=== PATIENT | male | born 1960 | race Caucasian/White ===

== ENCOUNTER 2019-08-13 11:43 | Outpatient (CLI) | payer OTHER, SELFPAY ==
[2019-08-13 13:05] LABS: Hematocrit 46.9 % (42.0-52.0); Hemoglobin 15.2 g/dL (14.0-18.0); Mean Corpuscular HGB Conc 32.4 g/dl (32-36); Mean Corpuscular Hemoglobin 28.8 pg (26-34); Mean Corpuscular Volume 88.8 fl (80-100); Mean Platelet Volume 10.4 fl (7.4-10.4); Platelet Count Result 445 k/mm3 (150-375); Red Blood Count 5.28 M/mm3 (4.6-6.20); Red Cell Distribution Width 14.5 % (11.5-14.5); White Blood Count 5.8 K/mm3 (4.5-10.0)
[2019-08-13 13:21] LABS: Alanine Aminotransferase 17 U/L (4-50); Albumin Level 4.4 g/dL (3.5-5.1); Alkaline Phosphatase 129 U/L (38-126); Aspartate Amino Transferase 25 U/L (17-59); Bilirubin,Total 0.3 mg/dL (0.2-1.3); Blood Urea Nitrogen 6 mg/dL (9-20); Calcium 9.2 mg/dL (8.4-10.2); Carbon Dioxide 27 mmol/L (22-30); Chloride 96 mmol/L (98-107); Estimated Glomerular Filt Rate > 60; Glucose 93 mg/dL (75-110); Potassium 4.7 mmol/L (3.4-5.0); Sodium 137 mmol/L (137-145)
[2019-08-13 13:51] LABS: Prostate Specific Antigen 0.6 ng/mL (< OR = 4.0)
== END 2019-08-13 11:44 | disposition home or self-care (01) ==
PROVIDERS: PCP Internal Medicine; Visit Provider Nurse Practitioner
DX: Z12.5 Encounter for screening for malignant neoplasm of prostate (principal); Z79.899 Other long term (current) drug therapy; I10 Essential (primary) hypertension
CPT/HCPCS: 36415; 80053; 84153; 84443; 85027; G0103

== ENCOUNTER 2019-11-03 10:43 | Outpatient (CLI) | payer OTHER, SELFPAY ==
--- NOTE | 2019-11-03 12:00 | NEURO_ITS ---
Patient Number: [id number] Impression: # Complains of numbness of hands. History of neck surgery X 3. # No Carpal Tunnel Syndrome. 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 # Normal needle/EMG exam. # Likely symptomatology due to higher problem. Nerve Conduction Studies Anti Sensory Summary Table Stim Site NR Peak (ms) P-T Amp (?V) Site1 Site2 Delta-P (ms) Dist (cm) Navdeep (m/s) Left Median Anti Sensory (2-3nd Digit) Wrist 2.8 29.3 Wrist 2-3nd Digit 2.8 14.0 50 Wrist 3.0 30.7 Wrist 2-3nd Digit 2.8 14.0 50 Right Median Anti Sensory (2-3nd Digit) Wrist 2.7 60.8 Wrist 2-3nd Digit 2.7 14.0 52 Wrist 2.8 51.2 Wrist 2-3nd Digit 2.7 14.0 52 Left Radial Anti Sensory (Base 1st Digit) Wrist 2.2 18.6 Wrist Base 1st Digit 2.2 0.0 Right Radial Anti Sensory (Base 1st Digit) Wrist 2.3 10.8 Wrist Base 1st Digit 2.3 0.0 Left Ulnar Anti Sensory (5th Digit) Wrist 3.0 40.5 Wrist 5th Digit 3.0 14.0 47 Right Ulnar Anti Sensory (5th Digit) Wrist 2.5 47.1 Wrist 5th Digit 2.5 14.0 56 Motor Summary Table Stim Site NR Onset (ms) O-P Amp (mV) Site1 Site2 Delta-0 (ms) Dist (cm) Navdeep (m/s) Left Median Motor (Abd Poll Brev) Wrist 3.4 4.4 Elbow Wrist 5.2 30.0 58 Elbow 8.6 3.6 Right Median Motor (Abd Poll Brev) Wrist 3.6 2.6 Elbow Wrist 5.2 29.0 56 Elbow 8.8 3.3 Left Ulnar Motor (Abd Dig Minimi) Wrist 2.6 8.3 A Elbow Wrist 5.6 30.0 54 A Elbow 8.2 4.4 Right Ulnar Motor (Abd Dig Minimi) Wrist 2.7 7.0 A Elbow Wrist 5.7 29.0 51 A Elbow 8.4 5.1 B Elbow Wrist 4.4 21.0 48 B Elbow 7.1 4.2 F Wave Studies NR F-Lat (ms) L-R F-Lat (ms) Left Median (Mrkrs) (Abd Poll Brev) 27.66 1.04 Right Median (Mrkrs) (Abd Poll Brev) 28.69 1.04 Left Ulnar (Mrkrs) (Abd Dig Min) 28.11 1.25 Right Ulnar (Mrkrs) (Abd Dig Min) 26.87 1.25 EMG Side Muscle Nerve Root Ins Act Fibs Amp Dur Recrt Comment Right 1stDorInt Ulnar C8-T1 Nml Nml Nml Nml Nml Right Ext Indicis Radial (Post Int) C7-8 Nml Nml Nml Nml Nml Right Ext Digitorum Radial (Post Int) C7-8 Nml Nml Nml Nml Nml Right BrachioRad Radial C5-6 Nml Nml Nml Nml Nml Right PronatorTeres Median C6-7 Nml Nml Nml Nml Nml Right Abd Poll Brev Median C8-T1 Nml Nml Nml Nml Nml Left 1stDorInt Ulnar C8-T1 Nml Nml Nml Nml Nml Left Ext Indicis Radial (Post Int) C7-8 Nml Nml Nml Nml Nml Left Ext Digitorum Radial (Post Int) C7-8 Nml Nml Nml Nml Nml Left BrachioRad Radial C5-6 Nml Nml Nml Nml Nml Left PronatorTeres Median C6-7 Nml Nml Nml Nml Nml Left Abd Poll Brev Median C8-T1 Nml Nml Nml Nml Nml Right Biceps Musculocut C5-6 Nml Nml Nml Nml Nml Right Triceps Radial C6-7-8 Nml Nml Nml Nml Nml Right Deltoid Axillary C5-6 Nml Nml Nml Nml Nml Left Biceps Musculocut C5-6 Nml Nml Nml Nml Nml Left Triceps Radial C6-7-8 Nml Nml Nml Nml Nml Left Deltoid Axillary C5-6 Nml Nml Nml Nml Nml MTDD
== END 2019-11-03 10:44 | disposition home or self-care (01) ==
PROVIDERS: PCP Internal Medicine; Visit Provider Internal Medicine
DX: R20.2 Paresthesia of skin (principal); G56.21 Lesion of ulnar nerve, right upper limb
CPT/HCPCS: 95886; 95911

== ENCOUNTER 2020-02-17 09:34 | Outpatient (CLI) | payer OTHER, SELFPAY ==
[2020-02-17 10:20] LABS: Basophils Absolute Auto 0.1 K/mm3 (0.0-0.1); Basophils Percent Auto 0.8 % (0.2-1.2); Eosinophils Absolute Auto 0.2 K/mm3 (0-0.3); Eosinophils Percent Auto 2.5 % (0-4.4); Hematocrit 44.3 % (42.0-52.0); Immature Granulocyte Absolute 0.02 K/mm3 (0.00-0.031); Immature Granulocyte Percent A 0.3 % (0-0.5); Lymphocytes Absolute Auto 1.83 K/mm3 (0.9-3.2); Lymphocytes Percent Auto 24.9 % (18.3-44.2); Mean Corpuscular HGB Conc 33.9 g/dl (32-36); Mean Corpuscular Hemoglobin 32.5 pg (26-34); Mean Corpuscular Volume 96.1 fl (80-100); Mean Platelet Volume 9.7 fl (7.4-10.4); Monocytes Absolute Auto 0.6 K/mm3 (0.1-0.6); Monocytes Percent Auto 7.6 % (2.6-8.5); Neutrophils Absolute Auto 4.7 K/mm3 (1.3-6.7); Neutrophils Percent Auto 63.9 % (45.5-73.1); Platelet Count Result 320 k/mm3 (150-375); Red Blood Count 4.61 M/mm3 (4.6-6.20); Red Cell Distribution Width 15.2 % (11.5-14.5); White Blood Count 7.3 K/mm3 (4.5-10.0)
== END 2020-02-17 09:35 | disposition home or self-care (01) ==
LOC: ANHLAB 09:36
PROVIDERS: PCP Internal Medicine; Visit Provider Internal Medicine
DX: D47.3 Essential (hemorrhagic) thrombocythemia (principal)
CPT/HCPCS: 36415; 85025

== ENCOUNTER 2020-03-05 10:21 | Outpatient (CLI) | payer OTHER, SELFPAY ==
--- NOTE | ~2020-03-05 | MR_ITS ---
EXAMINATION: MR cervical spine wo con DATE: 03/05/2020 11:40 INDICATION: Paresthesias of skin. TECHNIQUE: Magnetic resonance imaging (MRI) of the cervical spine was performed without intravenous c ontrast. Sequences included sagittal T2-weighted FSE, sagittal STIR FSE, sagittal T1-weighted FSE, ax ial MERGE, and axial T2-weighted FSE. COMPARISON: Cervical spine MRI 01/27/2018 FINDINGS: There is 2 mm retrolisthesis of C4 on C5. There are changes of anterior fusion procedure fr om C5 to C7 with healed interbody bone graft and anterior plate and screws. Vertebral body heights ar e normal. There is severely decreased disc height at C4-C5 and C7-T1. The spinal cord signal intensit y is normal. The following disc levels are specifically discussed: C2-C3: The disc does not extend beyond the endplate margin. There is mild bilateral uncovertebral trevor nt osteoarthritis. There is moderate bilateral facet joint osteoarthritis. There is no neural foramin al stenosis. There is no central canal stenosis. C3-C4: The disc is bulging. There is mild bilateral uncovertebral joint osteoarthritis. There is mode rate right and severe left facet joint osteoarthritis. There is mild right and moderate left neural f oraminal stenosis. There is no central canal stenosis. C4-C5: The disc is bulging. There is severe bilateral uncovertebral joint osteoarthritis. There is mi ld right and moderate left facet joint osteoarthritis. There is mild right and severe left neural for aminal stenosis. There is mild central canal stenosis. C5-C6: There is mild right and moderate left uncovertebral joint hypertrophy. There is no facet joint osteoarthritis. There is moderate left neural foraminal stenosis. There is mild central canal stenos is. C6-C7: There is mild right uncovertebral joint hypertrophy. There is ankylosis of right facet joint w ithout hypertrophy. There is mild right neural foraminal stenosis. There is no central canal stenosis . C7-T1: The disc is bulging. There is severe bilateral uncovertebral joint osteoarthritis. There is mo derate bilateral facet joint osteoarthritis. There is moderate bilateral neural foraminal stenosis. T here is mild central canal stenosis. IMPRESSION: 1. Severe cervical spondylosis, stable from 01/27/2018. 2. Anterior fusion procedure from C5 to C7. Reviewed, dictated and finalized at location A.
== END 2020-03-05 10:22 | disposition home or self-care (01) ==
LOC: ANHIMG 10:25
PROVIDERS: PCP Internal Medicine; Visit Provider Internal Medicine
DX: R20.2 Paresthesia of skin (principal); M47.812 Spondylosis without myelopathy or radiculopathy, cervical region; Z98.1 Arthrodesis status
CPT/HCPCS: 72141

== ENCOUNTER 2020-03-26 01:49 | Outpatient (CLI) | payer OTHER, SELFPAY ==
[2020-03-26 17:58] LABS: SARS-CoV-2 RNA PCR Negative
== END 2020-03-26 01:50 | disposition home or self-care (01) ==
LOC: ANHCOVIDDT 01:49
PROVIDERS: PCP Internal Medicine; Visit Provider Internal Medicine Gastroenterology
DX: Z01.812 Encounter for preprocedural laboratory examination (principal); Z20.828 Contact with and (suspected) exposure to other viral communicable diseases
CPT/HCPCS: 87635; C9803; U0003

== ENCOUNTER 2020-03-29 01:01 | Day surgery (SDC) | payer OTHER, SELFPAY ==
[2020-03-22 15:00] VITALS: BMI 23.4
[2020-03-29 09:21] VITALS: BP 119/87; PULSE 91; RESP 18; TEMP 36.8; O2SAT 98
[2020-03-29] MEDS: LACTATED RINGERS 1,000 ML 150 ML IV CONT (09:32)
--- NOTE | 2020-03-29 10:03 | WPDANESEPPF ---
Anes - Initial Pre Proc Eval Procedure: Operation Date: 03/29/20 10:30 Proposed Procedures p Screening Colonoscopy - Brayan Sanchez MD Date/Time: 03/29/20 10:03 Surgeon: Brayan Sanchez MD Pre Op Diagnosis: Neoplasm Screening Patient Data Age: 59 Gender: M Height: 5 ft 5 in Weight: 63.5 kg Last Vital Signs Temp 98.3 F 03/29/20 09:21 Pulse 91 03/29/20 09:21 Resp 18 03/29/20 09:21 BP 119/87 03/29/20 09:21 Pulse Ox 98 03/29/20 09:21 Allergies Allergy/AdvReac Type Severity Reaction Status Date / Time No Known Allergies Allergy Verified 03/29/20 09:20 Home Medications Medication Instructions Recorded Confirmed Type aspirin 325 mg tablet,delayed 325 mg PO DAILY 08/19/19 03/22/20 History release amlodipine 5 mg tablet 5 mg PO DAILY #90 tablet 08/20/19 03/29/20 Rx gabapentin 600 mg tablet 600 mg PO TID #270 tablet 11/17/19 03/22/20 Rx lisinopril 40 mg tablet 40 mg PO DAILY #90 tablet 11/17/19 03/22/20 Rx tramadol 50 mg tablet 50 mg PO Q8H PRN #60 tablet 02/08/20 03/22/20 Rx Patient hx anesthesia problems: none Family hx anesthesia problems: none PMFSH Past Medical History Medical History (Updated 03/29/20 @ 10:03 by Tam Vazquez MD) Essential hypertension Hyperlipidemia LDL goal <100 Family History Family History (Updated 02/06/19 @ 15:22 by DOCTOR UNKNOWN) Sibling Family history of multiple sclerosis Family history of diabetes mellitus in first degree relative Mother Carcinoma of colon Family history of coronary artery disease Father Carcinoma of colon Family history of heart disease in male family member before age 55 Patient's father is Family history of cardiovascular disease Other Family history of malignant neoplasm Social History Social History Smoking packs per day: 1 Smoking cigarettes per day: 20.0 Years smoked: 43 Smoking pack-years: 43.00 Smoking status: Current every day smoker Tobacco type: cigarettes Second hand tobacco smoke exposure: No Alcohol intake: current Drinks per week: 12 Alcohol use details: beer Living arrangements: with family Spiritual care concerns: No Anes - Eval Final PreProcedure Day of Procedure 03/29/20 10:03 Patient weight: normal Heart: regular rate and rhythm Lungs: clear to auscultation Airway: Mallampati scale class II Neurological: alert and oriented Last oral intake: >/= 8 hours ASA classification: II Emergent: no Anesthetic plan: proceed Anesthesia type and monitoring: general GIVS and standard monitoring Informed Consent: The patient's anesthetic plan and its attendant risks and benefits were discussed with the patient/family/POA. Questions were solicited and answers provided to the satisfaction of the patient/family/POA.
--- NOTE | 2020-03-29 10:23 | SUR.PREOP ---
offered to call nephew and report delay in start time. Pt said it wasn't necessary.
--- NOTE | 2020-03-29 11:20 | PM.HPGS ---
History of Present Illness History of Present Illness Consent: Risks, benefits, and alternatives have been discussed and questions answered. Patient agrees to proceed with procedure. Chief complaint: Neoplasm Screening Narrative: Calin Andino is a 59 year old male with history of both parents with colon cancer, his last colonoscopy over 20 years ago. Review of Systems Constitutional: Constitutional: Denies headache(s) and Denies weakness Eyes: Eyes: Denies blurry vision ENT: Reports Normal hearing present, Denies headache(s) and Denies neck pain Cardiovascular: Cardiovascular: Denies chest pain and Denies dyspnea Respiratory: Respiratory: Denies dyspnea Gastrointestinal: Gastrointestinal: Reports no additional gastrointestinal complaints Genitourinary: Genitourinary: Denies dysuria Musculoskeletal: Musculoskeletal: Denies neck pain Integumentary/Breasts: Skin/Breast: Denies dry skin Neurologic: Reports Normal hearing present, Denies headache(s) and Denies weakness Psychiatric: Psychiatric: Denies anxiety Endocrine: Endocrine: Denies change in body appearance Hematologic/Lymphatic: Hematologic/Lymphatic: Denies easy bleeding Allergic/Immunologic: Allergic/Immunologic: Denies urticaria PMFSH Past Medical History Medical History (Updated 03/29/20 @ 11:21 by Brayan Sanchez MD) Essential hypertension Family history of colon cancer Hyperlipidemia LDL goal <100 Family History Family History (Updated 02/06/19 @ 15:22 by DOCTOR UNKNOWN) Sibling Family history of multiple sclerosis Family history of diabetes mellitus in first degree relative Mother Carcinoma of colon Family history of coronary artery disease Father Carcinoma of colon Family history of heart disease in male family member before age 55 Patient's father is Family history of cardiovascular disease Other Family history of malignant neoplasm Social History Social History Smoking packs per day: 1 Smoking cigarettes per day: 20.0 Years smoked: 43 Smoking pack-years: 43.00 Smoking status: Current every day smoker Tobacco type: cigarettes Second hand tobacco smoke exposure: No Alcohol intake: current Drinks per week: 12 Alcohol use details: beer Living arrangements: with family Spiritual care concerns: No Meds Home Medications and Allergies Home Medications Medication Instructions Recorded Confirmed Type aspirin 325 mg tablet,delayed 325 mg PO DAILY 08/19/19 03/22/20 History release amlodipine 5 mg tablet 5 mg PO DAILY #90 tablet 08/20/19 03/29/20 Rx gabapentin 600 mg tablet 600 mg PO TID #270 tablet 11/17/19 03/22/20 Rx lisinopril 40 mg tablet 40 mg PO DAILY #90 tablet 11/17/19 03/22/20 Rx tramadol 50 mg tablet 50 mg PO Q8H PRN #60 tablet 02/08/20 03/22/20 Rx Allergies Allergy/AdvReac Type Severity Reaction Status Date / Time No Known Allergies Allergy Verified 03/29/20 09:20 Vital Signs Vital Signs - 24 hr 03/29/20 09:21 Temperature 98.3 F Pulse Rate 91 Respiratory Rate 18 Blood Pressure 119/87 Pulse Oximetry 98 Exam Const: General: comfortable and no acute distress HENMT: General nose exam: Normal nares present Eyes: General: appearance normal, both eyes and all related structures Neck: Neck: no JVD Resp: Auscultation: clear to auscultation bilaterally Cardio: Rate: regular rate Rhythm: regular rhythm GI: Inspection: non-distended GI Palp: Yes Soft to palpation Skin: General skin exam: normal color Neuro: General: gait normal Speech: normal speech Extrem: General: normal to inspection Psych: Mental Status: mental status grossly normal Assessment and Plan Assessment and plan (1) Family history of colon cancer: Code(s): Z80.0 - Family history of malignant neoplasm of digestive organs Status: Acute Assessment and Plan: will proceed with colonoscopy (2) Chronic obstructive pulmonary disease, u
[2020-03-29 13:10] VITALS: BP 142/96; PULSE 71; RESP 22; O2SAT 100
[2020-03-29 13:20] VITALS: BP 150/94; PULSE 68; RESP 26; O2SAT 100
[2020-03-29 13:30] VITALS: BP 144/88; PULSE 67; RESP 23; O2SAT 100
== END 2020-03-29 13:45 | disposition home or self-care (01) ==
PROVIDERS: PCP Internal Medicine; Visit Provider Internal Medicine Gastroenterology
PROC: 0DJD8ZZ Inspection of Lower Intestinal Tract, Via Natural or Artificial Opening Endoscopic (ICD-10-PCS; CPT 45378; principal; 2020-03-29 10:30)
DX: Z12.11 Encounter for screening for malignant neoplasm of colon (principal); D12.2 Benign neoplasm of ascending colon; D12.4 Benign neoplasm of descending colon; I10 Essential (primary) hypertension; E78.5 Hyperlipidemia, unspecified; Z79.82 Long term (current) use of aspirin; F17.210 Nicotine dependence, cigarettes, uncomplicated
CPT/HCPCS: 45390; 45385; 88305; J2704; J7120

== ENCOUNTER → 2020-09-24 01:27 | Outpatient (CLI) | payer OTHER, SELFPAY ==
[2020-09-26 19:29] LABS: SARS-CoV-2 RNA PCR Negative
== END ==
PROVIDERS: PCP Internal Medicine; Visit Provider Internal Medicine Gastroenterology
DX: Z01.812 Encounter for preprocedural laboratory examination (principal); Z20.822 Contact with and (suspected) exposure to COVID-19
CPT/HCPCS: C9803; U0003; U0005

== ENCOUNTER 2020-09-28 00:51 | Day surgery (SDC) | payer OTHER, SELFPAY ==
[2020-09-14 13:44] VITALS: BMI 25.0
[2020-09-28 06:25] VITALS: BP 149/91; PULSE 98; RESP 20; TEMP 36.4; O2SAT 100
[2020-09-28] MEDS: LACTATED RINGERS 1,000 ML 150 ML IV CONT (06:53)
--- NOTE | 2020-09-28 07:00 | WPDANESEPP ---
Anes - Eval Pre Procedure Procedure: Operation Date: 09/28/20 07:30 Proposed Procedures p Screening Colonoscopy - Brayan Sanchez MD Date/Time: 09/28/20 07:00 Pre Op Diagnosis: hx of polyps Patient Data Age: 59 Gender: M Height: 1.63 m Weight: 66 kg Last Vital Signs Temp 36.4 C 09/28/20 06:25 Pulse 98 09/28/20 06:25 Resp 20 09/28/20 06:25 BP 149/91 H 09/28/20 06:25 Pulse Ox 100 09/28/20 06:25 Allergies Allergy/AdvReac Type Severity Reaction Status Date / Time No Known Allergies Allergy Verified 09/28/20 06:24 Home Medications Medication Instructions Recorded Confirmed Type aspirin 325 mg tablet,delayed 325 mg PO DAILY 08/19/19 09/28/20 History release gabapentin 600 mg tablet 600 mg PO TID #270 tablet 05/13/20 09/28/20 Rx lisinopril 40 mg tablet 40 mg PO DAILY #90 tablet 05/13/20 09/28/20 Rx tramadol 50 mg tablet 50 mg PO Q8H PRN #60 tablet 09/09/20 09/28/20 Rx amlodipine 5 mg PO DAILY 09/14/20 09/28/20 History Patient hx anesthesia problems: none Family hx anesthesia problems: none PMFSH Past Medical History Medical History Essential hypertension Family history of colon cancer Hyperlipidemia LDL goal <100 Screening for cardiovascular condition Screening for lipid disorders Family History Family History Sibling Family history of multiple sclerosis Family history of diabetes mellitus in first degree relative Mother Carcinoma of colon Family history of coronary artery disease Father Carcinoma of colon Family history of heart disease in male family member before age 55 Patient's father is Family history of cardiovascular disease Other Family history of malignant neoplasm Social History Social History Smoking packs per day: 1 Smoking cigarettes per day: 20.0 Years smoked: 40 Smoking pack-years: 40.00 Smoking status: Current every day smoker Tobacco type: cigarettes Second hand tobacco smoke exposure: No Alcohol intake: current Drinks per week: 15 Alcohol use details: beer Substance use: never Living arrangements: with family Gender identity (if verbalized by the patient): Male Spiritual care concerns: No Exam Day of Procedure 09/28/20 07:00
[2020-09-28 07:06] VITALS: BMI 23.7
--- NOTE | 2020-09-28 07:08 | WPDANESEPPF ---
Anes - Initial Pre Proc Eval Procedure: Operation Date: 09/28/20 07:30 Proposed Procedures p Screening Colonoscopy - Brayan Sanchez MD Date/Time: 09/28/20 07:08 Surgeon: Brayan Sanchez MD Pre Op Diagnosis: hx of polyps Patient Data Age: 59 Gender: M Height: 5 ft 4 in Weight: 62.7 kg Last Vital Signs Temp 97.6 F 09/28/20 06:25 Pulse 98 09/28/20 06:25 Resp 20 09/28/20 06:25 BP 149/91 H 09/28/20 06:25 Pulse Ox 100 09/28/20 06:25 Allergies Allergy/AdvReac Type Severity Reaction Status Date / Time No Known Allergies Allergy Verified 09/28/20 06:24 Home Medications Medication Instructions Recorded Confirmed Type aspirin 325 mg tablet,delayed 325 mg PO DAILY 08/19/19 09/28/20 History release gabapentin 600 mg tablet 600 mg PO TID #270 tablet 05/13/20 09/28/20 Rx lisinopril 40 mg tablet 40 mg PO DAILY #90 tablet 05/13/20 09/28/20 Rx tramadol 50 mg tablet 50 mg PO Q8H PRN #60 tablet 09/09/20 09/28/20 Rx amlodipine 5 mg PO DAILY 09/14/20 09/28/20 History Patient hx anesthesia problems: none Family hx anesthesia problems: none PMFSH Past Medical History Medical History Essential hypertension Family history of colon cancer Hyperlipidemia LDL goal <100 Screening for cardiovascular condition Screening for lipid disorders Family History Family History Sibling Family history of multiple sclerosis Family history of diabetes mellitus in first degree relative Mother Carcinoma of colon Family history of coronary artery disease Father Carcinoma of colon Family history of heart disease in male family member before age 55 Patient's father is Family history of cardiovascular disease Other Family history of malignant neoplasm Social History Social History Smoking packs per day: 1 Smoking cigarettes per day: 20.0 Years smoked: 40 Smoking pack-years: 40.00 Smoking status: Current every day smoker Tobacco type: cigarettes Second hand tobacco smoke exposure: No Alcohol intake: current Drinks per week: 15 Alcohol use details: beer Substance use: never Living arrangements: with family Gender identity (if verbalized by the patient): Male Spiritual care concerns: No Anes - Eval Final PreProcedure Day of Procedure 09/28/20 07:08 Patient weight: normal Heart: regular rate and rhythm Lungs: clear to auscultation Airway: Mallampati scale class II Neurological: alert and oriented Last oral intake: >/= 8 hours ASA classification: II Emergent: no Anesthetic plan: proceed Anesthesia type and monitoring: general GIVS and standard monitoring Informed Consent: The patient's anesthetic plan and its attendant risks and benefits were discussed with the patient/family/POA. Questions were solicited and answers provided to the satisfaction of the patient/family/POA.
--- NOTE | 2020-09-28 07:28 | PM.HPGS ---
History of Present Illness History of Present Illness Consent: Risks, benefits, and alternatives have been discussed and questions answered. Patient agrees to proceed with procedure. Chief complaint: hx of polyps Narrative: Calin Andino is a 59 year old male with large polyp removed 03/2020 and both parents with colon cancer Review of Systems Constitutional: Constitutional: Denies headache(s) and Denies weakness Eyes: Eyes: Denies blurry vision ENT: Reports Normal hearing present, Denies headache(s) and Denies neck pain Cardiovascular: Cardiovascular: Denies chest pain and Denies dyspnea Respiratory: Respiratory: Denies dyspnea Gastrointestinal: Gastrointestinal: Reports no additional gastrointestinal complaints Genitourinary: Genitourinary: Denies dysuria Musculoskeletal: Musculoskeletal: Denies neck pain Integumentary/Breasts: Skin/Breast: Denies dry skin Neurologic: Reports Normal hearing present, Denies headache(s) and Denies weakness Psychiatric: Psychiatric: Denies anxiety Endocrine: Endocrine: Denies change in body appearance Hematologic/Lymphatic: Hematologic/Lymphatic: Denies easy bleeding Allergic/Immunologic: Allergic/Immunologic: Denies urticaria PMFSH Past Medical History Medical History Essential hypertension Family history of colon cancer Hyperlipidemia LDL goal <100 Screening for cardiovascular condition Screening for lipid disorders Family History Family History Sibling Family history of multiple sclerosis Family history of diabetes mellitus in first degree relative Mother Carcinoma of colon Family history of coronary artery disease Father Carcinoma of colon Family history of heart disease in male family member before age 55 Patient's father is Family history of cardiovascular disease Other Family history of malignant neoplasm Social History Social History Smoking packs per day: 1 Smoking cigarettes per day: 20.0 Years smoked: 40 Smoking pack-years: 40.00 Smoking status: Current every day smoker Tobacco type: cigarettes Second hand tobacco smoke exposure: No Alcohol intake: current Drinks per week: 15 Alcohol use details: beer Substance use: never Living arrangements: with family Gender identity (if verbalized by the patient): Male Spiritual care concerns: No Meds Home Medications and Allergies Home Medications Medication Instructions Recorded Confirmed Type aspirin 325 mg tablet,delayed 325 mg PO DAILY 08/19/19 09/28/20 History release gabapentin 600 mg tablet 600 mg PO TID #270 tablet 05/13/20 09/28/20 Rx lisinopril 40 mg tablet 40 mg PO DAILY #90 tablet 05/13/20 09/28/20 Rx tramadol 50 mg tablet 50 mg PO Q8H PRN #60 tablet 09/09/20 09/28/20 Rx amlodipine 5 mg PO DAILY 09/14/20 09/28/20 History Allergies Allergy/AdvReac Type Severity Reaction Status Date / Time No Known Allergies Allergy Verified 09/28/20 06:24 Vital Signs Vital Signs - 24 hr 09/28/20 06:25 Temperature 97.6 F Pulse Rate 98 Respiratory Rate 20 Blood Pressure 149/91 H Pulse Oximetry 100 Exam Const: General: comfortable and no acute distress HENMT: General nose exam: Normal nares present Eyes: General: appearance normal, both eyes and all related structures Neck: Neck: no JVD Resp: Auscultation: clear to auscultation bilaterally Cardio: Rate: regular rate Rhythm: regular rhythm GI: Inspection: non-distended GI Palp: Yes Soft to palpation Skin: General skin exam: normal color Neuro: General: gait normal Speech: normal speech Extrem: General: normal to inspection Psych: Mental Status: mental status grossly normal Assessment and Plan Assessment and plan (1) Family history of colon cancer: Code(s): Z80.0 - Family history of malig
[2020-09-28 08:21] VITALS: BP 140/74; PULSE 71; RESP 20; O2SAT 99
[2020-09-28 08:31] VITALS: BP 161/95; PULSE 74; RESP 17; O2SAT 100
[2020-09-28 08:41] VITALS: BP 139/78; PULSE 73; RESP 15; O2SAT 100
== END 2020-09-28 08:58 | disposition home or self-care (01) ==
PROVIDERS: PCP Internal Medicine; Visit Provider Internal Medicine Gastroenterology
PROC: 0DJD8ZZ Inspection of Lower Intestinal Tract, Via Natural or Artificial Opening Endoscopic (ICD-10-PCS; CPT 45378; principal; 2020-09-28 07:30)
DX: Z09 Encounter for follow-up examination after completed treatment for conditions other than malignant neoplasm (principal); D12.2 Benign neoplasm of ascending colon; D12.4 Benign neoplasm of descending colon; K64.8 Other hemorrhoids; Z80.0 Family history of malignant neoplasm of digestive organs; I10 Essential (primary) hypertension; E78.5 Hyperlipidemia, unspecified; Z79.82 Long term (current) use of aspirin; F17.210 Nicotine dependence, cigarettes, uncomplicated
CPT/HCPCS: 45385; 88305; C9803; J2704; J7120; U0003; U0005

== ENCOUNTER 2021-03-09 11:13 | Outpatient (CLI) | payer OTHER, SELFPAY ==
[2021-03-09 12:16] LABS: Anion Gap 11 mmol/L (8-16); Blood Urea Nitrogen 5 mg/dL (9-20); Carbon Dioxide 23 mmol/L (22-30); Chloride 98 mmol/L (98-107); Cholesterol 179 mg/dL (0-200); Estimated Glomerular Filt Rate > 60; Glucose 91 mg/dL (65-110); HDL Direct 96 mg/dL; Potassium 4.8 mmol/L (3.4-5.0); Sodium 132 mmol/L (137-145); Triglycerides 44 mg/dL (<150)
[2021-03-09 12:28] LABS: LDL Cholesterol Direct 70 mg/dL
[2021-03-09 12:48] LABS: Prostate Specific Antigen 0.8 ng/mL (< OR = 4.0)
== END 2021-03-09 11:14 | disposition home or self-care (01) ==
LOC: ANHLAB 11:14
PROVIDERS: PCP Internal Medicine; Visit Provider Nurse Practitioner
DX: I10 Essential (primary) hypertension (principal); E78.5 Hyperlipidemia, unspecified; Z12.5 Encounter for screening for malignant neoplasm of prostate
CPT/HCPCS: 36415; 80048; 80061; 84153; G0103

== ENCOUNTER 2021-06-05 01:22 | Day surgery (SDC) | payer OTHER, SELFPAY ==
[2021-06-02 11:07] VITALS: BMI 23.4
[2021-06-05 11:12] VITALS: BP 150/84; PULSE 99; RESP 20; TEMP 36.4; O2SAT 100
[2021-06-05] MEDS: LACTATED RINGERS 1,000 ML 150 ML IV CONT (11:21)
--- NOTE | 2021-06-05 11:24 | WPDANESEPPF ---
Anes - Initial Pre Proc Eval Procedure: Operation Date: 06/05/21 12:30 Proposed Procedures p Esophagogastroduodenoscopy - Brayan Sanchez MD Date/Time: 06/05/21 11:24 Surgeon: Brayan Sanchez MD Pre Op Diagnosis: early satiety, bloating, abdominal pain Patient Data Age: 60 Gender: M Height: 1.63 m Weight: 59.5 kg Last Vital Signs Temp 36.4 C 06/05/21 11:12 Pulse 99 06/05/21 11:12 Resp 20 06/05/21 11:12 BP 150/84 H 06/05/21 11:12 Pulse Ox 100 06/05/21 11:12 Allergies Allergy/AdvReac Type Severity Reaction Status Date / Time No Known Allergies Allergy Verified 06/05/21 11:11 Home Medications Medication Instructions Recorded Confirmed Type aspirin 325 mg tablet,delayed 325 mg PO DAILY 08/19/19 06/02/21 History release amlodipine 5 mg tablet 5 mg PO DAILY #90 tablet 05/29/21 06/02/21 Rx lisinopril 40 mg tablet 40 mg PO DAILY #90 tablet 05/29/21 06/02/21 Rx tramadol 50 mg PO Q8H PRN 06/02/21 06/02/21 History Patient hx anesthesia problems: none Family hx anesthesia problems: none Results Review: All pre-operative results and documents have been reviewed as part of the pre-operative evaluation. REPLACED BY [facility] Past Medical History Medical History Adenomatous colon polyp Essential hypertension Family history of colon cancer Hyperlipidemia LDL goal <100 Screening for cardiovascular condition Screening for lipid disorders Family History Family History Sibling Family history of multiple sclerosis Family history of diabetes mellitus in first degree relative Mother Carcinoma of colon Family history of coronary artery disease Father Carcinoma of colon Family history of heart disease in male family member before age 55 Patient's father is Family history of cardiovascular disease Other Family history of malignant neoplasm Social History Social History Smoking packs per day: 1 Smoking cigarettes per day: 20.0 Years smoked: 40 Smoking pack-years: 40.00 Smoking status: Current every day smoker Tobacco type: cigarettes Second hand tobacco smoke exposure: No Alcohol intake: current Drinks per week: 12 Alcohol use details: Beer Substance use: never Living arrangements: with family Gender identity (if verbalized by the patient): Male Spiritual care concerns: No Anes - Eval Final PreProcedure Day of Procedure 06/05/21 11:24 Patient weight: normal Heart: regular rate and rhythm Lungs: clear to auscultation Airway: Mallampati scale class II Neurological: alert and oriented Last oral intake: >/= 8 hours ASA classification: III Emergent: no Anesthetic plan: proceed Anesthesia type and monitoring: general GIVS and standard monitoring Results Review: All pre-operative results and documents have been reviewed as part of the pre-operative evaluation. Informed Consent: The patient's anesthetic plan and its attendant risks and benefits were discussed with the patient/family/POA. Questions were solicited and answers provided to the satisfaction of the patient/family/POA.
--- NOTE | 2021-06-05 12:21 | WPDHPUPDATE1 ---
History and Physical Update Update Date/Time: 06/05/21 12:21 History and Physical has been reviewed, including an updated exam of the patient. There are NO changes in the patient's condition. Risks, benefits, and alternatives have been discussed and questions answered. Patient agrees to proceed with procedure.
[2021-06-05 12:38] VITALS: BP 103/72; PULSE 82; RESP 18; O2SAT 99
[2021-06-05 12:47] VITALS: BP 108/79; PULSE 76; RESP 17; O2SAT 97
[2021-06-05 12:58] VITALS: BP 164/99; PULSE 79; RESP 17; O2SAT 100
== END 2021-06-05 13:09 | disposition home or self-care (01) ==
PROVIDERS: PCP Internal Medicine; Visit Provider Internal Medicine Gastroenterology
PROC: 0DJ08ZZ Inspection of Upper Intestinal Tract, Via Natural or Artificial Opening Endoscopic (ICD-10-PCS; CPT 43235; principal; 2021-06-05 12:30)
DX: R10.13 Epigastric pain (principal); R14.0 Abdominal distension (gaseous); K29.50 Unspecified chronic gastritis without bleeding; K44.9 Diaphragmatic hernia without obstruction or gangrene; I10 Essential (primary) hypertension; E78.5 Hyperlipidemia, unspecified; F17.210 Nicotine dependence, cigarettes, uncomplicated
CPT/HCPCS: 43239; 88305; J2704; J7120

== ENCOUNTER 2021-06-15 08:44 | Outpatient (CLI) | payer OTHER, SELFPAY ==
--- NOTE | ~2021-06-15 | CT_ITS ---
EXAMINATION: CT abdomen pelvis w con DATE: 06/15/2021 09:00 INDICATION: Abnormal weight loss. TECHNIQUE: Computed tomography (CT) of the abdomen and pelvis was performed with 100 cc Omnipaque 350 intravenous contrast. The dose-length product was 225.54 mGy-cm. Automated exposure control and iter ative reconstruction technique were employed. COMPARISON: None. FINDINGS: Lung bases are unremarkable. Heart size normal. There is a 1.7 x 1.0 cm left adrenal mass, likely benign adenoma. There is a cyst of the right hepatic lobe. There is focal fatty infiltration o f the liver near the falciform ligament. The spleen, pancreas, and kidneys are unremarkable. Gallblad aden is present. Normal air-filled appendix. Nonobstructive bowel pattern. No free air or free fluid. No significant vascular abnormality. No lymphadenopathy. There is mild bladder wall thickening. Enlar ged prostate gland. Mild degenerative changes of the hips. Moderate lumbar spondylosis. IMPRESSION: 1. Mild bladder wall thickening which may be due to outlet obstruction from enlarged prostate gland o r cystitis. 2: Left adrenal mass measuring up to 1.7 cm, likely benign adenoma. Reviewed, dictated and finalized at location A. [employer] IMPRESSION: 1. Mild bladder wall thickening which may be due to outlet obstruction from enl arged prostate gland or cystitis. 2: Left adrenal mass measuring up to 1.7 cm, likely benign adenoma.
[2021-06-15 08:50] LABS: Estimated Glomerular Filt Rate > 60
[2021-06-15 09:35] LABS: Hematocrit 44.1 % (42.0-52.0); Mean Platelet Volume 9.9 fl (7.4-10.4); Platelet Count Result 309 k/mm3 (150-375); Red Blood Count 4.41 M/mm3 (4.6-6.20); Red Cell Distribution Width 13.2 % (11.5-14.5); White Blood Count 3.8 K/mm3 (4.5-10.0)
[2021-06-15 10:01] LABS: Alanine Aminotransferase 23 U/L (4-50); Alkaline Phosphatase 131 U/L (38-126); Anion Gap 8 mmol/L (8-16); Aspartate Amino Transferase 43 U/L (17-59); Bilirubin,Total 0.7 mg/dL (0.2-1.3); Blood Urea Nitrogen 3 mg/dL (9-20); Calcium 8.9 mg/dL (8.4-10.2); Carbon Dioxide 24 mmol/L (22-30); Chloride 102 mmol/L (98-107); Estimated Glomerular Filt Rate > 60; Glucose 82 mg/dL (65-110); Potassium 4.8 mmol/L (3.4-5.0); Sodium 134 mmol/L (137-145)
== END 2021-06-15 08:45 | disposition home or self-care (01) ==
LOC: ANHIMG 08:44
PROVIDERS: PCP Internal Medicine; Visit Provider Internal Medicine Gastroenterology
DX: R10.9 Unspecified abdominal pain (principal); R63.4 Abnormal weight loss; R68.81 Early satiety; D35.02 Benign neoplasm of left adrenal gland
CPT/HCPCS: 74177; 80053; 85027; Q9967

== ENCOUNTER 2021-09-19 00:31 | Day surgery (SDC) | payer OTHER, SELFPAY ==
[2021-09-06 14:44] VITALS: BMI 22.4
[2021-09-19 06:40] VITALS: BP 153/79; PULSE 85; RESP 18; TEMP 36.6; O2SAT 99; BMI 21.9
[2021-09-19] MEDS: LACTATED RINGERS 1,000 ML 150 ML IV CONT (06:59)
--- NOTE | 2021-09-19 07:34 | WPDANESEPPF ---
Anes - Initial Pre Proc Eval Procedure: Operation Date: 09/19/21 08:00 Proposed Procedures p Screening Colonoscopy - Brayan Sanchez MD Date/Time: 09/19/21 07:34 Surgeon: Brayan Sanchez MD Pre Op Diagnosis: hx of colon polyps Patient Data Age: 60 Gender: M Height: 1.65 m Weight: 59.9 kg Last Vital Signs Temp 97.8 F 09/19/21 06:40 Pulse 85 09/19/21 06:40 Resp 18 09/19/21 06:40 BP 153/79 H 09/19/21 06:40 Pulse Ox 99 09/19/21 06:40 Allergies Allergy/AdvReac Type Severity Reaction Status Date / Time No Known Allergies Allergy Verified 09/19/21 06:48 Home Medications Medication Instructions Recorded Confirmed Type aspirin 325 mg tablet,delayed 325 mg PO DAILY 08/19/19 09/19/21 History release amlodipine 5 mg tablet 5 mg PO DAILY #90 tablet 05/29/21 09/19/21 Rx lisinopril 40 mg tablet 40 mg PO DAILY #90 tablet 05/29/21 09/19/21 Rx tramadol 50 mg PO Q8H PRN 06/02/21 09/19/21 History omeprazole 40 mg PO DAILY 09/06/21 09/19/21 History Patient hx anesthesia problems: none Family hx anesthesia problems: none Results Review: All pre-operative results and documents have been reviewed as part of the pre-operative evaluation. [facility] Past Medical History Medical History (Updated 08/03/21 @ 12:02 by Brayan Sanchez MD) Adenomatous colon polyp Adrenal adenoma Early satiety Essential hypertension Family history of colon cancer Hyperlipidemia LDL goal <100 Screening for cardiovascular condition Screening for lipid disorders Weight loss Family History Family History Sibling Family history of multiple sclerosis Family history of diabetes mellitus in first degree relative Mother Carcinoma of colon Family history of coronary artery disease Father Carcinoma of colon Family history of heart disease in male family member before age 55 Patient's father is Family history of cardiovascular disease Other Cancer Family history of malignant neoplasm Heart disease Social History Social History Smoking packs per day: 1 Smoking cigarettes per day: 20.0 Years smoked: 40 Smoking pack-years: 40.00 Smoking status: Current every day smoker Tobacco type: cigarettes Second hand tobacco smoke exposure: No Alcohol intake: current Drinks per week: 12 Alcohol use details: 12 pack of beer per week Substance use: never Substance use type: does not use Living arrangements: with family Gender identity (if verbalized by the patient): Male Spiritual care concerns: No Anes - Eval Final PreProcedure Day of Procedure 09/19/21 07:34 Patient weight: normal Heart: regular rate and rhythm Lungs: clear to auscultation Airway: Mallampati scale class II Neurological: alert and oriented Last oral intake: >/= 8 hours ASA classification: III Emergent: no Anesthetic plan: proceed Anesthesia type and monitoring: general GIVS and standard monitoring Results Review: All pre-operative results and documents have been reviewed as part of the pre-operative evaluation. Informed Consent: The patient's anesthetic plan and its attendant risks and benefits were discussed with the patient/family/POA. Questions were solicited and answers provided to the satisfaction of the patient/family/POA.
--- NOTE | 2021-09-19 07:45 | PM.HPGS ---
History of Present Illness History of Present Illness Consent: Risks, benefits, and alternatives have been discussed and questions answered. Patient agrees to proceed with procedure. Chief complaint: hx of colon polyps Narrative: Calin Andino is a 60 year old male with large colon polyps removed last year, also both parents had colon cancer. Review of Systems Constitutional: Constitutional: Denies headache(s) and Denies weakness Eyes: Eyes: Denies blurry vision ENT: Reports Normal hearing present, Denies headache(s) and Denies neck pain Cardiovascular: Cardiovascular: Denies chest pain and Denies dyspnea Respiratory: Respiratory: Denies dyspnea Gastrointestinal: Gastrointestinal: Reports no additional gastrointestinal complaints Genitourinary: Genitourinary: Denies dysuria Musculoskeletal: Musculoskeletal: Denies neck pain Integumentary/Breasts: Skin/Breast: Denies dry skin Neurologic: Reports Normal hearing present, Denies headache(s) and Denies weakness Psychiatric: Psychiatric: Denies anxiety Endocrine: Endocrine: Denies change in body appearance Hematologic/Lymphatic: Hematologic/Lymphatic: Denies easy bleeding Allergic/Immunologic: Allergic/Immunologic: Denies urticaria PMFSH Past Medical History Medical History (Updated 08/03/21 @ 12:02 by Brayan Sanchez MD) Adenomatous colon polyp Adrenal adenoma Early satiety Essential hypertension Family history of colon cancer Hyperlipidemia LDL goal <100 Screening for cardiovascular condition Screening for lipid disorders Weight loss Family History Family History Sibling Family history of multiple sclerosis Family history of diabetes mellitus in first degree relative Mother Carcinoma of colon Family history of coronary artery disease Father Carcinoma of colon Family history of heart disease in male family member before age 55 Patient's father is Family history of cardiovascular disease Other Cancer Family history of malignant neoplasm Heart disease Social History Social History Smoking packs per day: 1 Smoking cigarettes per day: 20.0 Years smoked: 40 Smoking pack-years: 40.00 Smoking status: Current every day smoker Tobacco type: cigarettes Second hand tobacco smoke exposure: No Alcohol intake: current Drinks per week: 12 Alcohol use details: 12 pack of beer per week Substance use: never Substance use type: does not use Living arrangements: with family Gender identity (if verbalized by the patient): Male Spiritual care concerns: No Meds Home Medications and Allergies Home Medications Medication Instructions Recorded Confirmed Type aspirin 325 mg tablet,delayed 325 mg PO DAILY 08/19/19 09/19/21 History release amlodipine 5 mg tablet 5 mg PO DAILY #90 tablet 05/29/21 09/19/21 Rx lisinopril 40 mg tablet 40 mg PO DAILY #90 tablet 05/29/21 09/19/21 Rx tramadol 50 mg PO Q8H PRN 06/02/21 09/19/21 History omeprazole 40 mg PO DAILY 09/06/21 09/19/21 History Allergies Allergy/AdvReac Type Severity Reaction Status Date / Time No Known Allergies Allergy Verified 09/19/21 06:48 Vital Signs Vital Signs - 24 hr 09/19/21 06:40 Temperature 97.8 F Pulse Rate 85 Respiratory Rate 18 Blood Pressure 153/79 H Pulse Oximetry 99 Exam Const: General: comfortable and no acute distress HENMT: General nose exam: Normal nares present Eyes: General: appearance normal, both eyes and all related structures Neck: Neck: no JVD Resp: Auscultation: clear to auscultation bilaterally Cardio: Rate: regular rate Rhythm: regular rhythm GI: Inspection: non-distended GI Palp: Yes Soft to palpation Skin: General skin exam: normal color Neuro: General: gait normal Speech: normal speech Extrem: General: normal to inspection Psych: Mental Statu
[2021-09-19 08:11] VITALS: BP 106/72; PULSE 73; RESP 21; O2SAT 98
[2021-09-19 08:21] VITALS: BP 114/76; PULSE 72; RESP 21; O2SAT 99
[2021-09-19 08:31] VITALS: BP 139/92; PULSE 74; RESP 21; O2SAT 98
== END 2021-09-19 08:52 | disposition home or self-care (01) ==
PROVIDERS: PCP Internal Medicine; Visit Provider Internal Medicine Gastroenterology
PROC: 0DJD8ZZ Inspection of Lower Intestinal Tract, Via Natural or Artificial Opening Endoscopic (ICD-10-PCS; CPT 45378; principal; 2021-09-19 08:00)
DX: Z12.11 Encounter for screening for malignant neoplasm of colon (principal); D12.0 Benign neoplasm of cecum; D12.2 Benign neoplasm of ascending colon; D12.3 Benign neoplasm of transverse colon; D12.5 Benign neoplasm of sigmoid colon; Z80.0 Family history of malignant neoplasm of digestive organs; I10 Essential (primary) hypertension; E78.5 Hyperlipidemia, unspecified; Z79.82 Long term (current) use of aspirin; F17.210 Nicotine dependence, cigarettes, uncomplicated
CPT/HCPCS: 45385; 45380; 88305; J2704; J7120

== ENCOUNTER 2021-10-18 10:38 | Outpatient (CLI) | payer OTHER, SELFPAY ==
[2021-10-18 11:53] LABS: Anion Gap 8 mmol/L (8-16); Blood Urea Nitrogen 6 mg/dL (9-20); Calcium 8.9 mg/dL (8.4-10.2); Carbon Dioxide 24 mmol/L (22-30); Chloride 103 mmol/L (98-107); Estimated Glomerular Filt Rate > 60; Glucose 101 mg/dL (65-110); Potassium 4.8 mmol/L (3.4-5.0); Sodium 135 mmol/L (137-145)
[2021-10-18 12:24] LABS: Cortisol Baseline 9.31 ug/dL
[2021-10-20 12:32] LABS: DHEA-Sulfate 63 mcg/dL (24-244)
[2021-10-22 11:35] LABS: Metanephrine, Free 54 pg/mL (<=57); Normetanephrine, Free 234 pg/mL (<=148); Total, Free (MN + NMN) 288 pg/mL (<=205)
[2021-10-25 14:27] LABS: Renin 31.78 ng/mL/h (0.25-5.82)
== END 2021-10-18 10:39 | disposition home or self-care (01) ==
LOC: ANHLAB 10:40
PROVIDERS: PCP Internal Medicine; Visit Provider Internal Medicine Endocrinology, Diabetes & Metabolism
DX: E27.8 Other specified disorders of adrenal gland (principal)
CPT/HCPCS: 36415; 80048; 82088; 82533; 82627; 83835; 84244

== ENCOUNTER 2021-11-21 10:01 | Outpatient (CLI) | payer OTHER, SELFPAY ==
--- NOTE | ~2021-11-21 | NM_ITS ---
EXAM: NM gastric emptying study DATE: 11/21/2021 15:00 CDT INDICATION: Early satiety TECHNIQUE: A gastric emptying study was performed using the methodology of Akin BELL, et al. J Nucl Med 2007; 48:568-572. The patient was given a meal consisting of 2 scrambled eggs labeled with 26 mC i Tc-99m sulfur colloid, 2 slices of toast, two packages of jam, and approximately 120 mL of water. S imultaneous anterior and posterior 1-min images of the abdomen were obtained with the patient supine at multiple time points over a total period of 4 hours. The geometric mean of anterior and posterior views was determined, and the percentage retention was calculated for each time point. COMPARISON: CT dated 06/15/2021. FINDINGS: Gastric retention of the radiotracer-labeled meal was 60%, 38%, and 11% at the 1-hour, 2-h our, and 4-hour time points, respectively. With this technique, apparent rapid gastric emptying is mitchell ggested by <30% gastric retention at 1 hour. Delayed gastric emptying is defined by gastric retention of >90% at 1 hour, >60% retention at 2 hours, or >10% retention at 4 hours. IMPRESSION: 1. Mildly delayed gastric emptying. Reviewed, dictated and finalized at location A.
== END 2021-11-21 10:02 | disposition home or self-care (01) ==
LOC: ANHIMG 10:04
PROVIDERS: PCP Internal Medicine; Visit Provider Nurse Practitioner Family
DX: R68.81 Early satiety (principal); K59.00 Constipation, unspecified; K30 Functional dyspepsia
CPT/HCPCS: 78264; A9541

== ENCOUNTER 2022-01-17 09:36 | Outpatient (CLI) | payer OTHER, SELFPAY ==
[2022-01-17 13:15] LABS: Creatinine Urine 21.1 mg/dL
[2022-01-17 13:33] LABS: Creatinine 24 Hour Urine 0.5 gm/24 (1.0-2.0); Total Volume 24 Hour Urine 2400 ml
[2022-01-25 14:21] LABS: Metanephrine, Total Urine 219; Metanephrine, Urine 71; Normetanephrine, Urine 148
== END 2022-01-17 09:37 | disposition home or self-care (01) ==
LOC: ANHLAB 09:37
PROVIDERS: PCP Internal Medicine; Visit Provider Internal Medicine Endocrinology, Diabetes & Metabolism
DX: E27.8 Other specified disorders of adrenal gland (principal); R79.89 Other specified abnormal findings of blood chemistry
CPT/HCPCS: 81050; 82384; 82530; 82570; 83835

== ENCOUNTER 2022-02-20 13:06 | Outpatient (CLI) | payer OTHER, SELFPAY ==
--- NOTE | ~2022-02-20 | CT_ITS ---
EXAMINATION: CT abdomen pelvis wo/w con DATE: 02/20/2022 13:54 yoana INDICATION: Adrenal incidentaloma TECHNIQUE: Computed tomography (CT) of the abdomen and pelvis was performed without and subsequently with 100 CC Omnipaque 350 intravenous contrast. Automated exposure control and iterative reconstructi on technique were employed. Exam dose: 543.38 mGy-cm total exam DLP. COMPARISON: 06/15/2021 CT abdomen pelvis FINDINGS: The lung bases are clear of infiltrate or consolidation. Normal heart size. No pericardial or pleural effusion. Approximately 1 cm and 3 mm right hepatic cysts. The liver, gallbladder, bile ducts, pancreas, pancre atic duct and spleen are otherwise unremarkable. Medial limb of left adrenal gland is prominent, likely due to hypertrophy or small adenoma absolute w ashout of the adrenal gland at this site measures 87% (greater than 60% washout is highly suggestive of an adrenal adenoma.) No renal mass lesion or urinary tract calculus or hydroureteronephrosis. The urinary bladder is unrem arkable. There is atherosclerotic calcification but normal caliber of the abdominal aorta. No intraperitoneal or retroperitoneal or pelvic mass lesion or adenopathy or ascites. Normal appendix. No bowel obstruction, bowel wall thickening, pneumatosis or intraperitoneal free air . No suspicious osteolytic or osteoblastic lesions. Degenerative changes of the thoracic and lumbar spi ne and hips. IMPRESSION: Left adrenal hypertrophy versus small adenoma Reviewed, dictated and finalized at Location [facility]. Reviewed, dictated and finalized at location B.
[2022-02-20 13:33] LABS: Estimated Glomerular Filt Rate > 60
== END 2022-02-20 13:07 | disposition home or self-care (01) ==
PROVIDERS: PCP Internal Medicine; Visit Provider Internal Medicine Endocrinology, Diabetes & Metabolism
DX: E27.8 Other specified disorders of adrenal gland (principal)
CPT/HCPCS: 74178; Q9967

== ENCOUNTER 2022-12-07 03:22 | Day surgery (SDC) | payer OTHER, SELFPAY ==
[2022-11-28 13:01] VITALS: BMI 22.5
--- NOTE | 2022-12-07 07:35 | WPDANESEPPF ---
Anes - Initial Pre Proc Eval Procedure: Operation Date: 12/07/22 08:30 Proposed Procedures p Colonoscopy - Brayan Sanchez MD Date/Time: 12/07/22 07:35 Surgeon: Brayan Sanchez MD Pre Op Diagnosis: hx colon polyps, family hx colon ca Patient Data Age: 62 Gender: M Height: 1.65 m Weight: 61.4 kg Allergies Allergy/AdvReac Type Severity Reaction Status Date / Time No Known Allergies Allergy Verified 12/07/22 07:38 Home Medications Medication Instructions Recorded Confirmed Type aspirin 325 mg tablet,delayed 325 mg PO DAILY 08/19/19 12/07/22 History release (Aspir-Shaista) amlodipine 5 mg tablet 5 mg PO DAILY #90 tabs 06/08/22 12/07/22 Rx omeprazole 40 mg capsule,delayed 40 mg PO DAILY #30 caps 09/03/22 12/07/22 Rx release tramadol 50 mg tablet 50 mg PO Q8H PRN Pain #60 tabs 10/12/22 12/07/22 Rx lisinopril 40 mg tablet 40 mg PO DAILY #90 tabs 11/21/22 12/07/22 Rx metoclopramide HCl 5 mg tablet See Rx Instructions .Route 12/03/22 Rx .COMPLEX #90 tabs metoclopramide HCl 10 mg tablet 10 mg PO Q8H PRN gastroparesis 12/04/22 12/07/22 Rx (Reglan) #90 tabs tamsulosin 0.4 mg capsule 0.4 mg PO DAILY #90 caps 12/04/22 12/07/22 Rx Patient hx anesthesia problems: none Family hx anesthesia problems: none Results Review: All pre-operative results and documents have been reviewed as part of the pre-operative evaluation. [facility] Past Medical History Medical History (Updated 12/07/22 @ 07:40 by Aneudy Vega MD) Adenomatous colon polyp Adrenal incidentaloma Chronic midline low back pain without sciatica Chronic obstructive pulmonary disease, unspecified Early satiety Elevated plasma metanephrines Essential hypertension Family history of colon cancer Hyperlipidemia LDL goal <100 Rheumatoid arthritis Screening for cardiovascular condition Screening for lipid disorders Tobacco dependence Weight loss Surgical History Surgical History (Updated 12/07/22 @ 07:37 by Aneudy Vega MD) History of spinal surgery Family History Family History Sibling Family history of multiple sclerosis Family history of diabetes mellitus in first degree relative Mother Carcinoma of colon Family history of coronary artery disease Father Carcinoma of colon Family history of heart disease in male family member before age 55 Patient's father is Family history of cardiovascular disease Other Cancer Family history of malignant neoplasm Heart disease Social History Social History (Updated 12/04/22 @ 12:56 by Lisandra Will CMA) Smoking packs per day: 1 Smoking cigarettes per day: 20.0 Years smoked: 35 Smoking pack-years: 35.00 Smoking status: Current every day smoker Tobacco type: cigarettes Second hand tobacco smoke exposure: No Alcohol intake: current Drinks per week: 12 Alcohol use details: 12 pack beer/week Substance use: never Substance use type: does not use Lack of Transportation: No Lack of Food: Never True Current Housing: I Have Housing Concerned About Future Housing: No Difficulty Paying Gas/Electric Bills: No Difficulty Paying for Meds: No Currently Unemployed: No Education: High School Diploma/GED Difficulty w/ Childcare or Family Care: No Living arrangements: with family Gender identity (if verbalized by the patient): Male Spiritual care concerns: No Anes - Eval Final PreProcedure Day of Procedure 12/07/22 07:35 Patient weight: normal Heart: regular rate and rhythm Lungs: clear to auscultation Airway: Mallampati scale class II Neurological: alert and oriented Last oral intake: >/= 8 hours ASA classification: III Emergent: no Anesthetic plan: proceed Anesthesia type and monitoring: general GIVS and standard monitoring Results Review: All pre-operative results and documents have been reviewed as part of the pre-operative
[2022-12-07 07:41] VITALS: BP 134/80; PULSE 91; RESP 17; TEMP 36.6; O2SAT 98; BMI 22.1
[2022-12-07] MEDS: LACTATED RINGERS 1,000 ML 150 ML IV CONT (07:51)
--- NOTE | 2022-12-07 08:13 | PM.HPGS ---
History of Present Illness History of Present Illness Consent: Risks, benefits, and alternatives have been discussed and questions answered. Patient agrees to proceed with procedure. Chief complaint: hx colon polyps, family hx colon ca Narrative: Calin Andino is a 62 year old male with large polyps removed 1 year ago, both parents had colon cancer Review of Systems Constitutional: Constitutional: Denies headache(s) and Denies weakness Eyes: Eyes: Denies blurry vision ENT: Reports Normal hearing present, Denies headache(s) and Denies neck pain Cardiovascular: Cardiovascular: Denies chest pain and Denies dyspnea Respiratory: Respiratory: Denies dyspnea Gastrointestinal: Gastrointestinal: Reports no additional gastrointestinal complaints Genitourinary: Genitourinary: Denies dysuria Musculoskeletal: Musculoskeletal: Denies neck pain Integumentary/Breasts: Skin/Breast: Denies dry skin Neurologic: Reports Normal hearing present, Denies headache(s) and Denies weakness Psychiatric: Psychiatric: Denies anxiety Endocrine: Endocrine: Denies change in body appearance Hematologic/Lymphatic: Hematologic/Lymphatic: Denies easy bleeding Allergic/Immunologic: Allergic/Immunologic: Denies urticaria PMFSH Past Medical History Medical History (Updated 12/07/22 @ 07:40 by Aneudy Vega MD) Adenomatous colon polyp Adrenal incidentaloma Chronic midline low back pain without sciatica Chronic obstructive pulmonary disease, unspecified Early satiety Elevated plasma metanephrines Essential hypertension Family history of colon cancer Hyperlipidemia LDL goal <100 Rheumatoid arthritis Screening for cardiovascular condition Screening for lipid disorders Tobacco dependence Weight loss Surgical History Surgical History (Updated 12/07/22 @ 07:37 by Aneudy Vega MD) History of spinal surgery Family History Family History Sibling Family history of multiple sclerosis Family history of diabetes mellitus in first degree relative Mother Carcinoma of colon Family history of coronary artery disease Father Carcinoma of colon Family history of heart disease in male family member before age 55 Patient's father is Family history of cardiovascular disease Other Cancer Family history of malignant neoplasm Heart disease Social History Social History (Updated 12/04/22 @ 12:56 by Lisandra Will CMA) Smoking packs per day: 1 Smoking cigarettes per day: 20.0 Years smoked: 35 Smoking pack-years: 35.00 Smoking status: Current every day smoker Tobacco type: cigarettes Second hand tobacco smoke exposure: No Alcohol intake: current Drinks per week: 12 Alcohol use details: 12 pack beer/week Substance use: never Substance use type: does not use Lack of Transportation: No Lack of Food: Never True Current Housing: I Have Housing Concerned About Future Housing: No Difficulty Paying Gas/Electric Bills: No Difficulty Paying for Meds: No Currently Unemployed: No Education: High School Diploma/GED Difficulty w/ Childcare or Family Care: No Living arrangements: with family Gender identity (if verbalized by the patient): Male Spiritual care concerns: No Meds Home Medications and Allergies Home Medications Medication Instructions Recorded Confirmed Type aspirin 325 mg tablet,delayed 325 mg PO DAILY 08/19/19 12/07/22 History release (Aspir-Shaista) amlodipine 5 mg tablet 5 mg PO DAILY #90 tabs 06/08/22 12/07/22 Rx omeprazole 40 mg capsule,delayed 40 mg PO DAILY #30 caps 09/03/22 12/07/22 Rx release tramadol 50 mg tablet 50 mg PO Q8H PRN Pain #60 tabs 10/12/22 12/07/22 Rx lisinopril 40 mg tablet 40 mg PO DAILY #90 tabs 11/21/22 12/07/22 Rx metoclopramide HCl 5 mg tablet See Rx Instructions .Route 12/03/22 Rx .COMPLEX #90 tabs metoclopramide HCl 10 mg tablet 10 mg PO Q8H PRN gastroparesis
[2022-12-07 08:34] VITALS: BP 101/71; PULSE 73; RESP 19; O2SAT 96
[2022-12-07 08:44] VITALS: BP 104/69; PULSE 68; RESP 16; O2SAT 99
[2022-12-07 08:54] VITALS: BP 112/75; PULSE 76; RESP 25; O2SAT 100
== END 2022-12-07 09:03 | disposition home or self-care (01) ==
PROVIDERS: PCP Family Medicine; Visit Provider Internal Medicine Gastroenterology
PROC: 0DJD8ZZ Inspection of Lower Intestinal Tract, Via Natural or Artificial Opening Endoscopic (ICD-10-PCS; CPT 45378; principal; 2022-12-07 08:30)
DX: Z12.11 Encounter for screening for malignant neoplasm of colon (principal); K64.8 Other hemorrhoids; Z86.010 Personal history of colon polyps; Z80.0 Family history of malignant neoplasm of digestive organs; I10 Essential (primary) hypertension; E78.5 Hyperlipidemia, unspecified; M06.9 Rheumatoid arthritis, unspecified; J44.9 Chronic obstructive pulmonary disease, unspecified; Z79.82 Long term (current) use of aspirin; F17.210 Nicotine dependence, cigarettes, uncomplicated
CPT/HCPCS: G0105; J2704; J7120

== ENCOUNTER 2022-12-17 13:37 | Outpatient (CLI) | payer OTHER, SELFPAY ==
--- NOTE | ~2022-12-17 | CT_ITS ---
CT Scan of the Chest without Contrast: Clinical Indication: Personal history of nicotine dependence, lung cancer screening Technique: Contiguous sections were acquired throughout the chest without intravenous contrast. Dose reduction technique was used on this scan by utilizing automated exposure control and iterative recon struction technique. The dose-length product (DLP) was 68.29 mGy-cm. Findings: There is no evidence of any significant mediastinal, hilar or axillary lymphadenopathy. Calcified med iastinal lymph nodes are noted. Coronary artery calcifications are present. There is no evidence of pleural or pericardial effusion. Moderate emphysema is present. There is a 1 cm irregular pulmonary nodular opacity in the left lower lobe (axial images 63-65). There are multiple additional tiny 2-3 mm peripheral pulmonary nodules. Images through the upper abdomen reveal no abnormalities. Impression: Lung RADS 4A: Suspicious. 3 month follow-up CT recommended. Moderate emphysema. Reviewed, dictated and finalized at [facility]. Impression: Lung RADS 4A: Suspicious. 3 month follow-up CT recommended. Moderate emphysema.
== END 2022-12-17 13:38 | disposition home or self-care (01) ==
LOC: ANHIMG 13:43
PROVIDERS: PCP Family Medicine; Visit Provider Family Medicine
DX: Z12.2 Encounter for screening for malignant neoplasm of respiratory organs (principal); Z87.891 Personal history of nicotine dependence; J43.9 Emphysema, unspecified
CPT/HCPCS: 71271

== ENCOUNTER 2023-03-08 08:14 | Outpatient (CLI) | payer OTHER, SELFPAY ==
--- NOTE | ~2023-03-08 | CT_ITS ---
Clinical Indication: Pulmonary nodule CT Scan of the Chest with Contrast: Technique: Contiguous sections were acquired throughout the chest after intravenous administration of 75 cc of Omnipaque 350. Dose reduction technique was used on this scan by utilizing automated exposu re control and iterative reconstruction technique. The dose-length product (DLP) was 132.16 mGy-cm. COMPARISON: 12/17/2022 Findings: There is no evidence of any significant mediastinal, hilar or axillary lymphadenopathy. No large cent ral pulmonary embolus evident. There is no evidence of aortic dissection or aneurysm. There is no evidence of pleural or pericardial effusion. There is moderate emphysema and/or scattered cystic bronchiectatic change. There are multiple periphe ral tiny pulmonary nodules measuring 2-3 mm in size. The larger nodule seen on prior exam the left lo wer lobe is largely resolved. Images through the upper abdomen reveal no abnormalities. Impression: Multiple subcentimeter peripheral pulmonary nodules suggest small airways infectious process and/or c hronic postinflammatory change. Larger nodule seen on prior exam in the left lower lobe is largely resolved. Moderate emphysema and/or cystic bronchiectatic change. Reviewed, dictated and finalized at location . Impression: Multiple subcentimeter peripheral pulmonary nodules suggest small airways infec tious process and/or chronic postinflammatory change. Larger nodule seen on prior exam in the left lower lobe is largely resolved. Moderate emphysema and/or cystic bronchiectatic change.
[2023-03-08 09:06] LABS: Estimated Glomerular Filt Rate > 60
[2023-03-08 09:53] LABS: Hematocrit 43.4 % (42.0-52.0); Hemoglobin 14.1 g/dL (14.0-18.0); Mean Corpuscular HGB Conc 32.5 g/dl (32-36); Mean Corpuscular Hemoglobin 28.3 pg (26-34); Mean Corpuscular Volume 87.1 fl (80-100); Mean Platelet Volume 9.6 fl (7.4-10.4); Platelet Count Result 363 k/mm3 (150-375); Red Blood Count 4.98 M/mm3 (4.6-6.20); White Blood Count 6.1 K/mm3 (4.5-10.0)
[2023-03-08 10:05] LABS: Alanine Aminotransferase 23 U/L (6-50); Albumin Level 4.3 g/dL (3.5-5.1); Alkaline Phosphatase 116 U/L (38-126); Anion Gap 6 mmol/L (8-16); Aspartate Amino Transferase 34 U/L (17-59); Bilirubin,Total 0.6 mg/dL (0.2-1.3); Blood Urea Nitrogen 5 mg/dL (9-20); Calcium 8.8 mg/dL (8.4-10.2); Carbon Dioxide 25 mmol/L (22-30); Chloride 102 mmol/L (98-107); Cholesterol 202 mg/dL (0-200); Estimated Glomerular Filt Rate > 60; Glucose 96 mg/dL (65-110); HDL Direct 57 mg/dL; Potassium 4.2 mmol/L (3.4-5.0); Sodium 133 mmol/L (137-145); Triglycerides 85 mg/dL (<150)
[2023-03-08 10:17] LABS: LDL Cholesterol Direct 117 mg/dL
[2023-03-08 12:52] LABS: Prostate Specific Antigen 0.9 ng/mL (< OR = 4.0)
== END 2023-03-08 08:15 | disposition home or self-care (01) ==
PROVIDERS: PCP Family Medicine; Visit Provider Family Medicine
DX: R79.89 Other specified abnormal findings of blood chemistry (principal); J44.9 Chronic obstructive pulmonary disease, unspecified; G89.29 Other chronic pain; M54.50 Low back pain, unspecified; K59.00 Constipation, unspecified; E78.5 Hyperlipidemia, unspecified; I10 Essential (primary) hypertension; F17.200 Nicotine dependence, unspecified, uncomplicated; N40.0 Benign prostatic hyperplasia without lower urinary tract symptoms; R91.1 Solitary pulmonary nodule; Z12.5 Encounter for screening for malignant neoplasm of prostate; R91.8 Other nonspecific abnormal finding of lung field
CPT/HCPCS: 71260; 80053; 80061; 84153; 85027; G0103; Q9967

== ENCOUNTER 2023-12-09 11:13 | Observation (INO) | payer OTHER, SELFPAY ==
[2023-12-09] VITALS (9 sets, daily range): BP systolic 142–196; BP diastolic 75–103; PULSE 78–100; RESP 15–24; TEMP 36.6–36.7; O2SAT 95–100; BMI 24.5
--- NOTE | ~2023-12-09 | CT_ITS ---
EXAMINATION: CTA chest PE protocol DATE: 12/09/2023 13:36 INDICATION: Shortness of breath. TECHNIQUE: Computed tomography angiography (CTA) of the chest was performed with 100 mL Omnipaque-350 intravenous contrast timed to evaluate the pulmonary arteries. Coronal maximum intensity projection 3D-reconstructions were created by the technologist. Automated exposure control and iterative reconst ruction technique were employed. The dose-length product was 269.67 mGy-cm. COMPARISON: Chest CT 03/08/2023 FINDINGS: There is moderate emphysema. There is smooth septal thickening in the lungs, consistent mil d pulmonary edema. A calcified left lung nodule and calcified left hilar and mediastinal lymph nodes are consistent with old granulomatous disease. There are small pleural effusions. There is mild depen dent atelectasis bilaterally. The heart size is normal. No pericardial effusion. There are changes of coronary artery bypass grafting. There is no pulmonary embolus. There is an 8 mm cyst in the liver. There are changes of anterior fusion procedure in cervical spine. There is mild chronic anterior wedg ing of multiple vertebral bodies. There is mild thoracic spondylosis. IMPRESSION: 1. No pulmonary embolus. 2. Mild pulmonary edema. 3. Small pleural effusions. 4. Moderate emphysema. Reviewed, dictated and finalized at location E.
--- NOTE | 2023-12-09 11:18 | ECG_ITS ---
Test Date: 2023-12-09 11:31:28 Measurements Intervals [place] Rate: 82 P: 16 AR: 154 QRS: -14 QRSD: 123 T: 77 QT: 418 QTc: 488 Interpretive Statements SINUS RHYTHM WITH OCCASIONAL SUPRAVENTRICULAR PREMATURE COMPLEXES LEFT BUNDLE BRANCH BLOCK [120+ ms QRS DURATION, 80+ ms Q/S IN V1/V2, 85+ ms R IN I/aVL/V5/V6] ABNORMAL ECG Electronically Signed On 12-09-2023 15:27:05 CDT by Jan Lopez M.D.
--- NOTE | 2023-12-09 11:18 | ED.SOB ---
HPI - SOB/Dyspnea General Chief Complaint: Shortness of Breath/Dyspnea <HAMZAH Henriquez Last Filed: 12/09/23 16:31> Stated Complaint: SOB <HAMZAH Henriquez Last Filed: 12/09/23 16:31> Time Seen by Provider: 12/09/23 11:17 <HAMZAH Henriquez Last Filed: 12/09/23 16:31> Source: patient <HAMZAH Henriquez Last Filed: 12/09/23 16:31> Mode of arrival: ambulatory <HAMZAH Henriquez Last Filed: 12/09/23 16:31> Limitations: no limitations <HAMZAH Henriquez Last Filed: 12/09/23 16:31> History of Present Illness HPI Narrative: Patient is a 63 y/o male who presents to the ED with c/o SOB. Patient reports having increased shortness breath over the last 3 days. Reports shortness breath is worse with exertion and speaking in long sentences. He denies previous history of COPD or asthma, though I do see COPD in his medical records. Patient states he has an inhaler at home, but it has never helped so he does not use it. He quit smoking 2-3 months ago. Patient denies any recent cough or cold symptoms, denies chest pain, fevers, sick contacts. He does admit to increased swelling of his lower extremities over last few days. Denies previous hx of CHF. Patient has history of CAD status post triple bypass CABG in September of this year. Cardiologists is Dr. Shaw. Patient reports he was taken off his high blood pressure medication after his CABG. <HAMZAH Henriquez Last Filed: 12/09/23 16:31> Related Data Home Medications: Home Medications Medication Instructions Recorded Confirmed aspirin 81 mg tablet,delayed 81 mg PO DAILY 10/28/23 12/09/23 release atorvastatin 80 mg tablet 80 mg PO QHS 10/28/23 12/09/23 clopidogrel 75 mg tablet 75 mg PO DAILY 10/28/23 12/09/23 <HAMZAH Henriquez Last Filed: 12/09/23 16:31> Allergies/Adverse Reactions: Allergies Allergy/AdvReac Type Severity Reaction Status Date / Time No Known Allergies Allergy Verified 12/09/23 16:55 <Yary Dale PA-C - Last Filed: 12/09/23 16:31> Review of Systems Review of Systems: CONSTITUTIONAL: Denies fever, chills, or sweats. ENT: Denies rhinorrhea, congestion, sore throat. CARDIOVASCULAR: See HPI. RESPIRATORY: See HPI. GASTROINTESTINAL: Denies abdominal pain, nausea, vomiting <Yary Dale PA-C - Last Filed: 12/09/23 16:31> All systems reviewed & are unremarkable except as noted in HPI and below <Yary Dale PA-C - Last Filed: 12/09/23 16:31> [facility] Past Medical History Medical History: Medical History Adenomatous colon polyp Adrenal incidentaloma Benign prostatic hyperplasia Chronic midline low back pain without sciatica Chronic obstructive pulmonary disease, unspecified COPD with emphysema Coronary artery disease Post 3 vessel bypass in September 2023. Elevated plasma metanephrines Essential hypertension Former smoker Gastroparesis Hyperlipidemia LDL goal <100 Rheumatoid arthritis <Yary Dale PA-C - Last Filed: 12/09/23 16:31> Surgical History Surgical History: Surgical History History of cervical spinal surgery History of colonoscopy with polypectomy History of coronary artery bypass graft x 3 (09/2023) PENA to LAD and saphenous vein graft to posterior descending artery and obtuse marginal branch at [facility]. History of open reduction and internal fixation (ORIF) procedure Left ankle. History of repair of left rotator cuff <Yary Dale PA-C - Last Filed: 12/09/23 16:31> Family History Family History: Family History Sibling Family history of multiple sclerosis Family history of diabetes mellitus in first degree relative Mother Carcinoma of co
[2023-12-09] MEDS: IPRATROPIUM BR 0.02% INH SOLN 0.5 MG/2.5 ML VIAL 1.5 MG INHALATION (11:30)
[2023-12-09] MEDS: LEVALBUTEROL NEB 1.25 MG/3 ML 2.5 MG INHALATION (11:30)
[2023-12-09 11:42] LABS: Basophils Percent Auto 0.2 % (0.2-1.2); Eosinophils Absolute Auto 0.2 K/mm3 (0-0.3); Eosinophils Percent Auto 1.8 % (0-4.4); Hematocrit 28.2 % (42.0-52.0); Hemoglobin 8.4 g/dL (14.0-18.0); Immature Granulocyte Absolute 0.06 K/mm3 (0.00-0.031); Immature Granulocyte Percent A 0.6 % (0-0.5); Lymphocytes Absolute Auto 1.52 K/mm3 (0.9-3.2); Lymphocytes Percent Auto 14.2 % (18.3-44.2); Mean Corpuscular HGB Conc 29.8 g/dl (32-36); Mean Corpuscular Hemoglobin 24.9 pg (26-34); Mean Corpuscular Volume 83.7 fl (80-100); Mean Platelet Volume 10.3 fl (7.4-10.4); Monocytes Absolute Auto 0.8 K/mm3 (0.1-0.6); Monocytes Percent Auto 7.3 % (2.6-8.5); Neutrophils Absolute Auto 8.1 K/mm3 (1.3-6.7); Neutrophils Percent Auto 75.9 % (45.5-73.1); Platelet Count Result 362 k/mm3 (150-375); Red Blood Count 3.37 M/mm3 (4.6-6.20); Red Cell Distribution Width 16.6 % (11.5-14.5); White Blood Count 10.7 K/mm3 (4.5-10.0)
[2023-12-09 11:55] LABS: INR 1.1; Partial Thromboplastin Time 35.7 Seconds (22.3-36.8); Prothrombin Time 14.6 Seconds (11.1-14.7)
[2023-12-09 12:00] LABS: Alanine Aminotransferase 16 U/L (6-50); Albumin Level 4.2 g/dL (3.5-5.1); Alkaline Phosphatase 166 U/L (38-126); Anion Gap 10 mmol/L (4-12); Aspartate Amino Transferase 21 U/L (17-59); Blood Urea Nitrogen 7 mg/dL (9-20); Calcium 8.7 mg/dL (8.4-10.2); Carbon Dioxide 24 mmol/L (22-30); Chloride 108 mmol/L (98-107); Estimated CRCL calculation 91 ml/min; Estimated Glomerular Filt Rate > 60; Glucose 103 mg/dL (65-110); Potassium 3.1 mmol/L (3.4-5.0); Sodium 142 mmol/L (137-145)
[2023-12-09 12:09] LABS: NT Pro B Type Natriuretic Pept 8080 pg/mL (19.9-100); Troponin I < 0.012 ng/mL (0.000-0.034)
[2023-12-09 12:10] LABS: D Dimer 1.68 ug/mL (<0.48)
[2023-12-09] MEDS: POTASSIUM CHLORIDE 20 MEQ ER TABLET 40 MEQ PO (12:17)
[2023-12-09 12:19] LABS: Influenza A QL RT-PCR Negative (Negative); Influenza B QL RT-PCR Negative (Negative); RSV RNA, RT-PCR Negative (Negative); SARS-CoV-2 RNA PCR Negative (Negative)
[2023-12-09 12:27] LABS: Anisocytosis 1+; Crenated RBC 1+; Hypochromasia 1+; Platelet Estimate Adequate (Adequate); Poikilocytosis 1+; Schistocytes Rare
--- NOTE | 2023-12-09 12:34 | PC.NURSE ---
pt to ct scan via stretcher at this time. pt on the monitor
[2023-12-09] MEDS: FUROSEMIDE INJ 40 MG/4 ML VIAL IV PUSH ×2 (13:23→20:31)
--- NOTE | 2023-12-09 16:10 | PM.IMHP ---
H&P: HPI History of Present Illness Date/Time: 12/09/23 16:10 Chief Complaint: Shortness of breath. Narrative: This is a very pleasant 63-year-old male, former smoker, with coronary artery disease status post 3 vessel CABG in September 2023, hypertension, hyperlipidemia, and COPD with emphysema who presented to the emergency department via private vehicle for evaluation of shortness of breath. He gives a 3 day history of progressive dyspnea on lesser and lesser exertion. It is now to the point where he is having conversational dyspnea. He has inhaler at home however did not think to try it as it has never helped before. He has also noticed some swelling in his lower extremities. He denies fever, chills, sweats, cold and flu symptoms, chest and pleuritic pain, palpitations, racing heart, orthopnea, paroxysmal nocturnal dyspnea, nausea, vomiting, and sweats. He has not noticed any dark stools or bright red blood in his stools. He also denies epigastric and abdominal pain, bloating, belching, weight loss. In the ED: He had audible wheezing and was sitting in a tripod position in triage. Blood pressures have been running in the 160s systolic. He is currently in a sinus rhythm. Labs are significant for WBC count of 10.7, hemoglobin 8.4, hematocrit 28.2%, MCV 83.7, D-dimer 1.68, potassium 3.1, magnesium 2.0, BUN 7, creatinine 0.60, proBNP 8080, troponin less than 0.012. He tested negative for influenza, RSV, and COVID. EKG showed sinus rhythm, occasional supraventricular premature complexes, and a left bundle branch block. Chest CTA showed no pulmonary embolism, mild pulmonary edema, small pleural effusions, moderate emphysema. Nebulizer treatment was administered on arrival with some improvement. He also received furosemide 40 mg IV and he is being admitted in this setting for further treatment and evaluation. Review of Systems Review of Systems: 12 systems were reviewed and are negative except for as per HPI. [facility] Past Medical History Medical History Adenomatous colon polyp Adrenal incidentaloma Benign prostatic hyperplasia Chronic midline low back pain without sciatica Chronic obstructive pulmonary disease, unspecified COPD with emphysema Coronary artery disease Post 3 vessel bypass in September 2023. Elevated plasma metanephrines Essential hypertension Former smoker Gastroparesis Hyperlipidemia LDL goal <100 Rheumatoid arthritis Surgical History Surgical History History of cervical spinal surgery History of colonoscopy with polypectomy History of coronary artery bypass graft x 3 (09/2023) PENA to LAD and saphenous vein graft to posterior descending artery and obtuse marginal branch at [facility]. History of open reduction and internal fixation (ORIF) procedure Left ankle. History of repair of left rotator cuff Family History Family History Sibling Family history of multiple sclerosis Family history of diabetes mellitus in first degree relative Mother Carcinoma of colon Family history of coronary artery disease Father Carcinoma of colon Family history of heart disease in male family member before age 55 Patient's father is Family history of cardiovascular disease Other Cancer Family history of malignant neoplasm Heart disease Social History Social History (Updated 12/09/23 @ 21:44 by Evangelina Winston PA-C) Social History: Surrogate medical decision maker: Cara Miranda, sibling. Code status: Full code. Smoking packs per day: 1 Smoking cigarettes per day: 20.0 Years smoked: 40 Smoking pack-years: 40.00 Smoking status: Former smoker Tobacco type: cigarettes Second hand tobacco smoke exposure: No Smoking end date: 10/14/23 Alcohol intake: former Drinks per week: 15 Alcohol use details: 12 pack beer/week
--- NOTE | 2023-12-09 16:39 | ADMGEN ---
This patient, Calin Andino, was admitted to 3 [facility] Surg Room 317-01. Patient/family oriented to hospital policies and general routines including ID bracelet, bed and alarms, visiting hours, pain management, procedures, bathroom and other care routines, personal items, smoking policy, room service/diet, and visiting hours. Information on how to activate the Rapid Response Team has been discussed. Patient/Family are encouraged to report perceived risks to care and to ask questions if they do not understand what they are told or what they should do.
[2023-12-09 16:41] LABS: Reticulocyte Hemoglobin Conten 23.7 pg (28.2-36.6); Reticulocyte Percent 1.94 % (0.7-4.3); Reticulocytes Absolute 0.06 10^6/uL (0.02-0.10)
[2023-12-09] MEDS: ACETAMINOPHEN 325 MG TABLET 650 MG PO ×2 (17:05→23:14)
[2023-12-09 18:47] LABS: Iron 30 ug/dL (49-181)
[2023-12-09 18:57] LABS: Percent Iron Saturation 6 % (20-50)
[2023-12-09 19:55] LABS: Folic Acid 9.5 ng/mL (2.76->20)
--- NOTE | 2023-12-09 20:39 | ECG_ITS ---
Test Date: 2023-12-09 20:50:43 Measurements Intervals [place] Rate: 86 P: 24 NC: 141 QRS: -9 QRSD: 132 T: 59 QT: 430 QTc: 517 Interpretive Statements SINUS RHYTHM POSSIBLE LEFT ATRIAL ENLARGEMENT [-0.1mV P WAVE IN V1/V2] LEFT BUNDLE BRANCH BLOCK [120+ ms QRS DURATION, 80+ ms Q/S IN V1/V2, 85+ ms R IN I/aVL/V5/V6] Compared to ECG 12/09/2023 11:31:28 No significant changes Electronically Signed On 12-10-2023 12:04:59 CDT by Troy Machado M.D.
[2023-12-09] MEDS: ATORVASTATIN 40 MG TABLET 80 MG PO (23:14)
[2023-12-09] MEDS: GABAPENTIN 300 MG CAPSULE PO (23:14)
[2023-12-10] VITALS (10 sets, daily range): BP systolic 122–133; BP diastolic 66–81; PULSE 75–98; RESP 16–17; TEMP 35.9–36.6; O2SAT 94–95
--- NOTE | 2023-12-10 06:00 | ECHO_ITS ---
Patient Info Name: Calin Andino Age: 63 years : 1960 Gender: Male Ht: 65 in Wt: 147 lbs BSA: 1.76 m2 HR: 75 bpm BP: 142 / 75 mmHg Heart Rhythm: Sinus Rhythm Technical Quality: Fair Exam Date: 12/10/2023 9:15 AM Exam Location: Echo Lab Patient Status: Outpatient Admit Date: 12/09/2023 Staff Ordering Physician: Yary Dale PA-C Strategic Procurement Manager: Melania Erazo RDCS Attending Provider: Efrain Cerrato MD Referring Physician: Chito ATKINS; Exam Type: CA echo doppler color flow Study Info Indications - CHF, CABG, SOB, [place] Complete two-dimensional, color flow and Doppler transthoracic echocardiogram is performed. Summary 1. Complete two-dimensional, color flow and Doppler transthoracic echocardiogram is performed. 2. Left ventricular chamber dimension is normal. 3. Left ventricular systolic function is normal, estimated at 60-65%. 4. The left ventricular diastolic function is grade I diastolic dysfunction. 5. E/e' 10 is mildly elevated. 6. Left atrial chamber dimension is mildly enlarged. 7. Right atrial chamber dimension is mildly enlarged. 8. There is trace mitral valve regurgitation. 9. There is trace tricuspid valve regurgitation. 10. No pulmonary hypertension, estimated pulmonary arterial systolic pressure is 28 mmHg. Left Ventricle E/e' 10 is mildly elevated. Left ventricular chamber dimension is normal. Left ventricular systolic function is normal, estimated at 60-65%. The left ventricular diastolic function is grade I diastolic dysfunction. Right Ventricle Right ventricular systolic function is normal and with normal TAPSE 1.8 cm. Right ventricular chamber dimension is normal. Left Atria Left atrial chamber dimension is mildly enlarged. Right Atria Right atrial chamber dimension is mildly enlarged. Aortic Valve The aortic valve is trileaflet. There is no aortic valve stenosis. There is no aortic valve regurgitation. Pulmonic Valve There is no pulmonic regurgitation. Mitral Valve There is no mitral valve stenosis. There is trace mitral valve regurgitation. Tricuspid Valve There is trace tricuspid valve regurgitation. No pulmonary hypertension, estimated pulmonary arterial systolic pressure is 28 mmHg. Pericardium/Pleural There is no pericardial effusion. Inferior Vena Cava Normal inferior vena cava with >50% collapse upon inspiration consistent with normal right atrial pressure, 5 mmHg. Aorta The aortic root size at the sinus of Valsalva is normal. Left Ventricular Outflow Tract Name Value Normal LVOT 2D LVOT Diameter 2.0 cm LVOT Doppler LVOT Peak Gradient 6 mmHg LVOT Mean Gradient 3 mmHg LVOT VTI 19 cm LVOT VTI/AV VTI Ratio 0.9 LVOT Stroke Volume 63 ml LVOT CO 5.0 l/min LVOT CI 2.8 l/min/m2 Pulmonic Valve Name Value Normal RVOT Doppler -------
[2023-12-10 06:35] LABS: Hematocrit 27.1 % (42.0-52.0); Hemoglobin 8.4 g/dL (14.0-18.0); Mean Corpuscular Hemoglobin 25.3 pg (26-34); Mean Corpuscular Volume 81.6 fl (80-100); Mean Platelet Volume 10.8 fl (7.4-10.4); Platelet Count Result 340 k/mm3 (150-375); Red Blood Count 3.32 M/mm3 (4.6-6.20); Red Cell Distribution Width 16.5 % (11.5-14.5); White Blood Count 8.7 K/mm3 (4.5-10.0)
[2023-12-10 06:51] LABS: Anion Gap 7 mmol/L (4-12); Blood Urea Nitrogen 8 mg/dL (9-20); Calcium 8.8 mg/dL (8.4-10.2); Carbon Dioxide 29 mmol/L (22-30); Chloride 107 mmol/L (98-107); Estimated CRCL calculation 79 ml/min; Estimated Glomerular Filt Rate > 60; Glucose 86 mg/dL (65-110); Potassium 2.8 mmol/L (3.4-5.0); Sodium 143 mmol/L (137-145)
[2023-12-10] MEDS: traMADol HCL (*CRX) 50 MG TABLET PO ×2 (07:52→18:59)
[2023-12-10] MEDS: KCL 40 MEQ/0.9% SOD CHL 1,000 ML 100 ML IV CONT (07:53)
[2023-12-10] MEDS: CLOPIDOGREL BISULFATE 75 MG TABLET PO (07:59)
[2023-12-10] MEDS: PANTOPRAZOLE 40 MG TABLET PO (08:00)
[2023-12-10] MEDS: FUROSEMIDE INJ 40 MG/4 ML VIAL 20 MG IV PUSH ×2 (08:00→20:26)
[2023-12-10] MEDS: GABAPENTIN 300 MG CAPSULE PO ×3 (08:00→17:22)
[2023-12-10] MEDS: POTASSIUM CHLORIDE 20 MEQ ER TABLET 40 MEQ PO ×3 (08:00→17:22)
[2023-12-10] MEDS: ASPIRIN 81 MG ENTERIC TABLET PO (08:02)
--- NOTE | 2023-12-10 08:14 | PM.IMPN ---
Progress Note: A&P Assessment and Plan (1) Congestive heart failure: Qualifiers: Heart failure chronicity: unspecified Heart failure type: unspecified Qualified Code(s): I50.9 - Heart failure, unspecified Code(s): I50.9 - Heart failure, unspecified Status: Acute Assessment and Plan: complaints of shortness of breath, tripod positioning pBNP 8080 Lasix 20 mg IVP BID ECHO ordered EKG shows NSR rate of 82 Strict I&O Daily weight Tele ordered (2) COPD with emphysema: Code(s): J43.9 - Emphysema, unspecified Status: Acute Assessment and Plan: Room air. Does not have oxygen. Does not have CPAP -apnea link (3) Hypokalemia: Code(s): E87.6 - Hypokalemia Status: Acute Assessment and Plan: Potassium 2.4+, Mg 2.0 Replace with Potassium 40 mEq IVP and K+ 40 meq PO x 1 Repeat K+ this afternoon (4) Anemia: Qualifiers: Anemia type: unspecified type Qualified Code(s): D64.9 - Anemia, unspecified Code(s): D64.9 - Anemia, unspecified Status: Acute Assessment and Plan: Hemoglobin 8.4, was 14.1 back in 02/2023 B12 and folate normal Iron low, saturation low, ferritin low, immature Retic elevated IV Venofer 300 mg x 1, ferrous sulfate 325 mg daily occult blood pending collection (5) Coronary artery disease: Code(s): I25.10 - Atherosclerotic heart disease of [place] coronary artery without angina pectoris Status: Acute Assessment and Plan: status post 3 vessel CABG in September 2023 at [facility] continue Plavix, aspirin, and atorvastatin Denies chest pain (6) Essential hypertension: Code(s): I10 - Essential (primary) hypertension Status: Acute Assessment and Plan: Blood pressures initially elevated 160-190 mm hg Blood pressures reviewed and have been getting better (7) Hyperlipidemia LDL goal <100: Code(s): E78.5 - Hyperlipidemia, unspecified Status: Acute Assessment and Plan: On atorvastatin 80 mg (8) Benign prostatic hyperplasia: Code(s): N40.0 - Benign prostatic hyperplasia without lower urinary tract symptoms Status: Acute Assessment and Plan: Stable Plan Feeding:heart healthy diet Analgesia:Tylenol Thromboembolic prophylaxis: SCD Ulcer prophylaxis: PPI Lines: PIV Antibiotics: na Disposition: home when medically ready Subjective Date/time seen: 12/10/23 08:14 Interval history: This is a very pleasant 63-year-old male, former smoker, with coronary artery disease status post 3 vessel CABG in September 2023, hypertension, hyperlipidemia, and COPD with emphysema who presented to the emergency department via private vehicle for evaluation of shortness of breath. 12/09: Doing well today. He is feeling much better today since admission. His breathing is not yet back to baseline. Crackles are appreciated to bilateral lower lobes. Review of Systems Review of Systems: 12 systems were reviewed and are negative except for as per HPI. Exam Narrative: General: well appearing, appears stated age. HEENT: normocephalic, atraumatic. Mucous membranes moist. EOMI, PERRLA, bilateral sclera anicteric, no conjunctival injection. Neck supple without JVD, lymphadenopathy, or bruit. Respiratory: crackles to auscultation bilaterally. No rales/rhonic/wheezes. Cardiovascular: Regular rate and rhythm, normal S1-S2 upon auscultation. No murmurs, rubs, or clicks. PMI is nondisplaced, capillary refill less than 3 second. Abdomen: Soft, round, no pulsatile masses, nondistended and nontender. No rebound, no guarding. No CVA tenderness, no hepatosplenomegaly. Bowel sounds present to all four quadrants. No high pitch or tinkling sounds, resonant to percussion. Extremities: No cyanosis, clubbing, or edema present. Pulses are palpable 2/2. Active ROM to all four extremities. Neuro: Alert and orientated x 4. PERRLA. Cranial n
[2023-12-10] MEDS: IRON SUCROSE COMPLEX 300 MG in SODIUM CHLORIDE 0.9% IV 250 ML 177 MG IVPB (09:45)
[2023-12-10] MEDS: FERROUS SULFATE 325 MG TABLET DR PO (09:46)
[2023-12-10 14:01] LABS: Potassium 3.3 mmol/L (3.4-5.0)
[2023-12-10] MEDS: ATORVASTATIN 40 MG TABLET 80 MG PO (20:26)
[2023-12-11] VITALS (9 sets, daily range): BP systolic 124–137; BP diastolic 64–76; PULSE 84–102; RESP 16–20; TEMP 36.4–36.9; O2SAT 94–99
--- NOTE | 2023-12-11 00:26 | PCRCNOTE ---
Patient refused apnea link tonight.
[2023-12-11 06:23] LABS: Hematocrit 26.8 % (42.0-52.0); Mean Corpuscular HGB Conc 29.9 g/dl (32-36); Mean Corpuscular Hemoglobin 24.8 pg (26-34); Mean Corpuscular Volume 83.2 fl (80-100); Mean Platelet Volume 10.2 fl (7.4-10.4); Platelet Count Result 334 k/mm3 (150-375); Red Blood Count 3.22 M/mm3 (4.6-6.20); Red Cell Distribution Width 16.6 % (11.5-14.5); White Blood Count 8.2 K/mm3 (4.5-10.0)
[2023-12-11 06:39] LABS: Alanine Aminotransferase 13 U/L (6-50); Albumin Level 3.8 g/dL (3.5-5.1); Alkaline Phosphatase 137 U/L (38-126); Anion Gap 6 mmol/L (4-12); Aspartate Amino Transferase 21 U/L (17-59); Bilirubin,Total 0.7 mg/dL (0.2-1.3); Blood Urea Nitrogen 7 mg/dL (9-20); Carbon Dioxide 26 mmol/L (22-30); Chloride 111 mmol/L (98-107); Estimated CRCL calculation 79 ml/min; Estimated Glomerular Filt Rate > 60; Glucose 89 mg/dL (65-110); Potassium 4.2 mmol/L (3.4-5.0); Sodium 143 mmol/L (137-145)
--- NOTE | 2023-12-11 07:58 | PM.IMPN ---
Progress Note: A&P Assessment and Plan (1) Congestive heart failure: Qualifiers: Heart failure chronicity: unspecified Heart failure type: unspecified Qualified Code(s): I50.9 - Heart failure, unspecified Code(s): I50.9 - Heart failure, unspecified Status: Acute Assessment and Plan: initial complaints of shortness of breath, tripod positioning upon admission pBNP 8080 Lasix 20 mg IVP BID ECHO ordered EKG shows NSR rate of 82 Strict I&O Daily weight Tele ordered 12/10 i/o- in 1220/out 3275 echo- EF 60-65%, There is trace mitral valve regurgitation. There is trace tricuspid valve regurgitation. Will need card f/u outpt - will stop IV lasix tonight and start PO lasix tomorrow (2) COPD with emphysema: Code(s): J43.9 - Emphysema, unspecified Status: Acute Assessment and Plan: Room air. Does not have oxygen. Does not have CPAP -monitor (3) Hypokalemia: Code(s): E87.6 - Hypokalemia Status: Acute Assessment and Plan: Potassium 2.4+, Mg 2.0 Replace with Potassium 40 mEq IVP and K+ 40 meq PO x 1 12/10- K 4.2- monitor (4) Anemia: Qualifiers: Anemia type: unspecified type Qualified Code(s): D64.9 - Anemia, unspecified Code(s): D64.9 - Anemia, unspecified Status: Acute Assessment and Plan: Hemoglobin 8.4, was 14.1 back in 02/2023 B12 and folate normal Iron low, saturation low, ferritin low, immature Retic elevated IV Venofer 300 mg x 1, ferrous sulfate 325 mg daily occult blood pending collection (5) Coronary artery disease: Code(s): I25.10 - Atherosclerotic heart disease of [place] coronary artery without angina pectoris Status: Acute Assessment and Plan: s/p 3 vessel CABG in September [address] [facility] on Plavix, aspirin, and atorvastatin -continue Denies chest pain (6) Essential hypertension: Code(s): I10 - Essential (primary) hypertension Status: Acute Assessment and Plan: Blood pressures initially elevated 160-190 mm hg Blood pressures reviewed and stable- monitor (7) Hyperlipidemia LDL goal <100: Code(s): E78.5 - Hyperlipidemia, unspecified Status: Acute Assessment and Plan: On atorvastatin 80 mg -continue (8) Benign prostatic hyperplasia: Code(s): N40.0 - Benign prostatic hyperplasia without lower urinary tract symptoms Status: Acute Assessment and Plan: Stable Plan Feeding:heart healthy diet Analgesia:Tylenol Thromboembolic prophylaxis: SCD Ulcer prophylaxis: PPI Lines: PIV Antibiotics: na Disposition: home when medically ready Time Spent With Patient Time with patient: 25 - 35 minutes Subjective Date/time seen: 12/11/23 07:58 Interval history: This is a very pleasant 63-year-old male, former smoker, with coronary artery disease status post 3 vessel CABG in September 2023, hypertension, hyperlipidemia, and COPD with emphysema who presented to the emergency department via private vehicle for evaluation of shortness of breath. 12/09: Doing well today. He is feeling much better today since admission. His breathing is not yet back to baseline. Crackles are appreciated to bilateral lower lobes. 12/10- pt is seen and examined today- good output in the last 24 hours- on IV Lasix. Will switch to Oral diuretics and anticipate discharge home tomorrow. Review of Systems Review of Systems: 12 systems were reviewed and are negative except for as per HPI. Exam Narrative: General: well appearing, appears stated age. HEENT: normocephalic, atraumatic. Mucous membranes moist. EOMI, PERRLA, bilateral sclera anicteric, no conjunctival injection. Neck supple without JVD, lymphadenopathy, or bruit. Respiratory: crackles to auscultation bilaterally. No rales/rhonic/wheezes. Cardiovascular: Regular rate and rhythm, normal S1-S2 upon auscultation. No murmurs, rubs, or clicks. PMI is nondisplaced,
[2023-12-11] MEDS: ASPIRIN 81 MG ENTERIC TABLET PO (08:43)
[2023-12-11] MEDS: CLOPIDOGREL BISULFATE 75 MG TABLET PO (08:43)
[2023-12-11] MEDS: FERROUS SULFATE 325 MG TABLET DR PO (08:43)
[2023-12-11] MEDS: traMADol HCL (*CRX) 50 MG TABLET PO ×2 (08:43→22:55)
[2023-12-11] MEDS: FUROSEMIDE INJ 40 MG/4 ML VIAL 20 MG IV PUSH ×2 (08:44→20:28)
[2023-12-11] MEDS: GABAPENTIN 300 MG CAPSULE PO ×3 (08:44→16:28)
[2023-12-11] MEDS: PANTOPRAZOLE 40 MG TABLET PO (08:44)
[2023-12-11] MEDS: ATORVASTATIN 40 MG TABLET 80 MG PO (20:28)
[2023-12-11] MEDS: SACUBITRIL/VALSARTAN 12-13 MG TABLET 1 TAB PO (20:30)
--- NOTE | 2023-12-11 23:27 | PCRCNOTE ---
Patient refused his apnea link this evening. Pt does not want to have this study completed while admitted.
[2023-12-12] VITALS: PULSE 89
[2023-12-12 04:00] VITALS: PULSE 90
[2023-12-12 05:33] VITALS: BP 118/66; PULSE 88; RESP 16; TEMP 37; O2SAT 95
[2023-12-12 07:07] LABS: Hematocrit 27.8 % (42.0-52.0); Hemoglobin 8.6 g/dL (14.0-18.0); Mean Corpuscular HGB Conc 30.9 g/dl (32-36); Mean Corpuscular Hemoglobin 25.4 pg (26-34); Mean Platelet Volume 10.5 fl (7.4-10.4); Platelet Count Result 357 k/mm3 (150-375); Red Blood Count 3.39 M/mm3 (4.6-6.20); Red Cell Distribution Width 16.7 % (11.5-14.5); White Blood Count 8.6 K/mm3 (4.5-10.0)
[2023-12-12 07:22] LABS: Alanine Aminotransferase 13 U/L (6-50); Albumin Level 4.1 g/dL (3.5-5.1); Alkaline Phosphatase 144 U/L (38-126); Anion Gap 8 mmol/L (4-12); Aspartate Amino Transferase 20 U/L (17-59); Bilirubin,Total 0.6 mg/dL (0.2-1.3); Blood Urea Nitrogen 10 mg/dL (9-20); Carbon Dioxide 26 mmol/L (22-30); Chloride 106 mmol/L (98-107); Estimated CRCL calculation 70 ml/min; Estimated Glomerular Filt Rate > 60; Glucose 89 mg/dL (65-110); Potassium 3.8 mmol/L (3.4-5.0); Sodium 140 mmol/L (137-145)
--- NOTE | 2023-12-12 07:36 | PM.IMPN ---
Progress Note: A&P Assessment and Plan (1) Congestive heart failure: Qualifiers: Heart failure chronicity: unspecified Heart failure type: unspecified Qualified Code(s): I50.9 - Heart failure, unspecified Code(s): I50.9 - Heart failure, unspecified Status: Acute Assessment and Plan: initial complaints of shortness of breath, tripod positioning upon admission pBNP 8080 Lasix 20 mg IVP BID ECHO ordered EKG shows NSR rate of 82 Strict I&O Daily weight Tele ordered 12/10 i/o- in 1220/out 3275 echo- EF 60-65%, There is trace mitral valve regurgitation. There is trace tricuspid valve regurgitation. Will need card f/u outpt - will stop IV lasix tonight and start PO lasix tomorrow - add entresto for chf-monitor overnight- will need uptitration of meds when discharged - will add [id number] mg- uptitrated in 2 weeks or so once sees cardiology (2) COPD with emphysema: Code(s): J43.9 - Emphysema, unspecified Status: Acute Assessment and Plan: Room air. Does not have oxygen. Does not have CPAP -monitor (3) Hypokalemia: Code(s): E87.6 - Hypokalemia Status: Acute Assessment and Plan: Potassium 2.4+, Mg 2.0 Replace with Potassium 40 mEq IVP and K+ 40 meq PO x 1 12/10- K 4.2- monitor (4) Anemia: Qualifiers: Anemia type: unspecified type Qualified Code(s): D64.9 - Anemia, unspecified Code(s): D64.9 - Anemia, unspecified Status: Acute Assessment and Plan: Hemoglobin 8.4, was 14.1 back in 02/2023 B12 and folate normal Iron low, saturation low, ferritin low, immature Retic elevated IV Venofer 300 mg x 1, ferrous sulfate 325 mg daily occult blood pending collection (5) Coronary artery disease: Code(s): I25.10 - Atherosclerotic heart disease of [place] coronary artery without angina pectoris Status: Acute Assessment and Plan: s/p 3 vessel CABG in September 2023 at [facility] on Plavix, aspirin, and atorvastatin -continue Denies chest pain (6) Essential hypertension: Code(s): I10 - Essential (primary) hypertension Status: Acute Assessment and Plan: Blood pressures initially elevated 160-190 mm hg Blood pressures reviewed and stable- monitor (7) Hyperlipidemia LDL goal <100: Code(s): E78.5 - Hyperlipidemia, unspecified Status: Acute Assessment and Plan: On atorvastatin 80 mg -continue (8) Benign prostatic hyperplasia: Code(s): N40.0 - Benign prostatic hyperplasia without lower urinary tract symptoms Status: Acute Assessment and Plan: Stable Plan Feeding:heart healthy diet Analgesia:Tylenol Thromboembolic prophylaxis: SCD Ulcer prophylaxis: PPI Lines: PIV Antibiotics: na Disposition: home when medically ready Time Spent With Patient Time with patient: 25 - 35 minutes Subjective Date/time seen: 12/12/23 07:36 Interval history: This is a very pleasant 63-year-old male, former smoker, with coronary artery disease status post 3 vessel CABG in September 2023, hypertension, hyperlipidemia, and COPD with emphysema who presented to the emergency department via private vehicle for evaluation of shortness of breath. 12/09: Doing well today. He is feeling much better today since admission. His breathing is not yet back to baseline. Crackles are appreciated to bilateral lower lobes. 12/10- pt is seen and examined today- good output in the last 24 hours- on IV Lasix. Will switch to Oral diuretics and anticipate discharge home tomorrow. Added Entresto for CHF. Review of Systems Review of Systems: 12 systems were reviewed and are negative except for as per HPI. Exam Narrative: General: well appearing, appears stated age. HEENT: normocephalic, atraumatic. Mucous membranes moist. EOMI, PERRLA, bilateral sclera anicteric, no conjunctival injection. Neck supple without JVD, lymphadenopathy, or bruit. Resp
[2023-12-12 08:00] VITALS: PULSE 93
[2023-12-12] MEDS: FERROUS SULFATE 325 MG TABLET DR PO (08:47)
[2023-12-12] MEDS: CLOPIDOGREL BISULFATE 75 MG TABLET PO (08:47)
[2023-12-12] MEDS: ASPIRIN 81 MG ENTERIC TABLET PO (08:47)
[2023-12-12] MEDS: FUROSEMIDE 40 MG TABLET PO (08:47)
[2023-12-12] MEDS: PANTOPRAZOLE 40 MG TABLET PO (08:47)
[2023-12-12] MEDS: GABAPENTIN 300 MG CAPSULE PO ×2 (08:47→12:41)
[2023-12-12] MEDS: SPIRONOLACTONE 12.5 MG TABLET PO (08:48)
[2023-12-12] MEDS: SACUBITRIL/VALSARTAN 12-13 MG TABLET 1 TAB PO (09:43)
[2023-12-12 12:00] VITALS: PULSE 97
--- NOTE | 2023-12-12 13:49 | PM.DS ---
DS: Admitting Diagnosis Discharge Date 12/11 Admitting Diagnosis sob DS: Discharge Diagnosis Discharge Diagnosis (1) Congestive heart failure: Qualifiers: Heart failure chronicity: unspecified Heart failure type: unspecified Qualified Code(s): I50.9 - Heart failure, unspecified Code(s): I50.9 - Heart failure, unspecified Status: Acute Assessment and Plan: initial complaints of shortness of breath, tripod positioning upon admission pBNP 8080 Lasix 20 mg IVP BID ECHO ordered EKG shows NSR rate of 82 Strict I&O Daily weight Tele ordered 12/10 i/o- in 1220/out 3275 echo- EF 60-65%, There is trace mitral valve regurgitation. There is trace tricuspid valve regurgitation. Will need card f/u outpt - will stop IV lasix tonight and start PO lasix tomorrow - add entresto for chf-monitor overnight- will need uptitration of meds when discharged - will add [id number] mg- uptitrated in 2 weeks or so once sees cardiology (2) COPD with emphysema: Code(s): J43.9 - Emphysema, unspecified Status: Acute Assessment and Plan: Room air. Does not have oxygen. Does not have CPAP -monitor (3) Hypokalemia: Code(s): E87.6 - Hypokalemia Status: Acute Assessment and Plan: Potassium 2.4+, Mg 2.0 Replace with Potassium 40 mEq IVP and K+ 40 meq PO x 1 12/10- K 4.2- monitor (4) Anemia: Qualifiers: Anemia type: unspecified type Qualified Code(s): D64.9 - Anemia, unspecified Code(s): D64.9 - Anemia, unspecified Status: Acute Assessment and Plan: Hemoglobin 8.4, was 14.1 back in 02/2023 B12 and folate normal Iron low, saturation low, ferritin low, immature Retic elevated IV Venofer 300 mg x 1, ferrous sulfate 325 mg daily occult blood pending collection (5) Coronary artery disease: Code(s): I25.10 - Atherosclerotic heart disease of [place] coronary artery without angina pectoris Status: Acute Assessment and Plan: s/p 3 vessel CABG in September 2023 at [facility] on Plavix, aspirin, and atorvastatin -continue Denies chest pain (6) Essential hypertension: Code(s): I10 - Essential (primary) hypertension Status: Acute Assessment and Plan: Blood pressures initially elevated 160-190 mm hg Blood pressures reviewed and stable- monitor (7) Hyperlipidemia LDL goal <100: Code(s): E78.5 - Hyperlipidemia, unspecified Status: Acute Assessment and Plan: On atorvastatin 80 mg -continue (8) Benign prostatic hyperplasia: Code(s): N40.0 - Benign prostatic hyperplasia without lower urinary tract symptoms Status: Acute Assessment and Plan: Stable Plan Final dx: CHF, unspecified Feeding:heart healthy diet Analgesia:Tylenol Thromboembolic prophylaxis: SCD Ulcer prophylaxis: PPI Lines: PIV Antibiotics: na Disposition: home when medically ready DS: Summary Hospital Course Hospital Course: his is a very pleasant 63-year-old male, former smoker, with coronary artery disease status post 3 vessel CABG in September 2023, hypertension, hyperlipidemia, and COPD with emphysema who presented to the emergency department via private vehicle for evaluation of shortness of breath. 12/09: Doing well today. He is feeling much better today since admission. His breathing is not yet back to baseline. Crackles are appreciated to bilateral lower lobes. 12/10- pt is seen and examined today- good output in the last 24 hours- on IV Lasix. Will switch to Oral diuretics and anticipate discharge home tomorrow. will start enstreso and spironolactone and discharge with f/u with card. Status at Discharge Functional status at discharge: independent ambulation Overall status at discharge: patient is back to baseline Time Spent with Patient Time attestation: Total time spent providing and/or coordinating discharge services: Time spent: Less than 30 minutes Exam
[2023-12-12 15:17] LABS: IFOB Positive Control Positive; Immunochemical Fecal Occult Bl Positive (N)
== END 2023-12-12 14:35 | disposition home or self-care (01) ==
LOC: ANHED 11:36 → ANH3MEDSUR 15:51
PROVIDERS: Emergency Medicine; Nurse Practitioner Acute Care; Physician Assistant; Admitting Provider Internal Medicine; Emergency Provider Physician Assistant; PCP Family Medicine; Visit Provider Internal Medicine
DX: I11.0 Hypertensive heart disease with heart failure (principal); I50.9 Heart failure, unspecified; R06.02 Shortness of breath; E87.6 Hypokalemia; J43.9 Emphysema, unspecified; D64.9 Anemia, unspecified; I25.10 Atherosclerotic heart disease of native coronary artery without angina pectoris; E78.5 Hyperlipidemia, unspecified; N40.0 Benign prostatic hyperplasia without lower urinary tract symptoms; M06.9 Rheumatoid arthritis, unspecified; Z95.1 Presence of aortocoronary bypass graft; Z87.891 Personal history of nicotine dependence; Z79.82 Long term (current) use of aspirin; Z79.02 Long term (current) use of antithrombotics/antiplatelets; Z20.822 Contact with and (suspected) exposure to COVID-19
CPT/HCPCS: 36415; 71275; 80048; 80053; 82274; 82607; 82728; 82746; 83540; 83550; 83735; 83880; 84132; 84443; 84484; 85025; 85027; 85046; 85380; 85610; 85730; 87637; 93005; 93306; 96374; 96375; 96376; 99285; A9270; G0378; J1756; J1940; J7050; Q9967

== ENCOUNTER 2024-01-22 11:49 | Outpatient (CLI) | payer OTHER, SELFPAY ==
[2024-01-22 12:10] LABS: Basophils Absolute Auto 0.1 K/mm3 (0.0-0.1); Basophils Percent Auto 0.9 % (0.2-1.2); Eosinophils Absolute Auto 0.4 K/mm3 (0-0.3); Eosinophils Percent Auto 5.4 % (0-4.4); Hemoglobin 10.3 g/dL (14.0-18.0); Immature Granulocyte Absolute 0.03 K/mm3 (0.00-0.031); Immature Granulocyte Percent A 0.4 % (0-0.5); Lymphocytes Absolute Auto 2.33 K/mm3 (0.9-3.2); Lymphocytes Percent Auto 29.1 % (18.3-44.2); Mean Corpuscular HGB Conc 30.3 g/dl (32-36); Mean Corpuscular Hemoglobin 25.8 pg (26-34); Mean Platelet Volume 10.8 fl (7.4-10.4); Monocytes Absolute Auto 0.4 K/mm3 (0.1-0.6); Monocytes Percent Auto 5.3 % (2.6-8.5); Neutrophils Absolute Auto 4.7 K/mm3 (1.3-6.7); Neutrophils Percent Auto 58.9 % (45.5-73.1); Platelet Count Result 500 k/mm3 (150-375); Red Cell Distribution Width 18.5 % (11.5-14.5)
[2024-01-22 12:35] LABS: Alanine Aminotransferase 11 U/L (6-50); Alkaline Phosphatase 122 U/L (38-126); Anion Gap 8 mmol/L (4-12); Aspartate Amino Transferase 25 U/L (17-59); Bilirubin,Total 0.4 mg/dL (0.2-1.3); Blood Urea Nitrogen 9 mg/dL (9-20); Calcium 8.7 mg/dL (8.4-10.2); Carbon Dioxide 28 mmol/L (22-30); Chloride 105 mmol/L (98-107); Cholesterol 129 mg/dL (0-200); Estimated Glomerular Filt Rate > 60; Glucose 86 mg/dL (65-110); HDL Direct 30 mg/dL; Potassium 3.8 mmol/L (3.4-5.0); Sodium 141 mmol/L (137-145); Triglycerides 130 mg/dL (<150)
[2024-01-22 12:46] LABS: LDL Cholesterol Direct 76 mg/dL
[2024-01-22 13:02] LABS: Prostate Specific Antigen 0.6 ng/mL (< OR = 4.0)
== END 2024-01-22 11:50 | disposition home or self-care (01) ==
LOC: ANHLAB 11:52
PROVIDERS: PCP Family Medicine; Visit Provider Nurse Practitioner Family
DX: Z13.220 Encounter for screening for lipoid disorders (principal); Z13.6 Encounter for screening for cardiovascular disorders; Z13.0 Encounter for screening for diseases of the blood and blood-forming organs and certain disorders involving the immune mechanism; Z87.891 Personal history of nicotine dependence; I10 Essential (primary) hypertension; Z12.5 Encounter for screening for malignant neoplasm of prostate
CPT/HCPCS: 36415; 80053; 80061; 84153; 85025; G0103

== ENCOUNTER 2024-01-24 12:50 | Outpatient (CLI) | payer OTHER, SELFPAY | END 2024-01-24 12:51 | disposition home or self-care (01) | LOC: ANHLAB 12:51 | PROVIDERS: PCP Family Medicine; Visit Provider Nurse Practitioner Family | DX: R19.7 Diarrhea, unspecified (principal) | CPT/HCPCS: 87045; 87177; 87209; 87427; 87449; 87493 ==

== ENCOUNTER 2024-03-11 02:20 | Day surgery (SDC) | payer OTHER, SELFPAY ==
[2024-03-02 14:53] VITALS: BMI 23.3
--- NOTE | 2024-03-02 15:52 | PC.NURSE ---
Spoke with PATIENT regarding medication PLAVIX. Pt. verbalizes understanding that the last dose of PLAVIX is to be taken on 03/06/2024 and the Endoscopist will instruct them when to restart after the procedure. He knows he is to remain on his Aspirin without interruption. When reviewing pts. medication list he is not on all the meds. as dictated on notes from office when he saw Sara Cuellar PATIENT CARE COORDINATOR, mainly his Entresto and Spironolactone, he states the pharmacy said the provider refused to refill. I called Dr. Shaw office and spoke with Felipa WALKER regarding this and the provider ordering the meds the last time was the hospitalist and probably why she refused to refilll, she will review chart with provider and decide what meds he needs refilled and call pt to review with him.
--- NOTE | 2024-03-10 15:00 | WPDANESEPPF ---
Anes - Initial Pre Proc Eval Procedure: Operation Date: 03/11/24 11:30 Proposed Procedures p Esophagogastroduodenoscopy & Colonoscopy - Brayan Sanchez MD Date/Time: 03/10/24 15:00 Surgeon: Brayan Sanchez MD Pre Op Diagnosis: Anemia, Diarrhea, other fecal abnormalities Patient Data Age: 63 Gender: M Height: 1.65 m Weight: 63.6 kg Allergies Allergy/AdvReac Type Severity Reaction Status Date / Time No Known Allergies Allergy Verified 03/02/24 14:56 Home Medications Medication Instructions Recorded Confirmed Type aspirin 81 mg tablet,delayed 81 mg PO DAILY 10/28/23 03/02/24 History release atorvastatin 80 mg tablet 80 mg PO QHS 10/28/23 03/02/24 History clopidogrel 75 mg tablet 75 mg PO DAILY 10/28/23 03/02/24 History pantoprazole 40 mg tablet,delayed 40 mg PO QAM #90 tabs 11/01/23 03/02/24 Rx release gabapentin 300 mg capsule 300 mg PO TID #180 caps 11/22/23 03/02/24 Rx sacubitril 24 mg-valsartan 26 mg 1 tablet PO Q12HR #60 tabs 12/12/23 02/04/24 Rx tablet (Entresto) spironolactone 25 mg tablet 25 mg PO DAILY #60 tabs 12/12/23 02/04/24 Rx cetirizine 10 mg tablet (All Day 10 mg PO DAILY #90 tabs 01/01/24 03/02/24 Rx Allergy (cetirizine)) ferrous sulfate 325 mg (65 mg 325 mg PO DAILY #90 tabs 01/01/24 03/02/24 Rx iron) tablet tamsulosin 0.4 mg capsule 0.4 mg PO QHS 01/01/24 03/02/24 History fluticasone propionate 50 2 spray intranasal DAILY #16 grams 02/03/24 03/02/24 Rx mcg/actuation nasal spray,suspension amlodipine 5 mg tablet 5 mg PO DAILY 03/02/24 03/02/24 History lisinopril 40 mg tablet 40 mg PO DAILY 03/02/24 03/02/24 History metoclopramide HCl 5 mg tablet 5 mg PO TIDWMEAL 03/02/24 03/02/24 History metoprolol tartrate 25 mg tablet 12.5 mg PO BID 03/02/24 03/02/24 History tramadol 50 mg tablet 50 mg PO Q8H PRN pain #60 tabs 03/03/24 Rx Patient hx anesthesia problems: none Family hx anesthesia problems: none Results Review: All pre-operative results and documents have been reviewed as part of the pre-operative evaluation. [facility]LY [facility] Past Medical History Medical History Adenomatous colon polyp Adrenal incidentaloma Benign prostatic hyperplasia Benign prostatic hyperplasia without lower urinary tract symptoms Chronic midline low back pain without sciatica COPD with emphysema Coronary artery disease Coronary artery disease Post 3 vessel bypass in September 2023. Essential hypertension Former smoker Gastroparesis Hyperlipidemia LDL goal <100 Rheumatoid arthritis Surgical History Surgical History History of cervical spinal surgery History of colonoscopy with polypectomy History of coronary artery bypass graft x 3 (09/2023) PENA to LAD and saphenous vein graft to posterior descending artery and obtuse marginal branch at [facility]. History of open reduction and internal fixation (ORIF) procedure Left ankle. History of repair of left rotator cuff Hx of CABG Family History Family History Sibling Family history of multiple sclerosis Family history of diabetes mellitus in first degree relative Mother Carcinoma of colon Family history of coronary artery disease Father Carcinoma of colon Family history of heart disease in male family member before age 55 Patient's father is Family history of cardiovascular disease Other Cancer Family history of malignant neoplasm Heart disease Social History Social History Social History: Surrogate medical decision maker: Cara Miranda, sibling. Code status: Full code. Smoking packs per day: 0.5 Smoking cigarettes per day: 10.0 Years smoked: 40 Smoking pack-years: 20.00 Smoking status: Former smoker Tobacco type: cigarettes Second hand
[2024-03-11 10:18] VITALS: BP 160/87; PULSE 84; RESP 18; TEMP 36.4; O2SAT 98
[2024-03-11] MEDS: LACTATED RINGERS 1,000 ML 150 ML IV CONT (10:31)
--- NOTE | 2024-03-11 11:36 | PM.HPGS ---
History of Present Illness History of Present Illness Consent: Risks, benefits, and alternatives have been discussed and questions answered. Patient agrees to proceed with procedure. Chief complaint: Anemia, Diarrhea, other fecal abnormalities Narrative: Calin Andino is a 63 year old male with anemia and fobt +, he has been getting colonoscopies every 2 years because personal history of polyps and also both parents had colon cancer, last colonoscopy 11/2022, previous biopsy negative for celiac. Review of Systems Review of Systems: All systems reviewed & are unremarkable except as noted in HPI and below PMFSH Past Medical History Medical History Adenomatous colon polyp Adrenal incidentaloma Benign prostatic hyperplasia Benign prostatic hyperplasia without lower urinary tract symptoms Chronic midline low back pain without sciatica COPD with emphysema Coronary artery disease Coronary artery disease Post 3 vessel bypass in September 2023. Essential hypertension Former smoker Gastroparesis Hyperlipidemia LDL goal <100 Rheumatoid arthritis Surgical History Surgical History History of cervical spinal surgery History of colonoscopy with polypectomy History of coronary artery bypass graft x 3 (09/2023) PENA to LAD and saphenous vein graft to posterior descending artery and obtuse marginal branch at [facility]. History of open reduction and internal fixation (ORIF) procedure Left ankle. History of repair of left rotator cuff Hx of CABG Family History Family History Sibling Family history of multiple sclerosis Family history of diabetes mellitus in first degree relative Mother Carcinoma of colon Family history of coronary artery disease Father Carcinoma of colon Family history of heart disease in male family member before age 55 Patient's father is Family history of cardiovascular disease Other Cancer Family history of malignant neoplasm Heart disease Social History Social History Social History: Surrogate medical decision maker: Cara Miranda, sibling. Code status: Full code. Smoking packs per day: 0.5 Smoking cigarettes per day: 10.0 Years smoked: 40 Smoking pack-years: 20.00 Smoking status: Former smoker Tobacco type: cigarettes Second hand tobacco smoke exposure: No Smoking end date: 10/14/23 Alcohol intake: former Drinks per week: 15 Alcohol use details: 12 pack beer/week Substance use: never Substance use type: does not use Do You Feel Safe in your Home?: Yes Lack of Transportation: No Lack of Food: Never True Current Housing: I Have Housing Concerned About Future Housing: No Difficulty Paying Gas/Electric Bills: No Difficulty Paying for Meds: No Currently Unemployed: No Education: Trade/Vocational Certificate Difficulty w/ Childcare or Family Care: No Living arrangements: with family Additional living arrangements comments: Lives in an apartment in the basement of his sister's home. Occupation/Education: retired Additional occupation/education comments: [employer]. Spiritual care concerns: No Meds Home Medications and Allergies Home Medications Medication Instructions Recorded Confirmed Type aspirin 81 mg tablet,delayed 81 mg PO DAILY 10/28/23 03/11/24 History release atorvastatin 80 mg tablet 80 mg PO QHS 10/28/23 03/11/24 History clopidogrel 75 mg tablet 75 mg PO DAILY 10/28/23 03/11/24 History pantoprazole 40 mg tablet,delayed 40 mg PO QAM #90 tabs 11/01/23 03/11/24 Rx release gabapentin 300 mg capsule 300 mg PO TID #180 caps 11/22/23 03/11/24 Rx sacubitril 24 mg-valsartan 26 mg 1 tablet PO Q12HR #60 tabs 12/12/23 03/11/24 Rx tablet (Entresto) spironolactone 25 mg tablet 2
[2024-03-11] MEDS: BENZOCAINE (*SP) 60 ML SPRAY CAN (HURRICAINE) 1 SPRAY MUCOUS MEM (11:40)
--- NOTE | 2024-03-11 11:45 | SUR.OPER ---
EGD start 1141 end 1143, Colonoscopy start 1148
[2024-03-11 12:01] VITALS: BP 142/73; PULSE 81; RESP 20; O2SAT 98
[2024-03-11 12:11] VITALS: BP 147/86; PULSE 74; RESP 20; O2SAT 98
[2024-03-11 12:21] VITALS: BP 159/85; PULSE 69; RESP 17; O2SAT 100
== END 2024-03-11 12:33 | disposition home or self-care (01) ==
PROVIDERS: PCP Family Medicine; Referring Provider Nurse Practitioner Family; Visit Provider Internal Medicine Gastroenterology
PROC: 0DJ08ZZ Inspection of Upper Intestinal Tract, Via Natural or Artificial Opening Endoscopic (ICD-10-PCS; CPT 43235; principal; 2024-03-11 11:30)
DX: D12.3 Benign neoplasm of transverse colon (principal); D12.4 Benign neoplasm of descending colon; K64.8 Other hemorrhoids; I10 Essential (primary) hypertension; D64.9 Anemia, unspecified; E78.5 Hyperlipidemia, unspecified; J43.9 Emphysema, unspecified; I25.10 Atherosclerotic heart disease of native coronary artery without angina pectoris; N40.0 Benign prostatic hyperplasia without lower urinary tract symptoms; M54.50 Low back pain, unspecified; G89.29 Other chronic pain; Z79.82 Long term (current) use of aspirin; Z79.02 Long term (current) use of antithrombotics/antiplatelets; Z79.891 Long term (current) use of opiate analgesic; Z98.890 Other specified postprocedural states; Z98.1 Arthrodesis status; Z95.1 Presence of aortocoronary bypass graft; Z87.891 Personal history of nicotine dependence; Z80.0 Family history of malignant neoplasm of digestive organs; Z82.49 Family history of ischemic heart disease and other diseases of the circulatory system
CPT/HCPCS: 43235; 45380; 45385; 88305; J2001; J2704; J7120

== ENCOUNTER 2024-11-17 10:31 | Outpatient (CLI) | payer OTHER, SELFPAY ==
--- NOTE | ~2024-11-17 | XR_ITS ---
Left Knee Technique: AP and lateral views were obtained. Clinical History: Pain Findings: No fracture or dislocation is seen. Osseous alignment is anatomic. Joint spaces are preserv ed without degenerative or erosive change. Soft tissues are unremarkable. No joint effusion is seen. Impression: Unremarkable left knee radiographs. Reviewed, dictated and finalized at location . Impression: Unremarkable left knee radiographs.
--- NOTE | ~2024-11-17 | XR_ITS ---
Lumbosacral Spine: AP and lateral views Clinical History: Pain Findings: The normal lordotic curve is maintained. The vertebral bodies and posterior elements are i ntact. There is multilevel mild degenerative disc change in the lumbar spine. There is moderate facet arthropathy, worst from L4 through S1. The sacroiliac joints are normally outlined. Impression: Moderate degenerative spondylosis overall, as detailed above. Reviewed, dictated and finalized at location M. Impression: Moderate degenerative spondylosis overall, as detailed above.
--- NOTE | ~2024-11-17 | XR_ITS ---
Right Knee Technique: AP and lateral views were obtained. Clinical History: Pain Findings: No fracture or dislocation is seen. Osseous alignment is anatomic. Joint spaces are preserv ed without degenerative or erosive change. Soft tissues are unremarkable. No joint effusion is seen. Impression: Unremarkable right knee radiographs. Reviewed, dictated and finalized at location . Impression: Unremarkable right knee radiographs.
--- NOTE | ~2024-11-17 | XR_ITS ---
EXAMINATION: XR chest 2V 11/17/2024 11:16 INDICATION: Shortness of breath with exertion PROCEDURE: 2 view chest COMPARISON: 08/18/2018 FINDINGS: The lungs are clear. The cardiomediastinal silhouette is within normal limits. There are no pleural effusions. There is no pneumothorax suspected. Status post median sternotomy for CABG. IMPRESSION: 1: NO ACUTE CARDIOPULMONARY DISEASE. Reviewed, dictated and finalized at location A.
--- OUTSIDE RECORDS SUMMARY | 2024-11-17 10:34 | XMS_ITS | Encounter Summary ---
Author Organization [facility] Healthcare Address [address] [place] [address] Care Team Providers Care Deburrer Strip Name Role Phone Moses Reyes MD Primary Care Provider [phone] Vahid Jay MD Unavailable [phone] Estevan Shaw MD Unavailable [phone] Encounter Details Date Type Department Care Team (Late st Contact Info) Description 12/10/2023 Orders Only [facility] Information Management [address] [place] [id number] Scanning, Provider Social History Tobacco Use Types Packs/Day Years Used Date Smoking Tobacco: Former Cigarettes Smokeless Tobacco: Never Comments:Quit 09/23/2023 Alcohol Use Standard Drinks/Week Comments Yes 0 (1 standard drink = 0.6 oz pur e alcohol) OASIS D0700: Social Isolation Answer Da te Recorded Frequency of experiencing loneliness or isolatio n Never 11/05/2023 OASIS A1250: Transportation Answer Date Recorded Lack of Transportation (Medical) No 11/05/2023 Lack of Transportation (Non-Medical) No 11/05/2023 Patient Unable or Declines to Respond No 11/05/2023 OASIS B1300: Health Literacy Answer Ornn e Recorded Frequency of needing help to read materials from doctor or pharmacy Never 11/05/2023 [facility] Utilities Answer Date Recorded In the past 12 months has th e electric, gas, oil, or water company threatened to shut off services in your home? No 10/07/2023 Social Connection and Isolation Panel [NHANES] A nswer Date Recorded In a typical week, how many times do you talk on the phone with family, friends, or neighbors? Once a week 10/07/2023 How often do you get together with friends or re latives? Once a week 10/07/2023 How often do you attend amish or synagogue serv ices? Never 10/07/2023 Do you belong to any clubs o r organizations such as amish groups, unions, fraternal or athletic groups, or school groups? No 10/07/2023 How often do you attend meet ings of the clubs or organizations you belong to? Never 10/07/2023 Are you , , di vorced, , never , or living with a partner? 10/07/2023 AUDIT-C Answer Date Recorded Q1: How often do you have a drink containing alcohol? Never 10/07/2023 Q2: How many drinks containi ng alcohol do you have on a typical day when you are drinking? Patient does not drink Q3: How often do you have si x or more drinks on one occasion? Never 10/07/2023 Overall Financial Resource Strain (CARDIA) Answe r Date Recorded How hard is it for you to pa y for the very basics like food, housing, medical care, and heating? Not hard at all 10/07/2023 Hunger Vital Sign Answer Date Recorded Within the past 12 months, y ou worried that your food would run out before you got the money to buy more. Never true 10/07/19 24 Within the past 12 months, t he food you bought just didn't last and you didn't have money to get more. Never true 10/07/2023 PRAPARE - Transportation Answer Date Re corded In the past 12 months, has l ack of transportation kept you from medical appointments or from getting medications? No 09/22 In the past 12 months, has l ack of transportation kept you from meetings, work, or from getting things needed for daily living? No 10/07/2023 Housing Stability Vital Sign Answer Ronn e Recorded In the last 12 months, was t here a time when you were not able to pay the mortgage or rent on time? No 10/07/2023 In the last 12 months, how many places have you lived? 1 10/07/2023 In the last 12 months, was t here a time when you did not have a steady place to sleep or slept in a long-term (including now)? No 10/07/2023 Personal Safety Answer Date Recorded Have you ever been in or are you currently in a harmful physical or emotional relationship or is someone making you feel afraid or unsafe? 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 CUSTOMER ACCOUNT REPRESENTATIVE Gender Identity Male 06/26/2018 1:21 PM CUSTOMER ACCOUNT REPRESENTATIVE Sexual Orientation Not on file documented as of this encounter Plan of Treatment Not on file documented as of this encounter Procedures Procedure Name Priority Date/Time Associated Diagnosis Comments CARDIOLOGY DOCUMENT SCAN 12/10/2023 SCAN - RADIOLOGY/IMAGING 12/09/2023 documented in this encounter Results * Cardiology Document Scan (12/10/2023) Anatomical Region Laterality Modality Other us Provider Scanning CV CARDIAC SERVICES PROCEDURES Final Result * SCAN - RADIOLOGY/IMAGING (12/09/2023) Anatomical Region Laterality Modality Other us Provider Scanning Final Result documented in this encounter Visit Diagnoses Not on filedocumented in this encounter Care Teams Deburrer Strip Relationship Specialty Start Date End Date Moses Reyes MD PCP - General Family Practice 09/10/23 Vahid Jay MD [address] [id number] [place] [address] Surgeon Cardiothoracic Surgery 10/07/23 Estevan Shaw MD [address] [address] Consulting Physician Cardiovascular Disease 10/07/23 documented as of this encounter
--- OUTSIDE RECORDS SUMMARY | 2024-11-17 10:34 | XMS_ITS | Clinical Summary ---
Author Organization [facility] Address [address] [place] [address] Care Team Providers Care Box Builder Name Role Phone Moses Reyes MD Primary Care Provider [phone] Vahid Jay MD Unavailable [phone] Estevan Shaw MD Unavailable [phone] Allergies No known active allergies Medications tamsulosin (FLOMAX) 0.4 mg extended release capsule Take 1 capsule (0.4 mg total) by mouth nightly 4 Active metoclopramide (REGLAN) 10 mg tabletIndication s:gastroesophage al reflux disease Take 1 tablet (10 mg total) by mouth every 8 (eight) hours as needed 4 Active acetaminophen 500 mg capsuleIndicatio ns:Fever,Pain Take 2 capsules (1,000 mg total) by mouth every 6 (six) hours as needed for pain 4 Active aspirin 81 mg enteric coated tablet Take 1 tablet (81 mg total) by mouth daily 90 tablet 3 4 Active clopidogreL (PLAVIX) 75 mg tabletIndication s:Acute Coronary Syndrome,Thrombo sis Prevention after PCI Take 1 tablet (75 mg total) by mouth daily 90 tablet 3 4 11/27/19 25 Active atorvastatin (LIPITOR) 80 mg tabletIndication s:hyperlipidemia Take 1 tablet (80 mg total) by mouth nightly 90 tablet 3 4 Active gabapentin (NEURONTIN) 300 mg capsule Take 1 capsule (300 mg total) by mouth 3 (three) times a day [address] (PROTONIX) 40 mg EC tablet Take 1 tablet (40 mg total) by mouth every morning 4 Active traMADoL (ULTRAM) 50 mg tablet Take 1 tablet (50 mg total) by mouth every 8 (eight) hours as needed 4 Active spironolactone (ALDACTONE) 25 mg tabletIndication s:Diastolic heart failure, unspecified HF chronicity (HCC) Take 1 tablet (25 mg total) by mouth daily 30 tablet 4 03/02/20 25 Active Entresto 24-26 mg tabletIndication s:chronic heart failure Take 1 tablet by mouth every 12 (twelve) hours 60 tablet 4 03/02/20 25 Active Active Problems Problem Noted Date Diagnosed Date Tobacco abuse, in remission 08/10/2024 Chronic diastolic heart failure 08/10/2024 Severe protein-calorie malnutrition 10/02/2023 Coronary artery disease of n ative heart with stable angina pectoris 09/20/2023 Essential hypertension 06/03/2023 LBBB (left bundle branch block) 06/03/2023 Carpal tunnel syndrome, bilateral 04/19/2020 Resolved Problems Problem Noted Date Diagnosed Date Resolved Date Coronary artery disease due to calcified coronary lesion 10/01/2023 08/10/2024 Cigarette smoker 04/19/2020 08/10/2024 Surgical History Surgery Date Site/Laterality Comments ROTATOR CUFF REPAIR CERVICAL SPINE SURGERY ANKLE FRACTURE SURGERY Left SCREWS IN L ANKLE OTHER SURGICAL HISTORY Fx collar bone punctured lung requiring draining CARDIAC CATHETERIZATION Medical History Medical History Date Comments Hypertension Pneumonia Chronic pain disorder LOWER BACK Shortness of breath CAD (coronary artery disease) Family History Medical History Relation Name Comments Cancer Father Heart disease Father Hypertension Father Cancer Mother Heart disease Mother Relation Name Status Comments Father Mother Social History Tobacco Use Types Packs/Day Years Used Date Smoking Tobacco: Former Cigarettes Smokeless Tobacco: Never Tobacco Cessation:Counseling Given: Not Answered Comments:Quit 09/23/2023 Alcohol Use Standard Drinks/Week Comments [...] No 11/05/2023 OASIS B1300: Health Literacy Answer Ronn e Recorded Frequency of needing help to read materials from doctor or pharmacy Never 11/05/2023 [facility] Utilities Answer Date Recorded In the [...] week 10/07/2023 How often do you attend restorationist or quaker serv ices? Never 10/07/2023 Do you belong to any clubs o r organizations such as restorationist groups, unions, fraternal or athletic groups, or [...] place to sleep or slept in a group home (including now)? No 10/07/2023 Personal Safety Answer Date Recorded Have you ever been in or are you currently in a harmful physical or emotional relationship or is someone making you feel afraid or unsafe? 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 CUSTOMER SUPPORT ASSISTANT Gender Identity Male 06/26/2018 1:21 PM CUSTOMER SUPPORT ASSISTANT Sexual Orientation Not on file Obstetrics History Last Filed Vital Signs Vital Sign Reading Time Taken Comments Blood Pressure 108/64 08/10/2024 11:16 AM CUSTOMER SUPPORT ASSISTANT Pulse 80 08/10/2024 11:16 AM CUSTOMER SUPPORT ASSISTANT Temperature 36.5 C (97.7 F) 11/05/2023 2:25 PM CDT Respiratory Rate 16 11/06/2023 8:53 AM CDT Oxygen Saturation 99% 08/10/2024 11:16 AM CUSTOMER SUPPORT ASSISTANT Inhaled Oxygen Concentration - - Weight 70.3 kg (155 lb) 08/10/2024 11:16 AM CUSTOMER SUPPORT ASSISTANT Height 165.1 cm (5' 5 ) 08/10/2024 11:16 AM CUSTOMER SUPPORT ASSISTANT Body Mass Index 25.79 08/10/2024 11:16 AM CUSTOMER SUPPORT ASSISTANT Plan of Treatment Health Maintenance Due Date Last Done Comments Colon Cancer Screening-Colonoscopy 1958 Depression Screening 1958 Hepatitis C Screening 1958 Prostate Cancer Screening-PSA 1958 DTaP/Tdap/Td Vaccine (1 - Tdap) 1969 Hepatitis B Screening 1976 Pneumococcal vaccine 65+ (1 of 2 - PCV) 1977 Zoster Vaccine (1 of 2) 2008 Abdominal Aortic Aneurysm (AAA) Screen 11/28/2023 Well Visit 65+ 11/28/2023 Fall Risk Assessment 10/06/2024 10/07/2023 Influenza Vaccine (Season Ended) 2025 Medical Devices Implanted Type Area Flooring Machine Feeder Device Identifier Shelf Expiration Date Model / Serial / Lot Screw Screw N/A: Neck Screw Screw Left: Ankle [employer] Device Vascular Closure Femoral Artery Bioabsorbable Dual Method Vascade 6-7fr Collagen [id number] - [id number] Implanted:Qty: 1 on 09/10/2023 by Estevan Shaw MD at [facility] [employer] 04/17/2025 [id number] / / [id number] Insurance [employer] Member Subscriber Plan / Payer (Ef fective 2020-Present) Name:Calin Andino Relation to Subscriber:Self Name:Calin Andino Payer ID:[id number] (NAIC) Type:MEDICARE RISK OTHER Address: [place] [id number] [facility] Advance Directives For more information, please contact: [phone] * Full Code (Latest Code Status on File) Date Activated Date Inactivated Comments 10/01/2023 4:00 PM 10/07/2023 8:06 PM * Full Code Date Activated Date Inactivated Comments 09/10/2023 10:46 AM 09/10/2023 5:09 PM Care Teams Box Builder Relationship Specialty Start Date End Date Moses Reyes MD PCP - General Family Practice 09/10/23 Vahid Jay MD [id number] [place] [address] Surgeon Cardiothoracic Surgery 10/07/23 Estevan Shaw MD [address] [address] Consulting Physician Cardiovascular Disease 10/07/23
--- OUTSIDE RECORDS SUMMARY | 2024-11-17 10:34 | XMS_ITS | Encounter Summary ---
Author Organization [facility] Address [address] [place] [address] Care Team Providers Care Ordnance Mechanic Name Role Phone Gerald Groves DO Primary Care Provider [phone] Encounter Details Date Type Department Care Team (Late st Contact Info) Description 08/07/2005 Outpatient Historical [facility] Support [facility]. (Adt Cardiology-[facility]) [address] [place] [address] Isac Morton MD NO ADDRESS ON FILE Social History Tobacco Use Types Packs/Day Years Used Date Smoking Tobacco: Never Assessed Sex and Gender Information Value Date Recorded Sex Assigned at Not on file Legal Sex Male 5:15 AM RESIDENTIAL MONITOR Gender Identity Not on file Sexual Orientation Not on file documented as of this encounter Plan of Treatment Not on file documented as of this encounter Visit Diagnoses Not on filedocumented in this encounter Care Teams Ordnance Mechanic Relationship Specialty Start Date End Date Gerald Groves DO [address] [facility] [address] [place] [address] PCP - General Internal Medicine 03/15/20 documented as of this encounter
--- OUTSIDE RECORDS SUMMARY | 2024-11-17 10:34 | XMS_ITS | Encounter Summary ---
Author Organization [facility] Address [address] [place] [address] Care Team Providers Care [employer] Principal Name Role Phone Gerald Groves DO Primary Care Provider [phone] Encounter Details Date Type Department Care Team (Latest Contact Info) Description 08/10/2005 Inpatient Historical [facility] Sami Cheema MD [address] [facility] [address] [place] [id number] CERVICAL DISC DISPLACMNT (Primary Dx) Social History Tobacco Use Types Packs/Day Years Used Date Smoking Tobacco: Never Assessed Sex and Gender Information Value Date Recorded Sex Assigned at Not on file Legal Sex Male 5:15 AM BILINGUAL OFFICE ASSISTANT Gender Identity Not on file Sexual Orientation Not on file documented as of this encounter Plan of Treatment Not on file documented as of this encounter Procedures Procedure Name Priority Date/Time Associated Diagnosis Comments COMPREHENSIVE METABOLIC PANEL Routine 08/10/2005 12:00 PM BILINGUAL OFFICE ASSISTANT HEMOGLOBIN AND HEMATOCRIT Routine 08/07/2005 12:50 PM BILINGUAL OFFICE ASSISTANT documented in this encounter Results * COMPREHENSIVE METABOLIC PANEL (08/10/2005 12:00 PM BILINGUAL OFFICE ASSISTANT) GLUCOSE 87 65 - 109 mg/dL INTERFACE SYSTEM CREATININE 0.7 0.5 - 1.3 mg/dL INTERFACE SYSTEM CALCIUM 9.3 8.6 - 10.2 mg/dL INTERFACE SYSTEM AST 28 12 - 38 U/L INTERFACE SYSTEM ALKALINE PHOSPHATASE 105 40 - 129 U/L INTERFACE SYSTEM BILIRUBIN TOTAL 0.4 0.2 - 1.0 mg/dL INTERFACE SYSTEM ALBUMIN 4.5 3.4 - 4.8 g/dL INTERFACE SYSTEM TOTAL PROTEIN 7.8 6.3 - 8.6 g/dL INTERFACE SYSTEM ALT 27 0 - 41 U/L INTERFACE SYSTEM BUN 7 6 - 20 mg/dL INTERFACE SYSTEM SODIUM 140 135 - 145 mmol/L INTERFACE SYSTEM POTASSIUM 4.5 3.5 - 4.9 mmol/L INTERFACE SYSTEM CHLORIDE 103 96 - 108 mmol/L INTERFACE SYSTEM CO2 27 22 - 30 mmol/L INTERFACE SYSTEM 08/10/2005 12:0 0 PM BILINGUAL OFFICE ASSISTANT Sami Cheema MD CHEMISTRY ORDERABLES Final Resu lt Performing Organization Address City/[facility]/ZIP Co de Phone Number INTERFACE SYSTEM Refer to clinic/hospital department * HEMOGLOBIN AND HEMATOCRIT (08/07/2005 12:50 PM BILINGUAL OFFICE ASSISTANT) HEMOGLOBIN 15.6 13.6 - 16.5 g/dL INTERFACE SYSTEM HEMATOCRIT 43.8 40.0 - 48.0 % INTERFACE SYSTEM 08/07/2005 12:5 0 PM BILINGUAL OFFICE ASSISTANT us Sami Cheema MD HEMATOLOGY ORDERABLES Final Res ult Performing Organization Address City/[facility] Co de Phone Number INTERFACE SYSTEM Refer to clinic/hospital department documented in this encounter Visit Diagnoses Diagnosis Displacement of cervical intervertebral disc without myelopathy- Primary documented in this encounter Care Teams [employer] Principal Relationship Specialty Start Date End Date Gerald Groves DO [address] [facility] [address] [place] [address] PCP - General Internal Medicine 03/15/20 documented as of this encounter
--- OUTSIDE RECORDS SUMMARY | 2024-11-17 10:34 | XMS_ITS | Clinical Summary ---
Author Organization [facility] Address [facility] [address] [place] [address] Care Team Providers Care Assembler Utility Buildings Name Role Phone Gerald Groves DO Primary Care Provider [phone] Allergies No known active allergies Medications lisinopriL (PRINIVIL) 40 mg tablet Take 40 mg by mouth daily. Active aspirin (ASHLYN) 325 mg tablet Take 325 mg by mouth daily. Active amLODIPine (NORVASC) 5 mg tablet Take 5 mg by mouth daily. Active gabapentin (NEURONTIN) 600 mg tablet Take 600 mg by mouth 3 times daily. Active Active Problems Problem Noted Date Diagnosed Date Carpal tunnel syndrome, bilateral 04/19/2020 Cigarette smoker 04/19/2020 Family History Relation Name Status Comments Father Mother Alive Social History Tobacco Use Types Packs/Day Years Used Date Smoking Tobacco: Every Day Cigarettes Alcohol Use Standard Drinks/Week Comments Yes 0 (1 standard drink = 0.6 oz pur e alcohol) Sex and Gender Information Value Date Recorded Sex Assigned at Not on file Legal Sex Male 5:15 AM LEVEL VIAL INSIDE GRINDER Gender Identity Not on file Sexual Orientation Not on file Last Filed Vital Signs Vital Sign Reading Time Taken Comments Blood Pressure - - Pulse - - Temperature 36.6 C (97.8 F) 04/19/2020 8:58 AM CDT Respiratory Rate - - Oxygen Saturation - - Inhaled Oxygen Concentration - - Weight 63.5 kg (140 lb) 04/19/2020 8:58 AM CDT Height 165.1 cm (5' 5 ) 04/19/2020 8:58 AM CDT Body Mass Index 23.3 04/19/2020 8:58 AM CDT Plan of Treatment Health Maintenance Due Date Last Done Comments DTAP/TDAP/TD VACCINES (1 - Tdap) 1977 COLORECTAL SCREENING 11/28/2003 Colorectal Cancer Screening 11/28/2003 FIT-DNA Q 3 years 11/28/2003 FIT/FOBT Q 1 year 11/28/2003 Flex Sig/CT Colonography Q 5 years 11/28/2003 PNEUMOCOCCAL VACCINE 50+ YEARS (1 of 1 - PCV) 11/28/19 09 ZOSTER VACCINE (1 of 2) 2008 INFLUENZA VACCINE (#1) 2024 RSV VACCINE (60+ or ) (1 - 1-dose 75+ series) 2033 Care Teams Assembler Utility Buildings Relationship Specialty Start Date End Date Gerald Groves DO [address] [facility] [address] [place] [address] PCP - General Internal Medicine 03/15/20
--- OUTSIDE RECORDS SUMMARY | 2024-11-17 10:34 | XMS_ITS | Encounter Summary ---
Author Organization [facility] Address [address] [place] [address] Care Team Providers Care Concrete Finisher Apprentice Name Role Phone Gerald Groves DO Primary Care Provider [phone] Encounter Details Date Type Department Care Team (Late st Contact Info) Description 11/26/2005 Outpatient Historical [facility] Sami Cheema MD [address] [facility] [address] [place] [id number] Follow-Up Examination, Following Other Surgery (Primary Dx) Social History Tobacco Use Types Packs/Day Years Used Date Smoking Tobacco: Never Assessed Sex and Gender Information Value Date Recorded Sex Assigned at Not on file Legal Sex Male 5:15 AM CERTIFIED FAMILY MEDIATOR Gender Identity Not on file Sexual Orientation Not on file documented as of this encounter Plan of Treatment Not on file documented as of this encounter Visit Diagnoses Diagnosis Follow-up examination, following other surgery- Primary documented in this encounter Care Teams Concrete Finisher Apprentice Relationship Specialty Start Date End Date Gerald Groves DO [address] [facility] [address] [place] [id number] PCP - General Internal Medicine 03/15/20 documented as of this encounter
--- OUTSIDE RECORDS SUMMARY | 2024-11-17 10:34 | XMS_ITS | Referral Summary ---
Author Organization [facility] Address [address] [place] [address] Care Team Providers Care Machining Supervisor Name Role Phone Moses Reyes MD Primary Care Provider [phone] Vahid Jay MD Unavailable [phone] Estevan Shaw MD Unavailable [phone] Allergies No known active allergies Medications tamsulosin [...] lesion 10/01/2023 08/10/2024 Cigarette smoker 04/19/2020 08/10/2024 Social History Tobacco Use Types Packs/Day Years [...] materials from doctor or pharmacy Never 11/05/2023 [facility] Utilities Answer Date Recorded In the [...] week 10/07/2023 How often do you attend orthodox or faith serv ices? Never 10/07/2023 Do you belong to any clubs o r organizations such as orthodox groups, unions, fraternal or athletic groups, or [...] place to sleep or slept in a nursing home (including now)? No 10/07/2023 Personal Safety Answer Date Recorded Have you ever been in or are you currently in a harmful physical or emotional relationship or is someone making you feel afraid or unsafe? 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 GEM TECHNICIAN Gender Identity Male 06/26/2018 1:21 PM GEM TECHNICIAN Sexual Orientation Not on file Last Filed Vital Signs Vital Sign Reading Time Taken Comments Blood Pressure 108/64 08/10/2024 11:16 AM GEM TECHNICIAN Pulse 80 08/10/2024 11:16 AM GEM TECHNICIAN Temperature 36.5 C (97.7 F) 11/05/2023 2:25 PM CDT Respiratory Rate 16 11/06/2023 8:53 AM CDT Oxygen Saturation 99% 08/10/2024 11:16 AM GEM TECHNICIAN Inhaled Oxygen Concentration - - Weight 70.3 kg (155 lb) 08/10/2024 11:16 AM GEM TECHNICIAN Height 165.1 cm (5' 5 ) 08/10/2024 11:16 AM GEM TECHNICIAN Body Mass Index 25.79 08/10/2024 11:16 AM GEM TECHNICIAN Plan of Treatment Not on file Medical Devices Implanted Type Area Flight Follower Device Identifier Shelf Expiration Date Model / Serial / Lot Screw Screw N/A: Neck Screw Screw Left: Ankle [employer] Device Vascular Closure Femoral Artery Bioabsorbable Dual Method Vascade 6-7fr Collagen [id number] - [id number] Implanted:Qty: 1 on 09/10/2023 by Estevan Shaw MD at [facility] [employer] 04/17/2025 [id number] / / [id number] 30A Insurance [facility] Advance Directives For more information, please contact: [phone] * Full Code (Latest Code Status on File) Date Activated Date Inactivated Comments 10/01/2023 4:00 PM 10/07/2023 8:06 PM * Full Code Date Activated Date Inactivated Comments 09/10/2023 10:46 AM 09/10/2023 5:09 PM Care Teams Machining Supervisor Relationship Specialty Start Date End Date Moses Reyes MD PCP - General Family Practice 3/19/24 Vahid Jay MD [id number] [place] [address] Surgeon Cardiothoracic Surgery 10/07/23 Estevan Shaw MD [address] [address] Consulting Physician Cardiovascular Disease 10/07/23
[2024-11-17 11:12] LABS: Hematocrit 41.4 % (42.0-52.0); Hemoglobin 13.3 g/dL (14.0-18.0); Mean Corpuscular HGB Conc 32.1 g/dl (32-36); Mean Corpuscular Hemoglobin 30.9 pg (26-34); Mean Corpuscular Volume 96.3 fl (80-100); Mean Platelet Volume 10.2 fl (7.4-10.4); Platelet Count Result 294 k/mm3 (150-375); Red Cell Distribution Width 13.6 % (11.5-14.5); White Blood Count 6.7 K/mm3 (4.5-10.0)
[2024-11-17 11:50] LABS: Amphetamine Screen Urine Negative (Negative); Barbiturate Screen Urine Negative (Negative); Benzodiazepines Screen Urine Negative (Negative); Cannabinoid Screen Urine Negative (Negative); Cocaine Screen Urine Negative (Negative); Methadone Screen Urine Negative (Negative); Opiate Screen Urine Negative (Negative); Phencyclidine Screen Urine Negative (Negative)
[2024-11-17 11:54] LABS: Iron 90 ug/dL (49-181)
[2024-11-17 11:56] LABS: Magnesium 2.1 mg/dL (1.6-2.3)
[2024-11-17 12:07] LABS: NT Pro B Type Natriuretic Pept 543 pg/mL (19.9-100)
[2024-11-17 12:12] LABS: Percent Iron Saturation 26 % (20-50)
[2024-11-17 12:28] LABS: Prostate Specific Antigen 0.9 ng/mL (< OR = 4.0)
[2024-11-17 13:05] LABS: Folic Acid 6.8 ng/mL (2.76->20)
== END 2024-11-17 10:32 | disposition home or self-care (01) ==
PROVIDERS: PCP Family Medicine; Visit Provider Nurse Practitioner Family
DX: R06.02 Shortness of breath (principal); Z79.891 Long term (current) use of opiate analgesic; G56.00 Carpal tunnel syndrome, unspecified upper limb; Z00.00 Encounter for general adult medical examination without abnormal findings; I50.9 Heart failure, unspecified; D64.9 Anemia, unspecified; R09.82 Postnasal drip; E78.5 Hyperlipidemia, unspecified; F17.200 Nicotine dependence, unspecified, uncomplicated; I10 Essential (primary) hypertension; J43.9 Emphysema, unspecified; N40.0 Benign prostatic hyperplasia without lower urinary tract symptoms; I25.10 Atherosclerotic heart disease of native coronary artery without angina pectoris; E27.8 Other specified disorders of adrenal gland; D12.6 Benign neoplasm of colon, unspecified; K31.84 Gastroparesis; H61.22 Impacted cerumen, left ear; G89.29 Other chronic pain; Z79.899 Other long term (current) drug therapy; R79.0 Abnormal level of blood mineral; Z12.5 Encounter for screening for malignant neoplasm of prostate; M25.569 Pain in unspecified knee; M47.896 Other spondylosis, lumbar region
CPT/HCPCS: 36415; 71046; 72100; 73560; 80307; 82607; 82728; 82746; 83540; 83550; 83735; 83880; 84153; 85027; G0103

== ENCOUNTER 2024-12-08 12:47 | Outpatient (CLI) | payer OTHER, SELFPAY ==
--- NOTE | ~2024-12-08 | CT_ITS ---
CT Scan of the Chest without Contrast: Clinical Indication: Lung cancer screening, nicotine dependence Technique: Contiguous sections were acquired throughout the chest without intravenous contrast. Dose reduction technique was used on this scan by utilizing automated exposure control and iterative recon struction technique. The dose-length product (DLP) was 72.65 mGy-cm. COMPARISON: 12/09/2023 Findings: There is no evidence of any significant mediastinal, hilar or axillary lymphadenopathy. There are cor onary artery calcifications and evidence of prior CABG.. There is no evidence of pleural or pericardial effusion. There is moderate to severe. Several scattered tiny 1-2 mm peripheral pulmonary nodules are present. No overtly suspicious pulmonary nodule seen. Images through the upper abdomen reveal no abnormalities. Impression: Lung RADS 2: Benign appearance. 12 month follow-up screening CT advised. Reviewed, dictated and finalized at [facility]. Impression: Lung RADS 2: Benign appearance. 12 month follow-up screening CT advised.
--- NOTE | ~2024-12-08 | US_ITS ---
EXAMINATION: US aorta [facility] DATE: 12/08/2024 23:21 CDT INDICATION: Nicotine dependence TECHNIQUE: Grayscale, color Doppler, and pulsed Doppler images of the aorta and common iliac arteries were obtained. COMPARISON: None. FINDINGS: The proximal aorta measures 2.8 x 3.0 cm The mid aorta measures 1.7 x 1.9 cm The distal aorta measures 1.5 x1.4 cm The right common internal iliac artery measures 1.2 cm. The left common iliac artery measures 1.1 cm. IMPRESSION: Aneurysmal dilatation of the proximal abdominal aorta to 3 cm in maximal caliber. Repeat surveillance imaging at 3 year interval is recommended. Reviewed, dictated and finalized at location A. IMPRESSION: Aneurysmal dilatation of the proximal abdominal aorta to 3 cm in maximal calibe r. Repeat surveillance imaging at 3 year interval is recommended.
== END 2024-12-08 12:48 | disposition home or self-care (01) ==
LOC: MICIMG 12:48
PROVIDERS: PCP Family Medicine; Visit Provider Nurse Practitioner Family
DX: Z12.2 Encounter for screening for malignant neoplasm of respiratory organs (principal); Z87.891 Personal history of nicotine dependence
CPT/HCPCS: 71271; 76706

== ENCOUNTER 2025-01-22 07:53 | Outpatient (CLI) | payer OTHER, SELFPAY ==
--- NOTE | ~2025-01-22 | CT_ITS ---
EXAMINATION: CTA abdomen pelvis DATE: 01/22/2025 09:19 INDICATION: Abdominal aortic aneurysm without rupture TECHNIQUE: Computed tomographic angiography (CTA) of the abdomen and pelvis was performed with 100 mL Omnipaque-350 intravenous contrast. Additional 3D reconstructions utilizing rotating maximum intensi ty projection (MIP) were performed. Automated exposure control and iterative reconstruction technique were employed. The dose-length product was 522.35 mGy-cm. COMPARISON: CT dated 02/20/2022 and MRI dated 01/22/2025 FINDINGS: Small calcified nodule at the left lower lobe consistent with old granulomatous disease.. Heart size is normal. Atherosclerotic coronary artery calcifications and change of prior median sternotomy and c oronary artery bypass grafting. No pericardial or pleural effusion. Again seen are a couple small low -attenuation hepatic cysts as well as a couple small hyperenhancing hemangiomas which demonstrated ch aracteristic persistent delayed enhancement on the MR imaging. Gallbladder, spleen, pancreas, bilater al adrenal glands and kidneys are normal. There is scattered nonhemodynamically significant calcified atherosclerosis of the normal caliber aorta and many of the other arteries. The aorta measures 2.4 c m in maximal diameter at the thoracic hiatus gradually tapering to 1.6 cm at the bifurcation. Bowels including the appendix are normal. Bladder is normal. Prostatomegaly measuring 4.6 x 3.3 cm. No free intraperitoneal gas or fluid. No pathologically enlarged abdominal or pelvic lymphadenopathy. Very sm all fat-containing right inguinal hernia. Chronic mild likely physiologic anterior wedging at T10-L1 with mild lumbar and mild to moderate lower thoracic spondylosis. IMPRESSION: 1. Normal caliber abdominal aorta tapering from 2.4 cm proximally to 1.6 cm distally. Reviewed, dictated and finalized at location A. IMPRESSION: 1. Normal caliber abdominal aorta tapering from 2.4 cm proximally to 1.6 cm dis tally.
--- NOTE | ~2025-01-22 | MR_ITS ---
EXAMINATION: MR abdomen wo/w con DATE: 01/22/2025 09:06 INDICATION: Abdominal aortic aneurysm without rupture TECHNIQUE: Magnetic resonance imaging (MRI) of the abdomen was performed without and with 15 mL Multi sammi intravenous contrast. Sequences included coronal T2-weighted SS-FSE, coronal and axial FS 2D-F IESTA, axial STIR FSE, axial T2-weighted SS-FSE, axial T2-weighted FS SS-FSE, axial diffusion-weighte d SE, axial dual-echo T1-weighted FSPGR, and axial and coronal T1-weighted LAVA. Postcontrast axial T 1-weighted LAVA images were obtained in a time course. Postcontrast coronal T1-weighted LAVA images w ere obtained. COMPARISON: None. FINDINGS: Heart size is normal. No pericardial or pleural effusion. 11 mm T2 hyperintense nonenhancing cyst at the caudal right hepatic lobe. There are 3 additional subcentimeter hepatic lesions which are slightl y less T2 hyperintense and which demonstrate enhancement isointense to the aorta which persists throu gh the 10 minute imaging consistent with hemangiomas. Finally there is a 6 mm T2 hyperintense lesion also in the right hepatic lobe which appears to remain nonenhancing through the delayed images which could represent either an additional hepatic cyst or slowly filling hemangioma. Spleen, pancreas, comfort ateral adrenal glands and kidneys are normal. The abdominal aorta is normal in caliber throughout josé manuel suring 2.4 cm at the thoracic hiatus tapering to 1.6 cm at the bifurcation. Review of prior ultrasoun d suggests the 3 cm measurement is artifactually exaggerated by obliquity of the vessel on the transv erse imaging. Visualized portions of bowels are unremarkable. No pathologically enlarged abdominal ly mphadenopathy. Mild to moderate lumbar and thoracic spondylosis with normal bone marrow signal throug hout. IMPRESSION: 1. Normal caliber abdominal aorta tapering from 2.4 similar approximate 1.6 cm distally. Prior measur ement on ultrasound likely exaggerated by some obliquity of the vessel on the transverse imaging. Reviewed, dictated and finalized at location A. IMPRESSION: 1. Normal caliber abdominal aorta tapering from 2.4 similar approximate 1.6 cm distally. Prior measurement on ultrasound likely exaggerated by some obliquity of the vessel on the transverse imaging.
--- OUTSIDE RECORDS SUMMARY | 2025-01-22 07:58 | XMS_ITS | Referral Summary ---
Author Organization [facility] Address [address] [place] [address] Care Team Providers Care Glass Ribbon Machine Operator Name Role Phone Moses Reyes MD Primary Care Provider [phone] Vahid Jay MD Unavailable [phone] Estevan Shaw MD Unavailable [phone] Allergies No known active allergies Medications tamsulosin (FLOMAX) 0.4 mg extended release capsule Take 1 capsule (0.4 mg total) by mouth nightly 07/17/19 24 Active metoclopramide (REGLAN) 10 mg tabletIndicatio ns:gastroesopha geal reflux disease Take 1 tablet (10 mg total) by mouth every 8 (eight) hours as needed 09/11/19 24 Active acetaminophen 500 mg capsuleIndicati ons:Fever,Pain Take 2 capsules (1,000 mg total) by mouth every 6 (six) hours as needed for pain 10/07/19 24 Active aspirin 81 mg enteric coated tablet Take 1 tablet (81 mg total) by mouth daily 90 tablet 3 12/02/19 24 Active atorvastatin (LIPITOR) 80 mg tabletIndicatio ns:hyperlipidem ia Take 1 tablet (80 mg total) by mouth nightly 90 tablet 3 12/13/19 24 Active gabapentin (NEURONTIN) 300 mg capsule Take 1 capsule (300 mg total) by mouth 3 (three) times a day 11/22/[address] (PROTONIX) 40 mg EC tablet Take 1 tablet (40 mg total) by mouth every morning 11/01/19 24 Active traMADoL (ULTRAM) 50 mg tablet Take 1 tablet (50 mg total) by mouth every 8 (eight) hours as needed 12/13/19 24 Active spironolactone (ALDACTONE) 25 mg tabletIndicatio ns:Diastolic heart failure, unspecified HF chronicity (HCC) Take 1 tablet (25 mg total) by mouth daily 30 tablet 03/02/20 24 025 Active Entresto 24-26 mg tabletIndicatio ns:chronic heart failure Take 1 tablet by mouth every 12 (twelve) hours 60 tablet 03/02/20 24 025 Active clopidogreL (PLAVIX) 75 mg tablet TAKE 1 TABLET(75 MG) BY MOUTH DAILY 90 tablet 3 01/15/20 25 Active clopidogreL (PLAVIX) 75 mg tabletIndicatio ns:Acute Coronary Syndrome,Thromb osis Prevention after PCI Take 1 tablet (75 mg total) by mouth daily 90 tablet 3 12/02/19 24 025 Discontinued Active Problems Problem Noted Date Diagnosed Date Tobacco abuse, in remission 08/10/2024 Chronic diastolic heart failure 08/10/2024 Severe protein-calorie malnutrition 10/02/2023 [facility] with stable angina pectoris 09/20/2023 Essential [...] materials from doctor or pharmacy Never 11/05/2023 [facility] Utilities Answer Date Recorded In [...] week 10/07/2023 How often do you attend spiritism or restorationism serv ices? Never 10/07/2023 Do you belong to any clubs o r organizations such as spiritism groups, unions, fraternal or athletic groups, or [...] place to sleep or slept in a senior living (including now)? No 10/07/2023 Personal Safety Answer Date Recorded Have you ever been in or are you currently in a harmful physical or emotional relationship or is someone making you feel afraid or unsafe? 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 DIESEL ENGINE OPERATOR Gender Identity Male 06/26/2018 1:21 PM DIESEL ENGINE OPERATOR Sexual Orientation Not on file Last Filed Vital Signs Vital Sign Reading Time Taken Comments Blood Pressure 108/64 08/10/2024 11:16 AM DIESEL ENGINE OPERATOR Pulse 80 08/10/2024 11:16 AM DIESEL ENGINE OPERATOR Temperature 36.5 C (97.7 F) 11/05/2023 2:25 PM CDT Respiratory Rate 16 11/06/2023 8:53 AM CDT Oxygen Saturation 99% 08/10/2024 11:16 AM DIESEL ENGINE OPERATOR Inhaled Oxygen Concentration - - Weight 70.3 kg (155 lb) 08/10/2024 11:16 AM DIESEL ENGINE OPERATOR Height 165.1 cm (5' 5) 08/10/2024 11:16 AM DIESEL ENGINE OPERATOR Body Mass Index 25.79 08/10/2024 11:16 AM DIESEL ENGINE OPERATOR Plan of Treatment Not on file Medical Devices Implanted Type Area Check Out Clerk Device Identifier Shelf Expiration Date Model / Serial / Lot Screw Screw N/A: Neck Screw Screw Left: Ankle [employer] Device Vascular Closure Femoral Artery Bioabsorbable Dual Method Vascade 6-7fr Collagen [id number] - [id number] Implanted:Qty: 1 on 09/10/2023 by Estevan Shaw MD at [facility] [employer] 04/17/2025 [id number] / / [id number] Insurance Advance Directives For more information, please contact: [phone] * Full Code (Latest Code Status on File) Date Activated Date Inactivated Comments 10/01/2023 4:00 PM 10/07/2023 8:06 PM * Full Code Date Activated Date Inactivated Comments 09/10/2023 10:46 AM 09/10/2023 5:09 PM Care Teams Glass Ribbon Machine Operator Relationship Specialty Start Date End Date Moses Reyes MD PCP - General Family Practice 09/10/23 Vahid Jay MD Surgeon Cardiothoracic Surgery 10/07/23 Estevan Shaw MD [address] [address] Consulting Physician Cardiovascular Disease 10/07/23
--- OUTSIDE RECORDS SUMMARY | 2025-01-22 07:58 | XMS_ITS | Encounter Summary ---
Author Organization [employer] [place] Address [address] [place] [address] Care Team Providers Care Radiator Repairer Name Role Phone Gerald Groves DO Primary Care Provider [phone] Encounter Details Date Type Department Care Team (Latest Contact Info) Description 08/10/2005 Inpatient Historical [facility] Sami Cheema MD [address] [facility] [address] [place] [id number] CERVICAL DISC DISPLACMNT (Primary Dx) Social History Tobacco Use Types Packs/Day Years Used Date Smoking Tobacco: Never Assessed Sex and Gender Information Value Date Recorded Sex Assigned at Not on file Legal Sex Male 5:15 AM PATROL MAN Gender Identity Not on file Sexual Orientation Not on file documented as of this encounter Plan of Treatment Not on file documented as of this encounter Procedures Procedure Name Priority Date/Time Associated Diagnosis Comments COMPREHENSIVE METABOLIC PANEL Routine 08/10/2005 12:00 PM PATROL MAN HEMOGLOBIN AND HEMATOCRIT Routine 08/07/2005 12:50 PM PATROL MAN documented in this encounter Results * COMPREHENSIVE METABOLIC PANEL (08/10/2005 12:00 PM PATROL MAN) GLUCOSE 87 65 - 109 mg/dL INTERFACE [...] mmol/L INTERFACE SYSTEM 08/10/2005 12:0 0 PM PATROL MAN Sami Cheema MD CHEMISTRY ORDERABLES Final Resu lt Performing Organization Address City/[facility]/ZIP Co de Phone Number INTERFACE SYSTEM Refer to clinic/hospital department * HEMOGLOBIN AND HEMATOCRIT (08/07/2005 12:50 PM PATROL MAN) HEMOGLOBIN 15.6 13.6 - 16.5 g/dL INTERFACE SYSTEM HEMATOCRIT 43.8 40.0 - 48.0 % INTERFACE SYSTEM 08/07/2005 12:5 0 PM PATROL MAN us Sami Cheema MD HEMATOLOGY ORDERABLES Final Res ult Performing Organization Address City/[facility] Co de Phone Number INTERFACE SYSTEM Refer to clinic/hospital department documented in this encounter Visit Diagnoses Diagnosis Displacement of cervical intervertebral disc without myelopathy- Primary documented in this encounter Care Teams Radiator Repairer Relationship Specialty Start Date End Date Gerald Groves DO [address] [facility] [address] [place] [address] PCP - General Internal Medicine 03/15/20 documented as of this encounter
--- OUTSIDE RECORDS SUMMARY | 2025-01-22 07:58 | XMS_ITS | Encounter Summary ---
Author Organization [facility] Address [address] [place] [address] Care Team Providers Care Pipe Fitter Street Service Name Role Phone Gerald Groves DO Primary Care Provider [phone] Encounter Details Date Type Department Care Team (Late st Contact Info) Description 08/07/2005 Outpatient Historical [facility] Support Serv. ([facility]) [address] [place] [address] Isac Morton MD NO ADDRESS ON FILE Social History Tobacco Use Types Packs/Day Years Used Date Smoking Tobacco: Never Assessed Sex and Gender Information Value Date Recorded Sex Assigned at Not on file Legal Sex Male 5:15 AM FEATHER TRIMMER Gender Identity Not on file Sexual Orientation Not on file documented as of this encounter Plan of Treatment Not on file documented as of this encounter Visit Diagnoses Not on filedocumented in this encounter Care Teams Pipe F[address] Service Relationship Specialty Start Date End Date Gerald Groves DO [address] [facility] [address] [place] [address] PCP - General Internal Medicine 03/15/20 documented as of this encounter
--- OUTSIDE RECORDS SUMMARY | 2025-01-22 07:58 | XMS_ITS | Clinical Summary ---
Author Organization [facility] Address [address] [place] [address] Care Team Providers Care Licensed Occupational Therapy Assistant Name Role Phone Moses Reyes MD Primary Care Provider [phone] Vahid Jay MD Unavailable [phone] Estevan Shaw MD Unavailable [phone] Allergies No known active allergies Medications tamsulosin [...] materials from doctor or pharmacy Never 11/05/2023 [facility] Utilities Answer Date Recorded In the past 12 months has e mParticle, gas, oil, or water Tribe[employer] threatened to shut off services in your home? No 10/07/2023 Social Connection and Isolation Panel [NHANES] A nswer Date Recorded In a typical week, how many times do you talk on the phone with family, friends, or neighbors? Once a week 10/07/2023 How often do you get together with friends or re latives? Once a week 10/07/2023 How often do you attend nondenominational or christian serv ices? Never 10/07/2023 Do you belong to any clubs o r organizations such as nondenominational groups, unions, fraternal or athletic groups, or [...] place to sleep or slept in a longterm (including now)? No 10/07/2023 Personal Safety Answer Date Recorded Have you ever been in or are you currently in a harmful physical or emotional relationship or is someone making you feel afraid or unsafe? 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 Gender Identity Male 06/26/2018 1:21 PM NAIL MAKER Sexual Orientation Not on file Obstetrics History Last Filed Vital Signs Vital Sign Reading Time Taken Comments Blood Pressure 108/64 08/10/2024 11:16 AM NAIL MAKER Pulse 80 08/10/2024 11:16 AM NAIL MAKER Temperature 36.5 C (97.7 F) 11/05/2023 2:25 PM CDT Respiratory Rate 16 11/06/2023 8:53 AM CDT Oxygen Saturation 99% 08/10/2024 11:16 AM NAIL MAKER Inhaled Oxygen Concentration - - Weight 70.3 kg (155 lb) 08/10/2024 11:16 AM NAIL MAKER Height 165.1 cm (5' 5) 08/10/2024 11:16 AM NAIL MAKER Body Mass Index 25.79 08/10/2024 11:16 AM NAIL MAKER Plan of Treatment Health Maintenance Due Date [...] Fall Risk Assessment 10/06/2024 10/07/2023 Influenza Vaccine (#1) 2025 Medical Devices Implanted Type Area Bead Flipper Device Identifier Shelf Expiration Date Model / Serial / Lot Screw Screw N/A: Neck Screw Screw Left: Ankle [employer] Device Vascular Closure Femoral Artery Bioabsorbable Dual Method Vascade 6-7fr Collagen [id number] - [id number] Implanted:Qty: 1 on 09/10/2023 by Estevan Shaw MD at [facility] [employer] 04/17/2025 [id number]- [id number] / / [id number] 30A Insurance [employer] HE[employer]CARE [employer] HEALTHCARE [facility] Advance Directives For more information, please contact: [phone] * Full Code (Latest Code Status on File) Date Activated Date Inactivated Comments 10/01/2023 4:00 PM 10/07/2023 8:06 PM * Full Code Date Activated Date Inactivated Comments 09/10/2023 10:46 AM 09/10/2023 5:09 PM Care Teams Licensed Occupational Therapy Assistant Relationship Specialty Start Date End Date Moses Reyes MD PCP - General Family Practice 09/10/23 Vahid Jay MD Surgeon Cardiothoracic Surgery 10/07/23 Estevan Shaw MD [facility] [address] [place] [address] Consulting Physician Cardiovascular Disease 10/07/23
--- OUTSIDE RECORDS SUMMARY | 2025-01-22 07:58 | XMS_ITS | Clinical Summary ---
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 Gender Identity Not on file Sexual Orientation Not on file Last Filed Vital Signs Vital Sign Reading Time Taken Comments Blood Pressure - - Pulse - - Temperature 36.6 C (97.8 F) 04/19/2020 8:58 AM CDT Respiratory Rate - - Oxygen Saturation - - Inhaled Oxygen Concentration - - Weight 63.5 kg (140 lb) 04/19/2020 8:58 AM CDT Height 165.1 cm (5' 5) 04/19/2020 8:58 AM CDT Body Mass Index [...] (1 of 2) 2008 INFLUENZA VACCINE (#1) 2025 RSV VACCINE (60+ or ) (1 - 1-dose 75+ series) 2033 Care Teams Application Security Engineer Relationship Specialty Start Date End Date Gerald Groves DO [address] [facility] [address] [place] [address] PCP - General Internal Medicine 03/15/20
--- OUTSIDE RECORDS SUMMARY | 2025-01-22 07:58 | XMS_ITS | Clinical Summary ---
Author Organization [facility] Address [address] [place] [address] Care Team Providers Care Therapeutic Dietitian Name Role Phone Unavailable Primary Care Provider Unavailabl e Social History Tobacco Use Types Packs/Day Years Used Date Smoking Tobacco: Never Assessed Sex and Gender Information Value Date Recorded Sex Assigned at Not on file Legal Sex Male 8:33 PM CDT Gender Identity Not on file Sexual Orientation Not on file Plan of Treatment Health Maintenance Due Date Last Done Comments Colorectal Cancer Screening Colonoscopy (10 Years) 1958 Hepatitis C 1976 DTaP, Tdap and Td Vaccines ( 1 - Tdap) 1977 Pneumococcal Vaccine: 50+ Ye ars (1 of 1 - PCV) 2008 Zoster Vaccines (1 of 2) 2008 COVID-19 Vaccine ( - 2023-2 5 season) 2024 RSV Immunization or 60+ Years (1 - 1-dose 75+ series) 2033 Meningococcal B Vaccine Aged Out No l onger eligible based on patient's age to complete this topic Meningococcal Vaccine Aged Out No pb erica eligible based on patient's age to complete this topic RSV Immunizations Under 20 Months Aged Out No longer eligible based on patient's age to complete this topic
--- OUTSIDE RECORDS SUMMARY | 2025-01-22 07:58 | XMS_ITS | Encounter Summary ---
Author Organization [facility] Address 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
[2025-01-22 08:23] LABS: Estimated Glomerular Filt Rate > 60
== END 2025-01-22 07:54 | disposition home or self-care (01) ==
PROVIDERS: PCP Nurse Practitioner Family; Visit Provider Nurse Practitioner Family
DX: I71.40 Abdominal aortic aneurysm, without rupture, unspecified (principal)
CPT/HCPCS: 74174; 74183; A9577; Q9967

== ENCOUNTER 2025-02-03 12:35 | Emergency (ER) | payer OTHER, SELFPAY ==
--- NOTE | ~2025-02-03 | US_ITS ---
US scrotum doppler INDICATION: Left scrotal mass TECHNIQUE: Testicular sonogram utilizing grayscale and color Doppler FINDINGS: The testes are normal in size and appearance. No focal lesions are seen. The right testes measures 3.7 x 1.5 x 2.1 cm centimeters, and the left testis measures 4 x 1.5 x 1.9 cm cm. There is n ormal vascular flow to both testes. The right and left epididymides appear normal. There is no varicocele or hydrocele. IMPRESSION: 1. NORMAL TESTICULAR ULTRASOUND. Reviewed, dictated and finalized at location A.
--- OUTSIDE RECORDS SUMMARY | 2025-02-03 12:37 | XMS_ITS | Encounter Summary ---
Author Organization [facility] Address 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
--- OUTSIDE RECORDS SUMMARY | 2025-02-03 12:37 | XMS_ITS | Clinical Summary ---
Author Organization [facility] Address [address] [place] [address] Care Team Providers Care Computer Systems Analyst Name Role Phone Unavailable Primary Care Provider [...]
--- OUTSIDE RECORDS SUMMARY | 2025-02-03 12:37 | XMS_ITS | Clinical Summary ---
Author Organization [facility] Address [address] [place] [address] Care Team Providers Care Fire Protection Engineering Technician Name Role Phone Moses Reyes MD Primary Care Provider [phone] Vahid Jay MD Unavailable Estevan Shaw MD Unavailable [phone] Allergies No known active allergies Medications tamsulosin [...] daily 90 tablet 3 12/02/19 24 Active gabapentin (NEURONTIN) 300 mg capsule [...] TABLET(75 MG) BY MOUTH DAILY 90 tablet 01/15/20 25 Active atorvastatin (LIPITOR) 80 mg tablet TAKE 1 TABLET(80 MG) BY MOUTH EVERY NIGHT 90 tablet 3 02/03/20 25 Active clopidogreL (PLAVIX) 75 mg tabletIndicatio ns:Acute Coronary Syndrome,Thromb osis Prevention after PCI Take 1 tablet (75 mg total) by mouth daily 90 tablet 3 12/02/19 24 025 Discontinued atorvastatin (LIPITOR) 80 mg tabletIndicatio ns:hyperlipidem ia Take 1 tablet (80 mg total) by mouth nightly 90 tablet 12/13/19 025 Discontinued(Re order) Active Problems Problem Noted Date Diagnosed Date [...] doctor or pharmacy Never 11/05/2023 [facility] Utilities Answer Date Recorded In the past 12 months has e electric, gas, oil, or water company threatened to shut off services in your home? No 10/07/2023 Social Connection and Isolation Panel Answer Date Recorded In a typical week, how many times do you talk on the phone with family, friends, or neighbors? Once a week 10/07/2023 How often do you get together with friends or re latives? Once a week 10/07/2023 How often do you attend hindu or samaritan serv ices? 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 Gender Identity Male 06/26/2018 1:21 PM INTERPERSONAL COMMUNICATIONS PROFESSOR Sexual Orientation Not on file Obstetrics History Last Filed Vital Signs Vital Sign Reading Time Taken Comments Blood Pressure 108/64 08/10/2024 11:16 AM INTERPERSONAL COMMUNICATIONS PROFESSOR Pulse 80 08/10/2024 11:16 AM INTERPERSONAL COMMUNICATIONS PROFESSOR Temperature 36.5 C (97.7 F) 11/05/2023 2:25 PM CDT Respiratory Rate 16 11/06/2023 8:53 AM CDT Oxygen Saturation 99% 08/10/2024 11:16 AM INTERPERSONAL COMMUNICATIONS PROFESSOR Inhaled Oxygen Concentration - - Weight 70.3 kg (155 lb) 08/10/2024 11:16 AM INTERPERSONAL COMMUNICATIONS PROFESSOR Height 165.1 cm (5' 5) 08/10/2024 11:16 AM INTERPERSONAL COMMUNICATIONS PROFESSOR Body Mass Index 25.79 08/10/2024 11:16 AM INTERPERSONAL COMMUNICATIONS PROFESSOR Plan of Treatment Health Maintenance Due Date [...] (#1) 2025 Medical Devices Implanted Type Area Credentialer Device Identifier Shelf Expiration Date Model / Serial / Lot Screw Screw N/A: Neck Screw Screw Left: Ankle [employer]andy Device Vascular Closure Femoral Artery Bioabsorbable Dual Method Vascade 6-7fr Collagen [id number] - [id number] Implanted:Qty: 1 on 09/10/2023 by Estevan Shaw MD at [facility] [employer] 04/17/2025 [id number] / / [id number] 30A Insurance [facility] Advance Directives For more information, please contact: [phone] * Full Code (Latest Code Status on File) Date Activated Date Inactivated Comments 10/01/2023 4:00 PM 10/07/2023 8:06 PM * Full Code Date Activated Date Inactivated Comments 09/10/2023 10:46 AM 09/10/2023 5:09 PM Care Teams Fire Protection Engineering Technician Relationship Specialty Start Date End Date Moses Reyes MD PCP - General Family Practice 09/10/23 Vahid Jay MD Surgeon Cardiothoracic Surgery 10/07/23 Estevan Shaw MD [address] [address] Consulting Physician Cardiovascular Disease 10/07/23
--- OUTSIDE RECORDS SUMMARY | 2025-02-03 12:37 | XMS_ITS | Encounter Summary ---
Author Organization [employer] [facility] Address [address] [place] [address] Care Team Providers Care Senior It Security Analyst Name Role Phone Gerald Groves DO Primary Care Provider [phone] Encounter Details Date Type Department Care Team (Latest Contact Info) Description 08/10/2005 Inpatient Historical [facility] Sami Cheema MD [address] [facility] [address] [place] [id number] CERVICAL DISC DISPLACMNT (Primary Dx) Social History Tobacco Use Types Packs/Day Years Used Date Smoking Tobacco: Never Assessed Sex and Gender Information Value Date Recorded Sex Assigned at Not on file Legal Sex Male 5:15 AM DIRECTOR 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 Gender Identity Not on file Sexual Orientation Not on file documented as of this encounter Plan of Treatment Not on file documented as of this encounter Procedures Procedure Name Priority Date/Time Associated Diagnosis Comments COMPREHENSIVE METABOLIC PANEL Routine 08/10/2005 12:00 PM DIRECTOR EMERGENCY HEMOGLOBIN AND HEMATOCRIT Routine 08/07/2005 12:50 PM DIRECTOR EMERGENCY documented in this encounter Results * COMPREHENSIVE METABOLIC PANEL (08/10/2005 12:00 PM DIRECTOR EMERGENCY) GLUCOSE 87 65 - 109 mg/dL INTERFACE [...] mmol/L INTERFACE SYSTEM 08/10/2005 12:0 0 PM DIRECTOR EMERGENCY Sami Cheema MD CHEMISTRY ORDERABLES Final Resu lt Performing Organization Address City/[facility]/ZIP Co de Phone Number INTERFACE SYSTEM Refer to clinic/hospital department * HEMOGLOBIN AND HEMATOCRIT (08/07/2005 12:50 PM DIRECTOR EMERGENCY) HEMOGLOBIN 15.6 13.6 - 16.5 g/dL INTERFACE SYSTEM HEMATOCRIT 43.8 40.0 - 48.0 % INTERFACE SYSTEM 08/07/2005 12:5 0 PM DIRECTOR EMERGENCY us Sami Cheema MD HEMATOLOGY ORDERABLES Final Res ult Performing Organization Address City/[facility] Co de Phone Number INTERFACE SYSTEM Refer to clinic/hospital department documented in this encounter Visit Diagnoses Diagnosis Displacement of cervical intervertebral disc without myelopathy- Primary documented in this encounter Care Teams Senior It Security Analyst Relationship Specialty Start Date End Date Gerald Groves DO [address] [facility] [address] [place] [address] PCP - General Internal Medicine 03/15/20 documented as of this encounter
--- OUTSIDE RECORDS SUMMARY | 2025-02-03 12:37 | XMS_ITS | Clinical Summary ---
Author Organization [facility] Address 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
--- OUTSIDE RECORDS SUMMARY | 2025-02-03 12:37 | XMS_ITS | Encounter Summary ---
Author Organization [facility] Address [address] [place] [address] Care Team Providers Care Store Protection Specialist Name Role Phone Gerald Groves DO Primary Care Provider [phone] Encounter Details Date Type Department Care Team (Late st Contact Info) Description 08/07/2005 Outpatient Historical [facility] Support [facility]. ([facility]) [address] 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
[2025-02-03 12:44] VITALS: BP 135/80; PULSE 96; RESP 16; TEMP 36.4; O2SAT 97
--- NOTE | 2025-02-03 12:51 | ED_ITS ---
HPI - Male Genitourinary General Chief complaint: Urogenital-Male <Krystin Johnson APRN - Last Filed: 02/03/25 12:54> Stated complaint: swollen scrotum? <Krystin Johnson APRN - Last Filed: 02/03/25 12:54> Time Seen by Provider: 02/03/25 12:45 <Krystin Johnson APRN - Last Filed: 02/03/25 12:54> Focused HPI: Patient is a 64-year-old male who presents to the ER with complaints of a swollen and painful scrotum for the past couple of days. He reports he noticed a bump on the left side of his scrotum. Last night he reports the site ?burst and this morning he has blood in his underwear. Patient also reports he feels as though he has been it is unable to empty his bladder. He denies any recent fevers, back pain, or abdominal pain. Patient endorses a history of high blood pressure. His medical records indicate he has a history COPD, hyperlipidemia and is on a blood thinner. At time of examination patient rates his pain at a 0/10. GENERAL: Well-appearing, well-nourished, and in no acute distress. HEAD: Normocephalic, atraumatic. CHEST: Clear to auscultation. ?No respiratory distress. HEART: Regular rate and rhythm.? NEURO: ?Alert and oriented x3. Patient screened in triage and initial orders placed.? ?Additional care and disposition to be based upon?diagnostic testing and treatment. <Krystin Johnson APRN - Last Filed: 02/03/25 12:54> Related Data Home medications: Home Medications ?Medication ?Instructions ?Recorded ?Confirmed ?Last Taken ?Type aspirin 81 mg tablet,delayed 81 mg PO DAILY 10/28/23 11/10/24 12/08/23 09:00 History release atorvastatin 80 mg tablet 80 mg PO QHS 10/28/23 11/10/24 12/08/23 21:00 History clopidogrel 75 mg tablet 75 mg PO DAILY 10/28/23 11/10/24 03/06/24 History tamsulosin 0.4 mg capsule 0.4 mg PO QHS 01/01/24 11/10/24 Unknown History <Krystin Johnson APRN - Last Filed: 02/03/25 12:54> Allergies/Adverse reactions: Allergies Allergy/AdvReac Type Severity Reaction Status Date / Time No Known Allergies Allergy Verified 02/03/25 12:46 <Krystin Johnson, DIRECTOR OF TRAUMA - Last Filed: 02/03/25 12:54> [facility] Past Medical History Medical History: Medical History COPD with emphysema Benign prostatic hyperplasia Coronary artery disease Post 3 vessel bypass in September 2023. Former smoker Shortness of breath Coronary artery disease Gastroparesis Rheumatoid arthritis Adrenal incidentaloma Adenomatous colon polyp Benign prostatic hyperplasia without lower urinary tract symptoms Essential hypertension Hyperlipidemia LDL goal <100 <Krystin Johnson DIRECTOR OF TRAUMA - Last Filed: 02/03/25 12:54> Surgical History Surgical History: Surgical History History of cervical spinal surgery History of open reduction and internal fixation (ORIF) procedure Left ankle. History of repair of left rotator cuff History of coronary artery bypass graft x 3 (09/2023) PENA to LAD and saphenous vein graft to posterior descending artery and obtuse marginal branch at [facility]. History of colonoscopy with polypectomy Hx of CABG <Krystin Johnson, DIRECTOR OF TRAUMA - Last Filed: 02/03/25 12:54> Family History Family History: Family History Sibling Family history of multiple sclerosis Family history of diabetes mellitus in first degree relative Mother Carcinoma of colon Family history of coronary artery disease Father Carcinoma of colon Family history of heart disease in male family member before age 55 Patient's father is Family history of cardiovascular disease Other Cancer Family history of malignant neoplasm Heart disease <Krystin Johnson, DIRECTOR OF TRAUMA - Last Filed: 02/03/25 12:54> Social History Social History: Social History Social History: Surrogate medical decision maker: Cara Miranda, sibling. Code status: Full code. Smoking packs per day: 0.5 Smoking cigarettes per day: 10.0 Years smoked: 40 Smoking pack-years: 20.00 Smoking status: Former smoker Tobacco type: cigarettes Second hand tobacco smoke exposure: No Smoking end date: 10/14/23 Alcohol intake: former Drinks per week: 15 Alcohol use details: 12 pack beer/week Substance use: never Substance use type: does not use Do You Feel Safe in your Home?: Yes Lack of Transportation: No Lack of Food: Never True Current Housing: I Have Housing Concerned About Future Housing: No Difficulty Paying Gas/Electric Bills: No Difficulty Paying for Meds: No Currently Unemployed: No Education: Trade/Vocational Certificate Difficulty w/ Childcare or Family Care: No Living arrangements: with family Additional living arrangements comments: Lives in an apartment in the basement of his sister's home. Occupation/Education: retired Additional occupation/education comments: [employer]. Spiritual care concerns: No <Krystin Johnson APRN - Last Filed: 02/03/25 12:54> Exam 2 Narrative: APPEARANCE: No apparent distress. Head: atraumatic. EYES: EOMI, NOSE: Atraumatic NECK: Trachea midline RESPIRATORY: No increased rate of breathing CARDIOVASCULAR: RRR, ABDOMINAL: Non-distended : Exam of the testicles revealed no significant swelling of the testicles. He does have a draining abscess on the left testicle/inguinal area. Minimal surrounding induration without erythema. MUSCULOSKELETAl: No obvious deformities NEURO: Alert. Moving 4/4 extremities SKIN:: Warm, dry. Normal color PSYCHIATRIC: Normal affect <Trevor Benitez MD - Last Filed: 02/03/25 16:27> Course Vital Signs Vital signs: Vital Signs Temperature 97.6 F 02/03/25 12:44 Pulse Rate 96 02/03/25 12:44 Respiratory Rate 16 02/03/25 12:44 Blood Pressure 135/80 02/03/25 12:44 Pulse Oximetry 97 02/03/25 12:44 Oxygen Delivery Room Air 02/03/25 12:44 Temperature 97.6 F 02/03/25 12:44 Pulse Rate 96 02/03/25 12:44 Respiratory Rate 16 02/03/25 12:44 Blood Pressure 135/80 02/03/25 12:44 Pulse Oximetry 97 02/03/25 12:44 Oxygen Delivery Room Air 02/03/25 12:44 <Krystin Johnson APRN - Last Filed: 02/03/25 12:54> Vital Signs Temperature 97.6 F 02/03/25 12:44 Pulse Rate 96 02/03/25 12:44 Respiratory Rate 16 02/03/25 12:44 Blood Pressure 135/80 02/03/25 12:44 Pulse Oximetry 97 02/03/25 12:44 Oxygen Delivery Room Air 02/03/25 12:44 Temperature 97.6 F 02/03/25 12:44 Pulse Rate 96 02/03/25 12:44 Respiratory Rate 16 02/03/25 12:44 Blood Pressure 135/80 02/03/25 12:44 Pulse Oximetry 97 02/03/25 12:44 Oxygen Delivery Room Air 02/03/25 12:44 <Trevor Benitez MD - Last Filed: 02/03/25 16:27> MDM - Male Genitourinary MDM Narrative Medical decision making narrative: -Course: 64-year-old male presenting with a ruptured scrotal abscess. Laboratory studies within normal limits. Testicular ultrasound unremarkable. On exam patient has what appears to be a ruptured scrotal abscess. No area of fluctuance for which I can drain. Will be placed on Bactrim and given Urology follow-up. Patient given return precautions. -DDX includes but is not limited to: Scrotal abscess, testicular torsion, testicular abscess, epididymitis <Trveor Benitez MD - Last Filed: 02/03/25 16:27> Lab Data Result diagrams: 02/03/25 13:13 02/03/25 13:13 <Krystin Johnson APRN - Last Filed: 02/03/25 12:54> Labs: Lab Results 02/03/25 Range/Units 13:13 WBC 8.5 (4.5-10.0) K/mm3 RBC 4.12 L (4.6-6.20) M/mm3 Hgb 12.7 L (14.0-18.0) g/dL Hct 38.9 L (42.0-52.0) % MCV 94.4 (80-100) fl MCH 30.8 (26-34) pg MCHC 32.6 (32-36) g/dl RDW 13.3 (11.5-14.5) % Plt Count 334 (150-375) k/mm3 MPV 10.4 (7.4-10.4) fl Immature Gran % (Auto) 0.5 (0-0.5) % Neut % (Auto) 73.3 H (45.5-73.1) % Lymph % (Auto) 16.8 L (18.3-44.2) % [place] % (Auto) 6.6 (2.6-8.5) % Eos % (Auto) 2.2 (0-4.4) % Baso % (Auto) 0.6 (0.2-1.2) % Lymph # (Auto) 1.43 (0.9-3.2) K/mm3 [place] # (Auto) 0.6 (0.1-0.6) K/mm3 Eos # (Auto) 0.2 (0-0.3) K/mm3 Baso # (Auto) 0.1 (0.0-0.1) K/mm3 Abs Immat Gran (auto) 0.04 H (0.00-0.031) K/mm3 Absolute Neuts (auto) 6.2 (1.3-6.7) K/mm3 Absolute Nucleated RBC 0.000 (0.0-0.012) K/mm3 Nucleated RBC % 0.0 (0.0-0.2) % Sodium 138 (137-145) mmol/L Potassium 3.8 (3.4-5.0) mmol/L Chloride 103 (98-107) mmol/L Carbon Dioxide 23 (22-30) mmol/L Anion Gap 12 (4-12) mmol/L BUN 9 (9-20) mg/dL Creatinine 0.87 (0.7-1.3) mg/dL Estim Creat Clear Calc 64 ml/min Estimated GFR > 60 (59 - ) Glucose 100 (65-110) mg/dL Lactic Acid 1.1 (0.7-2.0) mmol/L Calcium 9.0 (8.4-10.2) mg/dL Total Bilirubin 1.3 (0.2-1.3) mg/dL AST 27 (17-59) U/L ALT 15 (6-50) U/L Alkaline Phosphatase 175 H (38-126) U/L Total Protein 7.8 (6.3-8.2) g/dL Albumin 4.3 (3.5-5.1) g/dL Urine Color Yellow (Yellow) Urine Appearance Clear (Clear) Urine pH 6.5 (5.0-9.0) Ur Specific [place] 1.008 (1.001-1.035) Urine Protein Negative (Negative) mg/dL Urine Glucose (UA) Negative (Negative) mg/dL Urine Ketones Negative (Negative) mg/dL Ur Blood (Man) Negative (Negative) Urine Nitrate Negative (Negative) Urine Bilirubin Negative (Negative) Urine Urobilinogen 1.0 (<2.0) mg/dL Leukocyte Esterase Rfl Negative (Negative) KEAGAN/UL <Krystin Johnson, DIRECTOR OF TRAUMA - Last Filed: 02/03/25 12:54> Lab Results 02/03/25 Range/Units 13:13 WBC 8.5 (4.5-10.0) K/mm3 RBC 4.12 L (4.6-6.20) M/mm3 Hgb 12.7 L (14.0-18.0) g/dL Hct 38.9 L (42.0-52.0) % MCV 94.4 (80-100) fl MCH 30.8 (26-34) pg MCHC 32.6 (32-36) g/dl RDW 13.3 (11.5-14.5) % Plt Count 334 (150-375) k/mm3 MPV 10.4 (7.4-10.4) fl Immature Gran % (Auto) 0.5 (0-0.5) % Neut % (Auto) 73.3 H (45.5-73.1) % Lymph % (Auto) 16.8 L (18.3-44.2) % [place] % (Auto) 6.6 (2.6-8.5) % Eos % (Auto) 2.2 (0-4.4) % Baso % (Auto) 0.6 (0.2-1.2) % Lymph # (Auto) 1.43 (0.9-3.2) K/mm3 [place] # (Auto) 0.6 (0.1-0.6) K/mm3 Eos # (Auto) 0.2 (0-0.3) K/mm3 Baso # (Auto) 0.1 (0.0-0.1) K/mm3 Abs Immat Gran (auto) 0.04 H (0.00-0.031) K/mm3 Absolute Neuts (auto) 6.2 (1.3-6.7) K/mm3 Absolute Nucleated RBC 0.000 (0.0-0.012) K/mm3 Nucleated RBC % 0.0 (0.0-0.2) % Sodium 138 (137-145) mmol/L Potassium 3.8 (3.4-5.0) mmol/L Chloride 103 (98-107) mmol/L Carbon Dioxide 23 (22-30) mmol/L Anion Gap 12 (4-12) mmol/L BUN 9 (9-20) mg/dL Creatinine 0.87 (0.7-1.3) mg/dL Estim Creat Clear Calc 64 ml/min Estimated GFR > 60 (59 - ) Glucose 100 (65-110) mg/dL Lactic Acid 1.1 (0.7-2.0) mmol/L Calcium 9.0 (8.4-10.2) mg/dL Total Bilirubin 1.3 (0.2-1.3) mg/dL AST 27 (17-59) U/L ALT 15 (6-50) U/L Alkaline Phosphatase 175 H (38-126) U/L Total Protein 7.8 (6.3-8.2) g/dL Albumin 4.3 (3.5-5.1) g/dL Urine Color Yellow (Yellow) Urine Appearance Clear (Clear) Urine pH 6.5 (5.0-9.0) Ur Specific [place] 1.008 (1.001-1.035) Urine Protein Negative (Negative) mg/dL Urine Glucose (UA) Negative (Negative) mg/dL Urine Ketones Negative (Negative) mg/dL Ur Blood (Man) Negative (Negative) Urine Nitrate Negative (Negative) Urine Bilirubin Negative (Negative) Urine Urobilinogen 1.0 (<2.0) mg/dL Leukocyte Esterase Rfl Negative (Negative) KEAGAN/UL <Trevor Benitez MD - Last Filed: 02/03/25 16:27> Discharge Plan Discharge Clinical Impression: Abscess of scrotal wall <Krystin Johnson APRN - Last Filed: 02/03/25 12:54> Patient Disposition: Home <Krystin Johnson APRN - Last Filed: 02/03/25 12:54> Condition: Stable <Krystin Johnson APRN - Last Filed: 02/03/25 12:54> Instructions: Antibiotic Form, Abscess (ED) <Krystin Johnson APRN - Last Filed: 02/03/25 12:54> Additional Instructions: You were seen emergency department for an abscess. It appears to have ruptured on its own. Please call the urologist listed below for follow-up in 3- 5 days. If you feel the abscess is returning, it is becoming more painful or swollen please return to the ED for re-evaluation. Please complete the antibiotics as instructed. <Krystin Johnson APRN - Last Filed: 02/03/25 12:54> Patient Language: Serbian <Krystin Johnson APRN - Last Filed: 02/03/25 12:54> Prescriptions: New clindamycin HCl [Cleocin HCl] 300 mg capsule 300 mg PO Q6H 7 Days Qty: 28 0RF No Action tamsulosin 0.4 mg capsule 0.4 mg PO QHS aspirin 81 mg tablet,delayed release (DR/EC) 81 mg PO DAILY clopidogrel 75 mg tablet 75 mg PO DAILY atorvastatin 80 mg tablet 80 mg PO QHS fluticasone fur. 100 mcg-umeclid 62.5 mcg-vilant 25 mcg inhalat.powder 100-62.5-25 mcg blister with device 0RF albuterol sulfate 90 mcg/actuation HFA aerosol inhaler See Rx Instructions .ROUTE .COMPLEX Qty: 8.5 2RF Dose Instruction: INHALE 1 PUFF BY MOUTH EVERY 4 HOURS NEEDED FOR SHORTNESS OF BREATH OR WHEEZING Rx Instructions: INHALE 1 PUFF BY MOUTH EVERY 4 HOURS NEEDED FOR SHORTNESS OF BREATH OR WHEEZING Entresto 24-26 mg Tablet 1 tablet PO Q12HR Qty: 60 0RF spironolactone 25 mg tablet 25 mg PO DAILY Qty: 60 0RF ferrous sulfate [FeroSul] 325 mg (65 mg iron) tablet See Rx Instructions .ROUTE .COMPLEX Qty: 90 1RF Dose Instruction: TAKE 1 TABLET BY MOUTH EVERY DAY Rx Instructions: TAKE 1 TABLET BY MOUTH EVERY DAY olopatadine 0.2 % drops 1 drp EACH EYE DAILY Qty: 2.5 0RF pantoprazole 40 mg tablet,delayed release (DR/EC) See Rx Instructions .ROUTE .COMPLEX Qty: 90 0RF Dose Instruction: TAKE 1 TABLET BY MOUTH EVERY MORNING Rx Instructions: TAKE 1 TABLET BY MOUTH EVERY MORNING Trelegy Ellipta 100-62.5-25 mcg blister with device 1 inh inhalation DAILY Qty: 60 0RF cetirizine 10 mg tablet See Rx Instructions .ROUTE .COMPLEX Qty: 90 1RF Dose Instruction: TAKE 1 TABLET BY MOUTH DAILY Rx Instructions: TAKE 1 TABLET BY MOUTH DAILY tramadol 50 mg tablet 100 mg PO DAILY PRN (Reason: pain) Qty: 60 0RF <Krystin Johnson APRN - Last Filed: 02/03/25 12:54> Follow-up/Referrals: Marian Tejada APRN [Primary Care Provider] - Saran Davila MD [Physician] - 3 Days (Scrotal abscess ) <Krystin Johnson APRN - Last Filed: 02/03/25 12:54>
--- OUTSIDE RECORDS SUMMARY | 2025-02-03 13:03 | XMS_ITS | Encounter Summary ---
Author Organization [facility] Address [address] [place] [address] Care Team Providers Care Lawn Service Supervisor Name Role Phone Gerald Groves DO Primary Care Provider [phone] Encounter Details Date Type Department Care Team (Late st Contact Info) Description 08/07/2005 Outpatient Historical [facility] ([facility]) [address] 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
--- OUTSIDE RECORDS SUMMARY | 2025-02-03 13:03 | XMS_ITS | Encounter Summary ---
Author Organization [facility] Address [address] [place] [address] Care Team Providers Care Compressed Gases Tester Name Role Phone Gerald Groves DO Primary Care Provider [phone] Encounter Details Date Type Department Care Team (Late st Contact Info) Description 11/26/2005 Outpatient Historical [facility] MRI DEPT Sami Cheema MD [address] [facility] [address] [place] [phone] Follow-Up Examination, Following Other Surgery (Primary Dx) Social History Tobacco Use Types Packs/Day Years Used Date Smoking Tobacco: Never Assessed Sex and Gender Information Value Date Recorded Sex Assigned at Not on file 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
--- OUTSIDE RECORDS SUMMARY | 2025-02-03 13:03 | XMS_ITS | Encounter Summary ---
Author Organization [facility] Address [address] [place] [address] Care Team Providers Care Lead Ruby On Rails Developer Name Role Phone Gerald Groves DO Primary Care Provider [phone] Encounter Details Date Type Department Care Team (Latest Contact Info) Description 08/10/2005 Inpatient Historical [facility] Sami Cheema MD [address] [facility] [address] [place] [id number] CERVICAL DISC DISPLACMNT (Primary Dx) Social History Tobacco Use Types Packs/Day Years Used Date Smoking Tobacco: Never Assessed Sex and Gender Information Value Date Recorded Sex Assigned at Not on file Legal Sex Male 5:15 AM SWEAT BAND SEWER Gender Identity Not on file Sexual Orientation Not on file documented as of this encounter Plan of Treatment Not on file documented as of this encounter Procedures Procedure Name Priority Date/Time Associated Diagnosis Comments COMPREHENSIVE METABOLIC PANEL Routine 08/10/2005 12:00 PM SWEAT BAND SEWER HEMOGLOBIN AND HEMATOCRIT Routine 08/07/2005 12:50 PM SWEAT BAND SEWER documented in this encounter Results * COMPREHENSIVE METABOLIC PANEL (08/10/2005 12:00 PM SWEAT BAND SEWER) GLUCOSE 87 65 - 109 mg/dL INTERFACE [...] mmol/L INTERFACE SYSTEM 08/10/2005 12:0 0 PM SWEAT BAND SEWER Sami Cheema MD CHEMISTRY ORDERABLES Final Resu lt Performing Organization Address City/[facility]/ZIP Co de Phone Number INTERFACE SYSTEM Refer to clinic/hospital department * HEMOGLOBIN AND HEMATOCRIT (08/07/2005 12:50 PM SWEAT BAND SEWER) HEMOGLOBIN 15.6 13.6 - 16.5 g/dL INTERFACE SYSTEM HEMATOCRIT 43.8 40.0 - 48.0 % INTERFACE SYSTEM 08/07/2005 12:5 0 PM SWEAT BAND SEWER us Sami Cheema MD HEMATOLOGY ORDERABLES Final Res ult Performing Organization Address City/[facility] Co de Phone Number INTERFACE SYSTEM Refer to clinic/hospital department documented in this encounter Visit Diagnoses Diagnosis Displacement of cervical intervertebral disc without myelopathy- Primary documented in this encounter Care Teams Lead Ruby On Rails Developer Relationship Specialty Start Date End Date Gerald Groves DO [address] [facility] [address] [place] [address] PCP - General Internal Medicine 03/15/20 documented as of this encounter
--- OUTSIDE RECORDS SUMMARY | 2025-02-03 13:03 | XMS_ITS | Clinical Summary ---
Author Organization [facility] Address [address] [place] [address] Care Team Providers Care Territory Supervisor Name Role Phone Unavailable Primary Care Provider [...]
--- OUTSIDE RECORDS SUMMARY | 2025-02-03 13:03 | XMS_ITS | Clinical Summary ---
Author Organization [facility] Address [address] [place] [address] Care Team Providers Care International Tax Manager Name Role Phone Moses Reyes MD Primary Care Provider [phone] Vahid Jay MD Unavailable [phone] Estevan Shaw MD Unavailable [phone] Allergies No known active allergies Medications tamsulosin [...] materials from doctor or pharmacy Never 11/05/2023 [facility] Utilities Answer Date Recorded In the [...] How often do you attend nondenominational or cheondoism serv ices? Never 10/07/2023 Do you belong [...] place to sleep or slept in a assisted (including now)? No 10/07/2023 Personal Safety Answer Date Recorded Have you ever been in or are you currently in a harmful physical or emotional relationship or is someone making you feel afraid or unsafe? 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 Gender Identity Male 06/26/2018 1:21 PM POWER SWITCHBOARD OPERATOR Sexual Orientation Not on file Obstetrics History Last Filed Vital Signs Vital Sign Reading Time Taken Comments Blood Pressure 108/64 08/10/2024 11:16 AM POWER SWITCHBOARD OPERATOR Pulse 80 08/10/2024 11:16 AM POWER SWITCHBOARD OPERATOR Temperature 36.5 C (97.7 F) 11/05/2023 2:25 PM CDT Respiratory Rate 16 11/06/2023 8:53 AM CDT Oxygen Saturation 99% 08/10/2024 11:16 AM POWER SWITCHBOARD OPERATOR Inhaled Oxygen Concentration - - Weight 70.3 kg (155 lb) 08/10/2024 11:16 AM POWER SWITCHBOARD OPERATOR Height 165.1 cm (5' 5) 08/10/2024 11:16 AM POWER SWITCHBOARD OPERATOR Body Mass Index 25.79 08/10/2024 11:16 AM POWER SWITCHBOARD OPERATOR Plan of Treatment Health Maintenance Due Date [...] (#1) 2025 Medical Devices Implanted Type Area Business Services Clerk Device Identifier Shelf Expiration Date Model / Serial / Lot Screw Screw N/A: Neck Screw Screw Left: Ankle Digital Folio Device Vascular Closure Femoral Artery Bioabsorbable Dual Method Vascade 6-7fr Collagen [id number] - [id number] Implanted:Qty: 1 on 09/10/2023 by Estevan Shaw MD at [facility] [employer] 04/17/2025 [id number] / / [id number] Insurance [facility] Advance Directives For more information, please contact: [phone] * Full Code (Latest Code Status on File) Date Activated Date Inactivated Comments 10/01/2023 4:00 PM 10/07/2023 8:06 PM * Full Code Date Activated Date Inactivated Comments 09/10/2023 10:46 AM 09/10/2023 5:09 PM Care Teams International Tax Manager Relationship Specialty Start Date End Date Moses Reyes MD PCP - General Family Practice 09/10/23 Vahid Jay MD Surgeon Cardiothoracic Surgery 10/07/23 Estevan Shaw MD [address] [address] Consulting Physician Cardiovascular Disease 10/07/23
--- OUTSIDE RECORDS SUMMARY | 2025-02-03 13:03 | XMS_ITS | Clinical Summary ---
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
[2025-02-03 13:34] LABS: Add Urine Microscopic? NO; Appearance Urine Clear (Clear); Glucose Urine UA Negative (Negative); Leukocyte Esterase Ur Negative LEU/UL (Negative); Nitrate Urine Negative (Negative); Specific Grav Ur 1.008 (1.001-1.035)
[2025-02-03 13:37] LABS: Hematocrit 38.9 % (42.0-52.0); Hemoglobin 12.7 g/dL (14.0-18.0); Immature Granulocyte Percent A 0.5 % (0-0.5); Lymphocytes Absolute Auto 1.43 K/mm3 (0.9-3.2); Mean Corpuscular HGB Conc 32.6 g/dl (32-36); Mean Corpuscular Hemoglobin 30.8 pg (26-34); Mean Corpuscular Volume 94.4 fl (80-100); Nucleated Red Blood Cells Absolute Auto 0.000 K/mm3 (0.0-0.012); Nucleated Red Blood Cells Perc 0.0 % (0.0-0.2); Platelet Count Result 334 k/mm3 (150-375); Red Blood Count 4.12 M/mm3 (4.6-6.20); White Blood Count 8.5 K/mm3 (4.5-10.0)
[2025-02-03 14:01] LABS: Alanine Aminotransferase 15 U/L (6-50); Albumin Level 4.3 g/dL (3.5-5.1); Alkaline Phosphatase 175 U/L (38-126); Anion Gap 12 mmol/L (4-12); Aspartate Amino Transferase 27 U/L (17-59); Bilirubin,Total 1.3 mg/dL (0.2-1.3); Blood Urea Nitrogen 9 mg/dL (9-20); Calcium 9.0 mg/dL (8.4-10.2); Carbon Dioxide 23 mmol/L (22-30); Chloride 103 mmol/L (98-107); Estimated CRCL calculation 64 ml/min; Estimated Glomerular Filt Rate > 60; Glucose 100 mg/dL (65-110); Potassium 3.8 mmol/L (3.4-5.0); Sodium 138 mmol/L (137-145); Total Protein 7.8 g/dL (6.3-8.2)
== END 2025-02-03 16:59 | disposition home or self-care (01) ==
PROVIDERS: Registered Nurse; Emergency Provider Emergency Medicine; PCP Nurse Practitioner Family
DX: N49.2 Inflammatory disorders of scrotum (principal); J44.9 Chronic obstructive pulmonary disease, unspecified; E78.5 Hyperlipidemia, unspecified; J43.9 Emphysema, unspecified; I25.10 Atherosclerotic heart disease of native coronary artery without angina pectoris; I10 Essential (primary) hypertension; F17.210 Nicotine dependence, cigarettes, uncomplicated; Z79.01 Long term (current) use of anticoagulants
CPT/HCPCS: 36415; 76870; 80053; 81003; 83605; 85025; 93976; 99284

== ENCOUNTER 2025-03-02 00:47 | Day surgery (SDC) | payer OTHER, SELFPAY ==
[2025-02-24 14:11] VITALS: BMI 27.8
--- NOTE | 2025-02-26 16:08 | PC.NURSE ---
Spoke with patient regarding medication Plavix. Patient verbalizes understanding that the last dose is to be taken on 02/25/2025 and the Endoscopist will instruct them when to restart after the procedure.
--- OUTSIDE RECORDS SUMMARY | 2025-03-02 00:48 | XMS_ITS | Encounter Summary ---
Author Organization [facility] Address [address] [place] [address] Care Team Providers Care Repair Manager Name Role Phone Moses Reyes MD Primary Care Provider [phone] Vahid Jay MD Unavailable [phone] Estevan Shaw MD Unavailable [phone] Encounter Details Date Type Department Care Team (Latest Contact Info) Description 02/15/2025 Results Follow-Up [facility] Cardiology [address] [place] [address] Estevan Shaw MD [address] [address] Transthoracic Echo (TTE) Complete W Doppler/CF Social History Tobacco Use Types Packs/Day Years [...] materials from doctor or pharmacy Never 11/05/2023 [facility] Utilities Answer Date Recorded In the past 12 months has th e electric, gas, oil, or water Onzo threatened to shut off services in your home? No 10/07/2023 Social Connection and Isolation Panel Answer Date Recorded In a typical week, how many times do you talk on the phone with family, friends, or neighbors? Once a week 10/07/2023 How often do you get together with friends or re latives? Once a week 10/07/2023 How often do you attend islam or latter day serv ices? Never 10/07/2023 Do you belong to any clubs o r organizations such as islam groups, unions, fraternal or athletic groups, or [...] place to sleep or slept in a chcf (including now)? No 10/07/2023 Personal Safety Answer Date Recorded Have you ever been in or are you currently in a harmful physical or emotional relationship or is someone making you feel afraid or unsafe? 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
--- OUTSIDE RECORDS SUMMARY | 2025-03-02 00:48 | XMS_ITS | Clinical Summary ---
Author Organization [facility] Address [address] [place] [address] Care Team Providers Care Testing Projects Administrator Name Role Phone Unavailable Primary Care Provider [...] COVID-19 Vaccine ( - 2023-2 5 season) 2025 RSV Immunization or 60+ Years (1 - [...]
--- OUTSIDE RECORDS SUMMARY | 2025-03-02 00:48 | XMS_ITS | Clinical Summary ---
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 [address] [place] [address] PCP - General Internal Medicine 03/15/20
--- OUTSIDE RECORDS SUMMARY | 2025-03-02 00:48 | XMS_ITS | Encounter Summary ---
Author Organization [facility] Address 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 Male 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 Gender Identity Not on file Sexual Orientation Not on file documented as of this encounter Plan of Treatment Not on file documented as of this encounter Procedures Procedure Name Priority Date/Time Associated Diagnosis Comments COMPREHENSIVE METABOLIC PANEL Routine 08/10/2005 12:00 PM DIRECTOR OF IT OPERATIONS HEMOGLOBIN AND HEMATOCRIT Routine 08/07/2005 12:50 PM DIRECTOR OF IT OPERATIONS documented in this encounter Results * COMPREHENSIVE METABOLIC PANEL (08/10/2005 12:00 PM DIRECTOR OF IT OPERATIONS) GLUCOSE 87 65 - 109 mg/dL INTERFACE [...] INTERFACE SYSTEM 08/10/2005 12:0 0 PM DIRECTOR OF IT OPERATIONS Sami Cheema MD CHEMISTRY ORDERABLES Final Resu lt Performing Organization Address City/[facility]/ZIP Co de Phone Number INTERFACE SYSTEM Refer to clinic/hospital department * HEMOGLOBIN AND HEMATOCRIT (08/07/2005 12:50 PM DIRECTOR OF IT OPERATIONS) HEMOGLOBIN 15.6 13.6 - 16.5 g/dL INTERFACE SYSTEM HEMATOCRIT 43.8 40.0 - 48.0 % INTERFACE SYSTEM 08/07/2005 12:5 0 PM DIRECTOR OF IT OPERATIONS us Sami Cheema MD HEMATOLOGY ORDERABLES Final Res ult Performing Organization Address City/[facility] Co de Phone Number INTERFACE SYSTEM Refer to clinic/hospital department documented in this encounter Visit Diagnoses Diagnosis Displacement of cervical intervertebral disc without myelopathy- Primary documented in this encounter Care Teams Physical Therapy Instructor Relationship Specialty Start Date End Date Gerald Groves DO [address] [facility] [address] [place] [address] PCP - General Internal Medicine 03/15/20 documented as of this encounter
--- OUTSIDE RECORDS SUMMARY | 2025-03-02 00:48 | XMS_ITS | Clinical Summary ---
Author Organization [facility] Address [address] [place] [address] Care Team Providers Care Casting House Worker Name Role Phone Moses Reyes MD Primary Care Provider [phone] Vahid Jay MD Unavailable [phone] Estevan Shaw MD Unavailable [phone] Allergies No known active allergies Medications tamsulosin [...] (eight) hours as needed 12/13/19 24 Active Entresto 24-26 mg tabletIndicatio ns:chronic heart failure Take 1 tablet by mouth every 12 (twelve) hours 60 tablet 11 03/02/20 24 Active clopidogreL (PLAVIX) 75 mg tablet TAKE 1 TABLET(75 MG) BY MOUTH DAILY 90 tablet 3 01/15/20 25 Active atorvastatin (LIPITOR) 80 mg tablet TAKE 1 TABLET(80 MG) BY MOUTH EVERY NIGHT 90 tablet 3 02/03/20 25 Active clindamycin (CLEOCIN) 300 mg capsule Take 1 capsule (300 mg total) by mouth 3 (three) times a day 02/04/20 25 Active cetirizine (ZyrTEC) 10 mg tablet Take 1 tablet (10 mg total) by mouth daily 02/02/20 25 Active Trelegy Ellipta 100-62.5-25 mcg inhaler Inhale 1 puff daily 01/28/20 25 Active FeroSuL 325 mg (65 mg iron) tablet Take 1 tablet (325 mg total) by mouth daily 11/18/19 25 Active albuterol HFA (PROVENTIL HFA,VENTOLIN HFA,PROAIR HFA) 90 mcg/actuation inhaler Inhale 1 puff every 6 (six) hours as needed 11/12/19 25 Active atorvastatin (LIPITOR) 80 mg tabletIndicatio ns:hyperlipidem ia Take 1 tablet (80 mg total) by mouth nightly 90 tablet 3 12/13/19 24 025 Discontinued(Re order) spironolactone (ALDACTONE) 25 mg tabletIndicatio ns:Diastolic heart failure, unspecified HF chronicity (HCC) Take 1 tablet (25 mg total) by mouth daily 30 tablet 11 03/02/20 24 025 Discontinued Active Problems Problem Noted [...] lesion 10/01/2023 08/10/2024 Cigarette smoker 04/19/2020 08/10/2024 Encounters Date Type Department Care Team Description 02/23/2025 Telephone [facility] Cardiology [address] [place] [address] [address] [place] [phone] Estevan Shaw MD cardiac clearance 02/15/2025 Results Follow-Up [facility] Card[facility] [address] [place] [address] [address] [place] [phone] Estevan Shaw MD Transthoracic Echo (TTE) Complete W Doppler/CF 02/12/2025 1:00 PM CDT Ancillary Procedure [facility] Cardiology [address] [place] [address] [address] [place] [phone] LBBB (left bundle branch block); Essential hypertension; Coronary artery disease of [place] artery of [place] heart with stable angina pectoris; Chronic diastolic heart failure (HCC) 02/08/2025 12:30 PM CDT Office Visit [facility] Cardiology [address] [place] [address] [place] [phone] Estevan Shaw MD LBBB (left bundle branch block) (Primary Dx); Essential hypertension; Coronary artery disease of [place] artery of [place] heart with stable angina pectoris; Chronic diastolic heart failure (HCC) from Last 3 Months Surgical History Surgery Date Site/Laterality Comments ROTATOR [...] week 10/07/2023 How often do you attend christian or confucianism serv ices? 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 Gender Identity Male 06/26/2018 1:21 PM SECURITY SYSTEMS ADMINISTRATOR Sexual Orientation Not on file Obstetrics History Last Filed Vital Signs Vital Sign Reading Time Taken Comments Blood Pressure 100/62 02/08/2025 12:14 PM CDT Pulse 101 02/08/2025 12:14 PM CDT Temperature 36.5 C (97.7 F) 11/05/2023 2:25 PM CDT Respiratory Rate 20 02/08/2025 12:14 PM CDT Oxygen Saturation 97% 02/08/2025 12:14 PM CDT Inhaled Oxygen Concentration - - Weight 74.4 kg (164 lb) 02/08/2025 12:14 PM CDT Height 165.1 cm (5' 5) 02/08/2025 12:14 PM CDT Body Mass Index 27.29 02/08/2025 12:14 PM CDT Plan of Treatment Health Maintenance Due Date Last Done Comments Colon Cancer Screening-Colonoscopy 1960 Depression Screening 1960 Hepatitis C Screening 1960 Prostate Cancer Screening-PSA 1960 Hepatitis B Screening 1976 Pneumococcal vaccine 65+ (1 of 2 - PCV) 1977 Zoster Vaccine (2 of 2) 05/30/2023 04/04/2023 Abdominal Aortic Aneurysm (AAA) Screen 11/28/2023 Well Visit 65+ 11/28/2023 Fall Risk Assessment 10/06/2024 10/07/2023 Influenza Vaccine (#1) 2025 06/30/2023 DTaP/Tdap/Td Vaccine (2 - Td or Tdap) 04/04/203305/2023, 04/04/2023 Medical Devices Implanted Type Area Nuts And Bolts Assembler Device Identifier Shelf Expiration Date Model / Serial / Lot Screw Screw N/A: Neck Screw Screw Left: Ankle angelcam Device Vascular Closure Femoral Artery Bioabsorbable Dual Method Vascade 6-7fr Collagen [id number] - [id number] Implanted:Qty: 1 on 09/10/2023 by Estevan Shaw MD at [facility] [employer] 04/17/2025 [id number] / / [id number] Procedures Procedure Name Priority Date/Time Associated Diagnosis Comments TRANSTHORACIC ECHO (TTE) COMPLETE W DOPPLER/CF WO CONTRAST Routine 02/12/2025 1:53 PM CDT LBBB (left bundle branch block) Essential hypertension Coronary artery disease of [place] artery of [place] heart with stable angina pectoris Chronic diastolic heart failure (HCC) from Last 3 Months Results * TRANSTHORACIC ECHO (TTE) COMPLETE W DOPPLER/CF WO CONTRAST (02/12/2025 1:53 PM CDT) EF Mod BP 61 % CONS SCIMAGE Anatomical Region Laterality Modality Ultrasound 02/12/2025 1:22 PM CDT Narrative 02/12/2025 6:16 PM CDT [facility] Cardiology [address] [facility] [address], [place] [address] [address] [facility] [address], [place] [address] P:[phone] P:[phone] Echocardiographic Report Patient Name: VIRI CARMONA C : 1960 Study Date: 02/12/2025 1:22:44 PM Gender: M Hotel Houseman: Carol Angel)(CT), [facility] Provider: ESTEVAN SHAW Height(Cm): 165 BSA: 1.85 Weight(Kg): 74.4 Heart Rate: 76 BP: 100 / 62 Quality: Good Order Provider: ESTEVAN SHAW PROCEDURES: Echocardiographic Report: Transthoracic echocardiogram with complete 2D, M-Mode, and color Doppler examination. With Strain Analysis. INDICATIONS: I44.7 Left bundle-branch block, unspecified, I10 Essential (primary) hypertension, I25.118 Atherosclerotic heart disease of [place] coronary artery with other forms of angina pectoris, and I50.32 Chronic diastolic (congestive) heart failure. MEASUREMENTS: 2D/MM Value Range Doppler Value Range EF Mod BP 61 % [ 52 - 72 ] YADIRA Vmax 2.59 cm2 [ 2.00 - 4.00 ] LV GLS -16.32 % AV Mean PG 5 mmHg LVIDd 2D 3.18 cm [ 4.20 - 5.80 ] AV Peak Navdeep 1.56 m/s [ 1.00 - 1.70 ] LVIDs 2D 2.13 cm [ 2.50 - 4.00 ] AV Peak PG 10 mmHg LVPWd 2D 1.17 cm [ 0.60 - 1.00 ] AV VTI 30.02 cm IVSd 2D 1.16 cm [ 0.60 - 1.00 ] LVOT Diam 1.99 cm [ 1.70 - 2.10 ] AoR Diam 2D 3.14 cm [ 3.10 - 3.70 ] LVOT Peak Navdeep 1.29 m/s [ 0.70 - 1.10 ] LVOT VTI 26.88 cm MV E Peak Navdeep 0.60 m/s [ 0.60 - 1.30 ] MV A Peak Navdeep 0.72 m/s [ 1.00 - 1.20 ] MV Decel Time 293 msec [ 104 - 258 ] PV Peak Navdeep 0.80 m/s [ 0.40 - 0.80 ] TR Peak Navdeep 2.31 m/s [ 1.00 - 2.80 ] TR Peak PG 21 mmHg RVSP 26.00 mmHg [ 10.00 - 36.00 ] RV S` 9.35 mmHg Lateral E` 0.07 m/s [ 0.10 - 0.15 ] Septal E` 0.07 m/s [ 0.08 - 0.15 ] E` 0.07 m/s E/E` 9 Tapse 1.97 cm [ 1.71 - 5.00 ] 2D/MM Value Range Doppler Value Range - FINDINGS: Interpretation Site: Exam was interpreted at [facility]. Left Ventricle: Normal left ventricular systolic function. No focal wall motion abnormalities. Normal left ventricular size. Mild concentric left ventricular hypertrophy. Normal left ventricular size. Paradoxical septal motion consistent with IVCD or bundle branch block. Impaired diastolic relaxation Grade I. Ejection fraction is measured at 61 %. Global Longitudinal Strain is -16 %. GLS is abnormal. Right Ventricle: Normal right ventricular size. Normal right ventricular systolic function. Left Atrium: The left atrium is normal in size. Right Atrium: The right atrium is normal in size. Atrial Septum: Normal atrial septum. Mitral Valve: Normal appearance of the mitral valve. Mild mitral valve regurgitation. There is no hemodynamically significant mitral stenosis by Doppler. Aortic Valve: No evidence of hemodynamically significant aortic stenosis by Doppler. Aortic cusps appear mildly sclerotic. Trileaflet aortic valve. Trace aortic valve regurgitation. Tricuspid Valve: Normal appearance of the tricuspid valve. Estimated peak RVSP is 26 mmHg. Mild tricuspid regurgitation. Pulmonic Valve: Normal appearance of the pulmonic valve. Mild pulmonic regurgitation. Pericardium: Normal pericardium with no significant pericardial effusion. Trivial pericardial effusion. Aorta: Sinus of Valsalva is normal. IVC: Normal size and normal respiratory collapse consistent with normal right atrial pressure (<5 mmHg). Pulmonary Artery: Normal pulmonary artery size. CONCLUSIONS: Normal left ventricular systolic function. No focal wall motion abnormalities. Normal left ventricular size. Mild concentric left ventricular hypertrophy. Normal left ventricular size. Paradoxical septal motion consistent with IVCD or bundle branch block. Impaired diastolic relaxation Grade I. Ejection fraction is measured at 61 %. Global Longitudinal Strain is -16 %. GLS is abnormal. Mild mitral valve regurgitation. No evidence of hemodynamically significant aortic stenosis by Doppler. Aortic cusps appear mildly sclerotic. Trileaflet aortic valve. Trace aortic valve regurgitation. Estimated peak RVSP is 26 mmHg. Mild tricuspid regurgitation. Mild pulmonic regurgitation. Trivial pericardial effusion. Electronically Signed By: Dr. Estevan Shaw [facility] 02/12/2025 6:15:48 PM CDT Procedure Note Estevan Shaw MD - 02/12/2025 [facility] Cardiology [address] [facility] [address] [address] [address] [facility] [address] [address] P:[phone] P:[phone] Echocardiographic Report Patient Name: IVRI CARMONA C : 1960 Study Date: 02/12/2025 1:22:44 PM Gender: M Hotel Houseman: Carol Khalil (Karen)(CT), [facility] Location: [facility] Provider: ESTEVAN SHAW Height(Cm): 165 BSA: 1.85 Weight(Kg): 74.4 Heart Rate: 76 BP: 100 / 62 Quality: Good Order Provider: ESTEVAN SHAW PROCEDURES: Echocardiographic Report: Transthoracic echocardiogram with complete 2D, M-Mode, and color Dopplerexamination. With Strain Analysis. INDICATIONS: I44.7 Left bundle-branch block, unspecified, I10 Essential (primary)hypertension, I25.118 Atherosclerotic heart disease of [place] coronary artery with otherforms of angina pectoris, and I50.32 Chronic diastolic (congestive) heartfailure. MEASUREMENTS: 2D/MM Value Range Doppler ValueRange EF Mod BP 61 % [ 52 - 72 ] YADIRA Vmax 2.59 cm2[ 2.00 - 4.00 ] LV GLS -16.32 % AV Mean PG 5 mmHg LVIDd 2D 3.18 cm [ 4.20 - 5.80 ] AV Peak Navdeep 1.56 m/s[ 1.00 - 1.70 ] LVIDs 2D 2.13 cm [ 2.50 - 4.00 ] AV Peak PG 10 mmHg LVPWd 2D 1.17 cm [ 0.60 - 1.00 ] AV VTI 30.02 cm IVSd 2D 1.16 cm [ 0.60 - 1.00 ] LVOT Diam 1.99 cm[ 1.70 - 2.10 ] AoR Diam 2D 3.14 cm [ 3.10 - 3.70 ] LVOT Peak Navdeep 1.29 m/s[ 0.70 - 1.10 ] LVOT VTI 26.88 cm MV E Peak Navdeep 0.60 m/s [ 0.60 - 1.30 ] MV A Peak Navdeep 0.72 m/s [ 1.00 - 1.20 ] MV Decel Time 293 msec [ 104 - 258 ] PV Peak Navdeep 0.80 m/s [ 0.40 - 0.80 ] TR Peak Navdeep 2.31 m/s [ 1.00 - 2.80 ] TR Peak PG 21 mmHg RVSP 26.00 mmHg [ 10.00 - 36.00 ] RV S` 9.35 mmHg Lateral E` 0.07 m/s [ 0.10 - 0.15 ] Septal E` 0.07 m/s [ 0.08 - 0.15 ] E` 0.07 m/s E/E` 9 Tapse 1.97 cm [ 1.71 - 5.00 ] 2D/MM Value Range Doppler ValueRange - FINDINGS: Interpretation Site: Exam was interpreted at [facility]. Left Ventricle: Normal left ventricular systolic function. No focal wall motionabnormalities. Normal left ventricular size. Mild concentric left ventricular hypertrophy.Normal left ventricular size. Paradoxical septal motion consistent with IVCD or bundlebranch block. Impaired diastolic relaxation Grade I. Ejection fraction is measured at 61%. Global Longitudinal Strain is -16 %. GLS is abnormal. Right Ventricle: Normal right ventricular size. Normal right ventricular systolicfunction. Left Atrium: The left atrium is normal in size. Right Atrium: The right atrium is normal in size. Atrial Septum: Normal atrial septum. Mitral Valve: Normal appearance of the mitral valve. Mild mitral valve regurgitation.There is no hemodynamically significant mitral stenosis by Doppler. Aortic Valve: No evidence of hemodynamically significant aortic stenosis by Doppler.Aortic cusps appear mildly sclerotic. Trileaflet aortic valve. Trace aortic valveregurgitation. Tricuspid Valve: Normal appearance of the tricuspid valve. Estimated peak RVSP is 26 mmHg.Mild tricuspid regurgitation. Pulmonic Valve: Normal appearance of the pulmonic valve. Mild pulmonic regurgitation. Pericardium: Normal pericardium with no significant pericardial effusion. Trivialpericardial effusion. Aorta: Sinus of Valsalva is normal. IVC: Normal size and normal respiratory collapse consistent with normal rightatrial pressure (<5 mmHg). Pulmonary Artery: Normal pulmonary artery size. CONCLUSIONS: Normal left ventricular systolic function. No focal wall motionabnormalities. Normal left ventricular size. Mild concentric left ventricular hypertrophy.Normal left ventricular size. Paradoxical septal motion consistent with IVCD or bundlebranch block. Impaired diastolic relaxation Grade I. Ejection fraction is measured at 61%. Global Longitudinal Strain is -16 %. GLS is abnormal. Mild mitral valve regurgitation. No evidence of hemodynamically significant aortic stenosis by Doppler.Aortic cusps appear mildly sclerotic. Trileaflet aortic valve. Trace aortic valveregurgitation. Estimated peak RVSP is 26 mmHg. Mild tricuspid regurgitation. Mild pulmonic regurgitation. Trivial pericardial effusion. Electronically Signed By: Dr. Estevan Shaw [facility] 02/12/2025 6:15:48 PM CDT Estevan Shaw MD CV ECHO PROCEDURES F inal Result from Last 3 Months Insurance [facility] Member Subscriber Plan / Payer (Ef fective 2020-Present) Name:Viri Carmona Relation to Subscriber:Self Name:Viri Carmona Payer ID:[id number] (NAIC) Type:MEDICARE RISK OTHER Address: [address] [facility] Member Subscriber Plan / Payer (Ef fective 2011-Present) Name:Viri Carmona Relation to Subscriber:Self Name:Viri Carmona Payer ID:[id number] (NAIC) Type:MEDICARE RISK OTHER Address: [address] [facility] Advance Directives For more information, please contact: [phone] * Full Code (Latest Code Status on File) Date Activated Date Inactivated Comments 10/01/2023 4:00 PM 10/07/2023 8:06 PM * Full Code Date Activated Date Inactivated Comments 09/10/2023 10:46 AM 09/10/2023 5:09 PM Care Teams Casting House Worker Relationship Specialty Start Date End Date Moses Reyes MD PCP - General Family Practice 09/10/23 Vahid Jay MD Surgeon Cardiothoracic Surgery 10/07/23 Estevan Shaw MD [address] [facility] [address], [place] [id number] Consulting Physician Cardiovascular Disease 10/07/23
--- OUTSIDE RECORDS SUMMARY | 2025-03-02 00:48 | XMS_ITS | Encounter Summary ---
Author Organization [facility] Address 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
--- OUTSIDE RECORDS SUMMARY | 2025-03-02 00:48 | XMS_ITS | Encounter Summary ---
Author Organization [facility] Address [address] [place] [address] Care Team Providers Care Biologics Specialist Name Role Phone Gerald Groves DO Primary Care Provider [phone] Encounter Details Date Type Department Care Team (Late st Contact Info) Description 08/07/2005 Outpatient Historical [facility] Support Serv. ([facility]) [address] 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
[2025-03-02 09:44] VITALS: BP 117/74; PULSE 85; RESP 18; TEMP 36.4; O2SAT 98; BMI 27.0
[2025-03-02] MEDS: LACTATED RINGERS 1,000 ML 150 ML IV CONT (10:00)
--- NOTE | 2025-03-02 10:08 | P.PNAN_ITS ---
Anes - Initial Pre Proc Eval Procedure: Operation Date: 03/02/25 11:00 Proposed Procedures p Screening Colonoscopy - Brayan Sanchez MD Date/Time: 03/02/25 10:08 Surgeon: Brayan Sanchez MD Pre Op Diagnosis: Personal history of colon polyps, unspecified Patient Data Age: 64 Gender: M Height: 1.65 m Weight: 73.6 kg Last Vital Signs Temp 36.4 C 03/02/25 09:44 Pulse 85 03/02/25 09:44 Resp 18 03/02/25 09:44 BP 117/74 03/02/25 09:44 Pulse Ox 98 03/02/25 09:44 O2 Del Method Room Air 03/02/25 09:44 Allergies Allergy/AdvReac Type Severity Reaction Status Date / Time No Known Allergies Allergy Verified 03/02/25 09:49 Home Medications ?Medication ?Instructions ?Recorded ?Confirmed ?Type aspirin 81 mg tablet,delayed 81 mg PO DAILY 10/28/23 0 03/02/25 History release atorvastatin 80 mg tablet 80 mg PO QHS 10/28/23 History clopidogrel 75 mg tablet 75 mg PO DAILY 10/28/2303/18 History sacubitril 24 mg-valsartan 26 mg 1 tablet PO Q12HR #60 tabs 12/12/23 03/02/25 Rx tablet (Entresto) tamsulosin 0.4 mg capsule 0.4 mg PO QHS 01/01/2403/02 History albuterol sulfate 90 mcg/actuation See Rx Instructions .Route 11/10/24 03/02/25 Rx aerosol inhaler .COMPLEX #8.5 grams fluticasone fur. 100 mcg-umeclid 100-62.5-25 mcg Blist er With 11/10/24 02/24/25 Sample 62.5 mcg-vilant 25 mcg Device#1 Samples inhalat.powder (Trelegy Ellipta) ferrous sulfate 325 mg (65 mg See Rx Instructions .Rou te 11/17/24 03/02/25 Rx iron) tablet (FeroSul) .COMPLEX #90 tabs pantoprazole 40 mg tablet,delayed See Rx Instructions .Route 11/30/24 03/02/25 Rx release .COMPLEX #90 tabs cetirizine 10 mg tablet See Rx Instructions .Route 0 02/01/25 03/02/25 Rx .COMPLEX #90 tabs tramadol 50 mg tablet 100 mg (2 x 50 mg) PO DAILY PRN 02/02/25 02/24/25 Rx pain #60 tabs isopropyl alcohol 95 % in glycerin 5 drp LEFT EAR CHRISTY Y #30 mL 02/24/25 03/02/25 Rx 5 % ear drops fluticasone fur. 100 mcg-umeclid 1 inh inhalation CHRISTY Y #60 ea 02/26/25 Rx 62.5 mcg-vilant 25 mcg inhalat.powder (Trelegy Ellipta) Patient hx anesthesia problems: none Family hx anesthesia problems: none Results Review: All pre-operative results and documents have been reviewed as part of the pre- operative evaluation. [facility] Past Medical History Medical History COPD with emphysema Benign prostatic hyperplasia Coronary artery disease Post 3 vessel bypass in September 2023. Former smoker Shortness of breath Coronary artery disease Gastroparesis Rheumatoid arthritis Adrenal incidentaloma Adenomatous colon polyp Benign prostatic hyperplasia without lower urinary tract symptoms Essential hypertension Hyperlipidemia LDL goal <100 Surgical History Surgical History History of cervical spinal surgery History of open reduction and internal fixation (ORIF) procedure Left ankle. History of repair of left rotator cuff History of coronary artery bypass graft x 3 (09/2023) PENA to LAD and saphenous vein graft to posterior descending artery and obtu se marginal branch at [facility]. History of colonoscopy with polypectomy Hx of CABG Family History Family History Sibling Family history of multiple sclerosis Family history of diabetes mellitus in first degree relative Mother Carcinoma of colon Family history of coronary artery disease Father Carcinoma of colon Family history of heart disease in male family member before age 55 Patient's father is Family history of cardiovascular disease Other Cancer Family history of malignant neoplasm Heart disease Social History Social History Social History: Surrogate medical decision maker: Cara Miranda, sibling. Code status: Full code. Smoking packs per day: 0.5 Smoking cigarettes per day: 10.0 Years smoked: 40 Smoking pack-years: 20.00 Smoking status: Former smoker Tobacco type: cigarettes Second hand tobacco smoke exposure: No Smoking end date: 10/14/23 Alcohol intake: former Drinks per week: 15 Alcohol use details: 12 pack beer/week Substance use: never Substance use type: does not use Do You Feel Safe in your Home?: Yes Lack of Transportation: No Lack of Food: Never True Current Housing: I Have Housing Concerned About Future Housing: No Difficulty Paying Gas/Electric Bills: No Difficulty Paying for Meds: No Currently Unemployed: No Education: Trade/Vocational Certificate Difficulty w/ Childcare or Family Care: No Living arrangements: with family Additional living arrangements comments: Lives in an apartment in the basement of his sister's home. Occupation/Education: retired Additional occupation/education comments: [employer]. Spiritual care concerns: No Anes - Eval Final PreProcedure Day of Procedure 03/02/25 10:08 Patient weight: overweight Heart: regular rate and rhythm Lungs: clear to auscultation Airway: Mallampati scale class II Neurological: alert and oriented Last oral intake: >/= 8 hours ASA classification: III Emergent: no Anesthetic plan: proceed Anesthesia type and monitoring: general GIVS and standard monitoring Results Review: All pre-operative results and documents have been reviewed as part of the pre-operative evaluation. Informed Consent: The patient's anesthetic plan and its attendant risks and benefits were discussed with the patient/family/POA. Questions were solicited and answers provided to the satisfaction of the patient/family/POA.
--- NOTE | 2025-03-02 10:09 | PM.HPGS ---
History of Present Illness History of Present Illness Consent: Risks, benefits, and alternatives have been discussed and questions answered. Patient agrees to proceed with procedure. Chief complaint: Personal history of colon polyps, unspecified Narrative: Calin Andino is a 64 year old male who has been getting colonoscopies every 2 years because personal history of polyps and also both parents had colon cancer, last colonoscopy 2023. Review of Systems Review of Systems: All systems reviewed & are unremarkable except as noted in HPI and below PMFSH Past Medical History Medical History COPD with emphysema Benign prostatic hyperplasia Coronary artery disease Post 3 vessel bypass in September 2023. Former smoker Shortness of breath Coronary artery disease Gastroparesis Rheumatoid arthritis Adrenal incidentaloma Adenomatous colon polyp Benign prostatic hyperplasia without lower urinary tract symptoms Essential hypertension Hyperlipidemia LDL goal <100 Surgical History Surgical History History of cervical spinal surgery History of open reduction and internal fixation (ORIF) procedure Left ankle. History of repair of left rotator cuff History of coronary artery bypass graft x 3 (09/2023) PENA to LAD and saphenous vein graft to posterior descending artery and obtuse marginal branch at [facility]. History of colonoscopy with polypectomy Hx of CABG Family History Family History Sibling Family history of multiple sclerosis Family history of diabetes mellitus in first degree relative Mother Carcinoma of colon Family history of coronary artery disease Father Carcinoma of colon Family history of heart disease in male family member before age 55 Patient's father is Family history of cardiovascular disease Other Cancer Family history of malignant neoplasm Heart disease Social History Social History Social History: Surrogate medical decision maker: Cara Miranda, sibling. Code status: Full code. Smoking packs per day: 0.5 Smoking cigarettes per day: 10.0 Years smoked: 40 Smoking pack-years: 20.00 Smoking status: Former smoker Tobacco type: cigarettes Second hand tobacco smoke exposure: No Smoking end date: 10/14/23 Alcohol intake: former Drinks per week: 15 Alcohol use details: 12 pack beer/week Substance use: never Substance use type: does not use Do You Feel Safe in your Home?: Yes Lack of Transportation: No Lack of Food: Never True Current Housing: I Have Housing Concerned About Future Housing: No Difficulty Paying Gas/Electric Bills: No Difficulty Paying for Meds: No Currently Unemployed: No Education: Trade/Vocational Certificate Difficulty w/ Childcare or Family Care: No Living arrangements: with family Additional living arrangements comments: Lives in an apartment in the basement of his sister's home. Occupation/Education: retired Additional occupation/education comments: [employer]. Spiritual care concerns: No Meds Home Medications and Allergies Home Medications ?Medication ?Instructions ?Recorded ?Confirmed ?Type aspirin 81 mg tablet,delayed 81 mg PO DAILY 10/28/23 03/02/25 History release atorvastatin 80 mg tablet 80 mg PO QHS 10/28/23 03/02/25 History clopidogrel 75 mg tablet 75 mg PO DAILY 10/28/23 03/02/25 History sacubitril 24 mg-valsartan 26 mg 1 tablet PO Q12HR #60 tabs 12/12/23 03/02/25 Rx tablet (Entresto) tamsulosin 0.4 mg capsule 0.4 mg PO QHS 01/01/24 03/02/25 History albuterol sulfate 90 mcg/actuation See Rx Instructions .Route 11/10/24 03/02/25 Rx aerosol inhaler .COMPLEX #8.5 grams fluticasone fur. 100 mcg-umeclid 100-62.5-25 mcg Blister With 11/10/24 02/24/25 Sample 62.5 mcg-vilant 25 mcg Device#1 Samples inhalat.powder (Trelegy Ellipta) ferrous sulfate 325 mg (65 mg See Rx Instructions .Route 11/17/24 03/02/25 Rx iron) tablet (FeroSul) .COMPLEX #90 tabs pantoprazole 40 mg tablet,delayed See Rx Instructions .Route 11/30/24 03/02/25 Rx release .COMPLEX #90 tabs cetirizine 10 mg tablet See Rx Instructions .Route 02/01/25 03/02/25 Rx .COMPLEX #90 tabs tramadol 50 mg tablet 100 mg (2 x 50 mg) PO DAILY PRN 02/02/25 02/24/25 Rx pain #60 tabs isopropyl alcohol 95 % in glycerin 5 drp LEFT EAR DAILY #30 mL 09/03/25 09/09/25 Rx 5 % ear drops fluticasone fur. 100 mcg-umeclid 1 inh inhalation DAILY #60 ea 02/26/25 Rx 62.5 mcg-vilant 25 mcg inhalat.powder (Trelegy Ellipta) Allergies Allergy/AdvReac Type Severity Reaction Status Date / Time No Known Allergies Allergy Verified 03/02/25 09:49 Vital Signs Vital Signs - 24 hr 03/02/25 09:44 Temperature 97.6 F Pulse Rate 85 Respiratory Rate 18 Blood Pressure 117/74 Pulse Oximetry 98 Oxygen Delivery Room Air Exam Const: General: comfortable and no acute distress HENMT: Face/Nose/Sinus: Normal nares present Eyes: General: appearance normal, both eyes and all related structures Neck: Neck: no JVD Resp: Auscultation: clear to auscultation bilaterally Cardio: Rate: regular rate Rhythm: regular rhythm GI: Inspection: non-distended GI Palp: Yes Soft to palpation Skin: General skin exam: normal color Neuro: Speech: normal speech Extrem: General: normal to inspection Psych: Mental Status: mental status grossly normal Assessment and Plan Assessment and plan (1) Adenomatous colon polyp: Qualifiers: Colon location: unspecified part of colon Qualified Code(s): D12.6 - Benign neoplasm of colon, unspecified Code(s): D12.6 - Benign neoplasm of colon, unspecified Status: Acute Assessment and Plan: colonoscopy (2) Family history of colon cancer: Code(s): Z80.0 - Family history of malignant neoplasm of digestive organs Status: Resolved
--- NOTE | 2025-03-02 10:29 | S_PTH ---
PATIENT: Calin Andino LOC: [facility]#:[id number] AGE/SX: 64/M ROOM: RE03/02/[address]: Brayan Sanchez MD : 1960 BED: DIS: 03/02/2025 SPEC #: [id number] RECD: 03/02/25 10:41 STATUS: SP REGypsy #: [id number] SIMBA: 03/02/25 10:[address]: Brayan Sanchez DEPT: [facility] Surgical RECD BY: Carrol Johnson ENTERED: 03/02/25 10:42 SP TYPE: Surgical OTHR DR: Marian Tejada APRN Tissues: A - Colon Polypectomy B - Colon Polypectomy Procedures: Hematoxylin and Eosin Stain Gross and Microscopic Level 4
[2025-03-02 10:30] VITALS: BP 107/69; PULSE 74; RESP 17; O2SAT 95
[2025-03-02 10:40] VITALS: BP 109/75; PULSE 73; RESP 18; O2SAT 95
[2025-03-02 10:50] VITALS: BP 109/73; PULSE 75; RESP 21; O2SAT 97
== END 2025-03-02 11:00 | disposition home or self-care (01) ==
PROVIDERS: PCP Nurse Practitioner Family; Referring Provider Internal Medicine Gastroenterology; Visit Provider Internal Medicine Gastroenterology
PROC: 0DJD8ZZ Inspection of Lower Intestinal Tract, Via Natural or Artificial Opening Endoscopic (ICD-10-PCS; CPT 45378; principal; 2025-03-02 11:00)
DX: Z12.11 Encounter for screening for malignant neoplasm of colon (principal); D12.2 Benign neoplasm of ascending colon; D12.3 Benign neoplasm of transverse colon; K64.8 Other hemorrhoids; I10 Essential (primary) hypertension; E78.5 Hyperlipidemia, unspecified; J43.9 Emphysema, unspecified; N40.0 Benign prostatic hyperplasia without lower urinary tract symptoms; I25.10 Atherosclerotic heart disease of native coronary artery without angina pectoris; M06.9 Rheumatoid arthritis, unspecified; Z79.82 Long term (current) use of aspirin; Z79.02 Long term (current) use of antithrombotics/antiplatelets; Z79.51 Long term (current) use of inhaled steroids; Z79.891 Long term (current) use of opiate analgesic; Z98.890 Other specified postprocedural states; Z98.1 Arthrodesis status; Z95.1 Presence of aortocoronary bypass graft; Z87.891 Personal history of nicotine dependence; Z80.0 Family history of malignant neoplasm of digestive organs; Z82.49 Family history of ischemic heart disease and other diseases of the circulatory system
CPT/HCPCS: 45385; 88305; J2003; J2704; J7120

== ENCOUNTER 2025-04-26 21:12 | Inpatient (IN) | payer OTHER, SELFPAY ==
--- NOTE | ~2025-04-26 | XR_ITS ---
EXAMINATION: XR chest 1V portable DATE: 04/30/2025 09:25 INDICATION: Pneumonia TECHNIQUE: A single frontal view of the chest was obtained. COMPARISON: April 29 chest x-ray FINDINGS: Aeration of the left lung appears mildly improved compared to yesterday, although there is persisting patchy alveolar opacification in the left parahilar region, and persisting nodular changes in the left upper lobe. Sternal retention wires and fusion hardware in the cervical spine stable. Heart size upper limits normal unchanged. IMPRESSION: 1. Mildly improved aeration of left lung with persisting infiltrates. Reviewed, dictated and finalized at location A. NT SERVICES ADMINISTRATOR
--- NOTE | ~2025-04-26 | XR_ITS ---
EXAMINATION: XR chest 2V DATE: 05/03/2025 08:01 INDICATION: Pneumonia TECHNIQUE: Frontal and lateral views of the chest were obtained. COMPARISON: April 30, 2025 FINDINGS: Mild patchy perihilar infiltrates left radiographic stable to slightly worse compared to the April 30 exam. Heart shadow normal. Sternal retention wires and cervical fusion hardware stable in configuration. IMPRESSION: 1. Stable to slightly worse perihilar infiltrates left worse than right compared to the April 30 exam. Reviewed, dictated and finalized at location A. ILE BROKER IMPRESSION: 1. Stable to slightly worse perihilar infiltrates left worse than right compare d to the April 30 exam.
--- NOTE | ~2025-04-26 | XR_ITS ---
XR chest 2V 04/26/2025 21:48 Indication: Shortness of breath Procedure: 2 view chest Comparison: 11/17/2024 Findings: There is bilateral mixed interstitial and airspace disease, left greater than right. There is a mass in the left upper thorax. Status post median sternotomy for CABG. No pleural effusion or pneumothorax. Impression: 1: New mass left upper thorax, concerning for bronchogenic carcinoma. Correlation with CT recommended. 2: Bilateral mixed interstitial and airspace disease, left greater than right. Differential diagnosis includes edema and pneumonia. Reviewed, dictated and finalized at location O. IATIVE CARE COORDINATOR Impression: 1: New mass left upper thorax, concerning for bronchogenic carcinoma. Correlati on with CT recommended. 2: Bilateral mixed interstitial and airspace disease, left greater than right. Differential diagnosis includes edema and pneumonia.
--- NOTE | ~2025-04-26 | US_ITS ---
Examination: Ultrasound of the retroperitoneum including kidneys and bladder. Clinical History: JACQUELIN . Comparison: CT chest abdomen pelvis 04/26/2025. Findings: Right kidney: 11 cm. Normal echogenicity. No collecting system dilatation. No shadowing calculi. Left kidney: 11 cm. Normal echogenicity. No collecting system dilatation. No shadowing calculi. Urinary bladder: No wall thickening or focal abnormality. IMPRESSION: 1. No acute abnormality. Reviewed, dictated and finalized at location R. COIL CLEANER IMPRESSION: 1. No acute abnormality.
--- NOTE | ~2025-04-26 | CT_ITS ---
EXAMINATION: CT chest abdomen pelvis wo con DATE: 04/26/2025 23:23 INDICATION: Shortness of breath. Nausea and vomiting. New mass. TECHNIQUE: Computed tomography (CT) of the chest, abdomen, and pelvis was performed without intravenous contrast. Automated exposure control and iterative reconstruction technique were employed. The dose-length product was 596.25 mGy-cm. COMPARISON: Chest CT 12/08/2024, CT abdomen and pelvis 01/22/2025 FINDINGS: CHEST CT: There is moderate emphysema. There are airspace and groundglass opacities in left lower lobe. There are airspace opacities in right middle lobe and the upper lobes. These findings are consistent with pneumonia. Calcified pulmonary nodules and calcified left hilar and mediastinal lymph nodes are consistent with old granulomatous disease. No pleural effusion. The heart size is normal. There are coronary artery calcifications. There are changes of coronary artery bypass grafting. No pericardial effusion. There is mild thoracic spondylosis. There are changes of anterior fusion procedure in cervical spine. ABDOMEN/PELVIS CT: There is a 7 mm cyst in the liver. The gallbladder is normal. Calcifications in the spleen are consistent with old granulomatous disease. The pancreas, adrenal glands, and kidneys are normal. The bladder is markedly distended. The prostate is mildly enlarged. The appendix is normal. There is wall thickening of the ascending and transverse colon. There are no pathologically enlarged lymph nodes. There is no free intraperitoneal fluid. There is mild lumbar spondylosis. IMPRESSION: 1. Multifocal pneumonia, worst in left lower lobe. 2. Wall thickening of ascending and transverse colon, which may be interstitial edema or colitis. Reviewed, dictated and finalized at location E. RINTENDENT PRESSURE
--- NOTE | ~2025-04-26 | XR_ITS ---
EXAM/PROCEDURE: XR chest 1V portable HISTORY: pneumonia COMPARISON: April 26 chest x-ray TECHNIQUE: Portable chest x-ray FINDINGS: Left upper lobe mass/finding described on the previous exam not as clearly seen on today's exam. Diffuse interstitial changes with possible developing infiltrates in the lungs left worse than right are stable to slightly worse. Heart size normal. Sternal retention wires and cervical fusion hardware noted. IMPRESSION: Worsening frontal changes. Left upper lobe mass is not excluded. Reviewed, dictated and finalized at location A. MENT ANALYST
--- NOTE | ~2025-04-26 | XR_ITS ---
EXAMINATION: XR chest 2V, 05/05/2025 8:42 [employer] HISTORY: pneumonia COMPARISON: No comparisons available. Technique: 2 views obtained. Findings: COPD changes. Small basilar infiltrates with trace effusions. Mild pulmonary venous congestion. No pneumothorax. Mild cardiomegaly. Mediastinal and hilar contours are within normal limits. Poststernotomy. Impression: Mild CHF Reviewed, dictated and finalized at location P. ROAD SUPER[employer]OR [employer] Impression: Mild CHF
[2025-04-26 21:14] VITALS: BP 95/71; PULSE 107; RESP 24; TEMP 36.9; O2SAT 100
--- NOTE | 2025-04-26 21:14 | ECG_ITS ---
Test Date: 2025-04-26 21:22:57 Measurements Intervals [place] Rate: 109 P: 21 KS: 156 QRS: -28 QRSD: 143 T: 122 QT: 390 QTc: 526 Interpretive Statements SINUS TACHYCARDIA POSSIBLE LEFT ATRIAL ENLARGEMENT [-0.1mV P-WAVE IN V1/V2] LEFT BUNDLE BRANCH BLOCK [120+ ms QRS DURATION, 80+ ms Q/S IN V1/V2, 85+ ms R IN I/aVL/V5/V6] Compared to ECG 12/09/2023 20:50:43 Sinus rhythm no longer present Electronically Signed On 04-27-2025 06:37:29 INTERFACE CONTROL OFFICER by Estevan Shaw M.D.
[2025-04-26 21:20] VITALS: O2SAT 98
[2025-04-26 21:22] VITALS: PULSE 109
[2025-04-26 21:40] VITALS: O2SAT 96
[2025-04-26 21:45] LABS: Hematocrit 42.8 % (42.0-52.0); Hemoglobin 14.6 g/dL (14.0-18.0); Mean Corpuscular HGB Conc 34.1 g/dl (32-36); Mean Corpuscular Hemoglobin 29.3 pg (26-34); Mean Corpuscular Volume 85.9 fl (80-100); Platelet Count Result 353 k/mm3 (150-375); Red Blood Count 4.98 M/mm3 (4.6-6.20); White Blood Count 29.5 K/mm3 (4.5-10.0)
[2025-04-26 22:06] LABS: Alanine Aminotransferase 45 U/L (6-50); Albumin Level 3.6 g/dL (3.5-5.1); Alkaline Phosphatase 193 U/L (38-126); Anion Gap 13 mmol/L (4-12); Aspartate Amino Transferase 138 U/L (17-59); Bilirubin,Total 2.4 mg/dL (0.2-1.3); Blood Urea Nitrogen 104 mg/dL (9-20); Calcium 7.7 mg/dL (8.4-10.2); Carbon Dioxide 25 mmol/L (22-30); Chloride 100 mmol/L (98-107); Estimated CRCL calculation 31 ml/min; Estimated Glomerular Filt Rate 37; Glucose 116 mg/dL (65-110); Potassium 2.8 mmol/L (3.4-5.0); Sodium 138 mmol/L (137-145); Total Protein 9.0 g/dL (6.3-8.2)
[2025-04-26 22:07] LABS: Band Neutrophils Percent 5 % (0-6); Eosinophils Absolute Manual 0.29 K/mm3 (0.02-0.50); Eosinophils Percent Manual 1 % (0-4); Lymphocytes Absolute Manual 0.88 K/mm3 (1.1-4.5); Lymphocytes Percent Manual 3.0 % (18-44); Monocytes Absolute Manual 0.88 K/mm3 (0.1-0.90); Monocytes Percent Manual 3 % (3-9); Neutrophils Absolute Manual 27.43 K/mm3 (1.3-6.7); Neutrophils Percent Manual 88 % (46-73); Schistocytes None Seen; Total Cells Counted 100
[2025-04-26 22:08] LABS: Anisocytosis 1+
[2025-04-26] MEDS: POTASSIUM CHLORIDE 20 MEQ ER TABLET 40 MEQ PO (23:54)
--- OUTSIDE RECORDS SUMMARY | 2025-04-26 23:56 | XMS_ITS | Clinical Summary ---
Author Organization [facility] Address [address] [place] [address] Care Team Providers Care Sales And Retail Management Recruiter Name Role Phone Unavailable Primary Care Provider [...] of 2) 2008 COVID-19 Vaccine ( - 2024-2 6 season) 2025 Influenza Adult (#1) 2025 RSV Immunization or 60+ Years (1 - 1-dose 75+ series) 2033 Hepatitis A Vaccines Aged Out No long er eligible based on patient's age to complete this topic Meningococcal B Vaccine Aged Out No l onger eligible based on patient's age to complete this topic Meningococcal Vaccine Aged Out No pb erica eligible based on patient's age to complete this topic RSV Immunizations Under 20 Months Aged Out No longer eligible based on patient's age to complete this topic
--- OUTSIDE RECORDS SUMMARY | 2025-04-26 23:56 | XMS_ITS | Clinical Summary ---
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
--- OUTSIDE RECORDS SUMMARY | 2025-04-26 23:56 | XMS_ITS | Encounter Summary ---
Author Organization [facility] Address 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
--- OUTSIDE RECORDS SUMMARY | 2025-04-26 23:56 | XMS_ITS | Clinical Summary ---
Author Organization [facility] Address [address] [place] [address] Care Team Providers Care Acute Dialysis Nurse Name Role Phone Moses Reyes MD Primary Care Provider [phone] Vahid Jay MD Unavailable [phone] Estevan Shaw MD Unavailable [phone] Allergies No known active allergies Medications tamsulosin (FLOMAX) 0.4 mg extended release capsule Take 1 capsule (0.4 mg total) by mouth nightly 4 Active metoclopramide (REGLAN) 10 mg tabletIndicati ons:gastroesop hageal reflux disease Take 1 tablet (10 mg total) by mouth every 8 (eight) hours as needed 4 Active acetaminophen 500 mg capsuleIndicat ions:Fever,Radha n Take 2 capsules (1,000 mg total) by mouth every 6 (six) hours as needed for pain 4 Active gabapentin (NEURONTIN) 300 mg capsule Take 1 capsule (300 mg total) by mouth 3 (three) times a day [address] (PROTONIX) 40 mg EC tablet Take 1 tablet (40 mg total) by mouth every morning 4 Active traMADoL (ULTRAM) 50 mg tablet Take 1 tablet (50 mg total) by mouth every 8 (eight) hours as needed 4 Active Entresto 24-26 mg tabletIndicati ons:chronic heart failure Take 1 tablet by mouth every 12 (twelve) hours 60 tablet 11 4 Active clopidogreL (PLAVIX) 75 mg tablet TAKE 1 TABLET(75 MG) BY MOUTH DAILY 90 tablet 3 5 Active atorvastatin (LIPITOR) 80 mg tablet TAKE 1 TABLET(80 MG) BY MOUTH EVERY NIGHT 90 tablet 3 5 Active clindamycin (CLEOCIN) 300 mg capsule Take 1 capsule (300 mg total) by mouth 3 (three) times a day 5 Active cetirizine (ZyrTEC) 10 mg tablet Take 1 tablet (10 mg total) by mouth daily 5 Active Trelegy Ellipta 100-62.5-25 mcg inhaler Inhale 1 puff daily 5 Active FeroSuL 325 mg (65 mg iron) tablet Take 1 tablet (325 mg total) by mouth daily 5 Active albuterol HFA (PROVENTIL HFA,VENTOLIN HFA,PROAIR HFA) 90 mcg/actuation inhaler Inhale 1 puff every 6 (six) hours as needed 5 Active aspirin 81 mg enteric coated tablet TAKE 1 TABLET BY MOUTH EVERY DAY 90 tablet 3 5 Active aspirin 81 mg enteric coated tablet Take 1 tablet (81 mg total) by mouth daily 90 tablet 3 4 025 Discontinued Active Problems Problem Noted Date [...] Type Department Care Team Description 02/23/2025 Telephone [facility] Cardiology [address] [facility] [address] [place] [address] Estevan Shaw MD cardiac clearance 02/15/2025 Results Follow-Up [facility] Cardiology [address] [place] [address] Estevan Shaw MD Transthoracic Echo (TTE) Complete W Doppler/CF 02/12/2025 1:00 PM CDT Ancillary Procedure [facility] Cardiology [address] [place] [address] LBBB (left bundle branch block); Essential hypertension; Coronary artery disease of [place] artery of [place] heart with stable angina pectoris; Chronic diastolic heart failure (HCC) 02/08/2025 12:30 PM CDT Office Visit [facility] Cardiology [address] [place] [address] Estevan Shaw MD LBBB (left bundle branch block) (Primary Dx); Essential hypertension; Coronary artery disease of [place] artery of [place] heart with stable angina pectoris; Chronic diastolic [...] materials from doctor or pharmacy Never 11/05/2023 [facility] Utilities Answer Date Recorded In the past 12 months has e [employer], gas, oil, or water [employer] threatened to shut off services in your home? No 10/07/2023 Social Connection and Isolation Panel Answer Date Recorded In a typical week, how many times do you talk on the phone with family, friends, or neighbors? Once a week 10/07/2023 How often do you get together with friends or re latives? Once a week 10/07/2023 How often do you attend congregational or sabianism serv ices? Never 10/07/2023 Do you belong to any clubs o r organizations such as congregational groups, unions, fraternal or athletic groups, or [...] place to sleep or slept in a snf (including now)? No 10/07/2023 Personal Safety Answer Date Recorded Have you ever been in or are you currently in a harmful physical or emotional relationship or is someone making you feel afraid or unsafe? 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 Gender Identity Male 06/26/2018 1:21 PM BREAKER BOSS Sexual Orientation Not on file Last Filed [...] 04/04/203305/2023, 04/04/2023 Medical Devices Implanted Type Area Canopy Inspector Device Identifier Shelf Expiration Date Model / Serial / Lot Screw Screw N/A: Neck Screw Screw Left: Ankle [employer] Device Vascular Closure Femoral Artery Bioabsorbable Dual Method Vascade 6-7fr Collagen [id number] - [id number] Implanted:Qty: 1 on 09/10/2023 by Estevan Shaw MD at [facility] [employer] 04/17/2025 [id number] / / [id number] Procedures Procedure Name Priority Date/Time Associated Diagnosis Comments TRANSTHORACIC ECHO (TTE) COMPLETE W DOPPLER/CF WO CONTRAST Routine 02/12/2025 1:53 PM CDT LBBB (left bundle branch block) Essential hypertension Coronary artery disease of [place] artery of [place] heart with stable angina pectoris Chronic diastolic heart failure (HCC) from Last 3 Months Results * TRANSTHORACIC ECHO (TTE) COMPLETE W DOPPLER/CF WO CONTRAST (02/12/2025 1:53 PM CDT) EF Mod BP 61 % CONS SCIMAGE Anatomical Region Laterality Modality Ultrasound 02/12/2025 1:22 PM CDT Narrative 02/12/2025 6:16 PM CDT [facility] Cardiology [address] [facility] [address], [place] [address] [address] [facility] [address], [place] [address] P:[phone] P:[phone] Echocardiographic Report Patient Name: VIRI CARMONA C : 1960 Study Date: 02/12/2025 1:22:44 PM Gender: M Scale Attendant: Carol Angel)(CT), [facility] Location: [place] Ref Provider: ESTEVAN SHAW Height(Cm): 165 BSA: 1.85 Weight(Kg): 74.4 Heart Rate: 76 BP: 100 / 62 Quality: Good Order Provider: ESTEVAN SHAW PROCEDURES: Echocardiographic Report: Transthoracic echocardiogram with complete 2D, M-Mode, and color Doppler examination. With Strain Analysis. INDICATIONS: I44.7 Left bundle-branch block, unspecified, I10 Essential (primary) hypertension, I25.118 Atherosclerotic heart disease of [place] coronary artery with other forms of angina [...] FINDINGS: Interpretation Site: Exam was interpreted at [facility]. Left Ventricle: Normal left ventricular [...] effusion. Electronically Signed By: Dr. Estevan Shaw [facility] 02/12/2025 6:15:48 PM CDT Procedure Note Estevan Shaw MD - 02/12/2025 [facility] Cardiology [address], [place] [address] [address] [facility] [address], [place] [address] P:[phone] P:[phone] Echocardiographic Report Patient Name: VIRI CARMONA C : 1960 Study Date: 02/12/2025 1:22:44 PM Gender: M Scale Attendant: Carol Angel)(CT), [facility] Location: [facility] Provider: ESTEVAN SHAW Height(Cm): 165 BSA: 1.85 Weight(Kg): 74.4 Heart Rate: 76 BP: 100 / 62 Quality: Good Order Provider: ESTEVAN SHAW PROCEDURES: Echocardiographic Report: Transthoracic echocardiogram with complete 2D, M-Mode, and color Dopplerexamination. With Strain Analysis. INDICATIONS: I44.7 Left bundle-branch block, unspecified, I10 Essential (primary)hypertension, I25.118 Atherosclerotic heart disease of [place] coronary artery with otherforms of angina pectoris, [...] FINDINGS: Interpretation Site: Exam was interpreted at [facility]. Left Ventricle: Normal left ventricular [...] effusion. Electronically Signed By: Dr. Estevan Shaw [facility] 02/12/2025 6:15:48 PM CDT Estevan Shaw MD CV ECHO PROCEDURES F inal Result from Last 3 Months Insurance [facility] Advance Directives For more information, please contact: [phone] * Full Code (Latest Code Status on File) Date Activated Date Inactivated Comments 10/01/2023 4:00 PM 10/07/2023 8:06 PM * Full Code Date Activated Date Inactivated Comments 09/10/2023 10:46 AM 09/10/2023 5:09 PM Care Teams Acute Dialysis Nurse Relationship Specialty Start Date End Date Mosse Reyes MD PCP - General Family Practice 09/10/23 Vahid Jay MD Surgeon Cardiothoracic Surgery 10/07/23 Estevan Shaw MD [facility] [address] [place] [address] Consulting Physician Cardiovascular Disease 10/07/23
--- OUTSIDE RECORDS SUMMARY | 2025-04-26 23:56 | XMS_ITS | Encounter Summary ---
Author Organization [facility] Address 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 Gender Identity Not on file Sexual Orientation Not on file documented as of this encounter Plan of Treatment Not on file documented as of this encounter Procedures Procedure Name Priority Date/Time Associated Diagnosis Comments COMPREHENSIVE METABOLIC PANEL Routine 08/10/2005 12:00 PM ANIMAL SCIENTIST HEMOGLOBIN AND HEMATOCRIT Routine 08/07/2005 12:50 PM ANIMAL SCIENTIST documented in this encounter Results * COMPREHENSIVE METABOLIC PANEL (08/10/2005 12:00 PM ANIMAL SCIENTIST) GLUCOSE 87 65 - 109 mg/dL INTERFACE [...] mmol/L INTERFACE SYSTEM 08/10/2005 12:0 0 PM ANIMAL SCIENTIST Sami Cheema MD CHEMISTRY ORDERABLES Final Resu lt Performing Organization Address City/[facility]/ZIP Co de Phone Number INTERFACE SYSTEM Refer to clinic/hospital department * HEMOGLOBIN AND HEMATOCRIT (08/07/2005 12:50 PM ANIMAL SCIENTIST) HEMOGLOBIN 15.6 13.6 - 16.5 g/dL INTERFACE SYSTEM HEMATOCRIT 43.8 40.0 - 48.0 % INTERFACE SYSTEM 08/07/2005 12:5 0 PM ANIMAL SCIENTIST us Sami Cheema MD HEMATOLOGY ORDERABLES Final Res ult Performing Organization Address City/[facility] Co de Phone Number INTERFACE SYSTEM Refer to clinic/hospital department documented in this encounter Visit Diagnoses Diagnosis Displacement of cervical intervertebral disc without myelopathy- Primary documented in this encounter Care Teams Crop Supervisor Relationship Specialty Start Date End Date Gerald Groves DO [address] [facility] [address] [place] [address] PCP - General Internal Medicine 03/15/20 documented as of this encounter
[2025-04-26] MEDS: KCL 20 MEQ/SW 100 ML 100 ML 50 MEQ IVPB (23:57)
[2025-04-27] VITALS (22 sets, daily range): BP systolic 92–126; BP diastolic 57–73; PULSE 73–107; RESP 18–20; TEMP 36.4–36.8; O2SAT 92–100; BMI 22.3
[2025-04-27] MEDS: LACTATED RINGERS 1,000 ML 999 ML IV CONT ×3 (00:06→04:30)
[2025-04-27 01:28] LABS: Alanine Aminotransferase 31 U/L (6-50); Albumin Level 3.0 g/dL (3.5-5.1); Alkaline Phosphatase 138 U/L (38-126); Anion Gap 11 mmol/L (4-12); Aspartate Amino Transferase 93 U/L (17-59); Bilirubin,Total 1.9 mg/dL (0.2-1.3); Blood Urea Nitrogen 106 mg/dL (9-20); Calcium 6.8 mg/dL (8.4-10.2); Carbon Dioxide 22 mmol/L (22-30); Chloride 104 mmol/L (98-107); Estimated CRCL calculation 33 ml/min; Estimated Glomerular Filt Rate 39; Glucose 109 mg/dL (65-110); Potassium 3.1 mmol/L (3.4-5.0); Sodium 137 mmol/L (137-145); Total Protein 6.8 g/dL (6.3-8.2)
--- NOTE | 2025-04-27 02:17 | ED_ITS ---
HPI - SOB/Dyspnea General Chief Complaint: Shortness of Breath/Dyspnea Stated Complaint: SOB, weakness, x 1 week Time Seen by Provider: 04/26/25 22:44 History of Present Illness HPI Narrative: 64-year-old male with history of COPD, BPH, coronary artery disease and previous smoking history presenting to the emergency department today with abdominal pain nausea and vomiting. Decreased oral intake and lack of appetite for last 10 days. States last time he had anything to really eat or drink was on the 17 of April. States he has been too weak and had no appetite to eat anything. Has not had anything to drink in a while. Does appear dry and dehydrated. Denies any fever chills. Endorses a cough. Nonproductive. States that he previously was a heavy smoker for 40 years but quit over a year and a half ago. No chest pain or difficulty breathing right now. No headache or vision changes, back pain. No urinary complaints aside from stating he has not been urinating very much as he has had nothing to eat or drink. Related Data Home Medications ?Medication ?Instructions ?Recorded ?Confirmed ?Last Taken ?Type aspirin 81 mg tablet,delayed 81 mg PO DAILY 10/28/23 1 06/27/24 04/20/25 History release atorvastatin 80 mg tablet 80 mg PO QHS 10/28/2304/20/25 History clopidogrel 75 mg tablet 75 mg PO DAILY 10/28/2310/1604/20/25 History Allergies Allergy/AdvReac Type Severity Reaction Status Date / Time No Known Allergies Allergy Verified 04/27/25 04:29 Review of Systems 2 Review of Systems: As reviewed above in HPI All systems reviewed & are unremarkable except as noted in HPI and below PMFSH Past Medical History Medical History COPD with emphysema Benign prostatic hyperplasia Coronary artery disease Post 3 vessel bypass in September 2023. Former smoker Shortness of breath Coronary artery disease Gastroparesis Rheumatoid arthritis Adrenal incidentaloma Adenomatous colon polyp Benign prostatic hyperplasia without lower urinary tract symptoms Essential hypertension Hyperlipidemia LDL goal <100 Surgical History Surgical History History of cervical spinal surgery History of open reduction and internal fixation (ORIF) procedure Left ankle. History of repair of left rotator cuff History of coronary artery bypass graft x 3 (09/2023) PENA to LAD and saphenous vein graft to posterior descending artery and obtuse marginal branch at [facility]. History of colonoscopy with polypectomy Hx of CABG Family History Family History Sibling Family history of multiple sclerosis Family history of diabetes mellitus in first degree relative Mother Carcinoma of colon Family history of coronary artery disease Father Carcinoma of colon Family history of heart disease in male family member before age 55 Patient's father is Family history of cardiovascular disease Other Cancer Family history of malignant neoplasm Heart disease Social History Social History Social History: Surrogate medical decision maker: Cara Miranda, sibling. Code status: Full code. Smoking packs per day: 0.5 Smoking cigarettes per day: 10.0 Years smoked: 40 Smoking pack-years: 20.00 Smoking status: Former smoker Tobacco type: cigarettes Second hand tobacco smoke exposure: No Smoking end date: 10/14/23 Alcohol intake: current Drinks per week: 15 Alcohol use details: 12 pack beer/week Substance use: never Substance use type: does not use Do You Feel Safe in your Home?: Yes Lack of Transportation: YES Lack of Food: Never True Current Housing: I Have Housing Concerned About Future Housing: No Difficulty Paying Gas/Electric Bills: No Difficulty Paying for Meds: No Currently Unemployed: No Education: Bachelor's Degree Difficulty w/ Childcare or Family Care: No Living arrangements: with family Additional living arrangements comments: Lives in an apartment in the basement of his sister's home. Occupation/Education: retired Additional occupation/education comments: [employer]. Spiritual care concerns: No Exam 2 Narrative: GENERAL: Ill-appearing and malnourished, thin and frail and dehydrated appearing. HEAD: Normocephalic and atraumatic EYES: PERRLA ENT: Nares clear, no rhinorrhea or epistaxis. Mucous membranes dry. NECK: Supple. CHEST: Mildly tachypneic but no respiratory distress. Symmetric chest rise. Coarse bilateral breath sounds. HEART: Tachycardic rate, regular rhythm. No murmur heard. Normal pulses ABDOMEN: Soft and nondistended, tender to palpation in the lower quadrants, no rigidity or guarding. No peritonitis EXTREMITIES: Normal range of motion. [No edema.] SKIN: Warm, dry, no rash. NEURO: [No focal deficits]. Alert and oriented [x3.] PSYCH: [Normal mood and affect.] Course Vital Signs Vital signs: Vital Signs Temperature 36.9 C 04/26/25 21:14 Pulse Rate 107 H 04/26/25 21:14 Respiratory Rate 24 H 04/26/25 21:14 Blood Pressure 95/71 L 04/26/25 21:14 Pulse Oximetry 100 04/26/25 21:14 Oxygen Delivery Non-Rebreather Mask 04/26/25 21:14 Oxygen Flow Rate 15 04/26/25 21:14 Temperature 36.7 C 04/27/25 05:21 Pulse Rate 101 H 04/27/25 06:16 Respiratory Rate 20 04/27/25 05:21 Blood Pressure 126/72 04/27/25 05:21 Pulse Oximetry 97 04/27/25 06:16 Oxygen Delivery Nasal Cannula 04/27/25 06:16 Oxygen Flow Rate 2 04/27/25 06:16 MDM - SOB/Dyspnea MDM Narrative Medical decision making narrative: 64-year-old male with history of COPD, BPH, coronary artery disease and previous smoking history presenting to the emergency department today with abdominal pain nausea and vomiting. Decreased oral intake and lack of appetite for last 10 days. States last time he had anything to really eat or drink was on the 17 of April. States he has been too weak and had no appetite to eat anything. Has not had anything to drink in a while. Does appear dry and dehydrated. Denies any fever chills. Endorses a cough. Nonproductive. States that he previously was a heavy smoker for 40 years but quit over a year and a half ago. No chest pain or difficulty breathing right now. No headache or vision changes, back pain. No urinary complaints aside from stating he has not been urinating very much as he has had nothing to eat or drink. Patient is ill-appearing does appear to be malnourished and dehydrated. Does have some tenderness in the lower abdominal quadrants but no peritonitis rebound or guarding. Coarse breath sounds. Soft blood pressure 95/71. Tachycardic 107. Respiratory rate 24. Did require oxygen in transit but presently saturating 98% on 2 L. suspicion presently is for pneumonia, bronchitis, aspiration pneumonia, colitis, pancreatitis, appendicitis, cholecystitis. Laboratory studies, chest x-ray, urinalysis ordered. Workup shows significant leukocytosis of 29.5, no anemia or platelet concerns. Renal failure with an elevated BUN of 104 with a creatinine 1.8. Hypokalemia 2.9. Given replenishment with 2 L of fluid an additional potassium. Repeat check shows increased BUN but decreased creatinine and improvement in the potassium. Patient has no signs of uremic encephalopathy and is awake alert oriented, answering all questions. States he just been malnourished and not drinking enough. Does appear dry and has not Peed for his yet. Given additional fluids and maintenance infusion. CT scans obtained after checks x- ray shows potential pneumonia versus mass. CT scan show left lower lobe consolidation pneumonia as well as pulmonary nodules bilaterally probable infectious versus inflammatory but could be malignant. Recommended 3 month follow-up or PET scan. Also has emphysematous lungs. CT scan of the abdomen pelvis shows transverse colitis otherwise no acute findings. some distention to the urinary bladder. Rockwell catheter ordered to see if he urinates and this could be postobstructive in nature, but history consistent with more dehydration and lack of intake. Consult placed to Nephrology Dr. Schumacher who recommended additional fluid resuscitation based on history. Patient started on antibiotics including vancomycin and Zosyn for the infectious findings on workup. Spoke to the hospitalist for admission at this time. Patient accepted to the IMU for continued treatment. Medical Records Attestation: I reviewed the patient's medical records. Lab Data Attestation: I reviewed the patient's lab results. 04/26/25 21:39 04/27/25 00:58 Labs: Lab Results 04/26/25 04/27/25 04/27/25 Range/Units 21:39 00:58 00:59 WBC 29.5 H (4.5-10.0) K/mm3 RBC 4.98 (4.6-6.20) M/mm3 Hgb 14.6 (14.0-18.0) g/dL Hct 42.8 (42.0-52.0) % MCV 85.9 (80-100) fl MCH 29.3 (26-34) pg MCHC 34.1 (32-36) g/dl RDW 15.2 H (11.5-14.5) % Plt Count 353 (150-375) k/mm3 MPV 11.3 H (7.4-10.4) fl Immature Gran % (Auto) Not Reportable Neut % (Auto) Not Reportable Lymph % (Auto) Not Reportable [place] % (Auto) Not Reportable Eos % (Auto) Not Reportable Baso % (Auto) Not Reportable Lymph # (Auto) Not Reportable [place] # (Auto) Not Reportable Eos # (Auto) Not Reportable Baso # (Auto) Not Reportable Abs Immat Gran (auto) Not Reportable Absolute Neuts (auto) Not Reportable Absolute Nucleated RBC Not Reportable Total Counted 100 Neutrophils % (Manual) 88 H (46-73) % Band Neutrophils % 5 (0-6) % Lymphocytes % (Manual) 3.0 L (18-44) % Monocytes % (Manual) 3 (3-9) % Eosinophils % (Manual) 1 (0-4) % Nucleated RBC % Not Reportable Abs Neuts (Manual) 27.43 H (1.3-6.7) K/mm3 Abs Lymphs (Manual) 0.88 L (1.1-4.5) K/mm3 Abs Monocytes (Manual) 0.88 (0.1-0.90) K/mm3 Absolute Eos (Manual) 0.29 (0.02-0.50) K/mm3 Platelet Estimate Adequate (Adequate) Anisocytosis 1+ Schistocytes None seen Sodium 138 137 (137-145) mmol/L Potassium 2.8 L* 3.1 L (3.4-5.0) mmol/L Chloride 100 104 (98-107) mmol/L Carbon Dioxide 25 22 (22-30) mmol/L Anion Gap 13 H 11 (4-12) mmol/L BUN 104 H* D 106 H* (9-20) mg/dL Creatinine 1.86 H 1.75 H (0.7-1.3) mg/dL Estim Creat Clear Calc 31 33 ml/min Estimated GFR 37 L 39 L (59 - ) Glucose 116 H 109 (65-110) mg/dL Calcium 7.7 L 6.8 L (8.4-10.2) mg/dL Total Bilirubin 2.4 H 1.9 H (0.2-1.3) mg/dL AST 138 H 93 H (17-59) U/L ALT 45 31 (6-50) U/L Alkaline Phosphatase 193 H 138 H (38-126) U/L Total Protein 9.0 H 6.8 (6.3-8.2) g/dL Albumin 3.6 3.0 L (3.5-5.1) g/dL Nasal MRSA (PCR) Not detected (NOT DETECTE) Imaging Data Attestation: I personally reviewed and interpreted this imaging study as follows: My impression: CT scans obtained after checks x-ray shows potential pneumonia versus mass. CT scan show left lower lobe consolidation pneumonia as well as pulmonary nodules bilaterally probable infectious versus inflammatory but could be malignant. Recommended 3 month follow-up or PET scan. Also has emphysematous lungs. CT scan of the abdomen pelvis shows transverse colitis otherwise no acute findings. some distention to the urinary bladder. Impressions Chest X-Ray 04/26/25 21:49 Impression: 1: New mass left upper thorax, concerning for bronchogenic carcinoma. Correlation with CT recommended. 2: Bilateral mixed interstitial and airspace disease, left greater than right. Differential diagnosis includes edema and pneumonia. Critical Care Time Critical Care Time Critical Care Time: Yes Total Critical Care Time: 75 Discharge Plan Discharge Clinical Impression: Acute renal failure, Acute dehydration, Acute uremia, Colitis, Pneumonia, Adult failure to thrive Patient Disposition: Still a Patient Condition: Stable Time of Disposition: 02:28 No Action aspirin 81 mg tablet,delayed release (DR/EC) 81 mg PO DAILY clopidogrel 75 mg tablet 75 mg PO DAILY atorvastatin 80 mg tablet 80 mg PO QHS fluticasone fur. 100 mcg-umeclid 62.5 mcg-vilant 25 mcg inhalat.powder 100-62.5-25 mcg blister with device 0RF albuterol sulfate 90 mcg/actuation HFA aerosol inhaler See Rx Instructions .ROUTE .COMPLEX Qty: 8.5 2RF Dose Instruction: INHALE 1 PUFF BY MOUTH EVERY 4 HOURS NEEDED FOR SHORTNESS OF BREATH OR WHEEZING Rx Instructions: INHALE 1 PUFF BY MOUTH EVERY 4 HOURS NEEDED FOR SHORTNESS OF BREATH OR WHEEZING sacubitril-valsartan [Entresto] 24-26 mg Tablet 1 tablet PO Q12HR Qty: 60 0RF ferrous sulfate [FeroSul] 325 mg (65 mg iron) tablet See Rx Instructions .ROUTE .COMPLEX Qty: 90 1RF Dose Instruction: TAKE 1 TABLET BY MOUTH EVERY DAY Rx Instructions: TAKE 1 TABLET BY MOUTH EVERY DAY cetirizine 10 mg tablet See Rx Instructions .ROUTE .COMPLEX Qty: 90 1RF Dose Instruction: TAKE 1 TABLET BY MOUTH DAILY Rx Instructions: TAKE 1 TABLET BY MOUTH DAILY tramadol 50 mg tablet 100 mg PO DAILY PRN (Reason: pain) Qty: 60 0RF isopropyl alcohol in glycerin 95-5 % drops 5 drp LEFT EAR DAILY Qty: 30 0RF Trelegy Ellipta 100-62.5-25 mcg blister with device 1 inh inhalation DAILY Qty: 60 2RF pantoprazole 40 mg tablet,delayed release (DR/EC) See Rx Instructions .ROUTE .COMPLEX Qty: 90 0RF Dose Instruction: TAKE 1 TABLET BY MOUTH EVERY MORNING Rx Instructions: TAKE 1 TABLET BY MOUTH EVERY MORNING tamsulosin 0.4 mg capsule See Rx Instructions .ROUTE .COMPLEX Qty: 90 0RF Dose Instruction: TAKE 1 CAPSULE BY MOUTH DAILY Rx Instructions: TAKE 1 CAPSULE BY MOUTH DAILY Follow-up/Referrals: Marian Tejada APRN [Primary Care Provider, Internal Medicine] Time of Disposition: 02:28
[2025-04-27 02:18] LABS: MRSA (PCR) NOT DETECTED (NOT DETECTE)
[2025-04-27 03:12] LABS: Magnesium 3.6 mg/dL (1.6-2.3)
[2025-04-27 03:31] LABS: Add Urine Microscopic? YES; Appearance Urine Cloudy (Clear); Glucose Urine UA Negative (Negative); Leukocyte Esterase Ur Trace LEU/UL (Negative); Need Manual Microscopic Reviewed; Nitrate Urine Negative (Negative); Non Pathogenic Casts >20; Specific Grav Ur 1.021 (1.001-1.035)
[2025-04-27 04:07] LABS: Cannabinoid Screen Urine Negative (Negative)
[2025-04-27] MEDS: CALCIUM CHLORIDE 1,000 MG/10 ML SYRINGE 1000 MG IV PUSH (04:29)
[2025-04-27] MEDS: PIPERACILLIN/TAZOBACTAM SOD 4.5 GM in SODIUM CHLORIDE 0.9% IV 100 ML 200 ML IVPB (04:47)
[2025-04-27] MEDS: LACTATED RINGERS 1,000 ML 125 ML IV CONT (04:47)
--- NOTE | 2025-04-27 04:53 | PC.NURSE ---
This RN called pt sister to update about pts admission
--- NOTE | 2025-04-27 04:53 | PC.NURSE ---
EDP ok to use NS instead of LR
[2025-04-27] MEDS: VANCOMYCIN HCL 1,000 MG in SODIUM CHLORIDE 0.9% IV 250 ML 250 MG IVPB (05:00)
--- NOTE | 2025-04-27 05:20 | ADMGEN ---
This patient, Calin Andino, was admitted to IMU Room 214-01. Patient/family oriented to hospital policies and general routines including ID bracelet, bed and alarms, visiting hours, pain management, procedures, bathroom and other care routines, personal items, smoking policy, room service/diet, and visiting hours. Information on how to activate the Rapid Response Team has been discussed. Patient/Family are encouraged to report perceived risks to care and to ask questions if they do not understand what they are told or what they should do.
--- NOTE | 2025-04-27 05:56 | PM.IMHP ---
H&P: HPI History of Present Illness Date/Time: 04/27/25 05:56 Chief Complaint: Dehydration Narrative: 64-year-old male with PMH prior tobacco abuse, COPD, BPH, CAD status post CABG, essential hypertension, hyperlipidemia, rheumatoid arthritis, gastro paresis. He presents to [facility] ER on 04/27/2025 complaining of abdominal pain nausea and vomiting. He has had decreased oral intake and lack of appetite for 10 days, he does not remember the last time he had a bowel movement. He has been extremely weak. He is not very well-versed about his medical conditions and cannot detail his gastroparesis. Otherwise he reports no other symptoms including chest pain or shortness of breath, syncope or back pain, or diarrhea. He only tells us he has not urinated much for a few days as he has not had much to eat or drink. ER evaluation demonstrated a very weak in of ill-appearing unkempt male. He had large amounts of thick mucus in his oral cavity and otherwise appeared volume down. Vital signs stable/within normal limits. WBC count 29.5, platelets 353, neutrophilia, 5% bands, potassium 2.8, anion gap 13, BUN 104, serum creatinine 1.86, calcium 7.7, magnesium 3.6, total bili 2.4, AST 138, ALT 45 alkaline phosphatase 193, urinalysis with cloudy appearance, leukocyte esterase trace, squamous cells occasional, RBC casts, no bacteria. CT chest abdomen pelvis limited due to lack of IV contrast, left lower lobe consolidation with interval new suspicious pulmonary nodules in the bilateral upper lobes and right middle lobe which could represent infectious or inflammatory process. Neoplasm not excluded. Emphysema present. Right transverse colitis possible, distended urinary bladder. A urinary catheter was placed with 1100 cc urine return. He was given potassium replacement, lactated Ringer's 3 L bolus, Zosyn, vancomycin, calcium chloride 1 g IV x1. Review of Systems Review of Systems: All systems reviewed & are unremarkable except as noted in HPI and below (Subjective) [facility] Past Medical History Medical History COPD with emphysema Benign prostatic hyperplasia Coronary artery disease Post 3 vessel bypass in September 2023. Former smoker Shortness of breath Coronary artery disease Gastroparesis Rheumatoid arthritis Adrenal incidentaloma Adenomatous colon polyp Benign prostatic hyperplasia without lower urinary tract symptoms Essential hypertension Hyperlipidemia LDL goal <100 Surgical History Surgical History History of cervical spinal surgery History of open reduction and internal fixation (ORIF) procedure Left ankle. History of repair of left rotator cuff History of coronary artery bypass graft x 3 (09/2023) PENA to LAD and saphenous vein graft to posterior descending artery and obtuse marginal branch at [facility]. History of colonoscopy with polypectomy Hx of CABG Family History Family History Sibling Family history of multiple sclerosis Family history of diabetes mellitus in first degree relative Mother Carcinoma of colon Family history of coronary artery disease Father Carcinoma of colon Family history of heart disease in male family member before age 55 Patient's father is Family history of cardiovascular disease Other Cancer Family history of malignant neoplasm Heart disease Social History Social History Social History: Surrogate medical decision maker: Cara Miranda, sibling. Code status: Full code. Smoking packs per day: 0.5 Smoking cigarettes per day: 10.0 Years smoked: 40 Smoking pack-years: 20.00 Smoking status: Former smoker Tobacco type: cigarettes Second hand tobacco smoke exposure: No Smoking end date: 10/14/23 Alcohol intake: current Drinks per week: 15 Alcohol use details: 12 pack beer/week Substance use: never Substance use type: does not use Do You Feel Safe in your Home?: Yes Lack of Transportation: YES Lack of Food: Never True Current Housing: I Have Housing Concerned About Future Housing: No Difficulty Paying Gas/Electric Bills: No Difficulty Paying for Meds: No Currently Unemployed: No Education: Bachelor's Degree Difficulty w/ Childcare or Family Care: No Living arrangements: with family Additional living arrangements comments: Lives in an apartment in the basement of his sister's home. Occupation/Education: retired Additional occupation/education comments: [employer]. Spiritual care concerns: No Meds Home Medications and Allergies Home Medications ?Medication ?Instructions ?Recorded ?Confirmed ?Type aspirin 81 mg tablet,delayed 81 mg PO DAILY 10/28/23 04/27/25 History release atorvastatin 80 mg tablet 80 mg PO QHS 10/28/23 04/27/25 History clopidogrel 75 mg tablet 75 mg PO DAILY 10/28/23 04/27/25 History sacubitril 24 mg-valsartan 26 mg 1 tablet PO Q12HR #60 tabs 12/12/23 04/27/25 Rx tablet (Entresto) albuterol sulfate 90 mcg/actuation See Rx Instructions .Route 11/10/24 04/27/25 Rx aerosol inhaler .COMPLEX #8.5 grams fluticasone fur. 100 mcg-umeclid 100-62.5-25 mcg Blister With 11/10/24 04/27/25 Sample 62.5 mcg-vilant 25 mcg Device#1 Samples inhalat.powder (Trelegy Ellipta) ferrous sulfate 325 mg (65 mg See Rx Instructions .Route 11/17/24 04/27/25 Rx iron) tablet (FeroSul) .COMPLEX #90 tabs cetirizine 10 mg tablet See Rx Instructions .Route 02/01/25 04/27/25 Rx .COMPLEX #90 tabs tramadol 50 mg tablet 100 mg (2 x 50 mg) PO DAILY PRN 02/02/25 04/27/25 Rx pain #60 tabs isopropyl alcohol 95 % in glycerin 5 drp LEFT EAR DAILY #30 mL 02/24/25 04/27/25 Rx 5 % ear drops fluticasone fur. 100 mcg-umeclid 1 inh inhalation DAILY #60 ea 02/26/25 04/27/25 Rx 62.5 mcg-vilant 25 mcg inhalat.powder (Trelegy Ellipta) pantoprazole 40 mg tablet,delayed See Rx Instructions .Route 03/08/25 04/27/25 Rx release .COMPLEX #90 tabs tamsulosin 0.4 mg capsule See Rx Instructions .Route 04/07/25 04/27/25 Rx .COMPLEX #90 caps Allergies Allergy/AdvReac Type Severity Reaction Status Date / Time No Known Allergies Allergy Verified 04/27/25 04:29 Vital Signs Vital Signs - 24 hr 04/26/25 21:14 04/26/25 21:20 04/26/25 21:22 Temperature 98.5 F Pulse Rate 107 H 109 H Respiratory Rate 24 H Blood Pressure 95/71 L Pulse Oximetry 100 98 Oxygen Delivery Non-Rebreather Mask Room Air Oxygen Flow Rate 15 04/26/25 21:40 04/27/25 01:17 04/27/25 01:17 Temperature Pulse Rate 84 Respiratory Rate 20 Blood Pressure 100/73 Pulse Oximetry 96 95 98 Oxygen Delivery Nasal Cannula Room Air Oxygen Flow Rate 2 04/27/25 04:24 04/27/25 04:57 04/27/25 05:21 Temperature 98.1 F Pulse Rate 87 87 98 Respiratory Rate 20 20 20 Blood Pressure 102/73 102/73 126/72 Pulse Oximetry 97 97 98 Oxygen Delivery Oxygen Flow Rate Exam Const: General: comfortable and no acute distress Other: A&O x3 HENMT: Other: Mucus accumulation Eyes: Pupils: Equal, round and reactive pupils present Neck: Neck: supple Resp: Effort & Inspection: normal respiratory effort Other: Bilateral rales, no wheezing. Cardio: Rate: regular rate Rhythm: regular rhythm Heart sounds: no murmurs GI: Inspection: non-distended GI Palp: Yes Soft to palpation : General: Yes bladder normal to palpation Neuro: Motor exam (neuro): 5/5 motor strength present throughout Extrem: General: no edema H&P: Results Labs Labs: Short CBC 04/26/25 Range/Units 21:39 WBC 29.5 H (4.5-10.0) K/mm3 Hgb 14.6 (14.0-18.0) g/dL Hct 42.8 (42.0-52.0) % Plt Count 353 (150-375) k/mm3 [facility] 04/26/25 04/27/25 21:39 00:58 Sodium 138 137 Potassium 2.8 L* 3.1 L Chloride 100 104 Carbon Dioxide 25 22 BUN 104 H* D 106 H* Creatinine 1.86 H 1.75 H Glucose 116 H 109 Calcium 7.7 L 6.8 L Liver Function 04/26/25 04/27/25 Range/Units 21:39 00:58 Total Bilirubin 2.4 H 1.9 H (0.2-1.3) mg/dL AST 138 H 93 H (17-59) U/L ALT 45 31 (6-50) U/L Alkaline Phosphatase 193 H 138 H (38-126) U/L Albumin 3.6 3.0 L (3.5-5.1) g/dL Urine 04/27/25 Range/Units 02:47 Urine Color Dark yellow (Yellow) Urine Appearance Cloudy H (Clear) Urine pH 5.0 (5.0-9.0) Ur Specific [place] 1.021 (1.001-1.035) Urine Protein 1+ H (Negative) mg/dL Urine Glucose (UA) Negative (Negative) mg/dL Assessment and Plan Assessment and plan (1) Acute renal failure: Code(s): N17.9 - Acute kidney failure, unspecified Status: Acute (2) Acute dehydration: Code(s): E86.0 - Dehydration Status: Acute (3) Acute uremia: Code(s): N19 - Unspecified kidney failure Status: Acute (4) Pneumonia: Code(s): J18.9 - Pneumonia, unspecified organism Status: Acute (5) COPD with emphysema: Code(s): J43.9 - Emphysema, unspecified Status: Acute (6) Severe sepsis: Code(s): A41.9 - Sepsis, unspecified organism; R65.20 - Severe sepsis without septic shock Status: Acute Plan Patient presents with acute kidney injury with uremia, severe sepsis with leukocytosis, anion gap metabolic acidosis, metabolic derangements, clinical dehydration, bladder distension due to transverse colitis and/or pneumonia. Follow-up on lung nodules required. At this time the patient appears generally weak but he is breathing well on room air. Follow-up blood cultures. Repeat labs now after electrolyte replenishment. Continue Zosyn and vancomycin. 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 Nephrology consulted from ER. Additional lab workup pending. Continue to trend renal function panel. Drugs of abuse screen negative, serum ethanol level negative. Continue fluids. Ambulate with assistance, fall precautions, SCDs. PT/OT evaluations. Admit to IMU with telemetry. ----- Rockwell catheter placed on 04/27/2025. Full code. SCDs. Prior to admission patient is independent and lives with a few family members. No longer a smoker. Denies drug abuse, alcohol use. Hospitalist MIPS Advance Care Plan I have confirmed that the patient's Advanced Care Plan is present, code status is documented, or surrogate decision maker is listed in patient medical record.: Yes Medication Reconciliation I have utilized all available resources to obtain, update and review the patients current medications (includes all prescriptions, OTC, herbals, cannabis, and nutritional supplements).: Yes
[2025-04-27] MEDS: SODIUM CHLORIDE 0.9% IV 1,000 ML 125 ML IV CONT ×2 (06:07→21:23)
[2025-04-27 06:13] LABS: Hematocrit 38.0 % (42.0-52.0); Hemoglobin 12.6 g/dL (14.0-18.0); Mean Corpuscular HGB Conc 33.2 g/dl (32-36); Mean Corpuscular Hemoglobin 29.7 pg (26-34); Mean Corpuscular Volume 89.6 fl (80-100); Platelet Count Result 308 k/mm3 (150-375); Red Blood Count 4.24 M/mm3 (4.6-6.20); White Blood Count 27.7 K/mm3 (4.5-10.0)
[2025-04-27 06:35] LABS: Alanine Aminotransferase 31 U/L (6-50); Albumin Level 2.9 g/dL (3.5-5.1); Alkaline Phosphatase 164 U/L (38-126); Anion Gap 11 mmol/L (4-12); Aspartate Amino Transferase 103 U/L (17-59); Bilirubin,Total 2.1 mg/dL (0.2-1.3); Blood Urea Nitrogen 99 mg/dL (9-20); Calcium 8.0 mg/dL (8.4-10.2); Carbon Dioxide 20 mmol/L (22-30); Chloride 110 mmol/L (98-107); Creatine Kinase 86 U/L (55-170); Estimated CRCL calculation 35 ml/min; Estimated Glomerular Filt Rate 42; Glucose 100 mg/dL (65-110); Magnesium 3.6 mg/dL (1.6-2.3); Potassium 3.3 mmol/L (3.4-5.0); Sodium 141 mmol/L (137-145); Total Protein 6.9 g/dL (6.3-8.2)
[2025-04-27 06:56] LABS: Total Cells Counted 100
[2025-04-27 06:57] LABS: Band Neutrophils Percent 7 % (0-6); Lymphocytes Absolute Manual 1.10 K/mm3 (1.1-4.5); Lymphocytes Percent Manual 4 % (18-44); Metamyelocytes Percent 1 %; Monocytes Absolute Manual 0.55 K/mm3 (0.1-0.90); Monocytes Percent Manual 2 % (3-9); Neutrophils Absolute Manual 25.20 K/mm3 (1.3-6.7); Neutrophils Percent Manual 84 % (46-73); Promyelocytes Percent 1 %; Schistocytes None Seen
[2025-04-27 07:16] LABS: Thyroid Stimulating Hormone Reflex 0.169 uIU/mL (0.465-4.68)
[2025-04-27 07:43] LABS: Free T4 Free Thyroxine Reflex 1.55 ng/dL (0.78-2.19)
[2025-04-27] MEDS: FLUTICASONE/UMECLIDIN/VILANTER 100-62.5-25 MCG ELLIPTA 1 PUFF INHALATION (07:52)
--- NOTE | 2025-04-27 09:05 | P.PNIM_ITS ---
Progress Note: A&P Assessment and Plan (1) Acute renal failure: Code(s): N17.9 - Acute kidney failure, unspecified Status: Acute (2) Acute dehydration: Code(s): E86.0 - Dehydration Status: Acute (3) Acute uremia: Code(s): N19 - Unspecified kidney failure Status: Acute (4) Pneumonia: Code(s): J18.9 - Pneumonia, unspecified organism Status: Acute (5) COPD with emphysema: Code(s): J43.9 - Emphysema, unspecified Status: Acute (6) Severe sepsis: Code(s): A41.9 - Sepsis, unspecified organism; R65.20 - Severe sepsis without septic shock Status: Acute (7) Multifocal pneumonia: Code(s): J18.8 - Other pneumonia, unspecified organism Status: Acute Plan 1.Multifocal pneumonia CT chest shows multifocal pneumonia, worse in the left lower lobe. Noted wall thickening of ascending and transverse colon which may be interstitial edema or colitis MRSA PCR negative deescalate vancomycin continue Zosyn add doxycycline p.o. follow blood culture 2. JACQUELIN on CKD nephrology consult, appreciated rec Subjective Date/time seen: 04/27/25 09:05 Review of Systems Review of Systems: All systems reviewed & are unremarkable except as noted in HPI and below (Subjective) Objective Data Vital Signs Vital Signs: Vital Signs - 24 hr 04/26/25 21:14 04/26/25 21:20 04/26/25 21:22 Temperature 36.9 C Pulse Rate 107 H 109 H Respiratory Rate 24 H Blood Pressure 95/71 L Pulse Oximetry 100 98 Oxygen Delivery Non-Rebreather Mask Room Air Oxygen Flow Rate 15 04/26/25 21:40 04/27/25 01:17 04/27/25 01:17 Temperature Pulse Rate 84 Respiratory Rate 20 Blood Pressure 100/73 Pulse Oximetry 96 95 98 Oxygen Delivery Nasal Cannula Room Air Oxygen Flow Rate 2 04/27/25 04:24 04/27/25 04:57 04/27/25 05:21 Temperature 36.7 C Pulse Rate 87 87 98 Respiratory Rate 20 20 20 Blood Pressure 102/73 102/73 126/72 Pulse Oximetry 97 97 98 Oxygen Delivery Oxygen Flow Rate 04/27/25 06:00 04/27/25 06:16 04/27/25 07:52 Temperature Pulse Rate 100 101 H Respiratory Rate Blood Pressure Pulse Oximetry 97 100 Oxygen Delivery Nasal Cannula Nasal Cannula Oxygen Flow Rate 2 2 04/27/25 07:53 04/27/25 08:02 Temperature 36.4 C L Pulse Rate 105 H 104 H Respiratory Rate 20 18 Blood Pressure 105/64 Pulse Oximetry 99 Oxygen Delivery Oxygen Flow Rate Intake/Output Intake/Output: Intake & Output 04/24/25 04/25/25 04/26/25 04/27/25 23:59 22:59 23:59 23:59 Intake Total 2100 Output Total 100 Balance 1999 Meds/Results Medications: Active Medications Generic Name Dose Route Start Last Admin Trade Name Freq PRN Reason Stop Dose Admin Acetaminophen 650 mg 04/27/25 02:15 Acetaminophen 325 Mg Tablet PO Q4H PRN Mild Pain (1-3) or Fever Aspirin 81 mg 04/27/25 09:00 Aspirin 81 Mg Enteric Tablet PO DAILY [facility] Atorvastatin Calcium 80 mg 04/27/25 21:00 Atorvastatin 40 Mg Tablet PO QHS [facility] Clopidogrel Bisulfate 75 mg 04/27/25 09:00 Clopidogrel Bisulfate 75 Mg Tablet PO DAILY [facility] Doxycycline Hyclate 100 mg 04/27/25 12:00 Doxycycline Hyclate 100 Mg Tablet PO 05/01/25 21:01 BID@1200,2100 [facility] Ferrous Sulfate 325 mg 04/27/25 09:00 Ferrous Sulfate 325 Mg Tablet BY MOUTH DAILY [facility] Fluticasone/Umeclidinium/Vilanterol 1 puff 04/27/25 08:00 04/27/25 07:52 Fluticasone/Umeclidin/Vilanter 100-62.5-25 Mcg Ellipta INHALATION 1 puff DAILYRT [facility] Administration Sodium Chloride 1,000 mls @ 125 mls/hr 04/27/25 05:45 04/27/25 06:07 Normal Saline Iv IV CONT 125 mls/hr .Q8H [facility] Administration Piperacillin Sod/Tazobactam 50 mls @ 100 mls/hr 04/27/25 10:30 Sod 3.375 gm/ Sodium Chloride IVPB Q6HR [facility] Loratadine 10 mg 04/27/25 09:00 Loratadine 10 Mg Tablet PO QAM [facility] Ondansetron HCl 4 mg 04/27/25 02:15 Ondansetron Inj 4 Mg/2 Ml Vial IV PUSH Q4H PRN Nausea Pantoprazole Sodium 40 mg 04/27/25 09:00 Pantoprazole 40 Mg Tablet BY MOUTH DAILY [facility] Tamsulosin HCl 0.4 mg 04/27/25 09:00 Tamsulosin Hcl 0.4 Mg Capsule BY MOUTH DAILY [facility] Radiology Results: ITS Impressions Chest X-Ray 04/26/25 21:49 Impression: 1: New mass left upper thorax, concerning for bronchogenic carcinoma. Correlation with CT recommended. 2: Bilateral mixed interstitial and airspace disease, left greater than right. Differential diagnosis includes edema and pneumonia. Chest/Abdomen/Pelvis CT 04/27/25 08:03 IMPRESSION: 1. Multifocal pneumonia, worst in left lower lobe. 2. Wall thickening of ascending and transverse colon, which may be interstitial edema or colitis. Labs Labs: Laboratory Results - last 24 hr 04/26/25 04/27/25 04/27/25 21:39 00:58 00:59 WBC 29.5 H RBC 4.98 Hgb 14.6 Hct 42.8 MCV 85.9 MCH 29.3 MCHC 34.1 RDW 15.2 H Plt Count 353 MPV 11.3 H Immature Gran % (Auto) Not Reportable Neut % (Auto) Not Reportable Lymph % (Auto) Not Reportable [place] % (Auto) Not Reportable Eos % (Auto) Not Reportable Baso % (Auto) Not Reportable Lymph # (Auto) Not Reportable [place] # (Auto) Not Reportable Eos # (Auto) Not Reportable Baso # (Auto) Not Reportable Abs Immat Gran (auto) Not Reportable Absolute Neuts (auto) Not Reportable Absolute Nucleated RBC Not Reportable Total Counted 100 Neutrophils % (Manual) 88 H Band Neutrophils % 5 Lymphocytes % (Manual) 3.0 L Monocytes % (Manual) 3 Eosinophils % (Manual) 1 Metamyelocytes % Promyelocytes % (Man) Nucleated RBC % Not Reportable Abs Neuts (Manual) 27.43 H Abs Lymphs (Manual) 0.88 L Abs Monocytes (Manual) 0.88 Absolute Eos (Manual) 0.29 Platelet Estimate Adequate Anisocytosis 1+ Schistocytes None seen Sodium 138 137 Potassium 2.8 L* 3.1 L Chloride 100 104 Carbon Dioxide 25 22 Anion Gap 13 H 11 BUN 104 H* D 106 H* Creatinine 1.86 H 1.75 H Estim Creat Clear Calc 31 33 Estimated GFR 37 L 39 L Glucose 116 H 109 Calcium 7.7 L 6.8 L Phosphorus Magnesium Total Bilirubin 2.4 H 1.9 H AST 138 H 93 H ALT 45 31 Alkaline Phosphatase 193 H 138 H Total Creatine Kinase Total Protein 9.0 H 6.8 Albumin 3.6 3.0 L TSH (Reflex) Free T4 Urine Color Urine Appearance Urine pH Ur Specific [place] Urine Protein Urine Glucose (UA) Urine Ketones Ur Blood (Man) Urine Nitrate Urine Bilirubin Urine Urobilinogen Add Ur Microanalysis Leukocyte Esterase Rfl Urine RBC Urine WBC Ur Squamous Epith Cells Urine Bacteria Urine Casts RBC Casts Nasal MRSA (PCR) Not detected Urine Opiates Screen Urine Methadone Screen Ur Barbiturates Screen Ur Phencyclidine Scrn Ur Amphetamine Screen U Benzodiazepines Scrn Urine Cocaine Screen U Cannabinoids Screen Ethyl Alcohol 04/27/25 04/27/25 02:47 06:01 WBC 27.7 H RBC 4.24 L Hgb 12.6 L Hct 38.0 L MCV 89.6 MCH 29.7 MCHC 33.2 RDW 15.6 H Plt Count 308 MPV 11.6 H Immature Gran % (Auto) Not Reportable Neut % (Auto) Not Reportable Lymph % (Auto) Not Reportable [place] % (Auto) Not Reportable Eos % (Auto) Not Reportable Baso % (Auto) Not Reportable Lymph # (Auto) Not Reportable [place] # (Auto) Not Reportable Eos # (Auto) Not Reportable Baso # (Auto) Not Reportable Abs Immat Gran (auto) Not Reportable Absolute Neuts (auto) Not Reportable Absolute Nucleated RBC Not Reportable Total Counted 100 Neutrophils % (Manual) 84 H Band Neutrophils % 7 H Lymphocytes % (Manual) 4 L Monocytes % (Manual) 2 L Eosinophils % (Manual) Metamyelocytes % 1 Promyelocytes % (Man) 1 Nucleated RBC % Not Reportable Abs Neuts (Manual) 25.20 H Abs Lymphs (Manual) 1.10 Abs Monocytes (Manual) 0.55 Absolute Eos (Manual) Platelet Estimate Adequate Anisocytosis Schistocytes None seen Sodium 141 Potassium 3.3 L Chloride 110 H Carbon Dioxide 20 L Anion Gap 11 BUN 99 H Creatinine 1.64 H Estim Creat Clear Calc 35 Estimated GFR 42 L Glucose 100 Calcium 8.0 L Phosphorus 3.4 Magnesium 3.6 H 3.6 H Total Bilirubin 2.1 H AST 103 H ALT 31 Alkaline Phosphatase 164 H Total Creatine Kinase 86 Total Protein 6.9 Albumin 2.9 L TSH (Reflex) 0.169 L Free T4 1.55 Urine Color Dark yellow Urine Appearance Cloudy H Urine pH 5.0 Ur Specific [place] 1.021 Urine Protein 1+ H Urine Glucose (UA) Negative Urine Ketones Negative Ur Blood (Man) 1+ H Urine Nitrate Negative Urine Bilirubin 1+ H Urine Urobilinogen 1.0 Add Ur Microanalysis Reviewed Leukocyte Esterase Rfl Trace H Urine RBC 51-100 H Urine WBC 0-5 Ur Squamous Epith Cells Occasional Urine Bacteria None seen Urine Casts >20 RBC Casts Present H Nasal MRSA (PCR) Urine Opiates Screen Negative Urine Methadone Screen Negative Ur Barbiturates Screen Negative Ur Phencyclidine Scrn Negative Ur Amphetamine Screen Negative U Benzodiazepines Scrn Negative Urine Cocaine Screen Negative U Cannabinoids Screen Negative Ethyl Alcohol < 10
[2025-04-27] MEDS: CLOPIDOGREL BISULFATE 75 MG TABLET PO (09:52)
[2025-04-27] MEDS: FERROUS SULFATE 325 MG TABLET BY MOUTH (09:52)
[2025-04-27] MEDS: PANTOPRAZOLE 40 MG TABLET BY MOUTH (09:53)
[2025-04-27] MEDS: ASPIRIN 81 MG ENTERIC TABLET PO (09:53)
[2025-04-27] MEDS: TAMSULOSIN HCL 0.4 MG CAPSULE BY MOUTH (09:53)
[2025-04-27] MEDS: PIPERACILLIN/TAZOBACTAM SOD 3.375 GM in SODIUM CHLORIDE 0.9% IV 50 ML 100 ML IVPB ×2 (09:53→17:41)
[2025-04-27] MEDS: LORATADINE 10 MG TABLET PO (09:53)
--- NOTE | 2025-04-27 10:20 | P.CONNP_ITS ---
Assessment and Plan Assessment and plan (1) Acute kidney injury: Code(s): N17.9 - Acute kidney failure, unspecified Status: Acute Assessment and Plan: * as noted on admission (creatinine 1.86mg/dL on 04/26) * creatinine normal ~ 3 months ago (0.87mg/dL in January 2025) * suspect multifactorial etiology: * prerenal factors * infection/sepsis (UTI, pneumonia, colitis * urinary retention (as noted by distended bladder on CT imaging) * use of Entresto prior to admission * other * hold Entresto due to soft BP * trial of IVFs * follow trend of repeat labs and UOP (2) Acute hypoxemic respiratory failure: Code(s): J96.01 - Acute respiratory failure with hypoxia Status: Acute Assessment and Plan: * as noted on presentation * most likely secondary to #3 * follow culture data * on antibiotics * follow respiratory status (3) Multifocal pneumonia: Code(s): J18.8 - Other pneumonia, unspecified organism Status: Acute Assessment and Plan: * as noted by imaging to date * see #2 * supplemental oxygen as needed * continue antibiotic therapy (4) Congestive heart failure: Qualifiers: Heart failure chronicity: unspecified Heart failure type: unspecified Qualified Code(s): I50.9 - Heart failure, unspecified Code(s): I50.9 - Heart failure, unspecified Status: Acute Assessment and Plan: * known history * preserved EF by last Echo * Entresto on hold * follow volume status closely with IVF resuscitation (5) Metabolic acidosis: Code(s): E87.20 - Acidosis, unspecified Status: Acute Assessment and Plan: * due to JACQUELIN/ARF and infection * on sodium bicarbonate to compensate * follow CO2 levels I will continue to follow the patient with you while he remains hospitalized and make further recommendations as deemed necessary. Thank you for allowing me to participate in the care of this patient. L History of Present Illness Reason for Consult Consult date: 04/27/25 Reason for consult: acute renal failure Chief Complaint Chief complaint: Renal failure, colitis, Pneumonia History of Present Illness Narrative: The patient is a 64-year-old male with a past medical history as outlined below who presented to [facility] with complaints of abdominal pain, nausea, and vomiting. The patient reports he has had poor oral intake and diminished appetite for last 10 days if not longer. Furthermore, he states that he cannot recall when he had a bowel movement due to his poor oral intake. Given his GI symptoms, he has developed significant weakness and fatigue. He also states that he has noted a decrease in urine output as well in conjunction with his poor oral intake. He denies any history of fevers, chills, chest pain, shortness of breath, palpitations, dizziness, or lightheadedness but does endorse a nonproductive cough. Given the progressive nature of these symptoms and the fact that they were not improving, he presented to the emergency room for further assessment. Work-up and evaluation in the ER demonstrated the patient to be hemodynamically stable and afebrile. His clinical appearance was highly suggestive of dehydration based on his dry mucous membranes and he was noted to have thick mucus in his oral cavity as well. Routine blood test demonstrated a white blood cell count of 29.5, hemoglobin 14.6, platelet count 353, sodium 138, potassium 2.8, bicarb 25, BUN 104, creatinine 1.86, glucose 109, calcium 7.7, magnesium 3.6, total bilirubin 2.4, AST 138, ALT 45, alkaline phosphatase 193, and albumin of 3.6. His urinalysis was significant for a cloudy appearance, 1+ protein, 1+ blood, trace leukocyte esterase, 51-100 red blood cells, but no bacteria. CT chest/abdomen/pelvis was limited due to lack of IV contrast but did demonstratea left lower lobe consolidation with interval new suspicious pulmonary nodules in the bilateral upper lobes and right middle lobe which could represent infectious or inflammatory process, emphysema, right transverse colitis and a possible distended urinary bladder. He subsequently had a urinary catheter placed which resulted in almost 1100 cc urine output arguing in favor of urinary retention. He was given IV potassium supplementation as well as aggressive IV fluids and after appropriate cultures were obtained, started on antibiotics for his presumed pneumonia. He was subsequently admitted to the hospital for further evaluation therapy. Since his admission, he still feels quite poor but slightly better in comparison to the day of presentation. He is still requiring supplemental oxygen and remains on IV antibiotics as well as IV fluids. Renal consultation was requested due to his acute kidney injury/acute renal failure. From review his records, the patient's renal function appears to be well within normal limits with a creatinine of 0.87 mg/dL approximately 3 months ago. He does have risk factors for kidney disease in the form BPH, coronary artery disease, hypertension, hyperlipidemia, smoking history, and age but it would appear that his renal function/creatinine appears to be well preserved. With the interventions that were initiated in the emergency room, his BUN and creatinine have improved and he appears to making more urine than he was previously. Currently, at the time my evaluation, he appears to be in no acute distress. Review of Systems 2 Review of Systems: As per HPI. [facility] Past Medical History Medical History COPD with emphysema Benign prostatic hyperplasia Coronary artery disease Post 3 vessel bypass in September 2023. Former smoker Shortness of breath Coronary artery disease Gastroparesis Rheumatoid arthritis Adrenal incidentaloma Adenomatous colon polyp Benign prostatic hyperplasia without lower urinary tract symptoms Essential hypertension Hyperlipidemia LDL goal <100 Surgical History Surgical History History of cervical spinal surgery History of open reduction and internal fixation (ORIF) procedure Left ankle. History of repair of left rotator cuff History of coronary artery bypass graft x 3 (09/2023) PENA to LAD and saphenous vein graft to posterior descending artery and obtuse marginal branch at [facility]. History of colonoscopy with polypectomy Hx of CABG Family History Family History Sibling Family history of multiple sclerosis Family history of diabetes mellitus in first degree relative Mother Carcinoma of colon Family history of coronary artery disease Father Carcinoma of colon Family history of heart disease in male family member before age 55 Patient's father is Family history of cardiovascular disease Other Cancer Family history of malignant neoplasm Heart disease Social History Social History Social History: Surrogate medical decision maker: Cara Miranda, sibling. Code status: Full code. Smoking packs per day: 0.5 Smoking cigarettes per day: 10.0 Years smoked: 40 Smoking pack-years: 20.00 Smoking status: Former smoker Tobacco type: cigarettes Second hand tobacco smoke exposure: No Smoking end date: 10/14/23 Alcohol intake: current Drinks per week: 15 Alcohol use details: 12 pack beer/week Substance use: never Substance use type: does not use Do You Feel Safe in your Home?: Yes Lack of Transportation: YES Lack of Food: Never True Current Housing: I Have Housing Concerned About Future Housing: No Difficulty Paying Gas/Electric Bills: No Difficulty Paying for Meds: No Currently Unemployed: No Education: Bachelor's Degree Difficulty w/ Childcare or Family Care: No Living arrangements: with family Additional living arrangements comments: Lives in an apartment in the basement of his sister's home. Occupation/Education: retired Additional occupation/education comments: [employer]. Spiritual care concerns: No Meds Home Medications and Allergies Home Medications ?Medication ?Instructions ?Recorded ?Confirmed ?Type aspirin 81 mg tablet,delayed 81 mg PO DAILY 10/28/23 1 06/27/24 History release atorvastatin 80 mg tablet 80 mg PO QHS 10/28/23 History clopidogrel 75 mg tablet 75 mg PO DAILY 10/28/2310/16 History sacubitril 24 mg-valsartan 26 mg 1 tablet PO Q12HR #60 tabs 12/12/23 04/27/25 Rx tablet (Entresto) albuterol sulfate 90 mcg/actuation See Rx Instructions .Route 11/10/24 04/27/25 Rx aerosol inhaler .COMPLEX #8.5 grams fluticasone fur. 100 mcg-umeclid 100-62.5-25 mcg Blist er With 11/10/24 04/27/25 Sample 62.5 mcg-vilant 25 mcg Device#1 Samples inhalat.powder (Trelegy Ellipta) ferrous sulfate 325 mg (65 mg See Rx Instructions .Rou te 11/17/24 04/27/25 Rx iron) tablet (FeroSul) .COMPLEX #90 tabs cetirizine 10 mg tablet See Rx Instructions .Route 0 02/01/25 04/27/25 Rx .COMPLEX #90 tabs tramadol 50 mg tablet 100 mg (2 x 50 mg) PO DAILY PRN 02/02/25 04/27/25 Rx pain #60 tabs isopropyl alcohol 95 % in glycerin 5 drp LEFT EAR CHRISTY Y #30 mL 02/24/25 04/27/25 Rx 5 % ear drops fluticasone fur. 100 mcg-umeclid 1 inh inhalation CHRISTY Y #60 ea 02/26/25 04/27/25 Rx 62.5 mcg-vilant 25 mcg inhalat.powder (Trelegy Ellipta) pantoprazole 40 mg tablet,delayed See Rx Instructions .Route 03/08/25 04/27/25 Rx release .COMPLEX #90 tabs tamsulosin 0.4 mg capsule See Rx Instructions .Route 1 04/27/25 Rx .COMPLEX #90 caps Allergies Allergy/AdvReac Type Severity Reaction Status Date / Time No Known Allergies Allergy Verified 04/27/25 04:29 Vital Signs Vital Signs Temp Pulse Resp BP Pulse Ox O2 Del Method O2 Flow Rate 04/27/25 10:00 100 04/27/25 08:02 97.5 F L 104 H 18 105/64 99 04/27/25 08:00 106 H 04/27/25 07:53 105 H 20 04/27/25 07:52 100 Nasal Cannula 2 04/27/25 06:16 101 H 97 Nasal Cannula 2 04/27/25 06:00 100 04/27/25 05:21 98.1 F 98 20 126/72 98 04/27/25 04:57 87 20 102/73 97 04/27/25 04:24 87 20 102/73 97 04/27/25 01:17 98 Room Air 04/27/25 01:17 84 20 100/73 95 04/26/25 21:40 96 Nasal Cannula 2 04/26/25 21:22 109 H 04/26/25 21:20 98 Room Air 04/26/25 21:14 98.5 F 107 H 24 H 95/71 L 100 Non-Rebreather Mask 15 Results Lab Results 05/05/25 03:52 05/05/25 03:52 Lab results: Most recent lab results Calcium 8.0 mg/dL (8.4-10.2) L 04/27/25 06:01 Phosphorus 3.4 mg/dL (2.5-4.5) 04/27/25 06:01 Magnesium 3.6 mg/dL (1.6-2.3) H 04/27/25 06:01 Urine Creatinine 74.0 mg/dL 04/27/25 10:07
[2025-04-27 10:24] LABS: Total Triiodothyronine (T3) 0.52 NG/ML (0.82-1.58)
[2025-04-27 10:47] LABS: Urea Random Urine 320 MG/DL
[2025-04-27 10:48] LABS: Total Protein Urine Random 17 mg/dL; Ur Ttl Prot Creatinine Ratio 0.23 mg/mg (0-0.20)
[2025-04-27 11:12] LABS: Urine Eos QC 2nd Tech Confirmed
--- NOTE | 2025-04-27 11:43 | PC.NURSE ---
Patient refusing to turn to be cleaned up of stool. PCT and RN clean patient as much as possible. Stool remaining. Patient refusing to sit up and get out of bed. RN witnessed patient sitting on edge of bed this AM. Patient currently states he is too weak to sit up. Patient refusing meals. Patient states he came to the hospital for us to fix him but will not participate in care.
[2025-04-27] MEDS: DOXYCYCLINE HYCLATE 100 MG TABLET PO ×2 (12:57→21:23)
[2025-04-27] MEDS: IPRATROPIUM 0.5 MG/ALBUTEROL SULFATE 2.5 MG (BASE) AMPUL.NEB 3 ML INHALATION (15:23)
[2025-04-27] MEDS: POTASSIUM CHLORIDE 20 MEQ ER TABLET 40 MEQ PO (15:43)
--- NOTE | 2025-04-27 17:13 | P.PNIM_ITS ---
Progress Note: A&P Assessment and Plan (1) Acute renal failure: Code(s): N17.9 - Acute kidney failure, unspecified Status: Acute (2) Acute dehydration: Code(s): E86.0 - Dehydration Status: Acute (3) Acute uremia: Code(s): N19 - Unspecified kidney failure Status: Acute (4) Pneumonia: Code(s): J18.9 - Pneumonia, unspecified organism Status: Acute (5) COPD with emphysema: Code(s): J43.9 - Emphysema, unspecified Status: Acute (6) Severe sepsis: Code(s): A41.9 - Sepsis, unspecified organism; R65.20 - Severe sepsis without septic shock Status: Acute (7) Multifocal pneumonia: Code(s): J18.8 - Other pneumonia, unspecified organism Status: Acute (8) Acute hypoxemic respiratory failure: Code(s): J96.01 - Acute respiratory failure with hypoxia Status: Acute Plan 1.Acute hypoxic respiratory failure likely 2/2 Multifocal pneumonia Multifocal Pneumonia CT chest shows multifocal pneumonia, worse in the left lower lobe. Noted wall thickening of ascending and transverse colon which may be interstitial edema or colitis MRSA PCR negative deescalate vancomycin continue Zosyn add doxycycline p.o. follow blood culture 2. 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 Time Spent With Patient Time: 45 minutes Subjective Date/time seen: 04/27/25 17:13 Interval history: Complains cough. Malaise. No fever chills. No Chest palpitations. Review of Systems Review of Systems: All systems reviewed & are unremarkable except as noted in HPI and below Exam Narrative: APPEARANCE: Mild distress, frail. Poor dentition EYES: EOMI HEENT: Normocephalic, atraumatic, OMM RESPIRATORY: No respiratory distress Clear to auscultation bilaterally with no rhonchi wheezing or rales. CARDIOVASCULAR: RRR, S1 and S2 without murmurs rubs or gallops. ABDOMINAL: Soft, nontender, nondistended, no rebound or guarding MSK: Global weakness. No focal weakness. NEURO: Awake and alert. Following commands, speech normal, no focal deficits SKIN:: Warm, dry. No rashes lesions or abrasions PSYCHIATRIC: Normal affect/mood, Objective Data Vital Signs Vital Signs: Vital Signs - 24 hr 04/26/25 21:14 04/26/25 21:20 04/26/25 21:22 Temperature 36.9 C Pulse Rate 107 H 109 H Respiratory Rate 24 H Blood Pressure 95/71 L Pulse Oximetry 100 98 Oxygen Delivery Non-Rebreather Mask Room Air Oxygen Flow Rate 15 04/26/25 21:40 04/27/25 01:17 04/27/25 01:17 Temperature Pulse Rate 84 Respiratory Rate 20 Blood Pressure 100/73 Pulse Oximetry 96 95 98 Oxygen Delivery Nasal Cannula Room Air Oxygen Flow Rate 2 04/27/25 04:24 04/27/25 04:57 04/27/25 05:21 Temperature 36.7 C Pulse Rate 87 87 98 Respiratory Rate 20 20 20 Blood Pressure 102/73 102/73 126/72 Pulse Oximetry 97 97 98 Oxygen Delivery Oxygen Flow Rate 04/27/25 06:00 04/27/25 06:16 04/27/25 07:52 Temperature Pulse Rate 100 101 H Respiratory Rate Blood Pressure Pulse Oximetry 97 100 Oxygen Delivery Nasal Cannula Nasal Cannula Oxygen Flow Rate 2 2 04/27/25 07:53 04/27/25 08:00 04/27/25 08:02 Temperature 36.4 C L Pulse Rate 105 H 106 H 104 H Respiratory Rate 20 18 Blood Pressure 105/64 Pulse Oximetry 99 Oxygen Delivery Oxygen Flow Rate 04/27/25 10:00 04/27/25 11:50 04/27/25 12:00 Temperature 36.7 C Pulse Rate 100 107 H 96 Respiratory Rate 20 Blood Pressure 92/59 L Pulse Oximetry 92 Oxygen Delivery Oxygen Flow Rate 04/27/25 15:23 04/27/25 15:29 04/27/25 16:00 Temperature Pulse Rate 96 101 H 100 Respiratory Rate 20 20 20 Blood Pressure Pulse Oximetry 94 Oxygen Delivery Nasal Cannula Oxygen Flow Rate 2 04/27/25 16:00 Temperature 36.7 C Pulse Rate 100 Respiratory Rate 20 Blood Pressure 92/57 L Pulse Oximetry 94 Oxygen Delivery Oxygen Flow Rate Intake/Output Intake/Output: Intake & Output 04/24/25 04/25/25 04/26/25 04/27/25 23:59 22:59 23:59 23:59 Intake Total 2510 Output Total 100 Balance 2410 Meds/Results Medications: Active Medications Generic Name Dose Route Start Last Admin Trade Name Freq PRN Reason Stop Dose Admin Acetaminophen 650 mg 04/27/25 02:15 Acetaminophen 325 Mg Tablet PO Q4H PRN Mild Pain (1-3) or Fever Albuterol/Ipratropium 3 ml 04/27/25 14:44 Ipratropium 0.5 Mg/Albuterol Sulfate 2.5 Mg (Base) Ampul.Neb 3 Ml INHALATION Q6HRT PRN Wheezing Aspirin 81 mg 04/27/25 09:00 04/27/25 09:53 Aspirin 81 Mg Enteric Tablet PO 81 mg DAILY JOSE Administration Atorvastatin Calcium 80 mg 04/27/25 21:00 Atorvastatin 40 Mg Tablet PO QHS JOSE Clopidogrel Bisulfate 75 mg 04/27/25 09:00 04/27/25 09:52 Clopidogrel Bisulfate 75 Mg Tablet PO 75 mg DAILY JOSE Administration Doxycycline Hyclate 100 mg 04/27/25 12:00 04/27/25 12:57 Doxycycline Hyclate 100 Mg Tablet PO 05/01/25 21:01 100 mg BID@1200,2100 JOSE Administration Ferrous Sulfate 325 mg 04/27/25 09:00 04/27/25 09:52 Ferrous Sulfate 325 Mg Tablet BY MOUTH 325 mg DAILY JOSE Administration Fluticasone/Umeclidinium/Vilanterol 1 puff 04/27/25 08:00 04/27/25 07:52 Fluticasone/Umeclidin/Vilanter 100-62.5-25 Mcg Ellipta INHALATION 1 puff DAILYRT JOSE Administration Sodium Chloride 1,000 mls @ 125 mls/hr 04/27/25 05:45 04/27/25 06:07 Normal Saline Iv IV CONT 125 mls/hr .Q8H JOSE Administration Piperacillin Sod/Tazobactam 50 mls @ 100 mls/hr 04/27/25 10:30 04/27/25 10:23 Sod 3.375 gm/ Sodium Chloride IVPB Infused Q6HR JOSE Infusion Loratadine 10 mg 04/27/25 09:00 04/27/25 09:53 Loratadine 10 Mg Tablet PO 10 mg QAM JOSE Administration Ondansetron HCl 4 mg 04/27/25 02:15 Ondansetron Inj 4 Mg/2 Ml Vial IV PUSH Q4H PRN Nausea Pantoprazole Sodium 40 mg 04/27/25 09:00 04/27/25 09:53 Pantoprazole 40 Mg Tablet BY MOUTH 40 mg DAILY JOSE Administration Tamsulosin HCl 0.4 mg 04/27/25 09:00 04/27/25 09:53 Tamsulosin Hcl 0.4 Mg Capsule BY MOUTH 0.4 mg DAILY JOSE Administration Radiology Results: ITS Impressions Chest X-Ray 04/26/25 21:49 Impression: 1: New mass left upper thorax, concerning for bronchogenic carcinoma. Correlation with CT recommended. 2: Bilateral mixed interstitial and airspace disease, left greater than right. Differential diagnosis includes edema and pneumonia. Chest/Abdomen/Pelvis CT 04/27/25 08:03 IMPRESSION: 1. Multifocal pneumonia, worst in left lower lobe. 2. Wall thickening of ascending and transverse colon, which may be interstitial edema or colitis. Labs Labs: Laboratory Results - last 24 hr 04/26/25 04/27/25 04/27/25 21:39 00:58 00:59 WBC 29.5 H RBC 4.98 Hgb 14.6 Hct 42.8 MCV 85.9 MCH 29.3 MCHC 34.1 RDW 15.2 H Plt Count 353 MPV 11.3 H Immature Gran % (Auto) Not Reportable Neut % (Auto) Not Reportable Lymph % (Auto) Not Reportable [place] % (Auto) Not Reportable Eos % (Auto) Not Reportable Baso % (Auto) Not Reportable Lymph # (Auto) Not Reportable [place] # (Auto) Not Reportable Eos # (Auto) Not Reportable Baso # (Auto) Not Reportable Abs Immat Gran (auto) Not Reportable Absolute Neuts (auto) Not Reportable Absolute Nucleated RBC Not Reportable Total Counted 100 Neutrophils % (Manual) 88 H Band Neutrophils % 5 Lymphocytes % (Manual) 3.0 L Monocytes % (Manual) 3 Eosinophils % (Manual) 1 Metamyelocytes % Promyelocytes % (Man) Nucleated RBC % Not Reportable Abs Neuts (Manual) 27.43 H Abs Lymphs (Manual) 0.88 L Abs Monocytes (Manual) 0.88 Absolute Eos (Manual) 0.29 Platelet Estimate Adequate Anisocytosis 1+ Schistocytes None seen Sodium 138 137 Potassium 2.8 L* 3.1 L Chloride 100 104 Carbon Dioxide 25 22 Anion Gap 13 H 11 BUN 104 H* D 106 H* Creatinine 1.86 H 1.75 H Estim Creat Clear Calc 31 33 Estimated GFR 37 L 39 L Glucose 116 H 109 Calcium 7.7 L 6.8 L Phosphorus Magnesium Total Bilirubin 2.4 H 1.9 H AST 138 H 93 H ALT 45 31 Alkaline Phosphatase 193 H 138 H Total Creatine Kinase Total Protein 9.0 H 6.8 Albumin 3.6 3.0 L TSH (Reflex) Free T4 Total T3 Urine Color Urine Appearance Urine pH Ur Specific [place] Urine Protein Urine Glucose (UA) Urine Ketones Ur Blood (Man) Urine Nitrate Urine Bilirubin Urine Urobilinogen Add Ur Microanalysis Leukocyte Esterase Rfl Urine RBC Urine WBC Ur Squamous Epith Cells Urine Bacteria Urine Casts RBC Casts Urine Eosinophils U Random Total Protein Ur Random Sodium Ur Random Urea Urine Creatinine Protein/Creat Ratio 2 Nasal MRSA (PCR) Not detected Urine Opiates Screen Urine Methadone Screen Ur Barbiturates Screen Ur Phencyclidine Scrn Ur Amphetamine Screen U Benzodiazepines Scrn Urine Cocaine Screen U Cannabinoids Screen Ethyl Alcohol 04/27/25 04/27/25 04/27/25 02:47 06:01 10:07 WBC 27.7 H RBC 4.24 L Hgb 12.6 L Hct 38.0 L MCV 89.6 MCH 29.7 MCHC 33.2 RDW 15.6 H Plt Count 308 MPV 11.6 H Immature Gran % (Auto) Not Reportable Neut % (Auto) Not Reportable Lymph % (Auto) Not Reportable [place] % (Auto) Not Reportable Eos % (Auto) Not Reportable Baso % (Auto) Not Reportable Lymph # (Auto) Not Reportable [place] # (Auto) Not Reportable Eos # (Auto) Not Reportable Baso # (Auto) Not Reportable Abs Immat Gran (auto) Not Reportable Absolute Neuts (auto) Not Reportable Absolute Nucleated RBC Not Reportable Total Counted 100 Neutrophils % (Manual) 84 H Band Neutrophils % 7 H Lymphocytes % (Manual) 4 L Monocytes % (Manual) 2 L Eosinophils % (Manual) Metamyelocytes % 1 Promyelocytes % (Man) 1 Nucleated RBC % Not Reportable Abs Neuts (Manual) 25.20 H Abs Lymphs (Manual) 1.10 Abs Monocytes (Manual) 0.55 Absolute Eos (Manual) Platelet Estimate Adequate Anisocytosis Schistocytes None seen Sodium 141 Potassium 3.3 L Chloride 110 H Carbon Dioxide 20 L Anion Gap 11 BUN 99 H Creatinine 1.64 H Estim Creat Clear Calc 35 Estimated GFR 42 L Glucose 100 Calcium 8.0 L Phosphorus 3.4 Magnesium 3.6 H 3.6 H Total Bilirubin 2.1 H AST 103 H ALT 31 Alkaline Phosphatase 164 H Total Creatine Kinase 86 Total Protein 6.9 Albumin 2.9 L TSH (Reflex) 0.169 L Free T4 1.55 Total T3 0.52 L Urine Color Dark yellow Urine Appearance Cloudy H Urine pH 5.0 Ur Specific [place] 1.021 Urine Protein 1+ H Urine Glucose (UA) Negative Urine Ketones Negative Ur Blood (Man) 1+ H Urine Nitrate Negative Urine Bilirubin 1+ H Urine Urobilinogen 1.0 Add Ur Microanalysis Reviewed Leukocyte Esterase Rfl Trace H Urine RBC 51-100 H Urine WBC 0-5 Ur Squamous Epith Cells Occasional Urine Bacteria None seen Urine Casts >20 RBC Casts Present H Urine Eosinophils None seen U Random Total Protein 17 Ur Random Sodium 69 Ur Random Urea 320 Urine Creatinine 74.0 Protein/Creat Ratio 2 0.23 H Nasal MRSA (PCR) Urine Opiates Screen Negative Urine Methadone Screen Negative Ur Barbiturates Screen Negative Ur Phencyclidine Scrn Negative Ur Amphetamine Screen Negative U Benzodiazepines Scrn Negative Urine Cocaine Screen Negative U Cannabinoids Screen Negative Ethyl Alcohol < 10
[2025-04-27] MEDS: ATORVASTATIN 40 MG TABLET 80 MG PO (21:23)
[2025-04-28] VITALS (14 sets, daily range): BP systolic 94–104; BP diastolic 56–63; PULSE 71–86; RESP 20–22; TEMP 36.6–37; O2SAT 92–100
[2025-04-28] MEDS: PIPERACILLIN/TAZOBACTAM SOD 3.375 GM in SODIUM CHLORIDE 0.9% IV 50 ML 100 ML IVPB ×5 (00:27→23:35)
[2025-04-28] MEDS: SODIUM CHLORIDE 0.9% IV 1,000 ML 125 ML IV CONT (04:57)
[2025-04-28] MEDS: FLUTICASONE/UMECLIDIN/VILANTER 100-62.5-25 MCG ELLIPTA 1 PUFF INHALATION (08:04)
[2025-04-28 09:16] LABS: Hematocrit 33.8 % (42.0-52.0); Hemoglobin 11.1 g/dL (14.0-18.0); Mean Corpuscular HGB Conc 32.8 g/dl (32-36); Mean Corpuscular Hemoglobin 29.5 pg (26-34); Mean Corpuscular Volume 89.9 fl (80-100); Platelet Count Result 328 k/mm3 (150-375); Red Blood Count 3.76 M/mm3 (4.6-6.20); White Blood Count 28.5 K/mm3 (4.5-10.0)
[2025-04-28 09:31] LABS: Alanine Aminotransferase 25 U/L (6-50); Albumin Level 2.5 g/dL (3.5-5.1); Alkaline Phosphatase 133 U/L (38-126); Anion Gap 7 mmol/L (4-12); Aspartate Amino Transferase 79 U/L (17-59); Bilirubin,Total 1.7 mg/dL (0.2-1.3); Blood Urea Nitrogen 73 mg/dL (9-20); Calcium 6.6 mg/dL (8.4-10.2); Carbon Dioxide 18 mmol/L (22-30); Chloride 115 mmol/L (98-107); Estimated CRCL calculation 40 ml/min; Estimated Glomerular Filt Rate 50; Glucose 108 mg/dL (65-110); Potassium 3.0 mmol/L (3.4-5.0); Sodium 140 mmol/L (137-145); Total Protein 6.4 g/dL (6.3-8.2)
[2025-04-28 09:36] LABS: Total Cells Counted 100
[2025-04-28 09:37] LABS: Band Neutrophils Percent 14 % (0-6); Lymphocytes Absolute Manual 1.14 K/mm3 (1.1-4.5); Lymphocytes Percent Manual 4 % (18-44); Monocytes Absolute Manual 0.57 K/mm3 (0.1-0.90); Monocytes Percent Manual 2 % (3-9); Neutrophils Absolute Manual 26.79 K/mm3 (1.3-6.7); Neutrophils Percent Manual 80 % (46-73); Schistocytes None Seen
[2025-04-28] MEDS: LORATADINE 10 MG TABLET PO (09:46)
[2025-04-28] MEDS: CLOPIDOGREL BISULFATE 75 MG TABLET PO (09:46)
[2025-04-28] MEDS: ASPIRIN 81 MG ENTERIC TABLET PO (09:46)
[2025-04-28] MEDS: TAMSULOSIN HCL 0.4 MG CAPSULE BY MOUTH (09:46)
[2025-04-28] MEDS: PANTOPRAZOLE 40 MG TABLET BY MOUTH (09:46)
[2025-04-28] MEDS: FERROUS SULFATE 325 MG TABLET BY MOUTH (09:46)
--- NOTE | 2025-04-28 13:09 | P.PNNP_ITS ---
Progress Note: A&P Assessment and Plan (1) Acute kidney injury: Code(s): N17.9 - Acute kidney failure, unspecified Status: Acute Assessment and Plan: * as noted on admission (creatinine 1.86mg/dL on 04/26) * creatinine normal ~ 3 months ago (0.87mg/dL in January 2025) * suspect multifactorial etiology: * prerenal factors * infection/sepsis (UTI, pneumonia, colitis) * urinary retention (as noted by distended bladder on CT imaging) * use of Entresto prior to admission * other * evaluation to date noted: * CT imaging without obstruction (but distended bladder noted) * urine electrolyte prerenal * urine eosinophils negative * CPK normal * mild proteinuria * continue trial of IVFs * follow trend of repeat labs and UOP (2) Acute hypoxemic respiratory failure: Code(s): J96.01 - Acute respiratory failure with hypoxia Status: Acute Assessment and Plan: * as noted on presentation * most likely secondary to #3 * follow culture data * on antibiotics * follow respiratory status (3) Multifocal pneumonia: Code(s): J18.8 - Other pneumonia, unspecified organism Status: Acute Assessment and Plan: * as noted by imaging to date * see #2 * supplemental oxygen as needed * continue antibiotic therapy (4) Congestive heart failure: Qualifiers: Heart failure chronicity: unspecified Heart failure type: unspecified Qualified Code(s): I50.9 - Heart failure, unspecified Code(s): I50.9 - Heart failure, unspecified Status: Acute Assessment and Plan: * known history * preserved EF by last Echo * Entresto on hold * follow volume status closely with IVF resuscitation (5) Metabolic acidosis: Code(s): E87.20 - Acidosis, unspecified Status: Acute Assessment and Plan: * due to JACQUELIN/ARF and infection * on sodium bicarbonate to compensate * follow CO2 levels Will continue to follow. L Subjective Date/time seen: 04/28/25 13:09 Interval history: Follow-up for acute kidney injury/acute renal failure. Renal function/creatinine continues to slowly improve with current interventions/therapy since admission; reasonable urine output noted; still feels somewhat fatigued and weak in association with intermittent cough; no acute issues/events overnight or earlier this morning. Exam 2 Narrative: General: WD/WN male in NAD Heart: normal S1 and S2; no rub Lungs: coarse wtith scattered rhonci Abdomen: soft, nontender, nondistended, positive bowel sounds Extremities: no cyanosis or clubbing; no edema Skin: warm and dry Objective Data Vital Signs Vital Signs: Vital Signs Temp Pulse Resp BP Pulse Ox O2 Del Method O2 Flow Rate 04/28/25 12:00 83 22 H 100 Nasal Cannula 2 04/28/25 12:00 97.9 F 86 22 H 94/62 L 100 04/28/25 08:27 97.8 F 75 20 99/59 L 100 04/28/25 08:08 92 Nasal Cannula 2 04/28/25 08:07 78 20 04/28/25 08:00 83 04/28/25 08:00 83 22 H 100 Nasal Cannula 2 04/28/25 06:00 71 04/28/25 04:00 75 04/28/25 04:00 72 93 Nasal Cannula 2 04/28/25 03:47 97.8 F 78 20 95/62 L 96 04/28/25 02:00 73 04/28/25 00:00 76 04/27/25 23:55 74 94 Nasal Cannula 2 04/27/25 22:00 73 04/27/25 20:00 79 04/27/25 20:00 82 20 93 Nasal Cannula 2 04/27/25 19:53 98.2 F 82 20 111/66 97 Intake/Output Intake/Output: Intake & Output 04/25/25 04/26/25 04/27/25 04/28/25 22:59 23:59 23:59 23:59 Intake Total 4060 2615.8 Output Total 550 850 Balance 3510 1765.8 Meds/Results Medications: Active Medications Generic Name Dose Route Start Last Admin Trade Name Freq PRN Reason Stop Dose Admin Acetaminophen 650 mg 04/27/25 02:15 Acetaminophen 325 Mg Tablet PO Q4H PRN Mild Pain (1-3) or Fever Albuterol/Ipratropium 3 ml 04/27/25 14:44 Ipratropium 0.5 Mg/Albuterol Sulfate 2.5 Mg (Base) Ampul.Neb 3 Ml INHALATION Q6HRT PRN Wheezing Aspirin 81 mg 04/27/25 09:00 04/28/25 09:46 Aspirin 81 Mg Enteric Tablet PO 81 mg DAILY JOSE Administration Atorvastatin Calcium 80 mg 04/27/25 21:00 04/27/25 21:23 Atorvastatin 40 Mg Tablet PO 80 mg QHS JOSE Administration Clopidogrel Bisulfate 75 mg 04/27/25 09:00 04/28/25 09:46 Clopidogrel Bisulfate 75 Mg Tablet PO 75 mg DAILY JOSE Administration Doxycycline Hyclate 100 mg 04/27/25 12:00 04/28/25 13:13 Doxycycline Hyclate 100 Mg Tablet PO 05/01/25 21:01 100 mg BID@1200,2100 JOSE Administration Ferrous Sulfate 325 mg 04/27/25 09:00 04/28/25 09:46 Ferrous Sulfate 325 Mg Tablet BY MOUTH 325 mg DAILY JOSE Administration Fluticasone/Umeclidinium/Vilanterol 1 puff 04/27/25 08:00 04/28/25 08:04 Fluticasone/Umeclidin/Vilanter 100-62.5-25 Mcg Ellipta INHALATION 1 puff DAILYRT JOSE Administration Sodium Chloride 1,000 mls @ 75 mls/hr 04/27/25 05:45 04/28/25 17:36 Normal Saline Iv IV CONT Not Given .[id number] JOSE Piperacillin Sod/Tazobactam 50 mls @ 100 mls/hr 04/27/25 10:30 04/28/25 17:32 Sod 3.375 gm/ Sodium Chloride IVPB 100 mls/hr Q6HR JOSE Administration Loratadine 10 mg 04/27/25 09:00 04/28/25 09:46 Loratadine 10 Mg Tablet PO 10 mg QAM JOSE Administration Ondansetron HCl 4 mg 04/27/25 02:15 Ondansetron Inj 4 Mg/2 Ml Vial IV PUSH Q4H PRN Nausea Pantoprazole Sodium 40 mg 04/27/25 09:00 04/28/25 09:46 Pantoprazole 40 Mg Tablet BY MOUTH 40 mg DAILY JOSE Administration Tamsulosin HCl 0.4 mg 04/27/25 09:00 04/28/25 09:46 Tamsulosin Hcl 0.4 Mg Capsule BY MOUTH 0.4 mg DAILY JOSE Administration Radiology Results: ITS Impressions Chest X-Ray 04/26/25 21:49 Impression: 1: New mass left upper thorax, concerning for bronchogenic carcinoma. Correlation with CT recommended. 2: Bilateral mixed interstitial and airspace disease, left greater than right. Differential diagnosis includes edema and pneumonia. Chest/Abdomen/Pelvis CT 04/27/25 08:03 IMPRESSION: 1. Multifocal pneumonia, worst in left lower lobe. 2. Wall thickening of ascending and transverse colon, which may be interstitial edema or colitis. Labs Labs: Laboratory Tests 04/28/25 09:03 04/28/25 09:03 Calcium 6.6 L Total Bilirubin 1.7 H AST 79 H ALT 25 Alkaline Phosphatase 133 H Total Protein 6.4 Albumin 2.5 L
[2025-04-28] MEDS: POTASSIUM CHLORIDE 20 MEQ PACKET (FOR LIQUID) 40 MEQ PO (13:12)
[2025-04-28] MEDS: DOXYCYCLINE HYCLATE 100 MG TABLET PO ×2 (13:13→20:51)
[2025-04-28] MEDS: SODIUM CHLORIDE 0.9% IV 1,000 ML 75 ML IV CONT ×2 (15:00→23:35)
--- NOTE | 2025-04-28 16:39 | PM.IMPN ---
Progress Note: A&P Assessment and Plan (1) Acute renal failure: Code(s): N17.9 - Acute kidney failure, unspecified Status: Acute (2) Acute dehydration: Code(s): E86.0 - Dehydration Status: Acute (3) Acute uremia: Code(s): N19 - Unspecified kidney failure Status: Acute (4) Pneumonia: Code(s): J18.9 - Pneumonia, unspecified organism Status: Acute (5) COPD with emphysema: Code(s): J43.9 - Emphysema, unspecified Status: Acute (6) Severe sepsis: Code(s): A41.9 - Sepsis, unspecified organism; R65.20 - Severe sepsis without septic shock Status: Acute (7) Multifocal pneumonia: Code(s): J18.8 - Other pneumonia, unspecified organism Status: Acute (8) Acute hypoxemic respiratory failure: Code(s): J96.01 - Acute respiratory failure with hypoxia Status: Acute Plan Patient with multifocal pneumonia being treated with zosyn and doxycycline, patient stats he feels better compared to when he arrived, will CPM and monitor 1.Acute hypoxic respiratory failure likely 2/2 Multifocal pneumonia Multifocal Pneumonia CT chest shows multifocal pneumonia, worse in the left lower lobe. Noted wall thickening of ascending and transverse colon which may be interstitial edema or colitis MRSA PCR negative deescalate vancomycin continue Zosyn add doxycycline p.o. follow blood culture 2. 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 Subjective Date/time seen: 04/28/25 16:39 Interval history: Complains cough. Malaise. No fever chills. No Chest palpitations. Patient with multifocal pneumonia being treated with zosyn and doxycycline, patient stats he feels better compared to when he arrived, will CPM and monitor Review of Systems Review of Systems: All systems reviewed & are unremarkable except as noted in HPI and below Exam Narrative: Patient is comfortable, NAD HEENT: eyes are clear and none icteric LUNGS: Bilateral poor air entry with rhonchi HEART: RR S1S2 ABD: BS+, Soft and nontender Lower extremities: no edema SKIN: nonjaundiced Neuro: grossly intact. Objective Data Vital Signs Vital Signs: Vital Signs - 24 hr 04/27/25 17:52 04/27/25 19:53 04/27/25 20:00 Temperature 36.8 C Pulse Rate 85 82 82 Respiratory Rate 20 20 Blood Pressure 111/66 Pulse Oximetry 97 93 Oxygen Delivery Nasal Cannula Oxygen Flow Rate 2 04/27/25 20:00 04/27/25 22:00 04/27/25 23:55 Temperature Pulse Rate 79 73 74 Respiratory Rate Blood Pressure Pulse Oximetry 94 Oxygen Delivery Nasal Cannula Oxygen Flow Rate 2 04/28/25 00:00 04/28/25 02:00 04/28/25 03:47 Temperature 36.6 C Pulse Rate 76 73 78 Respiratory Rate 20 Blood Pressure 95/62 L Pulse Oximetry 96 Oxygen Delivery Oxygen Flow Rate 04/28/25 04:00 04/28/25 04:00 04/28/25 06:00 Temperature Pulse Rate 72 75 71 Respiratory Rate Blood Pressure Pulse Oximetry 93 Oxygen Delivery Nasal Cannula Oxygen Flow Rate 2 04/28/25 08:00 04/28/25 08:00 04/28/25 08:07 Temperature Pulse Rate 83 83 78 Respiratory Rate 22 H 20 Blood Pressure Pulse Oximetry 100 Oxygen Delivery Nasal Cannula Oxygen Flow Rate 2 04/28/25 08:08 04/28/25 08:27 04/28/25 12:00 Temperature 36.6 C 36.6 C Pulse Rate 75 86 Respiratory Rate 20 22 H Blood Pressure 99/59 L 94/62 L Pulse Oximetry 92 100 100 Oxygen Delivery Nasal Cannula Oxygen Flow Rate 2 04/28/25 12:00 04/28/25 12:00 04/28/25 15:56 Temperature Pulse Rate 83 83 78 Respiratory Rate 22 H 20 Blood Pressure 104/63 Pulse Oximetry 100 94 Oxygen Delivery Nasal Cannula Oxygen Flow Rate 2 Intake/Output Intake/Output: Intake & Output 04/25/25 04/26/25 04/27/25 04/28/25 22:59 23:59 23:59 23:59 Intake Total 4060 1045.8 Output Total 550 550 Balance 3510 495.8 Meds/Results Medications: Active Medications Generic Name Dose Route Start Last Admin Trade Name Freq PRN Reason Stop Dose Admin Acetaminophen 650 mg 04/27/25 02:15 Acetaminophen 325 Mg Tablet PO Q4H PRN Mild Pain (1-3) or Fever Albuterol/Ipratropium 3 ml 04/27/25 14:44 Ipratropium 0.5 Mg/Albuterol Sulfate 2.5 Mg (Base) Ampul.Neb 3 Ml INHALATION Q6HRT PRN Wheezing Aspirin 81 mg 04/27/25 09:00 04/28/25 09:46 Aspirin 81 Mg Enteric Tablet PO 81 mg DAILY JOSE Administration Atorvastatin Calcium 80 mg 04/27/25 21:00 04/27/25 21:23 Atorvastatin 40 Mg Tablet PO 80 mg QHS JOSE Administration Clopidogrel Bisulfate 75 mg 04/27/25 09:00 04/28/25 09:46 Clopidogrel Bisulfate 75 Mg Tablet PO 75 mg DAILY JOSE Administration Doxycycline Hyclate 100 mg 04/27/25 12:00 04/28/25 13:13 Doxycycline Hyclate 100 Mg Tablet PO 05/01/25 21:01 100 mg BID@1200,2100 JOSE Administration Ferrous Sulfate 325 mg 04/27/25 09:00 04/28/25 09:46 Ferrous Sulfate 325 Mg Tablet BY MOUTH 325 mg DAILY JOSE Administration Fluticasone/Umeclidinium/Vilanterol 1 puff 04/27/25 08:00 04/28/25 08:04 Fluticasone/Umeclidin/Vilanter 100-62.5-25 Mcg Ellipta INHALATION 1 puff DAILYRT JOSE Administration Sodium Chloride 1,000 mls @ 75 mls/hr 04/27/25 05:45 04/28/25 04:57 Normal Saline Iv IV CONT 125 mls/hr .[id number] JOSE Administration Piperacillin Sod/Tazobactam 50 mls @ 100 mls/hr 04/27/25 10:30 04/28/25 13:13 Sod 3.375 gm/ Sodium Chloride IVPB 100 mls/hr Q6HR JOSE Administration Loratadine 10 mg 04/27/25 09:00 04/28/25 09:46 Loratadine 10 Mg Tablet PO 10 mg QAM JOSE Administration Ondansetron HCl 4 mg 04/27/25 02:15 Ondansetron Inj 4 Mg/2 Ml Vial IV PUSH Q4H PRN Nausea Pantoprazole Sodium 40 mg 04/27/25 09:00 04/28/25 09:46 Pantoprazole 40 Mg Tablet BY MOUTH 40 mg DAILY JOSE Administration Tamsulosin HCl 0.4 mg 04/27/25 09:00 04/28/25 09:46 Tamsulosin Hcl 0.4 Mg Capsule BY MOUTH 0.4 mg DAILY JOSE Administration Radiology Results: ITS Impressions Chest X-Ray 04/26/25 21:49 Impression: 1: New mass left upper thorax, concerning for bronchogenic carcinoma. Correlation with CT recommended. 2: Bilateral mixed interstitial and airspace disease, left greater than right. Differential diagnosis includes edema and pneumonia. Chest/Abdomen/Pelvis CT 04/27/25 08:03 IMPRESSION: 1. Multifocal pneumonia, worst in left lower lobe. 2. Wall thickening of ascending and transverse colon, which may be interstitial edema or colitis. Labs Labs: Laboratory Results - last 24 hr 04/28/25 09:03 WBC 28.5 H RBC 3.76 L Hgb 11.1 L Hct 33.8 L MCV 89.9 MCH 29.5 MCHC 32.8 RDW 15.8 H Plt Count 328 MPV 11.4 H Immature Gran % (Auto) Not Reportable Neut % (Auto) Not Reportable Lymph % (Auto) Not Reportable Anderson % (Auto) Not Reportable Eos % (Auto) Not Reportable Baso % (Auto) Not Reportable Lymph # (Auto) Not Reportable Anderson # (Auto) Not Reportable Eos # (Auto) Not Reportable Baso # (Auto) Not Reportable Abs Immat Gran (auto) Not Reportable Absolute Neuts (auto) Not Reportable Absolute Nucleated RBC Not Reportable Total Counted 100 Neutrophils % (Manual) 80 H Band Neutrophils % 14 H Lymphocytes % (Manual) 4 L Monocytes % (Manual) 2 L Nucleated RBC % Not Reportable Abs Neuts (Manual) 26.79 H Abs Lymphs (Manual) 1.14 Abs Monocytes (Manual) 0.57 Platelet Estimate Adequate Schistocytes None seen Sodium 140 Potassium 3.0 L Chloride 115 H Carbon Dioxide 18 L Anion Gap 7 BUN 73 H D Creatinine 1.42 H Estim Creat Clear Calc 40 Estimated GFR 50 L Glucose 108 Calcium 6.6 L Total Bilirubin 1.7 H AST 79 H ALT 25 Alkaline Phosphatase 133 H Total Protein 6.4 Albumin 2.5 L
[2025-04-28] MEDS: ATORVASTATIN 40 MG TABLET 80 MG PO (20:50)
--- NOTE | 2025-04-28 23:26 | PC.NURSE ---
RECEIVED PT PER BED. VOICES NO C/O AT PRESENT
--- NOTE | 2025-04-28 23:30 | PC.NURSE ---
Report given to DENISE Hunter on . Pt transported per staff to room 254, from room 214.
[2025-04-29] VITALS (7 sets, daily range): BP systolic 103–107; BP diastolic 60–64; PULSE 74–83; RESP 18–20; TEMP 36.4–36.9; O2SAT 95–97
[2025-04-29 05:26] LABS: Hematocrit 31.6 % (42.0-52.0); Hemoglobin 10.5 g/dL (14.0-18.0); Mean Corpuscular HGB Conc 33.2 g/dl (32-36); Mean Corpuscular Hemoglobin 29.6 pg (26-34); Mean Corpuscular Volume 89.0 fl (80-100); Platelet Count Result 342 k/mm3 (150-375); Red Blood Count 3.55 M/mm3 (4.6-6.20); White Blood Count 18.9 K/mm3 (4.5-10.0)
[2025-04-29 05:51] LABS: Anion Gap 8 mmol/L (4-12); Blood Urea Nitrogen 57 mg/dL (9-20); Calcium 6.4 mg/dL (8.4-10.2); Carbon Dioxide 16 mmol/L (22-30); Chloride 113 mmol/L (98-107); Estimated CRCL calculation 39 ml/min; Estimated Glomerular Filt Rate 49; Glucose 76 mg/dL (65-110); Magnesium 3.0 mg/dL (1.6-2.3); Potassium 2.9 mmol/L (3.4-5.0); Sodium 137 mmol/L (137-145)
[2025-04-29] MEDS: PIPERACILLIN/TAZOBACTAM SOD 3.375 GM in SODIUM CHLORIDE 0.9% IV 50 ML 100 ML IVPB ×3 (06:13→17:45)
[2025-04-29] MEDS: FLUTICASONE/UMECLIDIN/VILANTER 100-62.5-25 MCG ELLIPTA 1 PUFF INHALATION (08:18)
--- NOTE | 2025-04-29 10:00 | PC.NURSE ---
pt continues to c/o mild stomach upset, he has not been up to eating any of his breakfast and is drinking a clear soda at this time, will defer meds until feeling better, resting comfortably other than stomach
--- NOTE | 2025-04-29 11:49 | PCOTNOTE ---
Patient refused occupational therapy evaluation due to just finishing with physical therapy and he was tired and out of breath. O2 sat 97%. Patient educated on the importance of sitting up for meals and moving in order to keep up strength. Pt verbalized understanding and continued to refuse.
[2025-04-29] MEDS: FERROUS SULFATE 325 MG TABLET BY MOUTH (12:23)
[2025-04-29] MEDS: ASPIRIN 81 MG ENTERIC TABLET PO (12:23)
[2025-04-29] MEDS: TAMSULOSIN HCL 0.4 MG CAPSULE BY MOUTH (12:23)
[2025-04-29] MEDS: PANTOPRAZOLE 40 MG TABLET BY MOUTH (12:23)
[2025-04-29] MEDS: POTASSIUM CHLORIDE 20 MEQ ER TABLET PO (12:23)
[2025-04-29] MEDS: CLOPIDOGREL BISULFATE 75 MG TABLET PO (12:23)
[2025-04-29] MEDS: LORATADINE 10 MG TABLET PO (12:24)
[2025-04-29] MEDS: POTASSIUM CHLORIDE 20 MEQ ER TABLET 40 MEQ PO (12:24)
[2025-04-29] MEDS: SODIUM BICARBONATE TAB 650 MG TABLET 1300 MG PO ×2 (12:24→17:44)
[2025-04-29] MEDS: DOXYCYCLINE HYCLATE 100 MG TABLET PO ×2 (12:33→20:08)
[2025-04-29 13:12] LABS: Alveolar/Arterial O2 Gradient 96.8 mmHg; Fractional Inspired Oxygen 28 %; HCO3 ABG 15.1 mEq/l (22.0-26.0); Oxygen Content ABG 21.6 %vol (16.0-22.0); Oxygen Saturation ABG 96.4 % (95.0-100.0); PO2 ABG 77.4 mmHg (80.0-100.0); PO2 FiO2 Ratio Arterial Blood 2.76 %
[2025-04-29 13:15] LABS: Modified Allen's Test Pass; PCO2 ABG 21.6 mmHg (35.0-45.0); Site Drawn LEFT RADIAL
[2025-04-29 13:17] LABS: Liters per Minute 2.0 LPM
--- NOTE | 2025-04-29 13:35 | P.PNNP_ITS ---
Progress Note: A&P Assessment and Plan (1) Acute kidney injury: Code(s): N17.9 - Acute kidney failure, unspecified Status: Acute Assessment and Plan: * as noted on admission (creatinine 1.86mg/dL on 04/26) * creatinine normal ~ 3 months ago (0.87mg/dL in January 2025) * suspect multifactorial etiology: * prerenal factors * infection/sepsis (UTI, pneumonia, colitis) * urinary retention (as noted by distended bladder on CT imaging) * use of Entresto prior to admission * other * evaluation to date noted: * CT imaging without obstruction (but distended bladder noted) * urine electrolyte prerenal * urine eosinophils negative * CPK normal * mild proteinuria * continue trial of IVFs * follow trend of repeat labs and UOP (2) Acute hypoxemic respiratory failure: Code(s): J96.01 - Acute respiratory failure with hypoxia Status: Acute Assessment and Plan: * as noted on presentation * most likely secondary to #3 * follow culture data * on antibiotics * follow respiratory status (3) Multifocal pneumonia: Code(s): J18.8 - Other pneumonia, unspecified organism Status: Acute Assessment and Plan: * as noted by imaging to date * see #2 * supplemental oxygen as needed * continue antibiotic therapy (4) Congestive heart failure: Qualifiers: Heart failure chronicity: unspecified Heart failure type: unspecified Qualified Code(s): I50.9 - Heart failure, unspecified Code(s): I50.9 - Heart failure, unspecified Status: Acute Assessment and Plan: * known history * preserved EF by last Echo * Entresto on hold * follow volume status closely with IVF resuscitation (5) Metabolic acidosis: Code(s): E87.20 - Acidosis, unspecified Status: Acute Assessment and Plan: * due to JACQUELIN/ARF and infection * on sodium bicarbonate to compensate * follow CO2 levels Will continue to follow. L Subjective Date/time seen: 04/29/25 13:35 Interval history: Follow-up for acute kidney injury/acute renal failure. Renal function/creatinine about the same in the last 24 hours although making reasonable urine output; noted to be tachypneic with ABG results noted; repeat CXR noted as well; off IVFs at this time. Exam 2 Narrative: General: WD/WN male in NAD Heart: normal S1 and S2; no rub Lungs: coarse wtith scattered rhonci Abdomen: soft, nontender, nondistended, positive bowel sounds Extremities: no cyanosis or clubbing; no edema Skin: warm and intact Objective Data Vital Signs Vital Signs: Vital Signs Temp Pulse Resp BP Pulse Ox O2 Del Method O2 Flow Rate 04/29/25 13:27 97.8 F 83 20 104/64 97 04/29/25 11:12 Nasal Cannula 2 04/29/25 08:20 79 20 96 Nasal Cannula 2 04/29/25 08:19 79 20 04/29/25 08:19 79 20 96 Nasal Cannula 2 04/29/25 04:30 98.4 F 81 20 103/60 96 04/28/25 23:26 98.6 F 80 20 100/61 97 04/28/25 20:00 97 Nasal Cannula 2 04/28/25 20:00 98.4 F 73 20 98/56 L 97 Intake/Output Intake/Output: Intake & Output 04/26/25 04/27/25 04/28/25 04/29/25 23:59 23:59 23:59 23:59 Intake Total 4060 3309.5 930 Output Total 550 850 450 Balance 3510 2459.5 480 Meds/Results Medications: Active Medications Generic Name Dose Route Start Last Admin Trade Name Freq PRN Reason Stop Dose Admin Acetaminophen 650 mg 04/27/25 02:15 Acetaminophen 325 Mg Tablet PO Q4H PRN Mild Pain (1-3) or Fever Albuterol/Ipratropium 3 ml 04/27/25 14:44 Ipratropium 0.5 Mg/Albuterol Sulfate 2.5 Mg (Base) Ampul.Neb 3 Ml INHALATION Q6HRT PRN Wheezing Aspirin 81 mg 04/27/25 09:00 04/29/25 12:23 Aspirin 81 Mg Enteric Tablet PO 81 mg DAILY JOSE Administration Atorvastatin Calcium 80 mg 04/27/25 21:00 04/28/25 20:50 Atorvastatin 40 Mg Tablet PO 80 mg QHS JOSE Administration Clopidogrel Bisulfate 75 mg 04/27/25 09:00 04/29/25 12:23 Clopidogrel Bisulfate 75 Mg Tablet PO 75 mg DAILY JOSE Administration Doxycycline Hyclate 100 mg 04/27/25 12:00 04/29/25 12:33 Doxycycline Hyclate 100 Mg Tablet PO 05/01/25 21:01 100 mg BID@1200,2100 JOSE Administration Ferrous Sulfate 325 mg 04/27/25 09:00 04/29/25 12:23 Ferrous Sulfate 325 Mg Tablet BY MOUTH 325 mg DAILY JOSE Administration Fluticasone/Umeclidinium/Vilanterol 1 puff 04/27/25 08:00 04/29/25 08:18 Fluticasone/Umeclidin/Vilanter 100-62.5-25 Mcg Ellipta INHALATION 1 puff DAILYRT JOSE Administration Piperacillin Sod/Tazobactam 50 mls @ 100 mls/hr 04/27/25 10:30 04/29/25 13:11 Sod 3.375 gm/ Sodium Chloride IVPB Infused Q6HR JOSE Infusion Loratadine 10 mg 04/27/25 09:00 04/29/25 12:24 Loratadine 10 Mg Tablet PO 10 mg QAM JOSE Administration Ondansetron HCl 4 mg 04/27/25 02:15 Ondansetron Inj 4 Mg/2 Ml Vial IV PUSH Q4H PRN Nausea Pantoprazole Sodium 40 mg 04/27/25 09:00 04/29/25 12:23 Pantoprazole 40 Mg Tablet BY MOUTH 40 mg DAILY JOSE Administration Sodium Bicarbonate 1,300 mg 04/29/25 09:00 04/29/25 12:24 Sodium Bicarbonate Tab 650 Mg Tablet PO 1,300 mg BID JOSE Administration Tamsulosin HCl 0.4 mg 04/27/25 09:00 04/29/25 12:23 Tamsulosin Hcl 0.4 Mg Capsule BY MOUTH 0.4 mg DAILY JOSE Administration Radiology Results: ITS Impressions Chest/Abdomen/Pelvis CT 04/27/25 08:03 IMPRESSION: 1. Multifocal pneumonia, worst in left lower lobe. 2. Wall thickening of ascending and transverse colon, which may be interstitial edema or colitis. Chest X-Ray 04/29/25 13:47 IMPRESSION: Worsening frontal changes. Left upper lobe mass is not excluded. Labs Labs: Laboratory Tests 04/29/25 04:58 04/29/25 04:58 Calcium 6.4 L Magnesium 3.0 H Microbiology 04/27/25 02:47 Blood Blood Culture - Preliminary 04/27/25 02:47 Blood Blood Culture - Preliminary
[2025-04-29] MEDS: SODIUM BICARBONATE 8.4% 150 MEQ in DEXTROSE 5% 1,000 ML 950 ML 125 MEQ IV CONT (14:17)
--- NOTE | 2025-04-29 14:21 | PM.IMPN ---
Progress Note: A&P Assessment and Plan (1) Acute renal failure: Code(s): N17.9 - Acute kidney failure, unspecified Status: Acute (2) Acute dehydration: Code(s): E86.0 - Dehydration Status: Acute (3) Acute uremia: Code(s): N19 - Unspecified kidney failure Status: Acute (4) Pneumonia: Code(s): J18.9 - Pneumonia, unspecified organism Status: Acute (5) COPD with emphysema: Code(s): J43.9 - Emphysema, unspecified Status: Acute (6) Severe sepsis: Code(s): A41.9 - Sepsis, unspecified organism; R65.20 - Severe sepsis without septic shock Status: Acute (7) Multifocal pneumonia: Code(s): J18.8 - Other pneumonia, unspecified organism Status: Acute (8) Acute hypoxemic respiratory failure: Code(s): J96.01 - Acute respiratory failure with hypoxia Status: Acute Plan Patient with multifocal pneumonia being treated with zosyn and doxycycline, patient stats he feels better compared to when he arrived, will CPM and monitor Today patient appears tachypneic, patient denies difficulty breathing, to further evaluate, ABG was done was showed metabolic acidosis and patient was compensating with hyperventilating, discuss with Dr. Redmond metal mine inspector and started patient on Bicarb IVF, will monitor repeat labs. patient is seen by Dr. Quesada his produce assistant. will monitor. 1.Acute hypoxic respiratory failure likely 2/2 Multifocal pneumonia Multifocal Pneumonia CT chest shows multifocal pneumonia, worse in the left lower lobe. Noted wall thickening of ascending and transverse colon which may be interstitial edema or colitis MRSA PCR negative deescalate vancomycin continue Zosyn add doxycycline p.o. follow blood culture 2. 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 Subjective Date/time seen: 04/29/25 14:21 Interval history: Complains cough. Malaise. No fever chills. No Chest palpitations. Patient with multifocal pneumonia being treated with zosyn and doxycycline, patient stats he feels better compared to when he arrived, will CPM and monitor Today patient appears tachypneic, patient denies difficulty breathing, to further evaluate, ABG was done was showed metabolic acidosis and patient was compensating with hyperventilating, discuss with Dr. Redmond metal mine inspector and started patient on Bicarb IVF, will monitor repeat labs. patient is seen by Dr. Quesada his produce assistant. will monitor. Review of Systems Review of Systems: All systems reviewed & are unremarkable except as noted in HPI and below Exam Narrative: Patient is comfortable, NAD HEENT: eyes are clear and none icteric LUNGS: Bilateral poor air entry with rhonchi HEART: RR S1S2 ABD: BS+, Soft and nontender Lower extremities: no edema SKIN: nonjaundiced Neuro: grossly intact. Objective Data Vital Signs Vital Signs: Vital Signs - 24 hr 04/28/25 15:56 04/28/25 16:00 04/28/25 20:00 Temperature 36.9 C Pulse Rate 78 78 73 Respiratory Rate 20 20 20 Blood Pressure 104/63 98/56 L Pulse Oximetry 94 94 97 Oxygen Delivery Nasal Cannula Oxygen Flow Rate 2 04/28/25 20:00 04/28/25 23:26 04/29/25 04:30 Temperature 37.0 C 36.9 C Pulse Rate 80 81 Respiratory Rate 20 20 Blood Pressure 100/61 103/60 Pulse Oximetry 97 97 96 Oxygen Delivery Nasal Cannula Oxygen Flow Rate 2 04/29/25 08:19 04/29/25 08:19 04/29/25 08:20 Temperature Pulse Rate 79 79 79 Respiratory Rate 20 20 20 Blood Pressure Pulse Oximetry 96 96 Oxygen Delivery Nasal Cannula Nasal Cannula Oxygen Flow Rate 2 2 04/29/25 11:12 04/29/25 13:27 Temperature Pulse Rate 79 Respiratory Rate 20 Blood Pressure Pulse Oximetry 96 Oxygen Delivery Nasal Cannula Nasal Cannula Oxygen Flow Rate 2 4 Intake/Output Intake/Output: Intake & Output 04/26/25 04/27/25 04/28/25 04/29/25 23:59 23:59 23:59 23:59 Intake Total 4060 3309.5 930 Output Total 550 850 450 Balance 3510 2459.5 480 Meds/Results Medications: Active Medications Generic Name Dose Route Start Last Admin Trade Name Freq PRN Reason Stop Dose Admin Acetaminophen 650 mg 04/27/25 02:15 Acetaminophen 325 Mg Tablet PO Q4H PRN Mild Pain (1-3) or Fever Albuterol/Ipratropium 3 ml 04/27/25 14:44 Ipratropium 0.5 Mg/Albuterol Sulfate 2.5 Mg (Base) Ampul.Neb 3 Ml INHALATION Q6HRT PRN Wheezing Aspirin 81 mg 04/27/25 09:00 04/29/25 12:23 Aspirin 81 Mg Enteric Tablet PO 81 mg DAILY JOSE Administration Atorvastatin Calcium 80 mg 04/27/25 21:00 04/28/25 20:50 Atorvastatin 40 Mg Tablet PO 80 mg QHS JOSE Administration Clopidogrel Bisulfate 75 mg 04/27/25 09:00 04/29/25 12:23 Clopidogrel Bisulfate 75 Mg Tablet PO 75 mg DAILY JSOE Administration Doxycycline Hyclate 100 mg 04/27/25 12:00 04/29/25 12:33 Doxycycline Hyclate 100 Mg Tablet PO 05/01/25 21:01 100 mg BID@1200,2100 JOSE Administration Ferrous Sulfate 325 mg 04/27/25 09:00 04/29/25 12:23 Ferrous Sulfate 325 Mg Tablet BY MOUTH 325 mg DAILY JOSE Administration Fluticasone/Umeclidinium/Vilanterol 1 puff 04/27/25 08:00 04/29/25 08:18 Fluticasone/Umeclidin/Vilanter 100-62.5-25 Mcg Ellipta INHALATION 1 puff DAILYRT JOSE Administration Piperacillin Sod/Tazobactam 50 mls @ 100 mls/hr 04/27/25 10:30 04/29/25 13:11 Sod 3.375 gm/ Sodium Chloride IVPB Infused Q6HR JOSE Infusion Loratadine 10 mg 04/27/25 09:00 04/29/25 12:24 Loratadine 10 Mg Tablet PO 10 mg QAM JOSE Administration Ondansetron HCl 4 mg 04/27/25 02:15 Ondansetron Inj 4 Mg/2 Ml Vial IV PUSH Q4H PRN Nausea Pantoprazole Sodium 40 mg 04/27/25 09:00 04/29/25 12:23 Pantoprazole 40 Mg Tablet BY MOUTH 40 mg DAILY JOSE Administration Sodium Bicarbonate 1,300 mg 04/29/25 09:00 04/29/25 12:24 Sodium Bicarbonate Tab 650 Mg Tablet PO 1,300 mg BID JOSE Administration Tamsulosin HCl 0.4 mg 04/27/25 09:00 04/29/25 12:23 Tamsulosin Hcl 0.4 Mg Capsule BY MOUTH 0.4 mg DAILY JOSE Administration Radiology Results: ITS Impressions Chest/Abdomen/Pelvis CT 04/27/25 08:03 IMPRESSION: 1. Multifocal pneumonia, worst in left lower lobe. 2. Wall thickening of ascending and transverse colon, which may be interstitial edema or colitis. Chest X-Ray 04/29/25 13:47 IMPRESSION: Worsening frontal changes. Left upper lobe mass is not excluded. Labs Labs: Laboratory Results - last 24 hr 04/29/25 04/29/25 04:58 13:06 WBC 18.9 H RBC 3.55 L Hgb 10.5 L Hct 31.6 L MCV 89.0 MCH 29.6 MCHC 33.2 RDW 15.7 H Plt Count 342 MPV 11.2 H Puncture Site Left radial ABG pH 7.462 H ABG pCO2 21.6 L* ABG pO2 77.4 L ABG PO2/FiO2 Ratio 2.76 ABG HCO3 15.1 L ABG O2 Saturation 96.4 ABG O2 Content 21.6 ABG Base Excess -6.0 A-a Gradient 96.8 Oxyhemoglobin 94.3 Total Hemoglobin 16.3 O2 Delivery Device Nasal cannula O2 Liters/Min 2.0 FiO2 28 Sodium 137 Potassium 2.9 L Chloride 113 H Carbon Dioxide 16 L Anion Gap 8 BUN 57 H D Creatinine 1.45 H Estim Creat Clear Calc 39 Estimated GFR 49 L Glucose 76 Calcium 6.4 L Magnesium 3.0 H
[2025-04-29] MEDS: ACETAMINOPHEN 325 MG TABLET 650 MG PO (17:45)
[2025-04-29] MEDS: ATORVASTATIN 40 MG TABLET 80 MG PO (20:08)
[2025-04-29 22:04] LABS: Albumin Level 2.2 g/dL (3.5-5.1); Anion Gap 6 mmol/L (4-12); Blood Urea Nitrogen 45 mg/dL (9-20); Calcium 6.2 mg/dL (8.4-10.2); Carbon Dioxide 19 mmol/L (22-30); Chloride 111 mmol/L (98-107); Estimated CRCL calculation 42 ml/min; Estimated Glomerular Filt Rate 52; Glucose 140 mg/dL (65-110); Potassium 2.7 mmol/L (3.4-5.0); Sodium 136 mmol/L (137-145)
[2025-04-29] MEDS: POTASSIUM CHLORIDE 20 MEQ ER TABLET 60 MEQ PO (22:37)
[2025-04-29] MEDS: POTASSIUM CHLORIDE INJ 40 MEQ in SODIUM CHLORIDE 0.9% IV 500 ML 130 MEQ IVPB (22:38)
[2025-04-30] VITALS (9 sets, daily range): BP systolic 106–110; BP diastolic 54–72; PULSE 81–87; RESP 18–24; TEMP 36.1–36.4; O2SAT 90–100
[2025-04-30] MEDS: CALCIUM CARBONATE (OSCAL) 500 MG TABLET 1000 MG PO (00:08)
[2025-04-30] MEDS: PIPERACILLIN/TAZOBACTAM SOD 3.375 GM in SODIUM CHLORIDE 0.9% IV 50 ML 100 ML IVPB ×4 (00:09→18:08)
[2025-04-30 05:23] LABS: Hematocrit 29.7 % (42.0-52.0); Hemoglobin 9.8 g/dL (14.0-18.0); Mean Corpuscular HGB Conc 33.0 g/dl (32-36); Mean Corpuscular Hemoglobin 29.6 pg (26-34); Mean Corpuscular Volume 89.7 fl (80-100); Platelet Count Result 342 k/mm3 (150-375); Red Blood Count 3.31 M/mm3 (4.6-6.20); White Blood Count 12.2 K/mm3 (4.5-10.0)
[2025-04-30 05:44] LABS: Albumin Level 2.3 g/dL (3.5-5.1); Anion Gap 4 mmol/L (4-12); Blood Urea Nitrogen 43 mg/dL (9-20); Calcium 6.3 mg/dL (8.4-10.2); Carbon Dioxide 19 mmol/L (22-30); Chloride 115 mmol/L (98-107); Estimated CRCL calculation 43 ml/min; Estimated Glomerular Filt Rate 54; Glucose 113 mg/dL (65-110); Magnesium 2.7 mg/dL (1.6-2.3); Potassium 3.4 mmol/L (3.4-5.0); Sodium 138 mmol/L (137-145)
[2025-04-30] MEDS: SODIUM CHLORIDE 0.9% IV 500 ML 75 ML IV CONT (06:22)
[2025-04-30] MEDS: POTASSIUM CHLORIDE 20 MEQ ER TABLET 40 MEQ PO (06:22)
[2025-04-30] MEDS: CALCIUM GLUC 2,000 MG/NS 100ML 2,000 MG/100 ML BAG 100 MG IVPB (06:23)
[2025-04-30] MEDS: FLUTICASONE/UMECLIDIN/VILANTER 100-62.5-25 MCG ELLIPTA 1 PUFF INHALATION (08:07)
[2025-04-30] MEDS: LORATADINE 10 MG TABLET PO (09:50)
[2025-04-30] MEDS: CLOPIDOGREL BISULFATE 75 MG TABLET PO (09:50)
[2025-04-30] MEDS: TAMSULOSIN HCL 0.4 MG CAPSULE BY MOUTH (09:50)
[2025-04-30] MEDS: PANTOPRAZOLE 40 MG TABLET BY MOUTH (09:50)
[2025-04-30] MEDS: ASPIRIN 81 MG ENTERIC TABLET PO (09:50)
[2025-04-30] MEDS: FERROUS SULFATE 325 MG TABLET BY MOUTH (09:50)
[2025-04-30] MEDS: CALCIUM CARBONATE (OSCAL) 500 MG TABLET PO ×3 (09:50→18:10)
[2025-04-30] MEDS: ACETAMINOPHEN 325 MG TABLET 650 MG PO (09:50)
--- NOTE | 2025-04-30 09:50 | PC.NURSE ---
919 called to pt's room he is c/o not feeling like he can urinate, bladder scan performed with 351ml retained result 934 I deflated balloon of catheter to try to advance, pt began to urinate around catheter 939 unable to manually irrigate catheter or get a urine return in tubing 942 agarwal catheter removed, pt immediately voided moderate amount of urine- incontinent and unmeasured
[2025-04-30] MEDS: NACL 0.9% IRRIGATION POUR BOTTL 1,000 ML 1000 ML (09:51)
[2025-04-30] MEDS: DOXYCYCLINE HYCLATE 100 MG TABLET PO ×2 (12:54→20:49)
--- NOTE | 2025-04-30 14:00 | P.PNNP_ITS ---
Progress Note: A&P Assessment and Plan (1) Acute kidney injury: Code(s): N17.9 - Acute kidney failure, unspecified Status: Acute Assessment and Plan: * as noted on admission (creatinine 1.86mg/dL on 04/26) * creatinine normal ~ 3 months ago (0.87mg/dL in January 2025) * suspect multifactorial etiology: * prerenal factors * infection/sepsis (UTI, pneumonia, colitis) * urinary retention (as noted by distended bladder on CT imaging) * use of Entresto prior to admission * other * evaluation to date noted: * CT imaging without obstruction (but distended bladder noted) * urine electrolyte prerenal * urine eosinophils negative * CPK normal * mild proteinuria * continue trial of IVFs * follow trend of repeat labs and UOP (2) Acute hypoxemic respiratory failure: Code(s): J96.01 - Acute respiratory failure with hypoxia Status: Acute Assessment and Plan: * as noted on presentation * most likely secondary to #3 * follow culture data * on antibiotics * follow respiratory status (3) Multifocal pneumonia: Code(s): J18.8 - Other pneumonia, unspecified organism Status: Acute Assessment and Plan: * as noted by imaging to date * see #2 * supplemental oxygen as needed * continue antibiotic therapy (4) Congestive heart failure: Qualifiers: Heart failure chronicity: unspecified Heart failure type: unspecified Qualified Code(s): I50.9 - Heart failure, unspecified Code(s): I50.9 - Heart failure, unspecified Status: Acute Assessment and Plan: * known history * preserved EF by last Echo * Entresto on hold * follow volume status closely with IVF resuscitation (5) Metabolic acidosis: Code(s): E87.20 - Acidosis, unspecified Status: Acute Assessment and Plan: * due to JACQUELIN/ARF and infection * on sodium bicarbonate to compensate * follow CO2 levels Will continue to follow. L Subjective Date/time seen: 04/30/25 14:00 Interval history: Follow-up for acute kidney injury/acute renal failure. Renal function/creatinine continues to slowly improve with current interventions/therapy to date; potassium doing better by AM labs as well; overall, states he is feeling significantly better. Exam 2 Narrative: General: WD/WN male in NAD Heart: normal S1 and S2; no rub Lungs: coarse breath sounds Abdomen: soft, nontender, nondistended, positive bowel sounds Extremities: no cyanosis or clubbing; trace edema Skin: no rash Objective Data Vital Signs Vital Signs: Vital Signs Temp Pulse Resp BP Pulse Ox O2 Del Method O2 Flow Rate 04/30/25 13:43 97 F L 86 24 H 106/54 L 97 04/30/25 12:54 Nasal Cannula 2 04/30/25 08:15 81 18 90 Nasal Cannula 2 04/30/25 08:07 90 Nasal Cannula 2 04/30/25 03:38 97.6 F 81 18 110/71 98 04/30/25 00:38 87 20 04/30/25 00:31 85 22 H 04/30/25 00:22 95 Nasal Cannula 2 04/29/25 20:33 97.6 F 74 18 107/61 95 04/29/25 20:00 95 Nasal Cannula 2 Intake/Output Intake/Output: Intake & Output 04/27/25 04/28/25 04/29/25 04/30/25 23:59 23:59 23:59 23:59 Intake Total 4060 3309.5 2530 1420 Output Total 550 850 850 250 Balance 3510 2459.5 1680 1170 Meds/Results Medications: Active Medications Generic Name Dose Route Start Last Admin Trade Name Freq PRN Reason Stop Dose Admin Acetaminophen 650 mg 04/27/25 02:15 04/30/25 09:50 Acetaminophen 325 Mg Tablet PO 650 mg Q4H PRN Administration Mild Pain (1-3) or Fever Albuterol/Ipratropium 3 ml 04/27/25 14:44 Ipratropium 0.5 Mg/Albuterol Sulfate 2.5 Mg (Base) Ampul.Neb 3 Ml INHALATION Q6HRT PRN Wheezing Aspirin 81 mg 04/27/25 09:00 04/30/25 09:50 Aspirin 81 Mg Enteric Tablet PO 81 mg DAILY JOSE Administration Atorvastatin Calcium 80 mg 04/27/25 21:00 04/29/25 20:08 Atorvastatin 40 Mg Tablet PO 80 mg QHS JOSE Administration Calcium Carbonate 500 mg 04/30/25 10:00 04/30/25 18:10 Calcium Carbonate (Oscal) 500 Mg Tablet PO 500 mg 1000,1400,1800 JOSE Administration Clopidogrel Bisulfate 75 mg 04/27/25 09:00 04/30/25 09:50 Clopidogrel Bisulfate 75 Mg Tablet PO 75 mg DAILY JOSE Administration Doxycycline Hyclate 100 mg 04/27/25 12:00 04/30/25 12:54 Doxycycline Hyclate 100 Mg Tablet PO 05/01/25 21:01 100 mg BID@1200,2100 JOSE Administration Ferrous Sulfate 325 mg 04/27/25 09:00 04/30/25 09:50 Ferrous Sulfate 325 Mg Tablet BY MOUTH 325 mg DAILY JOSE Administration Fluticasone/Umeclidinium/Vilanterol 1 puff 04/27/25 08:00 04/30/25 08:07 Fluticasone/Umeclidin/Vilanter 100-62.5-25 Mcg Ellipta INHALATION 1 puff DAILYRT JOSE Administration Piperacillin Sod/Tazobactam 50 mls @ 100 mls/hr 04/27/25 10:30 04/30/25 18:08 Sod 3.375 gm/ Sodium Chloride IVPB 100 mls/hr Q6HR JOSE Administration Loratadine 10 mg 04/27/25 09:00 04/30/25 09:50 Loratadine 10 Mg Tablet PO 10 mg QAM JOSE Administration Ondansetron HCl 4 mg 04/27/25 02:15 Ondansetron Inj 4 Mg/2 Ml Vial IV PUSH Q4H PRN Nausea Pantoprazole Sodium 40 mg 04/27/25 09:00 04/30/25 09:50 Pantoprazole 40 Mg Tablet BY MOUTH 40 mg DAILY JOSE Administration Tamsulosin HCl 0.4 mg 04/27/25 09:00 04/30/25 09:50 Tamsulosin Hcl 0.4 Mg Capsule BY MOUTH 0.4 mg DAILY JOSE Administration Radiology Results: ITS Impressions Chest/Abdomen/Pelvis CT 04/27/25 08:03 IMPRESSION: 1. Multifocal pneumonia, worst in left lower lobe. 2. Wall thickening of ascending and transverse colon, which may be interstitial edema or colitis. Chest X-Ray 04/30/25 09:32 IMPRESSION: 1. Mildly improved aeration of left lung with persisting infiltrates. Labs Labs: Laboratory Tests 04/30/25 05:01 04/30/25 05:01 Calcium 6.3 L Phosphorus 3.0 Magnesium 2.7 H Albumin 2.3 L Vitamin D 25-Hydroxy < 12.8 Microbiology 04/27/25 02:47 Blood Blood Culture - Preliminary 04/27/25 02:47 Blood Blood Culture - Preliminary
--- NOTE | 2025-04-30 14:53 | PM.IMPN ---
Progress Note: A&P Assessment and Plan (1) Acute renal failure: Code(s): N17.9 - Acute kidney failure, unspecified Status: Acute (2) Acute dehydration: Code(s): E86.0 - Dehydration Status: Acute (3) Acute uremia: Code(s): N19 - Unspecified kidney failure Status: Acute (4) Pneumonia: Code(s): J18.9 - Pneumonia, unspecified organism Status: Acute (5) COPD with emphysema: Code(s): J43.9 - Emphysema, unspecified Status: Acute (6) Severe sepsis: Code(s): A41.9 - Sepsis, unspecified organism; R65.20 - Severe sepsis without septic shock Status: Acute (7) Multifocal pneumonia: Code(s): J18.8 - Other pneumonia, unspecified organism Status: Acute (8) Acute hypoxemic respiratory failure: Code(s): J96.01 - Acute respiratory failure with hypoxia Status: Acute Plan Today patient appears tachypneic, patient denies difficulty breathing, to further evaluate, ABG was done was showed metabolic acidosis and patient was compensating with hyperventilating, discuss with Dr. Redmond dance hall hostess and started patient on Bicarb IVF, will monitor repeat labs. repeat labs shows improvement in metabolic acidosis as well as patient mentation, Will CPM, will repeat CXR tomorrow anad plan, patient is seen by Dr. Quesada his well blower. will monitor. Patient with multifocal pneumonia being treated with zosyn and doxycycline, patient stats he feels better compared to when he arrived, will CPM and monitor Today patient appears tachypneic, patient denies difficulty breathing, to further evaluate, ABG was done was showed metabolic acidosis and patient was compensating with hyperventilating, discuss with Dr. Redmond dance hall hostess and started patient on Bicarb IVF, will monitor repeat labs. patient is seen by Dr. Quesada his well blower. will monitor. 1.Acute hypoxic respiratory failure likely 2/2 Multifocal pneumonia Multifocal Pneumonia CT chest shows multifocal pneumonia, worse in the left lower lobe. Noted wall thickening of ascending and transverse colon which may be interstitial edema or colitis MRSA PCR negative deescalate vancomycin continue Zosyn add doxycycline p.o. follow blood culture 2. 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 Subjective Date/time seen: 04/30/25 14:53 Interval history: Complains cough. Malaise. No fever chills. No Chest palpitations. Patient with multifocal pneumonia being treated with zosyn and doxycycline, patient stats he feels better compared to when he arrived, will CPM and monitor Today patient appears tachypneic, patient denies difficulty breathing, to further evaluate, ABG was done was showed metabolic acidosis and patient was compensating with hyperventilating, discuss with Dr. Redmond dance hall hostess and started patient on Bicarb IVF, will monitor repeat labs. repeat labs shows improvement in metabolic acidosis as well as patient mentation, Will CPM, will repeat CXR tomorrow anad plan, patient is seen by Dr. Quesada his well blower. will monitor. Review of Systems Review of Systems: All systems reviewed & are unremarkable except as noted in HPI and below Exam Narrative: Patient is comfortable, NAD HEENT: eyes are clear and none icteric LUNGS: Bilateral poor air entry with rhonchi HEART: RR S1S2 ABD: BS+, Soft and nontender Lower extremities: no edema SKIN: nonjaundiced Neuro: grossly intact. Objective Data Vital Signs Vital Signs: Vital Signs - 24 hr 04/29/25 20:00 04/29/25 20:33 04/30/25 00:22 Temperature 36.4 C Pulse Rate 74 Respiratory Rate 18 Blood Pressure 107/61 Pulse Oximetry 95 95 95 Oxygen Delivery Nasal Cannula Nasal Cannula Oxygen Flow Rate 2 2 04/30/25 00:31 04/30/25 00:38 04/30/25 03:38 Temperature 36.4 C Pulse Rate 85 87 81 Respiratory Rate 22 H 20 18 Blood Pressure 110/71 Pulse Oximetry 98 Oxygen Delivery Oxygen Flow Rate 04/30/25 08:07 04/30/25 08:15 04/30/25 12:54 Temperature Pulse Rate 81 Respiratory Rate 18 Blood Pressure Pulse Oximetry 90 90 Oxygen Delivery Nasal Cannula Nasal Cannula Nasal Cannula Oxygen Flow Rate 2 2 2 04/30/25 13:43 Temperature 36.1 C L Pulse Rate 86 Respiratory Rate 24 H Blood Pressure 106/54 L Pulse Oximetry 97 Oxygen Delivery Oxygen Flow Rate Intake/Output Intake/Output: Intake & Output 04/27/25 04/28/25 04/29/25 04/30/25 23:59 23:59 23:59 23:59 Intake Total 4060 3309.5 2530 1420 Output Total 550 850 850 250 Balance 3510 2459.5 1680 1170 Meds/Results Medications: Active Medications Generic Name Dose Route Start Last Admin Trade Name Freq PRN Reason Stop Dose Admin Acetaminophen 650 mg 04/27/25 02:15 04/30/25 09:50 Acetaminophen 325 Mg Tablet PO 650 mg Q4H PRN Administration Mild Pain (1-3) or Fever Albuterol/Ipratropium 3 ml 04/27/25 14:44 Ipratropium 0.5 Mg/Albuterol Sulfate 2.5 Mg (Base) Ampul.Neb 3 Ml INHALATION Q6HRT PRN Wheezing Aspirin 81 mg 04/27/25 09:00 04/30/25 09:50 Aspirin 81 Mg Enteric Tablet PO 81 mg DAILY JOSE Administration Atorvastatin Calcium 80 mg 04/27/25 21:00 04/29/25 20:08 Atorvastatin 40 Mg Tablet PO 80 mg QHS JOSE Administration Calcium Carbonate 500 mg 04/30/25 10:00 04/30/25 09:50 Calcium Carbonate (Oscal) 500 Mg Tablet PO 500 mg 1000,1400,1800 JOSE Administration Clopidogrel Bisulfate 75 mg 04/27/25 09:00 04/30/25 09:50 Clopidogrel Bisulfate 75 Mg Tablet PO 75 mg DAILY JOSE Administration Doxycycline Hyclate 100 mg 04/27/25 12:00 04/30/25 12:54 Doxycycline Hyclate 100 Mg Tablet PO 05/01/25 21:01 100 mg BID@1200,2100 JOSE Administration Ferrous Sulfate 325 mg 04/27/25 09:00 04/30/25 09:50 Ferrous Sulfate 325 Mg Tablet BY MOUTH 325 mg DAILY JOSE Administration Fluticasone/Umeclidinium/Vilanterol 1 puff 04/27/25 08:00 04/30/25 08:07 Fluticasone/Umeclidin/Vilanter 100-62.5-25 Mcg Ellipta INHALATION 1 puff DAILYRT JOSE Administration Piperacillin Sod/Tazobactam 50 mls @ 100 mls/hr 04/27/25 10:30 04/30/25 13:24 Sod 3.375 gm/ Sodium Chloride IVPB Infused Q6HR JOSE Infusion Loratadine 10 mg 04/27/25 09:00 04/30/25 09:50 Loratadine 10 Mg Tablet PO 10 mg QAM JOSE Administration Ondansetron HCl 4 mg 04/27/25 02:15 Ondansetron Inj 4 Mg/2 Ml Vial IV PUSH Q4H PRN Nausea Pantoprazole Sodium 40 mg 04/27/25 09:00 04/30/25 09:50 Pantoprazole 40 Mg Tablet BY MOUTH 40 mg DAILY JOES Administration Tamsulosin HCl 0.4 mg 04/27/25 09:00 04/30/25 09:50 Tamsulosin Hcl 0.4 Mg Capsule BY MOUTH 0.4 mg DAILY JOSE Administration Radiology Results: ITS Impressions Chest/Abdomen/Pelvis CT 04/27/25 08:03 IMPRESSION: 1. Multifocal pneumonia, worst in left lower lobe. 2. Wall thickening of ascending and transverse colon, which may be interstitial edema or colitis. Chest X-Ray 04/30/25 09:32 IMPRESSION: 1. Mildly improved aeration of left lung with persisting infiltrates. Labs Labs: Laboratory Results - last 24 hr 04/29/25 04/30/25 21:41 05:01 WBC 12.2 H RBC 3.31 L Hgb 9.8 L Hct 29.7 L MCV 89.7 MCH 29.6 MCHC 33.0 RDW 15.9 H Plt Count 342 MPV 11.2 H Sodium 136 L 138 Potassium 2.7 L* 3.4 Chloride 111 H 115 H Carbon Dioxide 19 L 19 L Anion Gap 6 4 BUN 45 H D 43 H Creatinine 1.36 H 1.32 H Estim Creat Clear Calc 42 43 Estimated GFR 52 L 54 L Glucose 140 H 113 H Calcium 6.2 L 6.3 L Phosphorus 3.0 3.0 Magnesium 2.7 H Albumin 2.2 L 2.3 L Vitamin D 25-Hydroxy < 12.8
[2025-04-30] MEDS: ATORVASTATIN 40 MG TABLET 80 MG PO (20:49)
[2025-05-01] MEDS: ACETAMINOPHEN 325 MG TABLET 650 MG PO (04:44)
[2025-05-01 05:22] VITALS: BP 112/68; PULSE 77; RESP 22; TEMP 36.6; O2SAT 98
[2025-05-01 05:30] LABS: Hematocrit 30.6 % (42.0-52.0); Hemoglobin 9.7 g/dL (14.0-18.0); Mean Corpuscular HGB Conc 31.7 g/dl (32-36); Mean Corpuscular Hemoglobin 29.4 pg (26-34); Mean Corpuscular Volume 92.7 fl (80-100); Platelet Count Result 334 k/mm3 (150-375); Red Blood Count 3.30 M/mm3 (4.6-6.20); White Blood Count 10.0 K/mm3 (4.5-10.0)
[2025-05-01 05:52] LABS: Albumin Level 2.3 g/dL (3.5-5.1); Anion Gap 4 mmol/L (4-12); Blood Urea Nitrogen 27 mg/dL (9-20); Calcium 6.7 mg/dL (8.4-10.2); Carbon Dioxide 18 mmol/L (22-30); Chloride 117 mmol/L (98-107); Estimated CRCL calculation 61 ml/min; Estimated Glomerular Filt Rate > 60; Glucose 105 mg/dL (65-110); Magnesium 2.6 mg/dL (1.6-2.3); Potassium 3.3 mmol/L (3.4-5.0); Sodium 139 mmol/L (137-145)
[2025-05-01] MEDS: PIPERACILLIN/TAZOBACTAM SOD 3.375 GM in SODIUM CHLORIDE 0.9% IV 50 ML 100 ML IVPB ×5 (06:28→23:45)
[2025-05-01 08:00] VITALS: PULSE 77; RESP 22; O2SAT 93
[2025-05-01] MEDS: CLOPIDOGREL BISULFATE 75 MG TABLET PO (09:00)
[2025-05-01] MEDS: FERROUS SULFATE 325 MG TABLET BY MOUTH (09:00)
[2025-05-01] MEDS: TAMSULOSIN HCL 0.4 MG CAPSULE BY MOUTH (09:00)
[2025-05-01] MEDS: ASPIRIN 81 MG ENTERIC TABLET PO (09:00)
[2025-05-01] MEDS: LORATADINE 10 MG TABLET PO (09:00)
[2025-05-01] MEDS: PANTOPRAZOLE 40 MG TABLET BY MOUTH (09:00)
[2025-05-01] MEDS: FLUTICASONE/UMECLIDIN/VILANTER 100-62.5-25 MCG ELLIPTA 1 PUFF INHALATION (09:04)
[2025-05-01 09:05] VITALS: O2SAT 93
[2025-05-01] MEDS: SODIUM BICARBONATE TAB 650 MG TABLET PO ×2 (09:17→17:52)
[2025-05-01] MEDS: CALCIUM CARBONATE (OSCAL) 500 MG TABLET PO ×3 (09:17→17:52)
[2025-05-01] MEDS: DOXYCYCLINE HYCLATE 100 MG TABLET PO ×2 (11:50→21:04)
[2025-05-01] MEDS: POTASSIUM CHLORIDE 20 MEQ PACKET (FOR LIQUID) 40 MEQ PO (11:50)
--- NOTE | 2025-05-01 12:22 | P.PNIM_ITS ---
Progress Note: A&P Assessment and Plan (1) Acute renal failure: Code(s): N17.9 - Acute kidney failure, unspecified Status: Acute (2) Acute dehydration: Code(s): E86.0 - Dehydration Status: Acute (3) Acute uremia: Code(s): N19 - Unspecified kidney failure Status: Acute (4) Pneumonia: Code(s): J18.9 - Pneumonia, unspecified organism Status: Acute (5) COPD with emphysema: Code(s): J43.9 - Emphysema, unspecified Status: Acute (6) Severe sepsis: Code(s): A41.9 - Sepsis, unspecified organism; R65.20 - Severe sepsis without septic shock Status: Acute (7) Multifocal pneumonia: Code(s): J18.8 - Other pneumonia, unspecified organism Status: Acute (8) Acute hypoxemic respiratory failure: Code(s): J96.01 - Acute respiratory failure with hypoxia Status: Acute Plan patient appeared tachypneic, patient denies difficulty breathing, to further evaluate, ABG was done was showed metabolic acidosis and patient was compensating with hyperventilating, discuss with Dr. Redmond rotary dump operator and started patient on Bicarb IVF, will monitor repeat labs. repeat labs shows improvement in metabolic acidosis as well as patient mentation, repeat CXR did show mild improvement in his pneumonia, infiltrates still persist, will repeat CXR on 05/03, patient's clinical symptoms are improving, patient is seen by Dr. Quesada his product examiner. will monitor. Patient with multifocal pneumonia being treated with zosyn and doxycycline, patient stats he feels better compared to when he arrived, will CPM and monitor Today patient appears tachypneic, patient denies difficulty breathing, to further evaluate, ABG was done was showed metabolic acidosis and patient was compensating with hyperventilating, discuss with Dr. Redmond rotary dump operator and started patient on Bicarb IVF, will monitor repeat labs. patient is seen by Dr. Quesada his product examiner. will monitor. 1.Acute hypoxic respiratory failure likely 2/2 Multifocal pneumonia Multifocal Pneumonia CT chest shows multifocal pneumonia, worse in the left lower lobe. Noted wall thickening of ascending and transverse colon which may be interstitial edema or colitis MRSA PCR negative deescalate vancomycin continue Zosyn add doxycycline p.o. follow blood culture 2. 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 Subjective Date/time seen: 05/01/25 12:23 Interval history: Complains cough. Malaise. No fever chills. No Chest palpitations. Patient with multifocal pneumonia being treated with zosyn and doxycycline, patient stats he feels better compared to when he arrived, will CPM and monitor patient appeared tachypneic, patient denies difficulty breathing, to further evaluate, ABG was done was showed metabolic acidosis and patient was compensating with hyperventilating, discuss with Dr. Redmond rotary dump operator and started patient on Bicarb IVF, will monitor repeat labs. repeat labs shows improvement in metabolic acidosis as well as patient mentation, repeat CXR did show mild improvement in his pneumonia, infiltrates still persist, will repeat CXR on 05/03, patient's clinical symptoms are improving, patient is seen by Dr. Quesada his product examiner. will monitor. Review of Systems Review of Systems: All systems reviewed & are unremarkable except as noted in HPI and below Exam Narrative: Patient is comfortable, NAD HEENT: eyes are clear and none icteric LUNGS: Bilateral poor air entry with rhonchi HEART: RR S1S2 ABD: BS+, Soft and nontender Lower extremities: no edema SKIN: nonjaundiced Neuro: grossly intact. Objective Data Vital Signs Vital Signs: Vital Signs - 24 hr 04/30/25 12:54 04/30/25 13:43 04/30/25 19:24 Temperature 36.1 C L 36.4 C Pulse Rate 86 86 Respiratory Rate 24 H 20 Blood Pressure 106/54 L 109/72 Pulse Oximetry 97 100 Oxygen Delivery Nasal Cannula Oxygen Flow Rate 2 04/30/25 20:00 05/01/25 05:22 05/01/25 08:00 Temperature 36.6 C Pulse Rate 86 77 77 Respiratory Rate 20 22 H 22 H Blood Pressure 112/68 Pulse Oximetry 100 98 93 Oxygen Delivery Nasal Cannula Nasal Cannula Oxygen Flow Rate 2 2 05/01/25 09:05 Temperature Pulse Rate Respiratory Rate Blood Pressure Pulse Oximetry 93 Oxygen Delivery Nasal Cannula Oxygen Flow Rate 2 Intake/Output Intake/Output: Intake & Output 04/28/25 04/29/25 04/30/25 05/01/25 23:59 23:59 23:59 23:59 Intake Total 3309.5 2530 1560 590 Output Total 850 850 250 Balance 2459.5 1680 1310 590 Meds/Results Medications: Active Medications Generic Name Dose Route Start Last Admin Trade Name Freq PRN Reason Stop Dose Admin Acetaminophen 650 mg 04/27/25 02:15 05/01/25 04:44 Acetaminophen 325 Mg Tablet PO 650 mg Q4H PRN Administration Mild Pain (1-3) or Fever Albuterol/Ipratropium 3 ml 04/27/25 14:44 Ipratropium 0.5 Mg/Albuterol Sulfate 2.5 Mg (Base) Ampul.Neb 3 Ml INHALATION Q6HRT PRN Wheezing Aspirin 81 mg 04/27/25 09:00 05/01/25 09:00 Aspirin 81 Mg Enteric Tablet PO 81 mg DAILY JOSE Administration Atorvastatin Calcium 80 mg 04/27/25 21:00 04/30/25 20:49 Atorvastatin 40 Mg Tablet PO 80 mg QHS JOSE Administration Calcium Carbonate 500 mg 04/30/25 10:00 05/01/25 09:17 Calcium Carbonate (Oscal) 500 Mg Tablet PO 500 mg 1000,1400,1800 JOSE Administration Clopidogrel Bisulfate 75 mg 04/27/25 09:00 05/01/25 09:00 Clopidogrel Bisulfate 75 Mg Tablet PO 75 mg DAILY JOSE Administration Doxycycline Hyclate 100 mg 04/27/25 12:00 05/01/25 11:50 Doxycycline Hyclate 100 Mg Tablet PO 05/01/25 21:01 100 mg BID@1200,2100 JOSE Administration Ferrous Sulfate 325 mg 04/27/25 09:00 05/01/25 09:00 Ferrous Sulfate 325 Mg Tablet BY MOUTH 325 mg DAILY JOSE Administration Fluticasone/Umeclidinium/Vilanterol 1 puff 04/27/25 08:00 05/01/25 09:04 Fluticasone/Umeclidin/Vilanter 100-62.5-25 Mcg Ellipta INHALATION 1 puff DAILYRT JOSE Administration Piperacillin Sod/Tazobactam 50 mls @ 100 mls/hr 04/27/25 10:30 05/01/25 11:50 Sod 3.375 gm/ Sodium Chloride IVPB 100 mls/hr Q6HR JOSE Administration Loratadine 10 mg 04/27/25 09:00 05/01/25 09:00 Loratadine 10 Mg Tablet PO 10 mg QAM JOSE Administration Ondansetron HCl 4 mg 04/27/25 02:15 Ondansetron Inj 4 Mg/2 Ml Vial IV PUSH Q4H PRN Nausea Pantoprazole Sodium 40 mg 04/27/25 09:00 05/01/25 09:00 Pantoprazole 40 Mg Tablet BY MOUTH 40 mg DAILY JOSE Administration Sodium Bicarbonate 650 mg 05/01/25 09:00 05/01/25 09:17 Sodium Bicarbonate Tab 650 Mg Tablet PO 05/02/25 17:01 650 mg BID JOSE Administration Tamsulosin HCl 0.4 mg 04/27/25 09:00 05/01/25 09:00 Tamsulosin Hcl 0.4 Mg Capsule BY MOUTH 0.4 mg DAILY JOSE Administration Radiology Results: ITS Impressions Chest/Abdomen/Pelvis CT 04/27/25 08:03 IMPRESSION: 1. Multifocal pneumonia, worst in left lower lobe. 2. Wall thickening of ascending and transverse colon, which may be interstitial edema or colitis. Chest X-Ray 04/30/25 09:32 IMPRESSION: 1. Mildly improved aeration of left lung with persisting infiltrates. Labs Labs: Laboratory Results - last 24 hr 05/01/25 05:10 WBC 10.0 RBC 3.30 L Hgb 9.7 L Hct 30.6 L MCV 92.7 MCH 29.4 MCHC 31.7 L RDW 15.9 H Plt Count 334 MPV 11.1 H Sodium 139 Potassium 3.3 L Chloride 117 H Carbon Dioxide 18 L Anion Gap 4 BUN 27 H D Creatinine 1.03 Estim Creat Clear Calc 61 Estimated GFR > 60 Glucose 105 Calcium 6.7 L Phosphorus 3.0 Magnesium 2.6 H Albumin 2.3 L
--- NOTE | 2025-05-01 13:09 | P.PNNP_ITS ---
Progress Note: A&P Assessment and Plan (1) Acute kidney injury: Code(s): N17.9 - Acute kidney failure, unspecified Status: Acute Assessment and Plan: * as noted on admission (creatinine 1.86mg/dL on 04/26) * creatinine normal ~ 3 months ago (0.87mg/dL in January 2025) * suspect multifactorial etiology: * prerenal factors * infection/sepsis (UTI, pneumonia, colitis) * urinary retention (as noted by distended bladder on CT imaging) * use of Entresto prior to admission * other * evaluation to date noted: * CT imaging without obstruction (but distended bladder noted) * urine electrolyte prerenal * urine eosinophils negative * CPK normal * mild proteinuria * continue trial of IVFs * creatinine is down to normal * urine is not being collected (2) Acute hypoxemic respiratory failure: Code(s): J96.01 - Acute respiratory failure with hypoxia Status: Acute Assessment and Plan: * as noted on presentation * most likely secondary to #3 * follow culture data * on antibiotics * follow respiratory status (3) Multifocal pneumonia: Code(s): J18.8 - Other pneumonia, unspecified organism Status: Acute Assessment and Plan: * as noted by imaging to date * see #2 * supplemental oxygen as needed * on doxycycline plus Zosyn (4) Congestive heart failure: Qualifiers: Heart failure chronicity: unspecified Heart failure type: unspecified Qualified Code(s): I50.9 - Heart failure, unspecified Code(s): I50.9 - Heart failure, unspecified Status: Acute Assessment and Plan: * known history * preserved EF by last Echo * Entresto on hold * follow volume status closely with IVF resuscitation (5) Metabolic acidosis: Code(s): E87.20 - Acidosis, unspecified Status: Acute Assessment and Plan: * due to JACQUELIN/ARF and infection * on sodium bicarbonate to compensate * follow CO2 levels Will continue to follow. Subjective Date/time seen: 05/01/25 13:09 Interval history: Alert. He just walked out of the bathroom and got into bed. He is tired from this Exam Narrative: General: WD/WN male in NAD Heart: normal S1 and S2; no rub or gallop Lungs: coarse breath sounds Abdomen: soft, nontender, nondistended, positive bowel sounds Extremities: no cyanosis or clubbing; trace edema Skin: no rash or subcu nodules Objective Data Vital Signs Vital Signs: Vital Signs - 24 hr 04/30/25 13:43 04/30/25 19:24 04/30/25 20:00 Temperature 97 F L 97.6 F Pulse Rate 86 86 86 Respiratory Rate 24 H 20 20 Blood Pressure 106/54 L 109/72 Pulse Oximetry 97 100 100 Oxygen Delivery Nasal Cannula Oxygen Flow Rate 2 05/01/25 05:22 05/01/25 08:00 05/01/25 09:05 Temperature 97.9 F Pulse Rate 77 77 Respiratory Rate 22 H 22 H Blood Pressure 112/68 Pulse Oximetry 98 93 93 Oxygen Delivery Nasal Cannula Nasal Cannula Oxygen Flow Rate 2 2 Intake/Output Intake/Output: Intake & Output 04/28/25 04/29/25 04/30/25 05/01/25 23:59 23:59 23:59 23:59 Intake Total 3309.5 2530 1560 590 Output Total 850 850 250 Balance 2459.5 1680 1310 590 Meds/Results Medications: Active Medications Generic Name Dose Route Start Last Admin Trade Name Freq PRN Reason Stop Dose Admin Acetaminophen 650 mg 04/27/25 02:15 05/01/25 04:44 Acetaminophen 325 Mg Tablet PO 650 mg Q4H PRN Administration Mild Pain (1-3) or Fever Albuterol/Ipratropium 3 ml 04/27/25 14:44 Ipratropium 0.5 Mg/Albuterol Sulfate 2.5 Mg (Base) Ampul.Neb 3 Ml INHALATION Q6HRT PRN Wheezing Aspirin 81 mg 04/27/25 09:00 05/01/25 09:00 Aspirin 81 Mg Enteric Tablet PO 81 mg DAILY JOSE Administration Atorvastatin Calcium 80 mg 04/27/25 21:00 04/30/25 20:49 Atorvastatin 40 Mg Tablet PO 80 mg QHS JOSE Administration Calcium Carbonate 500 mg 04/30/25 10:00 05/01/25 09:17 Calcium Carbonate (Oscal) 500 Mg Tablet PO 500 mg 1000,1400,1800 JOSE Administration Clopidogrel Bisulfate 75 mg 04/27/25 09:00 05/01/25 09:00 Clopidogrel Bisulfate 75 Mg Tablet PO 75 mg DAILY JOSE Administration Doxycycline Hyclate 100 mg 04/27/25 12:00 05/01/25 11:50 Doxycycline Hyclate 100 Mg Tablet PO 05/01/25 21:01 100 mg BID@1200,2100 JOSE Administration Ferrous Sulfate 325 mg 04/27/25 09:00 05/01/25 09:00 Ferrous Sulfate 325 Mg Tablet BY MOUTH 325 mg DAILY JOSE Administration Fluticasone/Umeclidinium/Vilanterol 1 puff 04/27/25 08:00 05/01/25 09:04 Fluticasone/Umeclidin/Vilanter 100-62.5-25 Mcg Ellipta INHALATION 1 puff DAILYRT JOSE Administration Piperacillin Sod/Tazobactam 50 mls @ 100 mls/hr 04/27/25 10:30 05/01/25 11:50 Sod 3.375 gm/ Sodium Chloride IVPB 100 mls/hr Q6HR JOSE Administration Loratadine 10 mg 04/27/25 09:00 05/01/25 09:00 Loratadine 10 Mg Tablet PO 10 mg QAM JOSE Administration Ondansetron HCl 4 mg 04/27/25 02:15 Ondansetron Inj 4 Mg/2 Ml Vial IV PUSH Q4H PRN Nausea Pantoprazole Sodium 40 mg 04/27/25 09:00 05/01/25 09:00 Pantoprazole 40 Mg Tablet BY MOUTH 40 mg DAILY JOSE Administration Sodium Bicarbonate 650 mg 05/01/25 09:00 05/01/25 09:17 Sodium Bicarbonate Tab 650 Mg Tablet PO 05/02/25 17:01 650 mg BID JOSE Administration Tamsulosin HCl 0.4 mg 04/27/25 09:00 05/01/25 09:00 Tamsulosin Hcl 0.4 Mg Capsule BY MOUTH 0.4 mg DAILY JOSE Administration Radiology Results: ITS Impressions Chest/Abdomen/Pelvis CT 04/27/25 08:03 IMPRESSION: 1. Multifocal pneumonia, worst in left lower lobe. 2. Wall thickening of ascending and transverse colon, which may be interstitial edema or colitis. Chest X-Ray 04/30/25 09:32 IMPRESSION: 1. Mildly improved aeration of left lung with persisting infiltrates. Labs Labs: Laboratory Results - last 24 hr 05/01/25 05:10 WBC 10.0 RBC 3.30 L Hgb 9.7 L Hct 30.6 L MCV 92.7 MCH 29.4 MCHC 31.7 L RDW 15.9 H Plt Count 334 MPV 11.1 H Sodium 139 Potassium 3.3 L Chloride 117 H Carbon Dioxide 18 L Anion Gap 4 BUN 27 H D Creatinine 1.03 Estim Creat Clear Calc 61 Estimated GFR > 60 Glucose 105 Calcium 6.7 L Phosphorus 3.0 Magnesium 2.6 H Albumin 2.3 L
[2025-05-01 14:00] VITALS: BP 128/78; PULSE 82; RESP 20; TEMP 36.3; O2SAT 98
[2025-05-01 20:00] VITALS: PULSE 85; RESP 20; O2SAT 98
[2025-05-01 20:14] VITALS: BP 144/80; PULSE 85; RESP 20; TEMP 36.2; O2SAT 98
[2025-05-01] MEDS: ATORVASTATIN 40 MG TABLET 80 MG PO (21:04)
[2025-05-02 05:32] LABS: Hematocrit 31.1 % (42.0-52.0); Hemoglobin 9.9 g/dL (14.0-18.0); Mean Corpuscular HGB Conc 31.8 g/dl (32-36); Mean Corpuscular Hemoglobin 29.6 pg (26-34); Mean Corpuscular Volume 92.8 fl (80-100); Platelet Count Result 340 k/mm3 (150-375); Red Blood Count 3.35 M/mm3 (4.6-6.20); White Blood Count 8.0 K/mm3 (4.5-10.0)
[2025-05-02 05:48] VITALS: BP 146/84; PULSE 78; RESP 20; TEMP 36.3; O2SAT 95
[2025-05-02] MEDS: PIPERACILLIN/TAZOBACTAM SOD 3.375 GM in SODIUM CHLORIDE 0.9% IV 50 ML 100 ML IVPB ×3 (06:00→17:08)
[2025-05-02 06:14] LABS: Albumin Level 2.3 g/dL (3.5-5.1); Anion Gap 3 mmol/L (4-12); Blood Urea Nitrogen 17 mg/dL (9-20); Calcium 6.8 mg/dL (8.4-10.2); Carbon Dioxide 19 mmol/L (22-30); Chloride 117 mmol/L (98-107); Estimated CRCL calculation 68 ml/min; Estimated Glomerular Filt Rate > 60; Glucose 92 mg/dL (65-110); Magnesium 2.3 mg/dL (1.6-2.3); Potassium 3.3 mmol/L (3.4-5.0); Sodium 139 mmol/L (137-145)
[2025-05-02] MEDS: FLUTICASONE/UMECLIDIN/VILANTER 100-62.5-25 MCG ELLIPTA 1 PUFF INHALATION (07:16)
[2025-05-02 07:29] VITALS: PULSE 83; RESP 20; O2SAT 95
[2025-05-02] MEDS: ASPIRIN 81 MG ENTERIC TABLET PO (08:34)
[2025-05-02] MEDS: FERROUS SULFATE 325 MG TABLET BY MOUTH (08:34)
[2025-05-02] MEDS: TAMSULOSIN HCL 0.4 MG CAPSULE BY MOUTH (08:34)
[2025-05-02] MEDS: PANTOPRAZOLE 40 MG TABLET BY MOUTH (08:34)
[2025-05-02] MEDS: SODIUM BICARBONATE TAB 650 MG TABLET PO (08:34)
[2025-05-02] MEDS: LORATADINE 10 MG TABLET PO (08:34)
[2025-05-02] MEDS: CLOPIDOGREL BISULFATE 75 MG TABLET PO (08:34)
[2025-05-02] MEDS: CALCIUM CARBONATE (OSCAL) 500 MG TABLET PO ×3 (09:04→17:08)
[2025-05-02] MEDS: POTASSIUM CHLORIDE 20 MEQ PACKET (FOR LIQUID) 40 MEQ PO (09:04)
--- NOTE | 2025-05-02 10:03 | P.PNNP_ITS ---
Progress Note: A&P Assessment and Plan (1) Acute kidney injury: Code(s): N17.9 - Acute kidney failure, unspecified Status: Acute Assessment and Plan: * as noted on admission (creatinine 1.86mg/dL on 04/26) * creatinine normal ~ 3 months ago (0.87mg/dL in January 2025) * suspect multifactorial etiology: * prerenal factors * infection/sepsis (UTI, pneumonia, colitis) * urinary retention (as noted by distended bladder on CT imaging) * use of Entresto prior to admission * other * evaluation to date noted: * CT imaging without obstruction (but distended bladder noted) * urine electrolyte prerenal * urine eosinophils negative * CPK normal * mild proteinuria * he is off IV fluid * creatinine is down to normal now. * urine is not being collected * He looks euvolemic (2) Acute hypoxemic respiratory failure: Code(s): J96.01 - Acute respiratory failure with hypoxia Status: Acute Assessment and Plan: * as noted on presentation * most likely secondary to #3 * follow culture data * on doxycycline and Zosyn * follow respiratory status (3) Multifocal pneumonia: Code(s): J18.8 - Other pneumonia, unspecified organism Status: Acute Assessment and Plan: * as noted by imaging to date * see #2 * supplemental oxygen as needed * on doxycycline plus Zosyn (4) Congestive heart failure: Qualifiers: Heart failure chronicity: unspecified Heart failure type: unspecified Qualified Code(s): I50.9 - Heart failure, unspecified Code(s): I50.9 - Heart failure, unspecified Status: Acute Assessment and Plan: * known history * preserved EF by last Echo * Entresto on hold * volume status looks okay * okay to restart Entresto any time (5) Metabolic acidosis: Code(s): E87.20 - Acidosis, unspecified Status: Acute Assessment and Plan: * due to JACQUELIN/ARF and infection * on sodium bicarbonate to compensate * CO2 19. will increase the dose Will continue to follow. Subjective Date/time seen: 05/02/25 10:03 Interval history: Calin feels better today. He did not sleep very well. He is hungry for meals Exam Narrative: General: WD/WN male in NAD Heart: normal S1 and S2; no rub or gallop Lungs: fairly clear Abdomen: soft, nontender, nondistended, positive bowel sounds Extremities: no cyanosis or clubbing; trace edema Skin: no rash Objective Data Vital Signs Vital Signs: Vital Signs - 24 hr 05/01/25 14:00 05/01/25 20:00 05/01/25 20:14 Temperature 97.3 F L 97.2 F L Pulse Rate 82 85 85 Respiratory Rate 20 20 20 Blood Pressure 128/78 144/80 H Pulse Oximetry 98 98 98 Oxygen Delivery Nasal Cannula Oxygen Flow Rate 2 Fraction of Inspired Oxygen 05/02/25 05:48 05/02/25 07:29 Temperature 97.3 F L Pulse Rate 78 83 Respiratory Rate 20 20 Blood Pressure 146/84 H Pulse Oximetry 95 95 Oxygen Delivery Room Air Oxygen Flow Rate Fraction of Inspired Oxygen 21 Intake/Output Intake/Output: Intake & Output 04/29/25 04/30/25 05/01/25 05/02/25 23:59 23:59 23:59 23:59 Intake Total 2530 1560 990 640 Output Total 850 250 Balance 1680 1310 990 640 Meds/Results Medications: Active Medications Generic Name Dose Route Start Last Admin Trade Name Freq PRN Reason Stop Dose Admin Acetaminophen 650 mg 04/27/25 02:15 05/01/25 04:44 Acetaminophen 325 Mg Tablet PO 650 mg Q4H PRN Administration Mild Pain (1-3) or Fever Albuterol/Ipratropium 3 ml 04/27/25 14:44 Ipratropium 0.5 Mg/Albuterol Sulfate 2.5 Mg (Base) Ampul.Neb 3 Ml INHALATION Q6HRT PRN Wheezing Aspirin 81 mg 04/27/25 09:00 05/02/25 08:34 Aspirin 81 Mg Enteric Tablet PO 81 mg DAILY JOSE Administration Atorvastatin Calcium 80 mg 04/27/25 21:00 05/01/25 21:04 Atorvastatin 40 Mg Tablet PO 80 mg QHS JOSE Administration Calcium Carbonate 500 mg 04/30/25 10:00 05/02/25 09:04 Calcium Carbonate (Oscal) 500 Mg Tablet PO 500 mg 1000,1400,1800 JOSE Administration Clopidogrel Bisulfate 75 mg 04/27/25 09:00 05/02/25 08:34 Clopidogrel Bisulfate 75 Mg Tablet PO 75 mg DAILY JOSE Administration Ferrous Sulfate 325 mg 04/27/25 09:00 05/02/25 08:34 Ferrous Sulfate 325 Mg Tablet BY MOUTH 325 mg DAILY JOSE Administration Fluticasone/Umeclidinium/Vilanterol 1 puff 04/27/25 08:00 05/02/25 07:16 Fluticasone/Umeclidin/Vilanter 100-62.5-25 Mcg Ellipta INHALATION 1 puff DAILYRT JOSE Administration Piperacillin Sod/Tazobactam 50 mls @ 100 mls/hr 04/27/25 10:30 05/02/25 06:30 Sod 3.375 gm/ Sodium Chloride IVPB Infused Q6HR JOSE Infusion Loratadine 10 mg 04/27/25 09:00 05/02/25 08:34 Loratadine 10 Mg Tablet PO 10 mg QAM JOSE Administration Ondansetron HCl 4 mg 04/27/25 02:15 Ondansetron Inj 4 Mg/2 Ml Vial IV PUSH Q4H PRN Nausea Pantoprazole Sodium 40 mg 04/27/25 09:00 05/02/25 08:34 Pantoprazole 40 Mg Tablet BY MOUTH 40 mg DAILY JOSE Administration Sodium Bicarbonate 650 mg 05/01/25 09:00 05/02/25 08:34 Sodium Bicarbonate Tab 650 Mg Tablet PO 05/02/25 17:01 650 mg BID JOSE Administration Tamsulosin HCl 0.4 mg 04/27/25 09:00 05/02/25 08:34 Tamsulosin Hcl 0.4 Mg Capsule BY MOUTH 0.4 mg DAILY JOSE Administration Radiology Results: ITS Impressions Chest/Abdomen/Pelvis CT 04/27/25 08:03 IMPRESSION: 1. Multifocal pneumonia, worst in left lower lobe. 2. Wall thickening of ascending and transverse colon, which may be interstitial edema or colitis. Chest X-Ray 04/30/25 09:32 IMPRESSION: 1. Mildly improved aeration of left lung with persisting infiltrates. Renal Ultrasound 05/02/25 09:39 IMPRESSION: 1. No acute abnormality. Labs Labs: Laboratory Results - last 24 hr 05/02/25 05:04 WBC 8.0 RBC 3.35 L Hgb 9.9 L Hct 31.1 L MCV 92.8 MCH 29.6 MCHC 31.8 L RDW 16.0 H Plt Count 340 MPV 11.1 H Sodium 139 Potassium 3.3 L Chloride 117 H Carbon Dioxide 19 L Anion Gap 3 L BUN 17 D Creatinine 0.93 Estim Creat Clear Calc 68 Estimated GFR > 60 Glucose 92 Calcium 6.8 L Phosphorus 2.8 Magnesium 2.3 Albumin 2.3 L
[2025-05-02 14:00] VITALS: BP 144/76; PULSE 98; RESP 16; TEMP 36.4; O2SAT 96
--- NOTE | 2025-05-02 14:32 | PM.IMPN ---
Progress Note: A&P Assessment and Plan (1) Acute renal failure: Code(s): N17.9 - Acute kidney failure, unspecified Status: Acute (2) Acute dehydration: Code(s): E86.0 - Dehydration Status: Acute (3) Acute uremia: Code(s): N19 - Unspecified kidney failure Status: Acute (4) Pneumonia: Code(s): J18.9 - Pneumonia, unspecified organism Status: Acute (5) COPD with emphysema: Code(s): J43.9 - Emphysema, unspecified Status: Acute (6) Severe sepsis: Code(s): A41.9 - Sepsis, unspecified organism; R65.20 - Severe sepsis without septic shock Status: Acute (7) Multifocal pneumonia: Code(s): J18.8 - Other pneumonia, unspecified organism Status: Acute (8) Acute hypoxemic respiratory failure: Code(s): J96.01 - Acute respiratory failure with hypoxia Status: Acute Plan patient appeared tachypneic, patient denies difficulty breathing, to further evaluate, ABG was done was showed metabolic acidosis and patient was compensating with hyperventilating, discuss with Dr. Redmond movie shot camera operator and started patient on Bicarb IVF, will monitor repeat labs. repeat labs shows improvement in metabolic acidosis as well as patient mentation, repeat CXR did show mild improvement in his pneumonia, infiltrates still persist, patient overall symptoms are improving, patient metabolic acidosis is improving, will repeat CXR on 05/03, patient is seen by Dr. Quesada his director of services. will monitor. Patient with multifocal pneumonia being treated with zosyn and doxycycline, patient stats he feels better compared to when he arrived, will CPM and monitor Today patient appears tachypneic, patient denies difficulty breathing, to further evaluate, ABG was done was showed metabolic acidosis and patient was compensating with hyperventilating, discuss with Dr. Redmond movie shot camera operator and started patient on Bicarb IVF, will monitor repeat labs. patient is seen by Dr. Quesada his director of services. will monitor. 1.Acute hypoxic respiratory failure likely 2/2 Multifocal pneumonia Multifocal Pneumonia CT chest shows multifocal pneumonia, worse in the left lower lobe. Noted wall thickening of ascending and transverse colon which may be interstitial edema or colitis MRSA PCR negative deescalate vancomycin continue Zosyn add doxycycline p.o. follow blood culture 2. 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 Subjective Date/time seen: 05/02/25 14:32 Interval history: Complains cough. Malaise. No fever chills. No Chest palpitations. Patient with multifocal pneumonia being treated with zosyn and doxycycline, patient stats he feels better compared to when he arrived, will CPM and monitor patient appeared tachypneic, patient denies difficulty breathing, to further evaluate, ABG was done was showed metabolic acidosis and patient was compensating with hyperventilating, discuss with Dr. Redmond movie shot camera operator and started patient on Bicarb IVF, will monitor repeat labs. repeat labs shows improvement in metabolic acidosis as well as patient mentation, repeat CXR did show mild improvement in his pneumonia, infiltrates still persist, patient overall symptoms are improving, patient metabolic acidosis is improving, will repeat CXR on 05/03, patient is seen by Dr. Quesada his director of services. will monitor. Review of Systems Review of Systems: All systems reviewed & are unremarkable except as noted in HPI and below Exam Narrative: Patient is comfortable, NAD HEENT: eyes are clear and none icteric LUNGS: Bilateral poor air entry with rhonchi HEART: RR S1S2 ABD: BS+, Soft and nontender Lower extremities: no edema SKIN: nonjaundiced Neuro: grossly intact. Objective Data Vital Signs Vital Signs: Vital Signs - 24 hr 05/01/25 20:00 05/01/25 20:14 05/02/25 05:48 Temperature 36.2 C L 36.3 C L Pulse Rate 85 85 78 Respiratory Rate 20 20 20 Blood Pressure 144/80 H 146/84 H Pulse Oximetry 98 98 95 Oxygen Delivery Nasal Cannula Oxygen Flow Rate 2 Fraction of Inspired Oxygen 05/02/25 07:29 05/02/25 08:00 05/02/25 14:00 Temperature 36.4 C Pulse Rate 83 98 Respiratory Rate 20 16 Blood Pressure 144/76 H Pulse Oximetry 95 96 Oxygen Delivery Room Air Room Air Oxygen Flow Rate Fraction of Inspired Oxygen 21 Intake/Output Intake/Output: Intake & Output 04/29/25 04/30/25 05/01/25 05/02/25 23:59 23:59 23:59 23:59 Intake Total 2530 1560 990 930 Output Total 850 250 Balance 1680 1310 990 930 Meds/Results Medications: Active Medications Generic Name Dose Route Start Last Admin Trade Name Freq PRN Reason Stop Dose Admin Acetaminophen 650 mg 04/27/25 02:15 05/01/25 04:44 Acetaminophen 325 Mg Tablet PO 650 mg Q4H PRN Administration Mild Pain (1-3) or Fever Albuterol/Ipratropium 3 ml 04/27/25 14:44 Ipratropium 0.5 Mg/Albuterol Sulfate 2.5 Mg (Base) Ampul.Neb 3 Ml INHALATION Q6HRT PRN Wheezing Aspirin 81 mg 04/27/25 09:00 05/02/25 08:34 Aspirin 81 Mg Enteric Tablet PO 81 mg DAILY JOSE Administration Atorvastatin Calcium 80 mg 04/27/25 21:00 05/01/25 21:04 Atorvastatin 40 Mg Tablet PO 80 mg QHS JOSE Administration Calcium Carbonate 500 mg 04/30/25 10:00 05/02/25 13:45 Calcium Carbonate (Oscal) 500 Mg Tablet PO 500 mg 1000,1400,1800 JOSE Administration Clopidogrel Bisulfate 75 mg 04/27/25 09:00 05/02/25 08:34 Clopidogrel Bisulfate 75 Mg Tablet PO 75 mg DAILY JOSE Administration Ferrous Sulfate 325 mg 04/27/25 09:00 05/02/25 08:34 Ferrous Sulfate 325 Mg Tablet BY MOUTH 325 mg DAILY JOSE Administration Fluticasone/Umeclidinium/Vilanterol 1 puff 04/27/25 08:00 05/02/25 07:16 Fluticasone/Umeclidin/Vilanter 100-62.5-25 Mcg Ellipta INHALATION 1 puff DAILYRT JOSE Administration Piperacillin Sod/Tazobactam 50 mls @ 100 mls/hr 04/27/25 10:30 05/02/25 12:45 Sod 3.375 gm/ Sodium Chloride IVPB Infused Q6HR JOSE Infusion Loratadine 10 mg 04/27/25 09:00 05/02/25 08:34 Loratadine 10 Mg Tablet PO 10 mg QAM JOSE Administration Ondansetron HCl 4 mg 04/27/25 02:15 Ondansetron Inj 4 Mg/2 Ml Vial IV PUSH Q4H PRN Nausea Pantoprazole Sodium 40 mg 04/27/25 09:00 05/02/25 08:34 Pantoprazole 40 Mg Tablet BY MOUTH 40 mg DAILY JOSE Administration Sodium Bicarbonate 1,300 mg 05/02/25 17:00 Sodium Bicarbonate Tab 650 Mg Tablet PO 05/02/25 17:01 BID JOSE Tamsulosin HCl 0.4 mg 04/27/25 09:00 05/02/25 08:34 Tamsulosin Hcl 0.4 Mg Capsule BY MOUTH 0.4 mg DAILY JOSE Administration Radiology Results: ITS Impressions Chest/Abdomen/Pelvis CT 04/27/25 08:03 IMPRESSION: 1. Multifocal pneumonia, worst in left lower lobe. 2. Wall thickening of ascending and transverse colon, which may be interstitial edema or colitis. Chest X-Ray 04/30/25 09:32 IMPRESSION: 1. Mildly improved aeration of left lung with persisting infiltrates. Renal Ultrasound 05/02/25 09:39 IMPRESSION: 1. No acute abnormality. Labs Labs: Laboratory Results - last 24 hr 05/02/25 05:04 WBC 8.0 RBC 3.35 L Hgb 9.9 L Hct 31.1 L MCV 92.8 MCH 29.6 MCHC 31.8 L RDW 16.0 H Plt Count 340 MPV 11.1 H Sodium 139 Potassium 3.3 L Chloride 117 H Carbon Dioxide 19 L Anion Gap 3 L BUN 17 D Creatinine 0.93 Estim Creat Clear Calc 68 Estimated GFR > 60 Glucose 92 Calcium 6.8 L Phosphorus 2.8 Magnesium 2.3 Albumin 2.3 L
[2025-05-02] MEDS: SODIUM BICARBONATE TAB 650 MG TABLET 1300 MG PO (17:08)
[2025-05-02 19:49] VITALS: BP 149/84; PULSE 87; RESP 16; TEMP 36.6; O2SAT 98
[2025-05-02 20:00] VITALS: PULSE 87; RESP 16; O2SAT 98
[2025-05-02] MEDS: ATORVASTATIN 40 MG TABLET 80 MG PO (20:52)
[2025-05-03] VITALS (8 sets, daily range): BP systolic 126–149; BP diastolic 67–83; PULSE 69–92; RESP 16–20; TEMP 36.4–36.6; O2SAT 97
[2025-05-03 05:25] LABS: Hematocrit 31.7 % (42.0-52.0); Hemoglobin 10.0 g/dL (14.0-18.0); Mean Corpuscular HGB Conc 31.5 g/dl (32-36); Mean Corpuscular Hemoglobin 29.9 pg (26-34); Mean Corpuscular Volume 94.9 fl (80-100); Platelet Count Result 337 k/mm3 (150-375); Red Blood Count 3.34 M/mm3 (4.6-6.20); White Blood Count 8.3 K/mm3 (4.5-10.0)
[2025-05-03 05:46] LABS: Albumin Level 2.5 g/dL (3.5-5.1); Anion Gap 4 mmol/L (4-12); Blood Urea Nitrogen 13 mg/dL (9-20); Calcium 7.0 mg/dL (8.4-10.2); Carbon Dioxide 21 mmol/L (22-30); Chloride 114 mmol/L (98-107); Estimated CRCL calculation 67 ml/min; Estimated Glomerular Filt Rate > 60; Glucose 104 mg/dL (65-110); Magnesium 2.0 mg/dL (1.6-2.3); Potassium 3.6 mmol/L (3.4-5.0); Sodium 139 mmol/L (137-145)
[2025-05-03] MEDS: PIPERACILLIN/TAZOBACTAM SOD 3.375 GM in SODIUM CHLORIDE 0.9% IV 50 ML 100 ML IVPB ×4 (06:14→17:11)
[2025-05-03] MEDS: FLUTICASONE/UMECLIDIN/VILANTER 100-62.5-25 MCG ELLIPTA 1 PUFF INHALATION (08:35)
[2025-05-03] MEDS: TAMSULOSIN HCL 0.4 MG CAPSULE BY MOUTH (08:48)
[2025-05-03] MEDS: PANTOPRAZOLE 40 MG TABLET BY MOUTH (08:48)
[2025-05-03] MEDS: LORATADINE 10 MG TABLET PO (08:48)
[2025-05-03] MEDS: ASPIRIN 81 MG ENTERIC TABLET PO (08:48)
[2025-05-03] MEDS: CALCIUM CARBONATE (OSCAL) 500 MG TABLET PO ×3 (08:49→17:12)
[2025-05-03] MEDS: FERROUS SULFATE 325 MG TABLET BY MOUTH (08:49)
[2025-05-03] MEDS: CLOPIDOGREL BISULFATE 75 MG TABLET PO (08:49)
--- NOTE | 2025-05-03 11:07 | PCNFU ---
Nutrition Follow-Up Complete: Suboptimal po intake related to poor appetite as evidenced by pt report Goal: PO Intake 50% or greater Patient is progressing towards goal. We will continue current goal. Pt current nutrition is Heart Healthy with Nutrition recommendation: Ensure Plus High Protein BID. Last recorded weight is 81.5 kg, 61 kg on admit. Bowel Motility: Last reported BM 05/02 Labs Reviewed:Alb 2.5, Hgb 10.0, Hct 31.7 Meds Noted: Oscal, Protonix. Skin: WNL Additional Notes: Pateint is tolerating about 50% of heart healthy diet. Nepro shakes are not being drank, supplement changed to ensure plus high protein BID for 350 kcal and 20 gm protein. PO intake encouraged, agree with diet orders. Monitor intake, wt, labs. Follow up in 5 days.
--- NOTE | 2025-05-03 11:11 | P.PNIM_ITS ---
Progress Note: A&P Assessment and Plan (1) Acute renal failure: Code(s): N17.9 - Acute kidney failure, unspecified Status: Acute (2) Acute dehydration: Code(s): E86.0 - Dehydration Status: Acute (3) Acute uremia: Code(s): N19 - Unspecified kidney failure Status: Acute (4) Pneumonia: Code(s): J18.9 - Pneumonia, unspecified organism Status: Acute (5) COPD with emphysema: Code(s): J43.9 - Emphysema, unspecified Status: Acute (6) Severe sepsis: Code(s): A41.9 - Sepsis, unspecified organism; R65.20 - Severe sepsis without septic shock Status: Acute (7) Multifocal pneumonia: Code(s): J18.8 - Other pneumonia, unspecified organism Status: Acute (8) Acute hypoxemic respiratory failure: Code(s): J96.01 - Acute respiratory failure with hypoxia Status: Acute Plan patient appeared tachypneic, patient denies difficulty breathing, to further evaluate, ABG was done was showed metabolic acidosis and patient was compensating with hyperventilating, discuss with Dr. Redmond sliver lapper and started patient on Bicarb IVF, will monitor repeat labs. repeat labs shows improvement in metabolic acidosis as well as patient mentation, repeat CXR did show mild improvement in his pneumonia, infiltrates still persist, patient overall symptoms are improving, patient metabolic acidosis is improving, will repeat CXR on 05/03, patient is seen by Dr. Quesada his guest experience captain. will monitor. Patient with multifocal pneumonia being treated with zosyn and doxycycline, patient stats he feels better compared to when he arrived, will CPM and monitor Repeat x-ray today showed persistent pneumonia, and patient stats he feels congested and has cough, will CPM and monitor. patient appears tachypneic, patient denies difficulty breathing, to further evaluate, ABG was done was showed metabolic acidosis and patient was compensating with hyperventilating, discuss with Dr. Redmond sliver lapper and started patient on Bicarb IVF, will monitor repeat labs. patient is seen by Dr. Quesada his guest experience captain. will monitor. 1.Acute hypoxic respiratory failure likely 2/2 Multifocal pneumonia Multifocal Pneumonia CT chest shows multifocal pneumonia, worse in the left lower lobe. Noted wall thickening of ascending and transverse colon which may be interstitial edema or colitis MRSA PCR negative deescalate vancomycin continue Zosyn add doxycycline p.o. follow blood culture 2. 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 Subjective Date/time seen: 05/03/25 11:11 Interval history: Complains cough. Malaise. No fever chills. No Chest palpitations. Patient with multifocal pneumonia being treated with zosyn and doxycycline, patient stats he feels better compared to when he arrived, will CPM and monitor patient appeared tachypneic, patient denies difficulty breathing, to further evaluate, ABG was done was showed metabolic acidosis and patient was compensating with hyperventilating, discuss with Dr. Redmond sliver lapper and started patient on Bicarb IVF, will monitor repeat labs. repeat labs shows improvement in metabolic acidosis as well as patient mentation, repeat CXR did show mild improvement in his pneumonia, infiltrates still persist, patient overall symptoms are improving, patient metabolic acidosis is improving, will repeat CXR on 05/03, patient is seen by Dr. Quesada his guest experience captain. will monitor. Repeat x-ray showed persistent pneumonia, and patient stats he feels congested and has cough, will CPM and monitor. Review of Systems Review of Systems: All systems reviewed & are unremarkable except as noted in HPI and below Exam Narrative: Patient is comfortable, NAD HEENT: eyes are clear and none icteric LUNGS: Bilateral poor air entry with rhonchi HEART: RR S1S2 ABD: BS+, Soft and nontender Lower extremities: no edema SKIN: nonjaundiced Neuro: grossly intact. Objective Data Vital Signs Vital Signs: Vital Signs - 24 hr 05/02/25 14:00 05/02/25 19:49 05/02/25 20:00 Temperature 36.4 C 36.6 C Pulse Rate 98 87 87 Respiratory Rate 16 16 16 Blood Pressure 144/76 H 149/84 H Pulse Oximetry 96 98 98 Oxygen Delivery Room Air Fraction of Inspired Oxygen 21 05/03/25 03:47 05/03/25 08:39 05/03/25 08:57 Temperature 36.4 C Pulse Rate 84 92 Respiratory Rate 18 20 20 Blood Pressure 149/83 H Pulse Oximetry 97 97 Oxygen Delivery Room Air Fraction of Inspired Oxygen Intake/Output Intake/Output: Intake & Output 04/30/25 05/01/25 05/02/25 05/03/25 23:59 23:59 23:59 23:59 Intake Total 6314 206 5639 690 Output Total 250 Balance 1158 023 6442 690 Meds/Results Medications: Active Medications Generic Name Dose Route Start Last Admin Trade Name Freq PRN Reason Stop Dose Admin Acetaminophen 650 mg 04/27/25 02:15 05/01/25 04:44 Acetaminophen 325 Mg Tablet PO 650 mg Q4H PRN Administration Mild Pain (1-3) or Fever Albuterol/Ipratropium 3 ml 04/27/25 14:44 Ipratropium 0.5 Mg/Albuterol Sulfate 2.5 Mg (Base) Ampul.Neb 3 Ml INHALATION Q6HRT PRN Wheezing Aspirin 81 mg 04/27/25 09:00 05/03/25 08:48 Aspirin 81 Mg Enteric Tablet PO 81 mg DAILY JOSE Administration Atorvastatin Calcium 80 mg 04/27/25 21:00 05/02/25 20:52 Atorvastatin 40 Mg Tablet PO 80 mg QHS JOSE Administration Calcium Carbonate 500 mg 04/30/25 10:00 05/03/25 08:49 Calcium Carbonate (Oscal) 500 Mg Tablet PO 500 mg 1000,1400,1800 JOSE Administration Clopidogrel Bisulfate 75 mg 04/27/25 09:00 05/03/25 08:49 Clopidogrel Bisulfate 75 Mg Tablet PO 75 mg DAILY JOSE Administration Ferrous Sulfate 325 mg 04/27/25 09:00 05/03/25 08:49 Ferrous Sulfate 325 Mg Tablet BY MOUTH 325 mg DAILY JOSE Administration Fluticasone/Umeclidinium/Vilanterol 1 puff 04/27/25 08:00 05/03/25 08:35 Fluticasone/Umeclidin/Vilanter 100-62.5-25 Mcg Ellipta INHALATION 1 puff DAILYRT JOSE Administration Piperacillin Sod/Tazobactam 50 mls @ 100 mls/hr 04/27/25 10:30 05/03/25 06:14 Sod 3.375 gm/ Sodium Chloride IVPB 100 mls/hr Q6HR JOSE Administration Loratadine 10 mg 04/27/25 09:00 05/03/25 08:48 Loratadine 10 Mg Tablet PO 10 mg QAM JOSE Administration Ondansetron HCl 4 mg 04/27/25 02:15 Ondansetron Inj 4 Mg/2 Ml Vial IV PUSH Q4H PRN Nausea Pantoprazole Sodium 40 mg 04/27/25 09:00 05/03/25 08:48 Pantoprazole 40 Mg Tablet BY MOUTH 40 mg DAILY JOSE Administration Tamsulosin HCl 0.4 mg 04/27/25 09:00 05/03/25 08:48 Tamsulosin Hcl 0.4 Mg Capsule BY MOUTH 0.4 mg DAILY JOSE Administration Radiology Results: ITS Impressions Chest/Abdomen/Pelvis CT 04/27/25 08:03 IMPRESSION: 1. Multifocal pneumonia, worst in left lower lobe. 2. Wall thickening of ascending and transverse colon, which may be interstitial edema or colitis. Renal Ultrasound 05/02/25 09:39 IMPRESSION: 1. No acute abnormality. Chest X-Ray 05/03/25 08:13 IMPRESSION: 1. Stable to slightly worse perihilar infiltrates left worse than right compared to the April 30 exam. Labs Labs: Laboratory Results - last 24 hr 05/03/25 05:02 WBC 8.3 RBC 3.34 L Hgb 10.0 L Hct 31.7 L MCV 94.9 MCH 29.9 MCHC 31.5 L RDW 15.9 H Plt Count 337 MPV 11.0 H Sodium 139 Potassium 3.6 Chloride 114 H Carbon Dioxide 21 L Anion Gap 4 BUN 13 Creatinine 0.94 Estim Creat Clear Calc 67 Estimated GFR > 60 Glucose 104 Calcium 7.0 L Phosphorus 2.6 Magnesium 2.0 Albumin 2.5 L
--- NOTE | 2025-05-03 12:24 | P.PNNP_ITS ---
Progress Note: A&P Assessment and Plan (1) Acute kidney injury: Code(s): N17.9 - Acute kidney failure, unspecified Status: Acute Assessment and Plan: * rezolved * as noted on admission (creatinine 1.86mg/dL on 04/26) * creatinine normal ~ 3 months ago (0.87mg/dL in January 2025) * suspect multifactorial etiology: * prerenal factors * infection/sepsis (UTI, pneumonia, colitis) * urinary retention (as noted by distended bladder on CT imaging) * use of Entresto prior to admission * other * evaluation to date noted: * CT imaging without obstruction (but distended bladder noted) * urine electrolyte prerenal * urine eosinophils negative * CPK normal * mild proteinuria * off IVFs * follow trend of repeat labs and UOP (2) Acute hypoxemic respiratory failure: Code(s): J96.01 - Acute respiratory failure with hypoxia Status: Acute Assessment and Plan: * clinical improvement noted * as noted on presentation * most likely secondary to #3 * follow culture data * on antibiotics * follow respiratory status (3) Multifocal pneumonia: Code(s): J18.8 - Other pneumonia, unspecified organism Status: Acute Assessment and Plan: * as noted by imaging to date * see #2 * supplemental oxygen as needed (weaned off) * continue antibiotic therapy (4) Congestive heart failure: Qualifiers: Heart failure chronicity: unspecified Heart failure type: unspecified Qualified Code(s): I50.9 - Heart failure, unspecified Code(s): I50.9 - Heart failure, unspecified Status: Acute Assessment and Plan: * known history * preserved EF by last Echo * Entresto on hold * follow volume status appears stable (5) Metabolic acidosis: Code(s): E87.20 - Acidosis, unspecified Status: Acute Assessment and Plan: * resolving * due to JACQUELIN/ARF and infection * wean off sodium bicarbonate * follow CO2 levels Not much else to add -- will continue to follow from a distance. Subjective Date/time seen: 05/03/25 12:24 Interval history: Follow-up for acute kidney injury/acute renal failure. Chart reviewed since last seen -- renal function/creatinine has normalized with stability in potassium; no apparent distress noted at the time of my visit; no other issues/events voiced overnight or earlier this morning. Exam Narrative: General: WD/WN male in NAD Heart: normal S1 and S2; no rub Lungs: coarse breath sounds Abdomen: soft, nontender, nondistended, positive bowel sounds Extremities: no cyanosis or clubbing; trace edema Skin: no nodules Objective Data Vital Signs Vital Signs: Vital Signs - 24 hr 05/02/25 19:49 05/02/25 20:00 05/03/25 03:47 Temperature 97.9 F 97.6 F Pulse Rate 87 87 84 Respiratory Rate 16 16 18 Blood Pressure 149/84 H 149/83 H Pulse Oximetry 98 98 97 Oxygen Delivery Room Air Fraction of Inspired Oxygen 21 05/03/25 08:39 05/03/25 08:57 Temperature Pulse Rate 92 Respiratory Rate 20 20 Blood Pressure Pulse Oximetry 97 Oxygen Delivery Room Air Fraction of Inspired Oxygen Intake/Output Intake/Output: Intake & Output 04/30/25 05/01/25 05/02/25 05/03/25 23:59 23:59 23:59 23:59 Intake Total 7554 886 4898 2300 Output Total 250 Balance 7108 010 6407 2300 Meds/Results Medications: Active Medications Generic Name Dose Route Start Last Admin Trade Name Freq PRN Reason Stop Dose Admin Acetaminophen 650 mg 04/27/25 02:15 05/01/25 04:44 Acetaminophen 325 Mg Tablet PO 650 mg Q4H PRN Administration Mild Pain (1-3) or Fever Albuterol/Ipratropium 3 ml 04/27/25 14:44 Ipratropium 0.5 Mg/Albuterol Sulfate 2.5 Mg (Base) Ampul.Neb 3 Ml INHALATION Q6HRT PRN Wheezing Aspirin 81 mg 04/27/25 09:00 05/03/25 08:48 Aspirin 81 Mg Enteric Tablet PO 81 mg DAILY JOSE Administration Atorvastatin Calcium 80 mg 04/27/25 21:00 05/02/25 20:52 Atorvastatin 40 Mg Tablet PO 80 mg QHS JOSE Administration Calcium Carbonate 500 mg 04/30/25 10:00 05/03/25 17:12 Calcium Carbonate (Oscal) 500 Mg Tablet PO 500 mg 1000,1400,1800 JOSE Administration Clopidogrel Bisulfate 75 mg 04/27/25 09:00 05/03/25 08:49 Clopidogrel Bisulfate 75 Mg Tablet PO 75 mg DAILY JOSE Administration Ferrous Sulfate 325 mg 04/27/25 09:00 05/03/25 08:49 Ferrous Sulfate 325 Mg Tablet BY MOUTH 325 mg DAILY JOSE Administration Fluticasone/Umeclidinium/Vilanterol 1 puff 04/27/25 08:00 05/03/25 08:35 Fluticasone/Umeclidin/Vilanter 100-62.5-25 Mcg Ellipta INHALATION 1 puff DAILYRT JOSE Administration Piperacillin Sod/Tazobactam 50 mls @ 100 mls/hr 04/27/25 10:30 05/03/25 17:40 Sod 3.375 gm/ Sodium Chloride IVPB Infused Q6HR JOSE Infusion Loratadine 10 mg 04/27/25 09:00 05/03/25 08:48 Loratadine 10 Mg Tablet PO 10 mg QAM JOSE Administration Ondansetron HCl 4 mg 04/27/25 02:15 Ondansetron Inj 4 Mg/2 Ml Vial IV PUSH Q4H PRN Nausea Pantoprazole Sodium 40 mg 04/27/25 09:00 05/03/25 08:48 Pantoprazole 40 Mg Tablet BY MOUTH 40 mg DAILY JOSE Administration Tamsulosin HCl 0.4 mg 04/27/25 09:00 05/03/25 08:48 Tamsulosin Hcl 0.4 Mg Capsule BY MOUTH 0.4 mg DAILY JOSE Administration Radiology Results: ITS Impressions Chest/Abdomen/Pelvis CT 04/27/25 08:03 IMPRESSION: 1. Multifocal pneumonia, worst in left lower lobe. 2. Wall thickening of ascending and transverse colon, which may be interstitial edema or colitis. Renal Ultrasound 05/02/25 09:39 IMPRESSION: 1. No acute abnormality. Chest X-Ray 05/03/25 08:13 IMPRESSION: 1. Stable to slightly worse perihilar infiltrates left worse than right compared to the April 30 exam. Labs Labs: Laboratory Results - last 24 hr 05/03/25 05:02 WBC 8.3 Hgb 10.0 L Hct 31.7 L Plt Count 337 Sodium 139 Potassium 3.6 Chloride 114 H Carbon Dioxide 21 L Anion Gap 4 BUN 13 Creatinine 0.94 Estim Creat Clear Calc 67 Estimated GFR > 60 Glucose 104 Calcium 7.0 L Phosphorus 2.6 Magnesium 2.0 Albumin 2.5 L
[2025-05-03] MEDS: ATORVASTATIN 40 MG TABLET 80 MG PO (21:11)
[2025-05-03] MEDS: IPRATROPIUM 0.5 MG/ALBUTEROL SULFATE 2.5 MG (BASE) AMPUL.NEB 3 ML INHALATION (22:29)
[2025-05-04] VITALS (8 sets, daily range): BP systolic 133–158; BP diastolic 70–97; PULSE 60–94; RESP 16–22; TEMP 36.3–36.7; O2SAT 93–97
[2025-05-04] MEDS: PIPERACILLIN/TAZOBACTAM SOD 3.375 GM in SODIUM CHLORIDE 0.9% IV 50 ML 100 ML IVPB ×5 (00:37→23:41)
[2025-05-04 05:15] LABS: Hematocrit 27.9 % (42.0-52.0); Hemoglobin 8.8 g/dL (14.0-18.0); Mean Corpuscular HGB Conc 31.5 g/dl (32-36); Mean Corpuscular Hemoglobin 29.1 pg (26-34); Mean Corpuscular Volume 92.4 fl (80-100); Platelet Count Result 324 k/mm3 (150-375); Red Blood Count 3.02 M/mm3 (4.6-6.20); White Blood Count 8.5 K/mm3 (4.5-10.0)
[2025-05-04 05:34] LABS: Albumin Level 2.4 g/dL (3.5-5.1); Anion Gap 3 mmol/L (4-12); Blood Urea Nitrogen 9 mg/dL (9-20); Calcium 7.1 mg/dL (8.4-10.2); Carbon Dioxide 19 mmol/L (22-30); Chloride 114 mmol/L (98-107); Estimated CRCL calculation 79 ml/min; Estimated Glomerular Filt Rate > 60; Glucose 99 mg/dL (65-110); Magnesium 1.8 mg/dL (1.6-2.3); Potassium 3.3 mmol/L (3.4-5.0); Sodium 136 mmol/L (137-145)
[2025-05-04] MEDS: FERROUS SULFATE 325 MG TABLET BY MOUTH (08:14)
[2025-05-04] MEDS: TAMSULOSIN HCL 0.4 MG CAPSULE BY MOUTH (08:14)
[2025-05-04] MEDS: ACETAMINOPHEN 325 MG TABLET 650 MG PO (08:15)
[2025-05-04] MEDS: PANTOPRAZOLE 40 MG TABLET BY MOUTH (08:15)
[2025-05-04] MEDS: ASPIRIN 81 MG ENTERIC TABLET PO (08:15)
[2025-05-04] MEDS: LORATADINE 10 MG TABLET PO (08:15)
[2025-05-04] MEDS: CLOPIDOGREL BISULFATE 75 MG TABLET PO (08:16)
[2025-05-04] MEDS: POTASSIUM CHLORIDE 20 MEQ PACKET (FOR LIQUID) 40 MEQ PO (08:22)
[2025-05-04] MEDS: FLUTICASONE/UMECLIDIN/VILANTER 100-62.5-25 MCG ELLIPTA 1 PUFF INHALATION (08:26)
[2025-05-04] MEDS: CALCIUM CARBONATE (OSCAL) 500 MG TABLET PO ×3 (09:09→17:04)
--- NOTE | 2025-05-04 15:01 | PM.IMPN ---
Progress Note: A&P Assessment and Plan (1) Acute renal failure: Code(s): N17.9 - Acute kidney failure, unspecified Status: Acute (2) Acute dehydration: Code(s): E86.0 - Dehydration Status: Acute (3) Acute uremia: Code(s): N19 - Unspecified kidney failure Status: Acute (4) Pneumonia: Code(s): J18.9 - Pneumonia, unspecified organism Status: Acute (5) COPD with emphysema: Code(s): J43.9 - Emphysema, unspecified Status: Acute (6) Severe sepsis: Code(s): A41.9 - Sepsis, unspecified organism; R65.20 - Severe sepsis without septic shock Status: Acute (7) Multifocal pneumonia: Code(s): J18.8 - Other pneumonia, unspecified organism Status: Acute (8) Acute hypoxemic respiratory failure: Code(s): J96.01 - Acute respiratory failure with hypoxia Status: Acute Plan patient appeared tachypneic, patient denies difficulty breathing, to further evaluate, ABG was done was showed metabolic acidosis and patient was compensating with hyperventilating, discuss with Dr. Redmond excelsior machine tender and started patient on Bicarb IVF, will monitor repeat labs. repeat labs shows improvement in metabolic acidosis as well as patient mentation, repeat CXR on 05/03 did show mild improvement in his pneumonia, infiltrates still persist, patient overall symptoms are improving, patient metabolic acidosis is improving, patient is encourage out of bed and ambulate, patient is seen by Dr. Quesada his hydrometeorologist. will monitor. Patient with multifocal pneumonia being treated with zosyn and doxycycline, patient stats he feels better compared to when he arrived, will CPM and monitor Repeat x-ray today showed persistent pneumonia, and patient stats he feels congested and has cough, will CPM and monitor. patient appears tachypneic, patient denies difficulty breathing, to further evaluate, ABG was done was showed metabolic acidosis and patient was compensating with hyperventilating, discuss with Dr. Redmond excelsior machine tender and started patient on Bicarb IVF, will monitor repeat labs. patient is seen by Dr. Quesada his hydrometeorologist. will monitor. 1.Acute hypoxic respiratory failure likely 2/2 Multifocal pneumonia Multifocal Pneumonia CT chest shows multifocal pneumonia, worse in the left lower lobe. Noted wall thickening of ascending and transverse colon which may be interstitial edema or colitis MRSA PCR negative deescalate vancomycin continue Zosyn add doxycycline p.o. follow blood culture 2. 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 Subjective Date/time seen: 05/04/25 15:01 Interval history: Complains cough. Malaise. No fever chills. No Chest palpitations. Patient with multifocal pneumonia being treated with zosyn and doxycycline, patient stats he feels better compared to when he arrived, will CPM and monitor patient appeared tachypneic, patient denies difficulty breathing, to further evaluate, ABG was done was showed metabolic acidosis and patient was compensating with hyperventilating, discuss with Dr. Redmond excelsior machine tender and started patient on Bicarb IVF, will monitor repeat labs. repeat labs shows improvement in metabolic acidosis as well as patient mentation, repeat CXR on 05/03 did show mild improvement in his pneumonia, infiltrates still persist, patient overall symptoms are improving, patient metabolic acidosis is improving, patient is encourage out of bed and ambulate, patient is seen by Dr. Quesada his hydrometeorologist. will monitor. Repeat x-ray showed persistent pneumonia, and patient stats he feels congested and has cough, will CPM and monitor. Review of Systems Review of Systems: All systems reviewed & are unremarkable except as noted in HPI and below Exam Narrative: Patient is comfortable, NAD HEENT: eyes are clear and none icteric LUNGS: Bilateral poor air entry with rhonchi HEART: RR S1S2 ABD: BS+, Soft and nontender Lower extremities: no edema SKIN: nonjaundiced Neuro: grossly intact. Objective Data Vital Signs Vital Signs: Vital Signs - 24 hr 05/03/25 20:00 05/03/25 20:05 05/03/25 22:30 Temperature 36.6 C Pulse Rate 87 69 Respiratory Rate 16 18 Blood Pressure 134/71 Pulse Oximetry 97 97 Oxygen Delivery Room Air Fraction of Inspired Oxygen 05/03/25 22:36 05/04/25 01:27 05/04/25 05:12 Temperature 36.6 C Pulse Rate 70 85 Respiratory Rate 18 16 Blood Pressure 133/70 Pulse Oximetry 94 97 Oxygen Delivery Room Air Fraction of Inspired Oxygen 05/04/25 08:16 05/04/25 08:28 05/04/25 08:28 Temperature Pulse Rate 94 Respiratory Rate 18 18 Blood Pressure Pulse Oximetry 96 96 Oxygen Delivery Room Air Room Air Fraction of Inspired Oxygen 05/04/25 13:56 Temperature 36.7 C Pulse Rate 88 Respiratory Rate 22 H Blood Pressure 135/85 Pulse Oximetry 97 Oxygen Delivery Fraction of Inspired Oxygen Intake/Output Intake/Output: Intake & Output 05/01/25 05/02/25 05/03/25 05/04/25 23:59 23:59 23:59 23:59 Intake Total 990 1820 2300 880 Balance 990 1820 2300 880 Meds/Results Medications: Active Medications Generic Name Dose Route Start Last Admin Trade Name Freq PRN Reason Stop Dose Admin Acetaminophen 650 mg 04/27/25 02:15 05/04/25 08:15 Acetaminophen 325 Mg Tablet PO 650 mg Q4H PRN Administration Mild Pain (1-3) or Fever Albuterol/Ipratropium 3 ml 04/27/25 14:44 05/03/25 22:29 Ipratropium 0.5 Mg/Albuterol Sulfate 2.5 Mg (Base) Ampul.Neb 3 Ml INHALATION 3 ml Q6HRT PRN Administration Wheezing Aspirin 81 mg 04/27/25 09:00 05/04/25 08:15 Aspirin 81 Mg Enteric Tablet PO 81 mg DAILY JOSE Administration Atorvastatin Calcium 80 mg 04/27/25 21:00 05/03/25 21:11 Atorvastatin 40 Mg Tablet PO 80 mg QHS JOSE Administration Calcium Carbonate 500 mg 04/30/25 10:00 05/04/25 13:40 Calcium Carbonate (Oscal) 500 Mg Tablet PO 500 mg 1000,1400,1800 JOSE Administration Clopidogrel Bisulfate 75 mg 04/27/25 09:00 05/04/25 08:16 Clopidogrel Bisulfate 75 Mg Tablet PO 75 mg DAILY JOSE Administration Ferrous Sulfate 325 mg 04/27/25 09:00 05/04/25 08:14 Ferrous Sulfate 325 Mg Tablet BY MOUTH 325 mg DAILY JOSE Administration Fluticasone/Umeclidinium/Vilanterol 1 puff 04/27/25 08:00 05/04/25 08:26 Fluticasone/Umeclidin/Vilanter 100-62.5-25 Mcg Ellipta INHALATION 1 puff DAILYRT JOSE Administration Piperacillin Sod/Tazobactam 50 mls @ 100 mls/hr 04/27/25 10:30 05/04/25 12:10 Sod 3.375 gm/ Sodium Chloride IVPB Infused Q6HR JOSE Infusion Loratadine 10 mg 04/27/25 09:00 05/04/25 08:15 Loratadine 10 Mg Tablet PO 10 mg QAM JOSE Administration Ondansetron HCl 4 mg 04/27/25 02:15 Ondansetron Inj 4 Mg/2 Ml Vial IV PUSH Q4H PRN Nausea Pantoprazole Sodium 40 mg 04/27/25 09:00 05/04/25 08:15 Pantoprazole 40 Mg Tablet BY MOUTH 40 mg DAILY JOSE Administration Tamsulosin HCl 0.4 mg 04/27/25 09:00 05/04/25 08:14 Tamsulosin Hcl 0.4 Mg Capsule BY MOUTH 0.4 mg DAILY JOSE Administration Radiology Results: ITS Impressions Chest/Abdomen/Pelvis CT 04/27/25 08:03 IMPRESSION: 1. Multifocal pneumonia, worst in left lower lobe. 2. Wall thickening of ascending and transverse colon, which may be interstitial edema or colitis. Renal Ultrasound 05/02/25 09:39 IMPRESSION: 1. No acute abnormality. Chest X-Ray 05/03/25 08:13 IMPRESSION: 1. Stable to slightly worse perihilar infiltrates left worse than right compared to the April 30 exam. Labs Labs: Laboratory Results - last 24 hr 05/04/25 04:31 WBC 8.5 RBC 3.02 L Hgb 8.8 L Hct 27.9 L MCV 92.4 MCH 29.1 MCHC 31.5 L RDW 15.7 H Plt Count 324 MPV 11.0 H Sodium 136 L Potassium 3.3 L Chloride 114 H Carbon Dioxide 19 L Anion Gap 3 L BUN 9 Creatinine 0.79 Estim Creat Clear Calc 79 Estimated GFR > 60 Glucose 99 Calcium 7.1 L Phosphorus 2.7 Magnesium 1.8 Albumin 2.4 L
[2025-05-04] MEDS: SENNA/DOCUSATE SODIUM TABLET 1 TAB PO (20:57)
[2025-05-04] MEDS: ATORVASTATIN 40 MG TABLET 80 MG PO (20:58)
[2025-05-04] MEDS: IPRATROPIUM 0.5 MG/ALBUTEROL SULFATE 2.5 MG (BASE) AMPUL.NEB 3 ML INHALATION (23:32)
[2025-05-05 04:30] LABS: Hematocrit 31.5 % (42.0-52.0); Hemoglobin 9.6 g/dL (14.0-18.0); Mean Corpuscular HGB Conc 30.5 g/dl (32-36); Mean Corpuscular Hemoglobin 29.1 pg (26-34); Mean Corpuscular Volume 95.5 fl (80-100); Platelet Count Result 372 k/mm3 (150-375); Red Blood Count 3.30 M/mm3 (4.6-6.20); White Blood Count 7.5 K/mm3 (4.5-10.0)
[2025-05-05 04:35] VITALS: BP 165/88; PULSE 91; RESP 20; TEMP 36.7; O2SAT 93
[2025-05-05 04:42] LABS: Albumin Level 2.7 g/dL (3.5-5.1); Anion Gap 4 mmol/L (4-12); Blood Urea Nitrogen 9 mg/dL (9-20); Calcium 7.3 mg/dL (8.4-10.2); Carbon Dioxide 22 mmol/L (22-30); Chloride 112 mmol/L (98-107); Estimated CRCL calculation 74 ml/min; Estimated Glomerular Filt Rate > 60; Glucose 99 mg/dL (65-110); Magnesium 1.7 mg/dL (1.6-2.3); Potassium 3.5 mmol/L (3.4-5.0); Sodium 138 mmol/L (137-145)
[2025-05-05] MEDS: PIPERACILLIN/TAZOBACTAM SOD 3.375 GM in SODIUM CHLORIDE 0.9% IV 50 ML 100 ML IVPB ×2 (05:06→12:18)
[2025-05-05 07:52] VITALS: O2SAT 97
[2025-05-05] MEDS: FLUTICASONE/UMECLIDIN/VILANTER 100-62.5-25 MCG ELLIPTA 1 PUFF INHALATION (07:52)
[2025-05-05] MEDS: CLOPIDOGREL BISULFATE 75 MG TABLET PO (08:28)
[2025-05-05] MEDS: ASPIRIN 81 MG ENTERIC TABLET PO (08:28)
[2025-05-05] MEDS: LORATADINE 10 MG TABLET PO (08:28)
[2025-05-05] MEDS: PANTOPRAZOLE 40 MG TABLET BY MOUTH (08:29)
[2025-05-05] MEDS: TAMSULOSIN HCL 0.4 MG CAPSULE BY MOUTH (08:29)
[2025-05-05] MEDS: CALCIUM CARBONATE (OSCAL) 500 MG TABLET PO ×2 (08:29→14:02)
[2025-05-05] MEDS: FERROUS SULFATE 325 MG TABLET BY MOUTH (08:29)
[2025-05-05] MEDS: POTASSIUM CHLORIDE 20 MEQ ER TABLET 40 MEQ PO (09:06)
--- NOTE | 2025-05-05 13:55 | P.DS_ITS ---
DS: Admitting Diagnosis Discharge Date 05/05/25 Admitting Diagnosis Dehydration DS: Discharge Diagnosis Discharge Diagnosis (1) Acute renal failure: Code(s): N17.9 - Acute kidney failure, unspecified Status: Acute (2) Acute dehydration: Code(s): E86.0 - Dehydration Status: Acute (3) Acute uremia: Code(s): N19 - Unspecified kidney failure Status: Acute (4) Pneumonia: Code(s): J18.9 - Pneumonia, unspecified organism Status: Acute (5) COPD with emphysema: Code(s): J43.9 - Emphysema, unspecified Status: Acute (6) Severe sepsis: Code(s): A41.9 - Sepsis, unspecified organism; R65.20 - Severe sepsis without septic shock Status: Acute (7) Multifocal pneumonia: Code(s): J18.8 - Other pneumonia, unspecified organism Status: Acute (8) Acute hypoxemic respiratory failure: Code(s): J96.01 - Acute respiratory failure with hypoxia Status: Acute Plan patient appeared tachypneic, patient denies difficulty breathing, to further evaluate, ABG was done was showed metabolic acidosis and patient was compensating with hyperventilating, discuss with Dr. Redmond senior pastor and started patient on Bicarb IVF, will monitor repeat labs. repeat labs shows improvement in metabolic acidosis as well as patient mentation, repeat CXR on 05/03 did show mild improvement in his pneumonia, infiltrates still persist, patient overall symptoms are improving, patient metabolic acidosis is improving, patient is encourage out of bed and ambulate, patient is seen by Dr. Quesada his income tax return preparer. will monitor. Patient with multifocal pneumonia being treated with zosyn and doxycycline, patient stats he feels better compared to when he arrived, will CPM and monitor Repeat x-ray today showed persistent pneumonia, and patient stats he feels congested and has cough, will CPM and monitor. patient appears tachypneic, patient denies difficulty breathing, to further evaluate, ABG was done was showed metabolic acidosis and patient was compensating with hyperventilating, discuss with Dr. Redmond senior pastor and started patient on Bicarb IVF, will monitor repeat labs. patient is seen by Dr. Quesada his income tax return preparer. will monitor. 1.Acute hypoxic respiratory failure likely 2/2 Multifocal pneumonia Multifocal Pneumonia CT chest shows multifocal pneumonia, worse in the left lower lobe. Noted wall thickening of ascending and transverse colon which may be interstitial edema or colitis MRSA PCR negative deescalate vancomycin continue Zosyn add doxycycline p.o. follow blood culture 2. 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 DS: Summary Hospital Course Hospital Course: patient appeared tachypneic, patient denies difficulty breathing, to further evaluate, ABG was done was showed metabolic acidosis and patient was compensating with hyperventilating, discuss with Dr. Redmond senior pastor and started patient on Bicarb IVF, will monitor repeat labs. repeat labs shows improvement in metabolic acidosis as well as patient mentation, repeat CXR on 05/03 did show mild improvement in his pneumonia, infiltrates still persist, patient overall symptoms are improving, patient metabolic acidosis is improving, patient is encourage out of bed and ambulate, patient is seen by Dr. Quesada his income tax return preparer. will monitor. Patient with multifocal pneumonia being treated with zosyn and doxycycline, patient stats he feels better compared to when he arrived, he ambulating without any difficulty, he is clinically stable, will discharge home today. Time Spent with Patient Time attestation: Total time spent providing and/or coordinating discharge services: Exam Narrative: Patient is comfortable, NAD HEENT: eyes are clear and none icteric LUNGS: Bilateral poor air entry with rhonchi HEART: RR S1S2 ABD: BS+, Soft and nontender Lower extremities: no edema SKIN: nonjaundiced Neuro: grossly intact. DS: Data Data Completed and Pending Labs on day of discharge: Labs from last 24 hours 05/05/25 03:52 WBC 7.5 RBC 3.30 L Hgb 9.6 L Hct 31.5 L MCV 95.5 MCH 29.1 MCHC 30.5 L RDW 15.6 H Plt Count 372 MPV 10.8 H Sodium 138 Potassium 3.5 Chloride 112 H Carbon Dioxide 22 Anion Gap 4 BUN 9 Creatinine 0.84 Estim Creat Clear Calc 74 Estimated GFR > 60 Glucose 99 Calcium 7.3 L Phosphorus 2.6 Magnesium 1.7 Albumin 2.7 L Discharge Plan Discharge Attending physician on discharge: Tammie Roth Consulting providers: Cassidy Curran; Sarah Schumacher; Estevan Shaw; Vaughn Magallanes; Sadiq Barrett; Mike Adam V.; Osmany Walls; Deny Bucio; Edy York Discharging Clinician: Chica Dominguez Patient Disposition: Home Activity: as tolerated Diet: heart healthy Discharge Instructions: Patient to follow up his primary care and Dr. Quesada, income tax return preparer as soon as possible, patient is instructed if any symptoms worsen to go to nearest ER Patient Instructions: Antibiotic Form, Acute Kidney Injury (GEN), Pneumonia (GEN) Patient Language: Yakut Stand Alone Forms: General Discharge Information Follow-up/Referrals: Marian Tejada APRN [Primary Care Provider, Internal Medicine] Sarah Schumacher MD [Physician, Nephrology] Discharge Medications: New polyethylene glycol 3350 [Miralax] 17 gram Powder In Packet 17 g PO QAM Qty: 30 0RF sennosides-docusate sodium [Senokot-S] 8.6-50 mg Tablet 1 tab PO HS Qty: 30 0RF Continued aspirin 81 mg tablet,delayed release (DR/EC) 81 mg PO DAILY clopidogrel 75 mg tablet 75 mg PO DAILY atorvastatin 80 mg tablet 80 mg PO QHS fluticasone fur. 100 mcg-umeclid 62.5 mcg-vilant 25 mcg inhalat.powder 100-62.5-25 mcg blister with device 0RF albuterol sulfate 90 mcg/actuation HFA aerosol inhaler See Rx Instructions .ROUTE .COMPLEX Qty: 8.5 2RF Dose Instruction: INHALE 1 PUFF BY MOUTH EVERY 4 HOURS NEEDED FOR SHORTNESS OF BREATH OR WHEEZING Rx Instructions: INHALE 1 PUFF BY MOUTH EVERY 4 HOURS NEEDED FOR SHORTNESS OF BREATH OR WHEEZING sacubitril-valsartan [Entresto] 24-26 mg Tablet 1 tablet PO Q12HR Qty: 60 0RF ferrous sulfate [FeroSul] 325 mg (65 mg iron) tablet See Rx Instructions .ROUTE .COMPLEX Qty: 90 1RF Dose Instruction: TAKE 1 TABLET BY MOUTH EVERY DAY Rx Instructions: TAKE 1 TABLET BY MOUTH EVERY DAY cetirizine 10 mg tablet See Rx Instructions .ROUTE .COMPLEX Qty: 90 1RF Dose Instruction: TAKE 1 TABLET BY MOUTH DAILY Rx Instructions: TAKE 1 TABLET BY MOUTH DAILY tramadol 50 mg tablet 100 mg PO DAILY PRN (Reason: pain) Qty: 60 0RF isopropyl alcohol in glycerin 95-5 % drops 5 drp LEFT EAR DAILY Qty: 30 0RF Trelegy Ellipta 100-62.5-25 mcg blister with device 1 inh inhalation DAILY Qty: 60 2RF pantoprazole 40 mg tablet,delayed release (DR/EC) See Rx Instructions .ROUTE .COMPLEX Qty: 90 0RF Dose Instruction: TAKE 1 TABLET BY MOUTH EVERY MORNING Rx Instructions: TAKE 1 TABLET BY MOUTH EVERY MORNING tamsulosin 0.4 mg capsule See Rx Instructions .ROUTE .COMPLEX Qty: 90 0RF Dose Instruction: TAKE 1 CAPSULE BY MOUTH DAILY Rx Instructions: TAKE 1 CAPSULE BY MOUTH DAILY No Action amoxicillin-pot clavulanate 875-125 mg tablet 1 tablet PO Q12H Rx Instructions: Stop date of 05/09 furosemide [Lasix] 20 mg tablet 20 mg PO DAILY Qty: 30 0RF potassium chloride [Klor-Con M10] 10 mEq tablet,ER particles/crystals 10 meq PO DAILY Qty: 30 0RF Date of admission: 04/27/25 02:15 Primary Care Provider: Marian Tejada Admitting Provider: Tammie Roth Attending physician on admission: Chica Dominguez Condition: Stable
[2025-05-05 14:00] VITALS: BP 149/78; PULSE 105; RESP 16; TEMP 36.4; O2SAT 93
== END 2025-05-05 16:25 | disposition home or self-care (01) | DRG 871 ==
LOC: ANHED 04-27 02:28 → ANHIMU 04-27 03:11 → ANH2MED 04-30 11:50 → ANHIMU 05-07 10:44
PROVIDERS: Internal Medicine; Internal Medicine Nephrology; Admitting Provider General Practice; Emergency Provider Student in an Organized Health Care Education/Training Program; PCP Nurse Practitioner Family; Visit Provider Family Medicine
DX: A41.9 Sepsis, unspecified organism (principal); J18.8 Other pneumonia, unspecified organism; J96.01 Acute respiratory failure with hypoxia; J90 Pleural effusion, not elsewhere classified; N17.9 Acute kidney failure, unspecified; J44.0 Chronic obstructive pulmonary disease with (acute) lower respiratory infection; E87.21 Acute metabolic acidosis; I13.0 Hypertensive heart and chronic kidney disease with heart failure and stage 1 through stage 4 chronic kidney disease, or unspecified chronic kidney disease; R65.20 Severe sepsis without septic shock; K52.89 Other specified noninfective gastroenteritis and colitis; N40.0 Benign prostatic hyperplasia without lower urinary tract symptoms; I25.10 Atherosclerotic heart disease of native coronary artery without angina pectoris; N18.9 Chronic kidney disease, unspecified; I50.9 Heart failure, unspecified; M06.9 Rheumatoid arthritis, unspecified; D64.9 Anemia, unspecified; E78.5 Hyperlipidemia, unspecified; J44.9 Chronic obstructive pulmonary disease, unspecified; E86.0 Dehydration; Z95.1 Presence of aortocoronary bypass graft; Z87.891 Personal history of nicotine dependence
CPT/HCPCS: 36415; 36600; 71045; 71046; 71250; 74176; 76770; 80048; 80053; 80069; 80307; 81001; 82077; 82306; 82550; 82570; 82805; 83735; 84100; 84156; 84300; 84439; 84443; 84480; 84540; 85018; 85025; 85027; 85999; 87040; 87641; 93005; 94640; 96365; 96366; 97110; 97116; 97162; 97166; 97530; 97535; 99285; A9270; J0613; J2543; J3373; J3480; J7030; J7040; J7050; J7070; J7120

== ENCOUNTER 2025-05-06 00:52 | Inpatient (IN) | payer OTHER, SELFPAY ==
[2025-05-06] VITALS (23 sets, daily range): BP systolic 120–148; BP diastolic 56–97; PULSE 85–126; RESP 14–22; TEMP 36.3–36.6; O2SAT 93–100; BMI 28.5
--- NOTE | 2025-05-06 | ECHO_ITS ---
Patient Info Name: Calin Andino Age: 64 years : 1960 Gender: Male Ht: 65 in Wt: 171 lbs BSA: 1.91 m2 HR: 98 bpm BP: 148 / 56 mmHg Technical Quality: Good Exam Date: 05/06/2025 3:53 PM Patient Status: O Admit Date: 05/06/2025 Exam Type: CA echo doppler color flow Complete two-dimensional, color flow and Doppler transthoracic echocardiogram is performed. Staff Referring Physician: Catina Christine Assistant Women'S Rowing Coach: Hosea Tolentino III Attending Provider: Tammie Roth Summary 1. Complete two-dimensional, color flow and Doppler transthoracic echocardiogram is performed. 2. Left ventricular chamber dimension is normal. 3. Left ventricular systolic function is normal, estimated at 60-65. 4. There is mild concentric increased left ventricular wall thickness. 5. The left ventricular diastolic function is grade I diastolic dysfunction. 6. E/e' 9 is minimally elevated. 7. Left atrial chamber dimension is mildly enlarged. 8. There is trace aortic valve regurgitation. 9. There is mild mitral valve regurgitation. 10. There is mild tricuspid valve regurgitation. 11. No pulmonary hypertension, estimated pulmonary arterial systolic pressure is 20 mmHg. Left Ventricle E/e' 9 is minimally elevated. Left ventricular chamber dimension is normal. Left ventricular systolic function is normal, estimated at 60-65. There is mild concentric increased left ventricular wall thickness. The left ventricular diastolic function is grade I diastolic dysfunction. Right Ventricle Right ventricular chamber dimension is normal. Right ventricular systolic function is normal and with normal TAPSE 2.0 cm. Left Atria Left atrial chamber dimension is mildly enlarged. Right Atria Right atrial chamber dimension is normal. Aortic Valve The aortic valve is trileaflet. There is no aortic valve stenosis. There is trace aortic valve regurgitation. Pulmonic Valve There is no pulmonic regurgitation. Mitral Valve There is no mitral valve stenosis. There is mild mitral valve regurgitation. Tricuspid Valve There is mild tricuspid valve regurgitation. No pulmonary hypertension, estimated pulmonary arterial systolic pressure is 20 mmHg. Pericardium/Pleural There is no pericardial effusion. Inferior Vena Cava Normal inferior vena cava with >50% collapse upon inspiration consistent with normal right atrial pressure, 5 mmHg. Aorta The aortic root size at the sinus of Valsalva is normal. Left Ventricular Outflow Tract Name Value Normal LVOT 2D LVOT Diameter 2.2 cm LVOT Doppler LVOT Peak Velocity 127 cm/s LVOT Peak Gradient 6 mmHg LVOT Mean Gradient 3 mmHg LVOT VTI 26 cm LVOT VTI/AV VTI Ratio 0.9 LVOT Stroke Volume 101 ml LVOT CO 8.4 l/min LVOT CI 4.4 l/min/m2 Pulmonic Valve Name Value Normal PV Doppler PV Peak Velocity 95 cm/s PV Peak Gradient 4 mmHg PV Mean Gradient 2 mmHg Mitral Valve Name Value Normal MV Doppler MV Peak Gradient 4 mmHg MV Mean Gradient 2 mmHg MV Area (Cont Eq VTI) 6.2 cm2 MV Regurgitation Doppler MR Peak Gradient 125 mmHg MV Diastolic Function MV E Peak Velocity 65 cm/s MV A Peak Velocity 86 cm/s MV E/A 0.7 MV Decel Time (PW) 180 ms MV Annular TDI MV E/e' (Septal) 15.9 MV E/e' (Lateral) 7.2 MV E/e' (Average) 11.6 Tricuspid Valve Name Value Normal TV Regurgitation Doppler TR Peak Velocity 195 cm/s TR Peak Gradient 15 mmHg Estimated PAP/RSVP RA Pressure 5 mmHg <=5 PA Systolic Pressure 20 mmHg <36 RV Systolic Pressure 20 mmHg <36 TV Annular TDI TV Lateral Kena s' Velocity 12.2 cm/s >=9.5 Aortic Valve Name Value Normal AV Doppler AV Peak Velocity 143 cm/s AV Peak Gradient 8 mmHg AV Mean Gradient 4 mmHg AV VTI 28 cm AV Area (Cont Eq VTI) 3.7 cm2 >=3.0 AV Area (Cont Eq Navdeep) 3.4 cm2 AV DI (Navdeep) 0.88 AV Regurgitation 2D LVOT Area 3.9 cm2 Ventricles Name Value Normal LV Dimensions 2D/MM IVS Diastolic Thickness (2D) 1.2 cm 0.6-1.0 LVID Diastole (2D) 4.4 cm 4.2-5.8 LVIW Diastolic Thickness (2D) 1.1 cm 0.6-1.0 LVID Systole (2D) 3.0 cm 2.5-4.0 LVOT Diameter 2.2 cm LV Mass (2D Cubed) 180.38 g 88.00-224.00 LV Mass Index (2D Cubed) 95 g/m2 49-115 Relative Wall Thickness (2D) 0.51 <=0.42 LV Fractional Shortening/Ejection Fraction 2D/MM LV Fractional Shortening (2D) 31 % 25-43 LV EF (2D Teichholz) 59 % LV Diastolic Volume (4C MOD) 61 ml LV EF (4C MOD) 57 % LV Diastolic Volume (2C MOD) 77 ml LV EF (2C MOD) 47 % LV Diastolic Volume (BP MOD) 74 ml 62-150 LV Diastolic Volume Index (BP MOD) 39 ml/m2 34-74 LV Systolic Volume (BP MOD) 35 ml 21-61 LV Systolic Volume Index (BP MOD) 18 ml/m2 11-31 LV EF (BP MOD) 53 % 52-72 LV Diastolic Length (4C) 7.0 cm LV Systolic Length (4C) 6.1 cm LV Stroke Volume (4C MOD) 34 ml Atria Name Value Normal LA Dimensions LA Volume (4C A-L) 58 ml LA Volume (BP A-L) 58 ml RA Dimensions RA Systolic Major Rogers Length (4C) 5.5 cm 2.1-2.7 RA Area (4C) 15.4 cm2 <=18.0 Report Signatures
--- NOTE | ~2025-05-06 | XR_ITS ---
Examination: XR chest 2V Clinical History: f/u bilateral pleural effusions Comparison: X-ray and CTA chest 2 days prior Technique: PA and Lateral Findings: Cardiomediastinal silhouette normal size and configuration. Persistent foci bibasilar airspace disease, left lung worse. Small pleural effusions. Emphysema. No acute bony abnormality. IMPRESSION: 1. Persistent foci airspace disease, left lung worse. 2. Small pleural effusions. Reviewed, dictated and finalized at location R. [facility]
--- NOTE | ~2025-05-06 | CT_ITS ---
CTA CHEST CLINICAL HISTORY: SOB, recent PNA; dimer >1 . COMPARISON: X-rays one day prior CT chest 04/26/2025 TECHNIQUE: Helical CTA performed from thoracic inlet to upper abdomen 100 mL Omnipaque 350 Coronal, sagittal reformats. Multiplanar MIPS CT images acquired with automatic exposure control for dose reduction DLP: 395 mGy-cm FINDINGS: Severe respiratory motion artifact. Pulmonary arteries: No PE. Thoracic Aorta: No dissection or aneurysm. Heart/pericardium: Unremarkable. RV/LV ratio: Normal. Lungs/Pleura: Emphysema. Moderate right and small left pleural effusions. Improving but persistent airspace disease left lower lobe small focus right middle lobe. Tracheobronchial tree: Patent. Nodes: No enlarged nodes. Bones: No acute bony abnormality. Soft tissues: Unremarkable. Visualized upper abdomen: Unremarkable. IMPRESSION: 1. No PE. 2. Moderate right and small left pleural effusions. 3. Improving but persistent bilateral foci of pneumonia. Reviewed, dictated and finalized at location R. [facility] ANALYT[facility]
--- NOTE | ~2025-05-06 | XR_ITS ---
Examination: XR chest 2V Clinical History: sepsis SOB Comparison: Chest x-ray one day prior CT chest 04/26/2025 Technique: PA and Lateral Findings: Cardiomediastinal silhouette normal size and configuration. Emphysema. Left lower lobe airspace disease as before. No acute bony abnormality. IMPRESSION: 1. Persistent left lower lobe airspace disease. Reviewed, dictated and finalized at location R. [facility] [employer]
--- NOTE | 2025-05-06 01:11 | ECG_ITS ---
Test Date: 2025-05-06 01:13:02 Measurements Intervals [place] Rate: 111 P: 0 NH: 0 QRS: 5 QRSD: 130 T: 109 QT: 353 QTc: 480 Interpretive Statements SINUS TACHYCARDIA LEFT BUNDLE BRANCH BLOCK [120+ ms QRS DURATION, 80+ ms Q/S IN V1/V2, 85+ ms R IN I/aVL/V5/V6] Compared to ECG 04/26/2025 21:22:57 NO CHANGES Electronically Signed On 05-06-2025 12:26:53 POST SPLITTER by Sourav Bai M.D.
--- OUTSIDE RECORDS SUMMARY | 2025-05-06 02:06 | XMS_ITS | Clinical Summary ---
Author Organization [facility] Address [address] [place] [address] Care Team Providers Care Insurance Healthcare Representative Name Role Phone Moses Reyes MD Primary Care Provider [phone] Vahid Jay MD Unavailable [phone] Estevan Shaw MD Unavailable [phone] Allergies No known active allergies Medications tamsulosin [...] Type Department Care Team Description 02/23/2025 Telephone [facility] Cardiology [address] [facility] [facility] [address] [place] [address] Estevan Shaw MD cardiac clearance 02/15/2025 Results Follow-Up [facility] Cardiology [address] [place] [id number] Estevan Shaw MD Transthoracic Echo (TTE) Complete W Doppler/CF 02/12/2025 1:00 PM CDT Ancillary Procedure [facility] Cardiology [address] [place] [address] LBBB (left bundle branch block); Essential hypertension; 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 No 10/07/2023 Social Connection and Isolation Panel Answer Date Recorded In a typical week, how many times do you talk on the phone with family, friends, or neighbors? Once a week 10/07/2023 How often do you get together with friends or re latives? Once a week 10/07/2023 How often do you attend religion or jew serv ices? Never 10/07/2023 Do you belong to any clubs o r organizations such as religion groups, unions, fraternal or athletic groups, or [...] place to sleep or slept in a usp (including now)? No 10/07/2023 Personal Safety Answer Date Recorded Have you ever been in or are you currently in a harmful physical or emotional relationship or is someone making you feel afraid or unsafe? 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 INSERTER Gender Identity Male 06/26/2018 1:21 PM INSERTER Sexual Orientation Not on file Last Filed [...] 04/04/203305/2023, 04/04/2023 Medical Devices Implanted Type Area Picture Frame Maker Device Identifier Shelf Expiration Date Model / Serial / Lot Screw Screw N/A: Neck Screw Screw Left: Ankle [employer] Device Vascular Closure Femoral Artery Bioabsorbable Dual Method Vascade 6-7fr Collagen [id number] - [id number] Implanted:Qty: 1 on 09/10/2023 by Estevan Shaw MD at [facility] [employer] 04/17/2025 [id number] / / [id number] Procedures Procedure Name Priority Date/Time Associated Diagnosis Comments TRANSTHORACIC ECHO (TTE) COMPLETE W DOPPLER/CF WO CONTRAST Routine 02/12/2025 1:53 PM CDT LBBB (left bundle branch block) Essential hypertension 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 Chronic diastolic heart failure (HCC) from Last 3 Months Results * TRANSTHORACIC ECHO (TTE) COMPLETE W DOPPLER/CF WO CONTRAST (02/12/2025 1:53 PM CDT) EF Mod BP 61 % CONS SCIMAGE Anatomical Region Laterality Modality Ultrasound 02/12/2025 1:22 PM CDT Narrative 02/12/2025 6:16 PM CDT [facility] Cardiology [address] [facility] [address] [address] [address] [facility] [address], [place] [address] P:[phone] P:[phone] Echocardiographic Report Patient Name: VIRI CARMONA C : 1960 Study Date: 02/12/2025 1:22:44 PM Gender: M 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 With Strain Analysis. INDICATIONS: I44.7 Left bundle-branch block, unspecified, I10 Essential (primary) hypertension, I25.118 Atherosclerotic heart disease of council coronary artery with other forms of angina [...] FINDINGS: Interpretation Site: Exam was interpreted at [facility]. Left Ventricle: Normal left ventricular systolic [...] effusion. Electronically Signed By: Dr. 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 With Strain Analysis. INDICATIONS: I44.7 Left bundle-branch block, unspecified, I10 Essential (primary)hypertension, I25.118 Atherosclerotic heart disease of council coronary artery with otherforms of angina pectoris, [...] FINDINGS: Interpretation Site: Exam was interpreted at [facility]. Left Ventricle: Normal left ventricular systolic [...] effusion. Electronically Signed By: Dr. Estevan Shaw [facility] 02/12/2025 6:15:48 PM CDT Estevan Shaw MD CV ECHO PROCEDURES F inal Result from Last 3 Months Insurance [facility] Advance Directives For more information, please contact: [phone] * Full Code (Latest Code Status on File) Date Activated Date Inactivated Comments 10/01/2023 4:00 PM 10/07/2023 8:06 PM * Full Code Date Activated Date Inactivated Comments 09/10/2023 10:46 AM 09/10/2023 5:09 PM Care Teams Insurance Healthcare Representative Relationship Specialty Start Date End Date Moses Reyes MD PCP - General Family Practice 09/10/23 Vahid Jay MD Surgeon Cardiothoracic Surgery 10/07/23 Estevan Shaw MD [facility] JONNY [address] [place] [address] Consulting Physician Cardiovascular Disease 10/07/23
--- OUTSIDE RECORDS SUMMARY | 2025-05-06 02:06 | XMS_ITS | Clinical Summary ---
Author Organization [facility] Address [address] [place] [address] Care Team Providers Care Mimeographer Name Role Phone Unavailable Primary Care Provider [...]
[2025-05-06 02:38] LABS: Hematocrit 32.8 % (42.0-52.0); Hemoglobin 10.4 g/dL (14.0-18.0); Immature Granulocyte Percent A 0.3 % (0-0.5); Lymphocytes Absolute Auto 2.00 K/mm3 (0.9-3.2); Mean Corpuscular HGB Conc 31.7 g/dl (32-36); Mean Corpuscular Hemoglobin 29.5 pg (26-34); Mean Corpuscular Volume 93.2 fl (80-100); Nucleated Red Blood Cells Absolute Auto 0.000 K/mm3 (0.0-0.012); Nucleated Red Blood Cells Perc 0.0 % (0.0-0.2); Platelet Count Result 403 k/mm3 (150-375); Red Blood Count 3.52 M/mm3 (4.6-6.20); White Blood Count 9.9 K/mm3 (4.5-10.0)
--- NOTE | 2025-05-06 02:38 | ED.SOB ---
HPI - SOB/Dyspnea General Chief Complaint: Shortness of Breath/Dyspnea Stated Complaint: dyspnea Time Seen by Provider: 05/06/25 01:55 Source: patient and EMS (radio report) Mode of arrival: EMS Limitations: no limitations History of Present Illness HPI Narrative: Patient presents with for shortness of breath with audible wheezes. He had been discharged from this hospital earlier today with diagnosis of pneumonia. EMS administered a DuoNeb. History of COPD by their report. Patient also reports history of heart failure and is on Entresto. Status post open heart surgery . Also on Xarelto. He does not know which antibiotics he was prescribed upon discharge; his plan was to pick them up today, 05/06/2025. He reports quitting smoking 1/2 years ago. Denies any fevers or chills. Denies requiring BiPAP intubation COPD previously. Related Data Home Medications ?Medication ?Instructions ?Recorded ?Confirmed ?Last Taken ?Type aspirin 81 mg tablet,delayed 81 mg PO DAILY 10/28/23 05/06/25 04/20/25 History release atorvastatin 80 mg tablet 80 mg PO QHS 10/28/23 05/06/25 04/20/25 History clopidogrel 75 mg tablet 75 mg PO DAILY 10/28/23 05/06/25 04/20/25 History amoxicillin 875 mg-potassium 1 tablet PO Q12H 05/06/25 05/06/25 Unknown History clavulanate 125 mg tablet Allergies Allergy/AdvReac Type Severity Reaction Status Date / Time No Known Allergies Allergy Verified 04/27/25 04:29 [facility] Past Medical History Medical History Congestive heart failure COPD with emphysema Benign prostatic hyperplasia Coronary artery disease Post 3 vessel bypass in September 2023. Former smoker Shortness of breath Coronary artery disease Gastroparesis Rheumatoid arthritis Adrenal incidentaloma Adenomatous colon polyp Benign prostatic hyperplasia without lower urinary tract symptoms Essential hypertension Hyperlipidemia LDL goal <100 Surgical History Surgical History History of cervical spinal surgery History of open reduction and internal fixation (ORIF) procedure Left ankle. History of repair of left rotator cuff History of coronary artery bypass graft x 3 (09/2023) PENA to LAD and saphenous vein graft to posterior descending artery and obtuse marginal branch at [facility]. History of colonoscopy with polypectomy Hx of CABG Family History Family History Sibling Family history of multiple sclerosis Family history of diabetes mellitus in first degree relative Mother Carcinoma of colon Family history of coronary artery disease Father Carcinoma of colon Family history of heart disease in male family member before age 55 Patient's father is Family history of cardiovascular disease Other Cancer Family history of malignant neoplasm Heart disease Social History Social History Social History: Surrogate medical decision maker: Cara Miranda, sibling. Code status: Full code. Smoking packs per day: 0.5 Smoking cigarettes per day: 10.0 Years smoked: 40 Smoking pack-years: 20.00 Smoking status: Former smoker Tobacco type: cigarettes Second hand tobacco smoke exposure: No Smoking end date: 10/14/23 Alcohol intake: former Alcohol use details: 12 pack beer/week Substance use: never Substance use type: does not use Do You Feel Safe in your Home?: Yes Lack of Transportation: YES Lack of Food: Never True Current Housing: I Have Housing Concerned About Future Housing: No Difficulty Paying Gas/Electric Bills: No Difficulty Paying for Meds: No Currently Unemployed: No Education: Bachelor's Degree Difficulty w/ Childcare or Family Care: No Living arrangements: with family Additional living arrangements comments: Lives in an apartment in the basement of his sister's home. Occupation/Education: retired Additional occupation/education comments: [employer]. Spiritual care concerns: No Exam Narrative: GENERAL: well-nourished, and in no acute distress. Appears older than stated age. HEAD: Normocephalic, atraumatic. EYES: Non injected, non icteric ENT: Nares clear, no rhinorrhea or epistaxis. Gross auditory acuity intact. NECK: Supple. No meningismus. CHEST: Speaking in full sentences. No respiratory distress. Wheezes bilaterally. HEART: Tachycardic rate and rhythm. . ABDOMEN: Soft, nondistended. No rigidity or guarding. Not peritoneal EXTREMITIES: Normal range of motion. One to 2+ pitting edema on the left, 2 to 3+ pitting edema on the right at the mid-distal tibias. SKIN: Warm, dry. NEURO: No focal deficits. Alert and oriented. Answering questions. Following commands. Normal speech without aphasia or dysarthria. PSYCH: Normal mood and affect. Course Vital Signs Vital signs: Vital Signs Pulse Rate 117 H 05/06/25 01:04 Respiratory Rate 22 H 05/06/25 01:04 Pulse Oximetry 97 05/06/25 01:04 Oxygen Delivery Room Air 05/06/25 01:04 Temperature 97.4 F L 05/06/25 14:00 Pulse Rate 85 05/06/25 16:00 Respiratory Rate 16 05/06/25 14:00 Blood Pressure 148/56 H 05/06/25 14:00 Pulse Oximetry 96 05/06/25 14:00 Oxygen Delivery Room Air 05/06/25 08:00 MDM - SOB/Dyspnea MDM Narrative Medical decision making narrative: Patient presents with shortness of breath. Discharged from the hospital earlier today with diagnosis of pneumonia. History of both COPD and heart failure status post open heart surgery and on both Entresto and Xarelto by report. In the emergency department he is afebrile with vital notable for tachycardia and mild tachypnea. Microscopic hematuria. Dimer greater than 1. Will proceed with CT PE imaging especially given mild asymmetry in lower extremity edema though more likely due to heart failure. No leukocytosis. Normocytic anemia stable. Mild elevation in platelets, likely stress response. Lactic acid and CRP normal. Viral swab negative. BNP elevated. Lasix ordered. additional Albuterol inhaler ordered. Patient reassessed at approximately 5:00 a.m.. He reports his breathing is doing okay right now although 10 minutes ago he says he had another episode. He denies any significant coughing that sets office episodes. On auscultation, his breathing is improved. He only has faint wheezes. He has been having tachycardia in the 110s and I believe this might be due to albuterol effects. Another neb treatment, this time levalbuterol, is ordered. Patient reassessed again. He does continue to have some faint wheezes. Discussed options of being discharged home and picking up prescription for antibiotic however patient reports that he is very scared given the degree of shortness of breath and respiratory distress that he experienced overnight. Reviewed with Dr Roth, hospitalist. Will be med tele. Has been persistently tachycardic including at the time discharge per his review. It does appear that patient had a TSH T4 and T3 done during the last admission with mild abnormalities. Dr. Roth accept the admission. He will be med surg bed with telemetry. He Will place orders for antibiotics. Requests an order for procalcitonin by me; this results as normal. Differential Diagnosis Differential diagnosis: Likely acute exacerbation of chronic obstructive airways disease, congestive heart failure, community acquired pneumonia, pulmonary embolism and other (pulmonary hypertension; ACS) Medical Records Attestation: I reviewed the patient's medical records. Medical records narrative: Hospital stay reviewed: He had been on Zosyn and doxy. Patient had been discharged with Rx for Augmentin, 11 tablets, 6 day course. Lab Data Attestation: I reviewed the patient's lab results. 05/06/25 02:31 05/06/25 02:31 Labs: Lab Results 05/06/25 05/06/25 05/06/25 Range/Units 02:31 02:39 02:42 WBC 9.9 (4.5-10.0) K/mm3 RBC 3.52 L (4.6-6.20) M/mm3 Hgb 10.4 L (14.0-18.0) g/dL Hct 32.8 L (42.0-52.0) % MCV 93.2 (80-100) fl MCH 29.5 (26-34) pg MCHC 31.7 L (32-36) g/dl RDW 15.7 H (11.5-14.5) % Plt Count 403 H (150-375) k/mm3 MPV 10.4 (7.4-10.4) fl Immature Gran % (Auto) 0.3 (0-0.5) % Neut % (Auto) 73.8 H (45.5-73.1) % Lymph % (Auto) 20.3 (18.3-44.2) % Tarrant % (Auto) 4.7 (2.6-8.5) % Eos % (Auto) 0.6 (0-4.4) % Baso % (Auto) 0.3 (0.2-1.2) % Lymph # (Auto) 2.00 (0.9-3.2) K/mm3 Tarrant # (Auto) 0.5 (0.1-0.6) K/mm3 Eos # (Auto) 0.1 (0-0.3) K/mm3 Baso # (Auto) 0.0 (0.0-0.1) K/mm3 Abs Immat Gran (auto) 0.03 (0.00-0.031) K/mm3 Absolute Neuts (auto) 7.3 H (1.3-6.7) K/mm3 Absolute Nucleated RBC 0.000 (0.0-0.012) K/mm3 Nucleated RBC % 0.0 (0.0-0.2) % PT 14.4 (11.1-14.7) Seconds INR 1.1 APTT 31.6 (22.3-36.8) Seconds D-Dimer 2.38 H (<0.48) ug/mL Sodium 138 (137-145) mmol/L Potassium 3.8 (3.4-5.0) mmol/L Chloride 112 H (98-107) mmol/L Carbon Dioxide 22 (22-30) mmol/L Anion Gap 4 (4-12) mmol/L BUN 8 L (9-20) mg/dL Creatinine 0.79 (0.7-1.3) mg/dL Estim Creat Clear Calc Not Reportable Estimated GFR > 60 (59 - ) Glucose 109 (65-110) mg/dL Lactic Acid 1.4 (0.7-2.0) mmol/L Calcium 7.8 L (8.4-10.2) mg/dL Total Bilirubin 0.6 (0.2-1.3) mg/dL AST 37 (17-59) U/L ALT 19 (6-50) U/L Alkaline Phosphatase 123 (38-126) U/L Troponin I 0.025 (0.000-0.034) ng/mL C-Reactive Protein 0.9 (<1.0) mg/dL NT-Pro-B Natriuret Pep 43127 H (19.9-100) pg/mL Total Protein 7.7 (6.3-8.2) g/dL Albumin 3.3 L (3.5-5.1) g/dL Procalcitonin 0.2 ng/mL Urine Color Yellow (Yellow) Urine Appearance Clear (Clear) Urine pH 5.5 (5.0-9.0) Ur Specific Harman 1.012 (1.001-1.035) Urine Protein Trace (Negative) mg/dL Urine Glucose (UA) Negative (Negative) mg/dL Urine Ketones Negative (Negative) mg/dL Ur Blood (Man) Trace (Negative) Urine Nitrate Negative (Negative) Urine Bilirubin Negative (Negative) Urine Urobilinogen 0.2 (<2.0) mg/dL Leukocyte Esterase Rfl Negative (Negative) KEAGAN/UL Urine RBC 6-10 H (0-2) /hpf Urine WBC 0-5 (0-3) /hpf Ur Squamous Epith Cells None seen (Few) /hpf Urine Bacteria None seen /hpf Urine Casts 0-2 Influenza A (RT-PCR) (Negative) Influenza B (RT-PCR) (Negative) RSV (RT-PCR) (Negative) SARS-CoV-2 RNA (RT-PCR) (Negative) 05/06/25 Range/Units 02:52 WBC (4.5-10.0) K/mm3 RBC (4.6-6.20) M/mm3 Hgb (14.0-18.0) g/dL Hct (42.0-52.0) % MCV (80-100) fl MCH (26-34) pg MCHC (32-36) g/dl RDW (11.5-14.5) % Plt Count (150-375) k/mm3 MPV (7.4-10.4) fl Immature Gran % (Auto) (0-0.5) % Neut % (Auto) (45.5-73.1) % Lymph % (Auto) (18.3-44.2) % Tarrant % (Auto) (2.6-8.5) % Eos % (Auto) (0-4.4) % Baso % (Auto) (0.2-1.2) % Lymph # (Auto) (0.9-3.2) K/mm3 Tarrant # (Auto) (0.1-0.6) K/mm3 Eos # (Auto) (0-0.3) K/mm3 Baso # (Auto) (0.0-0.1) K/mm3 Abs Immat Gran (auto) (0.00-0.031) K/mm3 Absolute Neuts (auto) (1.3-6.7) K/mm3 Absolute Nucleated RBC (0.0-0.012) K/mm3 Nucleated RBC % (0.0-0.2) % PT (11.1-14.7) Seconds INR APTT (22.3-36.8) Seconds D-Dimer (<0.48) ug/mL Sodium (137-145) mmol/L Potassium (3.4-5.0) mmol/L Chloride (98-107) mmol/L Carbon Dioxide (22-30) mmol/L Anion Gap (4-12) mmol/L BUN (9-20) mg/dL Creatinine (0.7-1.3) mg/dL Estim Creat Clear Calc Estimated GFR (59 - ) Glucose (65-110) mg/dL Lactic Acid (0.7-2.0) mmol/L Calcium (8.4-10.2) mg/dL Total Bilirubin (0.2-1.3) mg/dL AST (17-59) U/L ALT (6-50) U/L Alkaline Phosphatase (38-126) U/L Troponin I (0.000-0.034) ng/mL C-Reactive Protein (<1.0) mg/dL NT-Pro-B Natriuret Pep (19.9-100) pg/mL Total Protein (6.3-8.2) g/dL Albumin (3.5-5.1) g/dL Procalcitonin ng/mL Urine Color (Yellow) Urine Appearance (Clear) Urine pH (5.0-9.0) Ur Specific Harman (1.001-1.035) Urine Protein (Negative) mg/dL Urine Glucose (UA) (Negative) mg/dL Urine Ketones (Negative) mg/dL Ur Blood (Man) (Negative) Urine Nitrate (Negative) Urine Bilirubin (Negative) Urine Urobilinogen (<2.0) mg/dL Leukocyte Esterase Rfl (Negative) KEAGAN/UL Urine RBC (0-2) /hpf Urine WBC (0-3) /hpf Ur Squamous Epith Cells (Few) /hpf Urine Bacteria /hpf Urine Casts Influenza A (RT-PCR) Negative (Negative) Influenza B (RT-PCR) Negative (Negative) RSV (RT-PCR) Negative (Negative) SARS-CoV-2 RNA (RT-PCR) Negative (Negative) Imaging Data Attestation: I personally reviewed and interpreted this imaging study as follows: My impression: CXR independent interpretation: Sternotomy wires. Patchy infiltrates most appreciated at the bases. Cervical spinal hardware also appreciated. Radiologist's impression: CTA Chest Impression: Bilateral small pleural effusions, right more than left. No acute pulmonary embolism. No aortic dissection. Multifocal consolidative density seen in the left lower lobe, suggestive of pneumonia. Focus of subsegmental atelectasis medially in the right middle lobe. Mild centrilobular emphysema. ECG Data EKG #1: Attestation: I personally reviewed and interpreted this ECG as follows: ECG completion date: 05/06/25 ECG completion time: 01:13 Interpretation: Pre populated EKG algorithm suggests atrial flutter/tachycardia however there are P-waves appreciable before QRS complexes in QRS complexes that follow P-waves this is most obvious in leads 1, 2, V1, V3. I believe the baseline wander of the isoelectric line is causing the poor interpretation. Rate 111. QRS 130. QT/QTC 353/480. Good R-wave progression across the precordial leads. EKG #2: Attestation: I personally reviewed and interpreted this ECG as follows: ECG completion date: 05/06/25 ECG completion time: 05:32 Interpretation: Sinus tachycardia at a rate of 107 beats per minute. ME interval 146. QRS 135. QT/QTC 370/432. T-wave inversion in V6. Left bundle-branch block with QRS duration greater than 120 milliseconds, dominant S-wave in V1, broad monophasic R-wave in lateral leads (1, aVL, V5-V6), absence of Q-waves in lateral leads. Discharge Plan Discharge Clinical Impression: Shortness of breath, Normocytic anemia, Pneumonia, Bilateral pleural effusion, Acute exacerbation of chronic heart failure, COPD (chronic obstructive pulmonary disease), Wheeze, Bilateral lower extremity edema Patient Disposition: Still a Patient Condition: Stable
[2025-05-06 02:48] LABS: Alanine Aminotransferase 19 U/L (6-50); Albumin Level 3.3 g/dL (3.5-5.1); Alkaline Phosphatase 123 U/L (38-126); Anion Gap 4 mmol/L (4-12); Aspartate Amino Transferase 37 U/L (17-59); Bilirubin,Total 0.6 mg/dL (0.2-1.3); Blood Urea Nitrogen 8 mg/dL (9-20); Calcium 7.8 mg/dL (8.4-10.2); Carbon Dioxide 22 mmol/L (22-30); Chloride 112 mmol/L (98-107); Estimated Glomerular Filt Rate > 60; Glucose 109 mg/dL (65-110); Potassium 3.8 mmol/L (3.4-5.0); Sodium 138 mmol/L (137-145); Total Protein 7.7 g/dL (6.3-8.2)
[2025-05-06 02:53] LABS: INR 1.1; Prothrombin Time 14.4 Seconds (11.1-14.7)
[2025-05-06 02:54] LABS: Partial Thromboplastin Time 31.6 Seconds (22.3-36.8)
[2025-05-06 02:55] LABS: Add Urine Microscopic? YES; Appearance Urine Clear (Clear); Glucose Urine UA Negative (Negative); Leukocyte Esterase Ur Negative LEU/UL (Negative); Nitrate Urine Negative (Negative); Non Pathogenic Casts 0-2; Specific Grav Ur 1.012 (1.001-1.035)
[2025-05-06] MEDS: IPRATROPIUM 0.5 MG/ALBUTEROL SULFATE 2.5 MG (BASE) AMPUL.NEB 3 ML INHALATION (03:16)
[2025-05-06 03:22] LABS: CRP 0.9 mg/dL (<1.0)
[2025-05-06 03:32] LABS: Influenza A QL RT-PCR Negative (Negative); Influenza B QL RT-PCR Negative (Negative); RSV RNA, RT-PCR Negative (Negative); SARS-CoV-2 RNA PCR Negative (Negative)
[2025-05-06 03:36] LABS: Troponin I 0.025 ng/mL (0.000-0.034)
[2025-05-06 03:39] LABS: NT Pro B Type Natriuretic Pept 12200 pg/mL (19.9-100)
[2025-05-06] MEDS: FUROSEMIDE INJ 40 MG/4 ML VIAL 20 MG IV PUSH (03:57)
[2025-05-06] MEDS: ALBUTEROL SULFATE NEB 2.5 MG/3 ML INH INHALATION (03:57)
[2025-05-06] MEDS: ACETAMINOPHEN 500 MG TABLET 1000 MG PO (05:12)
--- NOTE | 2025-05-06 05:12 | ECG_ITS ---
Test Date: 2025-05-06 05:32:48 Measurements Intervals [place] Rate: 107 P: 31 DE: 146 QRS: -7 QRSD: 135 T: 121 QT: 370 QTc: 494 Interpretive Statements SINUS TACHYCARDIA LEFT BUNDLE BRANCH BLOCK [120+ ms QRS DURATION, 80+ ms Q/S IN V1/V2, 85+ ms R IN I/aVL/V5/V6] Compared to ECG 05/06/2025 01:13:02 No significant changes Electronically Signed On 05-06-2025 12:28:12 [facility] [place] by Sourav Bai M.D.
[2025-05-06] MEDS: CEFEPIME 2 GM in SODIUM CHLORIDE 0.9% IV 50 ML 100 ML IVPB ×2 (06:08→17:06)
--- NOTE | 2025-05-06 06:23 | WPCEDHO ---
ED Hand Off Checklist All vitals saved:yes IV Site documented:yes All med administrations documented:yes Triage Note Triage Note Pt arrived via EMS c/o SOB with 05/06/25 01:04 audible wheezing, pt was DC earlier today with pneumonia. EMS administered DuoNeb with no improvement HX; COPD Allergies No Known Allergies Allergy (Verified 04/27/25 04:29) Family History (Last Reviewed 04/27/25 @ 04:30 by Kalyani Tipton RN) Sibling Family history of multiple sclerosis Family history of diabetes mellitus in first degree relative Mother Carcinoma of colon Family history of coronary artery disease Father Carcinoma of colon Family history of heart disease in male family member before age 55 Patient's father is Family history of cardiovascular disease Other Cancer Family history of malignant neoplasm Heart disease Active Medications including assessments/comments Cefepime HCl 2 gm/ Sodium (Chloride) 50 mls @ 100 mls/hr IVPB ONCE STA Stop: 05/06/25 06:26 Last Admin: 05/06/25 06:08 Dose: 100 mls/hr Documented By: MIRTA Infusion/Titration Document 05/06/25 06:08 EZG (Rec: 05/06/25 06:08 EZG [id number]) Intake IV Site Peripheral Access Left Antecubital Container Volume 50 Waste Amount 0 Dosing Infusion Rate 100 Increase/Decrease Started Elapsed Time Elapsed Time ( 0m minutes) Administered/Completed Medications Discontinued Medications Acetaminophen (Acetaminophen 500 Mg Tablet) 1,000 mg PO ONCE STA Stop: 05/06/25 05:09 Last Admin: 05/06/25 05:12 Dose: 1,000 mg Documented By: MIRTA Albuterol (Albuterol Sulfate Neb 2.5 Mg/3 Ml Inh) 2.5 mg INHALATION ONCE STA Stop: 05/06/25 03:50 Last Admin: 05/06/25 03:57 Dose: 2.5 mg Documented By: WILBER Albuterol/Ipratropium (Ipratropium 0.5 Mg/Albuterol Sulfate 2.5 Mg (Base) Ampul.Neb 3 Ml) 3 ml INHALATION ONCE STA Stop: 05/06/25 02:59 Last Admin: 05/06/25 03:16 Dose: 3 ml Documented By: WILBER Furosemide (Furosemide Inj 40 Mg/4 Ml Vial) 20 mg IV PUSH ONCE STA Stop: 05/06/25 03:48 Last Admin: 05/06/25 03:57 Dose: 20 mg Documented By: MIRTA Levalbuterol HCl (Levalbuterol Neb 1.25 Mg/3 Ml) 1.25 mg INHALATION ONCE ONE Stop: 05/06/25 04:57 Last Admin: 05/06/25 05:11 Dose: 1.25 mg Documented By: WILBER Interventions/Assessments IV / Saline Lock, Insert Start: 05/06/25 00:49 Freq: Status: Active Protocol: Document 05/06/25 03:55 EZG (Rec: 05/06/25 03:55 EZG [id number]) IV Assessment Peripheral Access Left Antecubital IV Catheter Access Initiated IV Insertion Date 05/06/25 IV Insertion Time 03:55 Catheter Gauge 20 IV Site Assessment WNL IV Care and WNL Maintenance PA: Cardiovascular Assessment Start: 05/06/25 00:49 Freq: Status: Active Protocol: Document 05/06/25 01:10 EZG (Rec: 05/06/25 01:10 EZG [id number]) Cardiovascular Assessment Cardiovascular None Symptoms Heart Sounds Normal Skin Description Clammy Jugular Vein None Distention PA: Respiratory Assessment Start: 05/06/25 00:49 Freq: Status: Active Protocol: Document 05/06/25 01:13 EZG (Rec: 05/06/25 01:13 EZG [id number]) Respiratory Assessment Symptoms Cough,Shortness of Breath at Rest,Shortness of Breath With Exertion,Wheezing Depth Normal Effort Abdominal Breathing Pattern Regular Chest Expansion Symmetrical Adult Capillary Normal/Less than 2 Seconds Refill Cough Description Acute Oxygen Delivery Oxygen Delivery Room Air Pulse Oximetry (90- 97 100) Last Vital Signs Temperature 97.8 F 05/06/25 02:05 Pulse Rate 100 05/06/25 06:16 Respiratory Rate 17 05/06/25 06:16 Pulse Oximetry 97 05/06/25 06:16 Blood Pressure 120/84 05/06/25 06:15 Blood Pressure Mean 97 05/06/25 06:15 Blood Pressure Position Supine 05/06/25 02:05 Oxygen Delivery Room Air 05/06/25 01:13 Weight 79.2 kg 05/06/25 06:18 Last Result - Abnormals Only RBC 3.52 M/mm3 (4.6-6.20) L 05/06/25 02:31 Hgb 10.4 g/dL (14.0-18.0) L 05/06/25 02:31 Hct 32.8 % (42.0-52.0) L 05/06/25 02:31 MCHC 31.7 g/dl (32-36) L 05/06/25 02:31 RDW 15.7 % (11.5-14.5) H 05/06/25 02:31 Plt Count 403 k/mm3 (150-375) H 05/06/25 02:31 Neut % (Auto) 73.8 % (45.5-73.1) H 05/06/25 02:31 Absolute Neuts (auto) 7.3 K/mm3 (1.3-6.7) H 05/06/25 02:31 D-Dimer 2.38 ug/mL (<0.48) H 05/06/25 02:31 Chloride 112 mmol/L (98-107) H 05/06/25 02:31 BUN 8 mg/dL (9-20) L 05/06/25 02:31 Calcium 7.8 mg/dL (8.4-10.2) L 05/06/25 02:31 NT-Pro-B Natriuret Pep 31198 pg/mL (19.9-100) H 05/06/25 02:31 Albumin 3.3 g/dL (3.5-5.1) L 05/06/25 02:31 Urine RBC 6-10 /hpf (0-2) H 05/06/25 02:42 Most Recent Suicide Severity Rating Suicide Severity Rating NO RISK INDICATED 05/06/25 01:04
[2025-05-06 06:30] LABS: Procalcitonin 0.2 ng/mL
--- NOTE | 2025-05-06 07:22 | ADMGEN ---
This patient, Calin Andino, was admitted to Medical Room 246-01. Patient/family oriented to hospital policies and general routines including ID bracelet, bed and alarms, visiting hours, pain management, procedures, bathroom and other care routines, personal items, smoking policy, room service/diet, and visiting hours. Information on how to activate the Rapid Response Team has been discussed. Patient/Family are encouraged to report perceived risks to care and to ask questions if they do not understand what they are told or what they should do.
[2025-05-06] MEDS: VANCOMYCIN 2,000 MG/NS 500 ML 2,000 MG/500 ML BAG 250 MG IVPB (07:48)
[2025-05-06 08:08] LABS: MRSA (PCR) NOT DETECTED (NOT DETECTE)
--- NOTE | 2025-05-06 11:02 | PM.IMHP ---
H&P: HPI History of Present Illness Date/Time: 05/06/25 11:02 Chief Complaint: shortness of breath Narrative: Patient is a 64 year old male with PMH of prior tobacco abuse, COPD, BPH, CAD s/p CABG, HTN, HLD, rheumatoid arthritis and gastroparesis. Patient presented to the ER last night with complaints of shortness of breath. Patient was discharged from this hospital on 05/05/2025 after being admitted due to multifocal pneumonia, acute hypoxic respiratory failure and JACQUELIN on top of CKD. Patient was treated with IV antibiotics and was discharged home on PO Augmentin. Patient was seen by PT and OT prior to discharge and was ambulating 100 feet with oxygen saturations 96-99% on room air with reported dyspnea. Patient was discharged home. Patient reports after he returned home that when he laid down to go to bed that is when the dyspnea started. He reports he tried his albuterol inhaler without relief. In the ER the patient was given neb treatments. Patient's lab work showed elevated d-dimer of 2.38, BNP 83508, procalcitonin 0.2 and viral PCR negative for Covid/flu/RSV. CTA chest was negative for PE, but showed moderate right and small left pleural effusions and improving but persistent bilateral foci of pneumonia. Patient was given IV furosemide, IV cefepime, IV vancomycin and was admitted for further evaluation and treatment. Review of Systems Review of Systems: All systems reviewed & are unremarkable except as noted in HPI and below PMFSH Past Medical History Medical History COPD with emphysema Benign prostatic hyperplasia Coronary artery disease Post 3 vessel bypass in September 2023. Former smoker Shortness of breath Coronary artery disease Gastroparesis Rheumatoid arthritis Adrenal incidentaloma Adenomatous colon polyp Benign prostatic hyperplasia without lower urinary tract symptoms Essential hypertension Hyperlipidemia LDL goal <100 Surgical History Surgical History History of cervical spinal surgery History of open reduction and internal fixation (ORIF) procedure Left ankle. History of repair of left rotator cuff History of coronary artery bypass graft x 3 (09/2023) PENA to LAD and saphenous vein graft to posterior descending artery and obtuse marginal branch at [facility]. History of colonoscopy with polypectomy Hx of CABG Family History Family History Sibling Family history of multiple sclerosis Family history of diabetes mellitus in first degree relative Mother Carcinoma of colon Family history of coronary artery disease Father Carcinoma of colon Family history of heart disease in male family member before age 55 Patient's father is Family history of cardiovascular disease Other Cancer Family history of malignant neoplasm Heart disease Social History Social History Social History: Surrogate medical decision maker: Cara Miranda, sibling. Code status: Full code. Smoking packs per day: 0.5 Smoking cigarettes per day: 10.0 Years smoked: 40 Smoking pack-years: 20.00 Smoking status: Former smoker Tobacco type: cigarettes Second hand tobacco smoke exposure: No Smoking end date: 10/14/23 Alcohol intake: former Alcohol use details: 12 pack beer/week Substance use: never Substance use type: does not use Do You Feel Safe in your Home?: Yes Lack of Transportation: YES Lack of Food: Never True Current Housing: I Have Housing Concerned About Future Housing: No Difficulty Paying Gas/Electric Bills: No Difficulty Paying for Meds: No Currently Unemployed: No Education: Bachelor's Degree Difficulty w/ Childcare or Family Care: No Living arrangements: with family Additional living arrangements comments: Lives in an apartment in the basement of his sister's home. Occupation/Education: retired Additional occupation/education comments: [employer]. Spiritual care concerns: No Meds Home Medications and Allergies Home Medications ?Medication ?Instructions ?Recorded ?Confirmed ?Type aspirin 81 mg tablet,delayed 81 mg PO DAILY 10/28/23 05/06/25 History release atorvastatin 80 mg tablet 80 mg PO QHS 10/28/23 05/06/25 History clopidogrel 75 mg tablet 75 mg PO DAILY 10/28/23 05/06/25 History sacubitril 24 mg-valsartan 26 mg 1 tablet PO Q12HR #60 tabs 12/12/23 05/06/25 Rx tablet (Entresto) albuterol sulfate 90 mcg/actuation See Rx Instructions .Route 11/10/24 05/06/25 Rx aerosol inhaler .COMPLEX #8.5 grams fluticasone fur. 100 mcg-umeclid 100-62.5-25 mcg Blister With 11/10/24 05/06/25 Sample 62.5 mcg-vilant 25 mcg Device#1 Samples inhalat.powder (Trelegy Ellipta) ferrous sulfate 325 mg (65 mg See Rx Instructions .Route 11/17/24 05/06/25 Rx iron) tablet (FeroSul) .COMPLEX #90 tabs cetirizine 10 mg tablet See Rx Instructions .Route 02/01/25 05/06/25 Rx .COMPLEX #90 tabs tramadol 50 mg tablet 100 mg (2 x 50 mg) PO DAILY PRN 02/02/25 05/06/25 Rx pain #60 tabs isopropyl alcohol 95 % in glycerin 5 drp LEFT EAR DAILY #30 mL 02/24/25 05/06/25 Rx 5 % ear drops fluticasone fur. 100 mcg-umeclid 1 inh inhalation DAILY #60 ea 02/26/25 05/06/25 Rx 62.5 mcg-vilant 25 mcg inhalat.powder (Trelegy Ellipta) pantoprazole 40 mg tablet,delayed See Rx Instructions .Route 03/08/25 05/06/25 Rx release .COMPLEX #90 tabs tamsulosin 0.4 mg capsule See Rx Instructions .Route 04/07/25 05/06/25 Rx .COMPLEX #90 caps polyethylene glycol 3350 17 gram 17 g PO QAM #30 ea 05/05/25 05/06/25 Rx oral powder packet (Miralax) sennosides 8.6 mg-docusate sodium 1 tab PO HS #30 tabs 05/05/25 05/06/25 Rx 50 mg tablet (Senokot-S) amoxicillin 875 mg-potassium 1 tablet PO Q12H 05/06/25 05/06/25 History clavulanate 125 mg tablet Allergies Allergy/AdvReac Type Severity Reaction Status Date / Time No Known Allergies Allergy Verified 04/27/25 04:29 Vital Signs Vital Signs - 24 hr 05/06/25 01:04 05/06/25 01:13 05/06/25 02:05 Temperature 97.8 F Pulse Rate 117 H 112 H Respiratory Rate 22 H 21 H Blood Pressure 133/84 Pulse Oximetry 97 97 100 Oxygen Delivery Room Air Room Air 05/06/25 03:17 05/06/25 03:22 05/06/25 03:57 Temperature Pulse Rate 101 H 102 H 106 H Respiratory Rate 15 15 19 Blood Pressure Pulse Oximetry Oxygen Delivery 05/06/25 04:31 05/06/25 05:00 05/06/25 05:11 Temperature Pulse Rate 126 H 106 H 118 H Respiratory Rate 22 H 16 18 Blood Pressure 127/97 H 140/89 Pulse Oximetry 99 Oxygen Delivery 05/06/25 05:15 05/06/25 05:30 05/06/25 05:45 Temperature Pulse Rate 106 H 108 H 112 H Respiratory Rate 14 20 18 Blood Pressure 126/80 143/84 H 136/93 H Pulse Oximetry 100 97 Oxygen Delivery 05/06/25 06:00 05/06/25 06:01 05/06/25 06:15 Temperature Pulse Rate 106 H 107 H 103 H Respiratory Rate 18 17 15 Blood Pressure 135/84 120/84 Pulse Oximetry 93 95 94 Oxygen Delivery 05/06/25 06:16 05/06/25 08:00 05/06/25 08:00 Temperature Pulse Rate 100 95 Respiratory Rate 17 Blood Pressure Pulse Oximetry 97 97 Oxygen Delivery Room Air 05/06/25 08:28 Temperature 97.6 F Pulse Rate 98 Respiratory Rate 16 Blood Pressure 148/82 H Pulse Oximetry 97 Oxygen Delivery Exam Const: General: comfortable and no acute distress HENMT: Face/Nose/Sinus: Normal nares present Mouth: Yes moist mucous membranes Eyes: General: appearance normal, both eyes and all related structures Sclera: sclerae normal Neck: Neck: supple Resp: Effort & Inspection: normal respiratory effort Auscultation: diminished lung sounds Cardio: Rate: regular rate Rhythm: regular rhythm GI: GI Palp: Yes Soft to palpation Auscultation: normal bowel sounds Skin: General skin exam: normal color and no rashes or lesions noted Neuro: Speech: normal speech Motor exam (neuro): 5/5 motor strength present throughout Sensory Exam: normal sensation Extrem: Other: trace edema BLE Psych: Mental Status: mental status grossly normal Affect: normal affect H&P: Results Labs Labs: Short CBC 05/06/25 Range/Units 02:31 WBC 9.9 (4.5-10.0) K/mm3 Hgb 10.4 L (14.0-18.0) g/dL Hct 32.8 L (42.0-52.0) % Plt Count 403 H (150-375) k/mm3 [facility] 05/06/25 02:31 Sodium 138 Potassium 3.8 Chloride 112 H Carbon Dioxide 22 BUN 8 L Creatinine 0.79 Glucose 109 Calcium 7.8 L Cardiac Enzymes 05/06/25 Range/Units 02:31 Troponin I 0.025 (0.000-0.034) ng/mL Liver Function 05/06/25 Range/Units 02:31 Total Bilirubin 0.6 (0.2-1.3) mg/dL AST 37 (17-59) U/L ALT 19 (6-50) U/L Alkaline Phosphatase 123 (38-126) U/L Albumin 3.3 L (3.5-5.1) g/dL Urine 05/06/25 Range/Units 02:42 Urine Color Yellow (Yellow) Urine Appearance Clear (Clear) Urine pH 5.5 (5.0-9.0) Ur Specific [place] 1.012 (1.001-1.035) Urine Protein Trace (Negative) mg/dL Urine Glucose (UA) Negative (Negative) mg/dL Imaging CT scan - chest: Radiologist's impression: Ordering Physician: Catina Christine MD Date of Service: 05/06/25 Procedure(s): CTA chest PE protocol Accession Number(s): [id number] cc: Marian Tejada APRN; Tammie Roth MD; Catina Christine MD~ CTA CHEST CLINICAL HISTORY: SOB, recent PNA; dimer >1 . COMPARISON: X-rays one day prior CT chest 04/26/2025 TECHNIQUE: Helical CTA performed from thoracic inlet to upper abdomen 100 mL Omnipaque 350 Coronal, sagittal reformats. Multiplanar MIPS CT images acquired with automatic exposure control for dose reduction DLP: 395 mGy-cm FINDINGS: Severe respiratory motion artifact. Pulmonary arteries: No PE. Thoracic Aorta: No dissection or aneurysm. Heart/pericardium: Unremarkable. RV/LV ratio: Normal. Lungs/Pleura: Emphysema. Moderate right and small left pleural effusions. Improving but persistent airspace disease left lower lobe small focus right middle lobe. Tracheobronchial tree: Patent. Nodes: No enlarged nodes. Bones: No acute bony abnormality. Soft tissues: Unremarkable. Visualized upper abdomen: Unremarkable. IMPRESSION: 1. No PE. 2. Moderate right and small left pleural effusions. 3. Improving but persistent bilateral foci of pneumonia. Reviewed, dictated and finalized at location R. [facility] Chest x-ray: Radiologist's impression: Ordering Physician: Catina Christine MD Date of Service: 05/06/25 Procedure(s): XR chest 2V Accession Number(s): [id number] cc: Marian Tejada APRN; Tammie Roth MD; Catina Christine MD~ Examination: XR chest 2V Clinical History: sepsis SOB Comparison: Chest x-ray one day prior CT chest 04/26/2025 Technique: PA and Lateral Findings: Cardiomediastinal silhouette normal size and configuration. Emphysema. Left lower lobe airspace disease as before. No acute bony abnormality. IMPRESSION: 1. Persistent left lower lobe airspace disease. Reviewed, dictated and finalized at location R. ILL HAND Assessment and Plan Assessment and plan (1) Bilateral pleural effusion: Code(s): J90 - Pleural effusion, not elsewhere classified Status: Acute Assessment and Plan: s/p CTA Chest with moderate right and small left pleural effusions s/p IV furosemide in ED continue IV furosemide 20 mg daily monitor renal function monitor respiratory status (2) Multifocal pneumonia: Code(s): J18.8 - Other pneumonia, unspecified organism Status: Acute Assessment and Plan: patient was treated with IV antibiotics from patient was discharged from this hospital on 05/05/2025 with PO Augmentin s/p CTA Chest with improving but persistent bilateral foci of pneumonia started on IV cefepime and IV vancomycin MRSA PCR ordered and results negative d/c IV vancomycin continue IV cefepime (3) Acute on chronic heart failure: Code(s): I50.9 - Heart failure, unspecified Status: Acute Assessment and Plan: per review of records patient appears to have a history of heart failure, last ECHO in 2023 repeat ECHO ordered BNP 03982 and patient has bilateral pleural effusions continue Entresto continue IV furosemide 20 mg daily AM labs (4) Normocytic anemia: Code(s): D64.9 - Anemia, unspecified Status: Acute Assessment and Plan: continue home ferrous sulfate Hgb 10.4 which appears near his baseline (5) COPD with emphysema: Code(s): J43.9 - Emphysema, unspecified Status: Acute Assessment and Plan: does not appear to be in an acute exacerbation Xopenex nebs PRN, use instead of albuterol due to tachycardia continue home inhalers (6) Benign prostatic hyperplasia: Qualifiers: Lower urinary tract symptom presence: symptoms absent Qualified Code(s): N40.0 - Benign prostatic hyperplasia without lower urinary tract symptoms Code(s): N40.0 - Benign prostatic hyperplasia without lower urinary tract symptoms Status: Acute Assessment and Plan: continue home tamsulosin (7) Coronary artery disease: Qualifiers: Coronary Disease-Associated Artery/Lesion type: [place] artery [place] vs. transplanted heart: [place] heart Associated angina: without angina Qualified Code(s): I25.10 - Atherosclerotic heart disease of [place] coronary artery without angina pectoris Code(s): I25.10 - Atherosclerotic heart disease of [place] coronary artery without angina pectoris Status: Acute Assessment and Plan: denies chest pain continue home aspirin continue home clopidogrel continue home atorvastatin Quality VTE Prophylaxis VTE prophylaxis: pharmacologic ordered
[2025-05-06] MEDS: TAMSULOSIN HCL 0.4 MG CAPSULE BY MOUTH (11:50)
[2025-05-06] MEDS: SACUBITRIL/VALSARTAN 24-26 MG TABLET 1 TAB PO ×2 (11:50→20:17)
[2025-05-06] MEDS: CLOPIDOGREL BISULFATE 75 MG TABLET PO (11:50)
[2025-05-06] MEDS: PANTOPRAZOLE 40 MG TABLET BY MOUTH (11:50)
[2025-05-06] MEDS: ASPIRIN 81 MG ENTERIC TABLET PO (11:50)
[2025-05-06] MEDS: ATORVASTATIN 40 MG TABLET 80 MG PO (20:17)
[2025-05-06] MEDS: SENNA/DOCUSATE SODIUM TABLET 1 TAB PO (20:17)
[2025-05-07] VITALS (10 sets, daily range): BP systolic 117–144; BP diastolic 66–81; PULSE 79–101; RESP 16–18; TEMP 36.2–36.7; O2SAT 94–98
[2025-05-07] MEDS: CEFEPIME 2 GM in SODIUM CHLORIDE 0.9% IV 50 ML 100 ML IVPB ×2 (04:56→17:29)
[2025-05-07] MEDS: traMADol HCL (*CRX) 50 MG TABLET 100 MG PO (04:59)
[2025-05-07 05:04] LABS: Hematocrit 29.9 % (42.0-52.0); Hemoglobin 9.3 g/dL (14.0-18.0); Immature Granulocyte Percent A 0.4 % (0-0.5); Lymphocytes Absolute Auto 1.72 K/mm3 (0.9-3.2); Mean Corpuscular HGB Conc 31.1 g/dl (32-36); Mean Corpuscular Hemoglobin 29.1 pg (26-34); Mean Corpuscular Volume 93.4 fl (80-100); Nucleated Red Blood Cells Absolute Auto 0.000 K/mm3 (0.0-0.012); Nucleated Red Blood Cells Perc 0.0 % (0.0-0.2); Platelet Count Result 384 k/mm3 (150-375); Red Blood Count 3.20 M/mm3 (4.6-6.20); White Blood Count 6.9 K/mm3 (4.5-10.0)
[2025-05-07 05:16] LABS: Alanine Aminotransferase 14 U/L (6-50); Albumin Level 2.6 g/dL (3.5-5.1); Alkaline Phosphatase 98 U/L (38-126); Anion Gap 4 mmol/L (4-12); Aspartate Amino Transferase 27 U/L (17-59); Bilirubin,Total 0.6 mg/dL (0.2-1.3); Blood Urea Nitrogen 5 mg/dL (9-20); Calcium 7.4 mg/dL (8.4-10.2); Carbon Dioxide 22 mmol/L (22-30); Chloride 111 mmol/L (98-107); Estimated CRCL calculation 79 ml/min; Estimated Glomerular Filt Rate > 60; Glucose 88 mg/dL (65-110); Potassium 3.3 mmol/L (3.4-5.0); Sodium 137 mmol/L (137-145); Total Protein 6.2 g/dL (6.3-8.2)
[2025-05-07 05:22] LABS: NT Pro B Type Natriuretic Pept 8490 pg/mL (19.9-100)
--- NOTE | 2025-05-07 07:25 | PM.IMPN ---
Progress Note: A&P Assessment and Plan (1) Bilateral pleural effusion: Code(s): J90 - Pleural effusion, not elsewhere classified Status: Acute Assessment and Plan: s/p CTA Chest with moderate right and small left pleural effusions s/p IV furosemide in ED continue IV furosemide 20 mg daily monitor renal function monitor respiratory status plan for repeat CXR in AM (2) Multifocal pneumonia: Code(s): J18.8 - Other pneumonia, unspecified organism Status: Acute Assessment and Plan: patient was treated with IV antibiotics from patient was discharged from this hospital on 05/05/2025 with PO Augmentin s/p CTA Chest with improving but persistent bilateral foci of pneumonia started on IV cefepime and IV vancomycin MRSA PCR ordered and results negative d/c IV vancomycin continue IV cefepime (3) Acute on chronic heart failure: Code(s): I50.9 - Heart failure, unspecified Status: Acute Assessment and Plan: per review of records patient appears to have a history of heart failure, last ECHO in 2023 ECHO reviewed and shows grade 1 DD and EF 60-65% which is similar to last ECHO in 2023 BNP 52389 and patient has bilateral pleural effusions continue Entresto continue IV furosemide 20 mg daily BNP improving patient may need to start PO furosemide on discharge, not on any diuretics at home possible DC home tomorrow if still improving AM labs (4) Normocytic anemia: Code(s): D64.9 - Anemia, unspecified Status: Acute Assessment and Plan: continue home ferrous sulfate Hgb 10.4 which appears near his baseline (5) COPD with emphysema: Code(s): J43.9 - Emphysema, unspecified Status: Acute Assessment and Plan: does not appear to be in an acute exacerbation Xopenex nebs PRN, use instead of albuterol due to tachycardia continue home inhalers (6) Benign prostatic hyperplasia: Qualifiers: Lower urinary tract symptom presence: symptoms absent Qualified Code(s): N40.0 - Benign prostatic hyperplasia without lower urinary tract symptoms Code(s): N40.0 - Benign prostatic hyperplasia without lower urinary tract symptoms Status: Acute Assessment and Plan: continue home tamsulosin (7) Coronary artery disease: Qualifiers: Associated angina: without angina Coronary Disease-Associated Artery/Lesion type: [place] artery [place] vs. transplanted heart: [place] heart Qualified Code(s): I25.10 - Atherosclerotic heart disease of [place] coronary artery without angina pectoris Code(s): I25.10 - Atherosclerotic heart disease of [place] coronary artery without angina pectoris Status: Acute Assessment and Plan: denies chest pain continue home aspirin continue home clopidogrel continue home atorvastatin Subjective Date/time seen: 05/07/25 07:25 Interval history: Patient seen for a follow up visit. Patient sitting on the side of the bed, in no acute distress. Patient denies acute pain. Potassium level 3.3 today, ordered PO kcl 40 meq x 1. Patient had an ECHO yesterday, results show grade 1 DD and EF of 60-65%. Patient will receive IV furosemide again this morning. Plan for repeat CXR in AM. PT/OT evaluation ordered to see if patient needs rehab on discharge as he feels weaker. Review of Systems Review of Systems: All systems reviewed & are unremarkable except as noted in HPI and below Exam Const: General: comfortable and no acute distress HENMT: Face/Nose/Sinus: Normal nares present Mouth: Yes moist mucous membranes Eyes: General: appearance normal, both eyes and all related structures Sclera: sclerae normal Neck: Neck: supple Resp: Effort & Inspection: normal respiratory effort Auscultation: diminished lung sounds Cardio: Rate: regular rate Rhythm: regular rhythm GI: Auscultation: normal bowel sounds Skin: General skin exam: normal color and no rashes or lesions noted Neuro: Speech: normal speech Motor exam (neuro): 5/5 motor strength present throughout Sensory Exam: normal sensation Extrem: Other: trace edema BLE Psych: Mental Status: mental status grossly normal Affect: normal affect Objective Data Vital Signs Vital Signs: Vital Signs - 24 hr 05/06/25 08:00 05/06/25 08:00 05/06/25 08:28 Temperature 97.6 F Pulse Rate 95 98 Respiratory Rate 16 Blood Pressure 148/82 H Pulse Oximetry 97 97 Oxygen Delivery Room Air 05/06/25 12:00 05/06/25 14:00 05/06/25 16:00 Temperature 97.4 F L Pulse Rate 104 H 98 85 Respiratory Rate 16 Blood Pressure 148/56 H Pulse Oximetry 96 Oxygen Delivery 05/06/25 20:00 05/06/25 20:10 05/06/25 20:10 Temperature 97.3 F L Pulse Rate 88 96 Respiratory Rate 18 Blood Pressure 134/71 Pulse Oximetry 97 97 Oxygen Delivery Room Air 05/07/25 00:00 05/07/25 04:00 05/07/25 05:40 Temperature 98.0 F Pulse Rate 101 H 80 92 Respiratory Rate 18 Blood Pressure 129/66 Pulse Oximetry 94 Oxygen Delivery Intake/Output Intake/Output: Intake & Output 05/04/25 05/05/25 05/06/25 05/07/25 23:59 23:59 23:59 23:59 Intake Total 1760 290 Balance 1760 290 Meds/Results Medications: Active Medications Generic Name Dose Route Start Last Admin Trade Name Freq PRN Reason Stop Dose Admin Acetaminophen 650 mg 05/06/25 05:57 Acetaminophen 325 Mg Tablet PO Q4H PRN Mild Pain (1-3) or Fever Albuterol 1 puff 05/06/25 11:00 Albuterol Sulfate (*Sp) Aerosol 1 Puff INHALATION Q4H PRN Shortness Of Breath Or Wheezing Aspirin 81 mg 05/06/25 12:00 05/06/25 11:50 Aspirin 81 Mg Enteric Tablet PO 81 mg DAILY JOSE Administration Atorvastatin Calcium 80 mg 05/06/25 21:00 05/06/25 20:17 Atorvastatin 40 Mg Tablet PO 80 mg QHS JOSE Administration Clopidogrel Bisulfate 75 mg 05/06/25 12:00 05/06/25 11:50 Clopidogrel Bisulfate 75 Mg Tablet PO 75 mg DAILY JOSE Administration Enoxaparin Sodium 40 mg 05/07/25 09:00 Enoxaparin 40 Mg/0.4 Ml Syringe SUB-Q DAILY JOSE Ferrous Sulfate 325 mg 05/07/25 09:00 Ferrous Sulfate 325 Mg Tablet BY MOUTH DAILY JOSE Fluticasone/Umeclidinium/Vilanterol 1 puff 05/07/25 08:00 Fluticasone/Umeclidin/Vilanter 100-62.5-25 Mcg Ellipta INHALATION DAILYRT JOSE Furosemide 20 mg 05/07/25 09:00 Furosemide Inj 40 Mg/4 Ml Vial IV PUSH DAILY JOSE Cefepime HCl 2 gm/ Sodium 50 mls @ 100 mls/hr 05/06/25 18:00 05/07/25 05:26 Chloride IVPB Infused Q12H JOSE Infusion Levalbuterol HCl 1.25 mg 05/06/25 15:12 Levalbuterol Neb 1.25 Mg/3 Ml INHALATION Q6HRT PRN Dyspnea Loratadine 10 mg 05/07/25 09:00 Loratadine 10 Mg Tablet PO QAM JOSE Ondansetron HCl 4 mg 05/06/25 07:59 Ondansetron Inj 4 Mg/2 Ml Vial IV PUSH Q6H PRN Nausea Pantoprazole Sodium 40 mg 05/06/25 12:00 05/06/25 11:50 Pantoprazole 40 Mg Tablet BY MOUTH 40 mg DAILY JOSE Administration Perflutren Lipid Microsphere 0 ml 05/06/25 14:56 Perflutren Lipid Microspheres 1.5 Ml Vial Diluted To 10 Ml Total Volume IV PUSH 05/09/25 14:57 ONCE PRN adequate visualization Protocol Polyethylene Glycol 17 gm 05/07/25 09:00 Polyethylene Glycol 3350 17 Gm Powd.Pack PO QAM JOSE Potassium Chloride 40 meq 05/07/25 07:23 Potassium Chloride 20 Meq Er Tablet PO 05/07/25 07:24 ONCE ONE Sacubitril/Valsartan 1 tab 05/06/25 12:00 05/06/25 20:17 Sacubitril/Valsartan 24-26 Mg Tablet PO 1 tab Q12HR JOSE Administration Senna/Docusate Sodium 1 tab 05/06/25 21:00 05/06/25 20:17 Senna/Docusate Sodium Tablet PO 1 tab HS JOSE Administration Tamsulosin HCl 0.4 mg 05/06/25 12:00 05/06/25 11:50 Tamsulosin Hcl 0.4 Mg Capsule BY MOUTH 0.4 mg DAILY JOSE Administration Tramadol HCl 100 mg 05/06/25 10:59 05/07/25 04:59 Tramadol Hcl (*Crx) 50 Mg Tablet PO 100 mg DAILY PRN Administration Pain 4-6 Radiology Results: ITS Impressions Chest CTA 05/06/25 07:23 IMPRESSION: 1. No PE. 2. Moderate right and small left pleural effusions. 3. Improving but persistent bilateral foci of pneumonia. Chest X-Ray 05/06/25 07:44 IMPRESSION: 1. Persistent left lower lobe airspace disease. Labs Labs: Laboratory Results - last 24 hr 05/06/25 05/07/25 06:43 04:38 WBC 6.9 RBC 3.20 L Hgb 9.3 L Hct 29.9 L MCV 93.4 MCH 29.1 MCHC 31.1 L RDW 15.7 H Plt Count 384 H MPV 10.5 H Immature Gran % (Auto) 0.4 Neut % (Auto) 66.1 Lymph % (Auto) 25.0 Bennett % (Auto) 6.0 Eos % (Auto) 1.9 Baso % (Auto) 0.6 Lymph # (Auto) 1.72 Bennett # (Auto) 0.4 Eos # (Auto) 0.1 Baso # (Auto) 0.0 Abs Immat Gran (auto) 0.03 Absolute Neuts (auto) 4.6 Absolute Nucleated RBC 0.000 Nucleated RBC % 0.0 Sodium 137 Potassium 3.3 L Chloride 111 H Carbon Dioxide 22 Anion Gap 4 BUN 5 L Creatinine 0.69 L Estim Creat Clear Calc 79 Estimated GFR > 60 Glucose 88 Calcium 7.4 L Total Bilirubin 0.6 AST 27 ALT 14 Alkaline Phosphatase 98 NT-Pro-B Natriuret Pep 8490 H Total Protein 6.2 L Albumin 2.6 L Nasal MRSA (PCR) Not detected Quality VTE Prophylaxis VTE prophylaxis: pharmacologic ordered
[2025-05-07] MEDS: FLUTICASONE/UMECLIDIN/VILANTER 100-62.5-25 MCG ELLIPTA 1 PUFF INHALATION (08:20)
[2025-05-07] MEDS: CLOPIDOGREL BISULFATE 75 MG TABLET PO (09:25)
[2025-05-07] MEDS: PANTOPRAZOLE 40 MG TABLET BY MOUTH (09:25)
[2025-05-07] MEDS: ASPIRIN 81 MG ENTERIC TABLET PO (09:25)
[2025-05-07] MEDS: TAMSULOSIN HCL 0.4 MG CAPSULE BY MOUTH (09:26)
[2025-05-07] MEDS: FERROUS SULFATE 325 MG TABLET BY MOUTH (09:26)
[2025-05-07] MEDS: FUROSEMIDE INJ 40 MG/4 ML VIAL 20 MG IV PUSH (09:26)
[2025-05-07] MEDS: LORATADINE 10 MG TABLET PO (09:26)
[2025-05-07] MEDS: SACUBITRIL/VALSARTAN 24-26 MG TABLET 1 TAB PO ×2 (09:26→20:14)
[2025-05-07] MEDS: ENOXAPARIN 40 MG/0.4 ML SYRINGE SUB-Q (09:27)
[2025-05-07] MEDS: POTASSIUM CHLORIDE 20 MEQ ER TABLET 40 MEQ PO (09:38)
[2025-05-07] MEDS: ATORVASTATIN 40 MG TABLET 80 MG PO (20:13)
[2025-05-07] MEDS: SENNA/DOCUSATE SODIUM TABLET 1 TAB PO (20:13)
[2025-05-08] VITALS: PULSE 88
[2025-05-08 04:00] VITALS: PULSE 78
[2025-05-08 04:56] VITALS: BP 130/74; PULSE 80; RESP 18; TEMP 36.3; O2SAT 95
[2025-05-08] MEDS: CEFEPIME 2 GM in SODIUM CHLORIDE 0.9% IV 50 ML 100 ML IVPB (05:01)
[2025-05-08 05:16] LABS: Hematocrit 28.5 % (42.0-52.0); Hemoglobin 8.9 g/dL (14.0-18.0); Immature Granulocyte Percent A 0.2 % (0-0.5); Lymphocytes Absolute Auto 2.06 K/mm3 (0.9-3.2); Mean Corpuscular HGB Conc 31.2 g/dl (32-36); Mean Corpuscular Hemoglobin 29.8 pg (26-34); Mean Corpuscular Volume 95.3 fl (80-100); Nucleated Red Blood Cells Absolute Auto 0.000 K/mm3 (0.0-0.012); Nucleated Red Blood Cells Perc 0.0 % (0.0-0.2); Platelet Count Result 366 k/mm3 (150-375); Red Blood Count 2.99 M/mm3 (4.6-6.20); White Blood Count 5.8 K/mm3 (4.5-10.0)
[2025-05-08 05:37] LABS: Alanine Aminotransferase 13 U/L (6-50); Albumin Level 2.6 g/dL (3.5-5.1); Alkaline Phosphatase 100 U/L (38-126); Anion Gap 3 mmol/L (4-12); Aspartate Amino Transferase 31 U/L (17-59); Bilirubin,Total 0.6 mg/dL (0.2-1.3); Blood Urea Nitrogen 6 mg/dL (9-20); Calcium 7.6 mg/dL (8.4-10.2); Carbon Dioxide 23 mmol/L (22-30); Chloride 110 mmol/L (98-107); Estimated CRCL calculation 82 ml/min; Estimated Glomerular Filt Rate > 60; Glucose 82 mg/dL (65-110); Potassium 3.5 mmol/L (3.4-5.0); Sodium 136 mmol/L (137-145); Total Protein 6.1 g/dL (6.3-8.2)
[2025-05-08 05:40] LABS: NT Pro B Type Natriuretic Pept 3860 pg/mL (19.9-100)
[2025-05-08] MEDS: FLUTICASONE/UMECLIDIN/VILANTER 100-62.5-25 MCG ELLIPTA 1 PUFF INHALATION (07:25)
[2025-05-08 08:00] VITALS: PULSE 95
[2025-05-08] MEDS: POTASSIUM CHLORIDE 10 MEQ ER TABLET PO (10:55)
[2025-05-08] MEDS: ASPIRIN 81 MG ENTERIC TABLET PO (10:56)
[2025-05-08] MEDS: FERROUS SULFATE 325 MG TABLET BY MOUTH (10:56)
[2025-05-08] MEDS: ENOXAPARIN 40 MG/0.4 ML SYRINGE SUB-Q (10:56)
[2025-05-08] MEDS: FUROSEMIDE INJ 40 MG/4 ML VIAL 20 MG IV PUSH (10:56)
[2025-05-08] MEDS: CLOPIDOGREL BISULFATE 75 MG TABLET PO (10:56)
[2025-05-08] MEDS: LORATADINE 10 MG TABLET PO (10:57)
[2025-05-08] MEDS: SACUBITRIL/VALSARTAN 24-26 MG TABLET 1 TAB PO (10:57)
[2025-05-08] MEDS: PANTOPRAZOLE 40 MG TABLET BY MOUTH (10:57)
[2025-05-08] MEDS: TAMSULOSIN HCL 0.4 MG CAPSULE BY MOUTH (10:57)
[2025-05-08 12:00] VITALS: PULSE 93
--- NOTE | 2025-05-08 13:41 | P.DS_ITS ---
DS: Admitting Diagnosis Discharge Date 05/08/2025 Admitting Diagnosis Bilateral pleural effusion Multifocal pneumonia Acute on chronic heart failure Normocytic anemia BPH CAD DS: Discharge Diagnosis Discharge Diagnosis (1) Bilateral pleural effusion: Code(s): J90 - Pleural effusion, not elsewhere classified Status: Acute Assessment and Plan: s/p CTA Chest with moderate right and small left pleural effusions s/p IV furosemide in ED continue IV furosemide 20 mg daily monitor renal function monitor respiratory status repeat CXR showed bilateral small pleural effusions discharge patient on PO furosemide 20 mg daily follow up with PCP on 05/13/25 as previously scheduled (2) Multifocal pneumonia: Code(s): J18.8 - Other pneumonia, unspecified organism Status: Acute Assessment and Plan: patient was treated with IV antibiotics from patient was discharged from this hospital on 05/05/2025 with PO Augmentin s/p CTA Chest with improving but persistent bilateral foci of pneumonia started on IV cefepime and IV vancomycin MRSA PCR ordered and results negative d/c IV vancomycin continue IV cefepime patient will resume PO Augmentin on discharge to complete course f/u with PCP on 05/13/25 as previously scheduled. (3) Acute on chronic heart failure: Code(s): I50.9 - Heart failure, unspecified Status: Acute Assessment and Plan: per review of records patient appears to have a history of heart failure, last ECHO in 2023 ECHO reviewed and shows grade 1 DD and EF 60-65% which is similar to last ECHO in 2023 BNP 59144 and patient has bilateral pleural effusions continue Entresto continue IV furosemide 20 mg daily BNP improving discharge patient home on PO furosemide 20 mg daily and PO potassium 10 meq daily patient instructed to follow a 1500 mL fluid restriction daily (4) Normocytic anemia: Code(s): D64.9 - Anemia, unspecified Status: Acute Assessment and Plan: continue home ferrous sulfate Hgb 10.4 which appears near his baseline (5) COPD with emphysema: Code(s): J43.9 - Emphysema, unspecified Status: Acute Assessment and Plan: does not appear to be in an acute exacerbation Xopenex nebs PRN, use instead of albuterol due to tachycardia continue home inhalers (6) Benign prostatic hyperplasia: Qualifiers: Lower urinary tract symptom presence: symptoms absent Qualified Code(s): N40.0 - Benign prostatic hyperplasia without lower urinary tract symptoms Code(s): N40.0 - Benign prostatic hyperplasia without lower urinary tract symptoms Status: Acute Assessment and Plan: continue home tamsulosin (7) Coronary artery disease: Qualifiers: Coronary Disease-Associated Artery/Lesion type: [place] artery [place] vs. transplanted heart: [place] heart Associated angina: without angina Qualified Code(s): I25.10 - Atherosclerotic heart disease of [place] coronary artery without angina pectoris Code(s): I25.10 - Atherosclerotic heart disease of [place] coronary artery without angina pectoris Status: Acute Assessment and Plan: denies chest pain continue home aspirin continue home clopidogrel continue home atorvastatin DS: Summary Hospital Course Reason for hospitalization: shortness of breath Hospital Course: The patient is a 64-year-old male with a complex medical history including COPD with emphysema, coronary artery disease status post CABG, chronic kidney disease, heart failure, benign prostatic hyperplasia, rheumatoid arthritis, and gastroparesis. He was initially admitted for multifocal pneumonia, acute hypoxic respiratory failure, and acute kidney injury, and was discharged home on 05/05/2025 after clinical improvement on IV antibiotics, transitioned to oral amoxicillin/clavulanate. However, he returned the same evening with acute shortness of breath, which began when lying down at home and was unresponsive to his albuterol inhaler. In the emergency department, he was found to have elevated BNP (12,200), elevated D-dimer, and imaging revealed moderate right and small left pleural effusions with persistent but improving bilateral pneumonia. CTA chest was negative for pulmonary embolism. He was treated with IV furosemide for volume overload and started on IV cefepime and vancomycin for possible persistent infection; vancomycin was discontinued after negative MRSA PCR. His respiratory status and renal function were closely monitored, and he remained hemodynamically stable on room air with no further hypoxia. Echocardiogram showed grade 1 diastolic dysfunction with preserved ejection fraction (60-65%), consistent with his prior study. His anemia remained stable and near baseline. He did not experience an acute COPD exacerbation and continued his home inhalers, with levalbuterol nebs as needed for dyspnea. Physical and occupational therapy evaluated him for functional status, and he was able to ambulate with mild dyspnea. The patient?s condition improved with diuresis and antibiotics, and he was transitioned to oral furosemide and potassium supplementation at discharge. He was discharged home in stable condition to complete his course of Augmentin, with instructions to follow up with his primary care provider as scheduled. He declined home health or alf facility placement. Time Spent with Patient Time attestation: Total time spent providing and/or coordinating discharge services: 35 Minutes Exam Const: General: comfortable and no acute distress HENMT: Face/Nose/Sinus: Normal nares present Mouth: Yes moist mucous membranes Eyes: General: appearance normal, both eyes and all related structures Sclera: sclerae normal Neck: Neck: supple Resp: Effort & Inspection: normal respiratory effort Auscultation: diminished lung sounds Cardio: Rate: regular rate Rhythm: regular rhythm GI: Auscultation: normal bowel sounds Skin: General skin exam: normal color and no rashes or lesions noted Neuro: Speech: normal speech Motor exam (neuro): 5/5 motor strength present throughout Sensory Exam: normal sensation Extrem: Other: trace edema BLE Psych: Mental Status: mental status grossly normal Affect: normal affect DS: Data Data Completed and Pending Completed studies during hospitalization: ECHO Signed Patient: Calin Andino : 1960 MR#: [id number] Age: 64 Acct:[id number] Loc: [id number] ADM Date: 05/06/[address]: Tammie Roth M.D. Ordering Physician: Marianne Parham APRN Date of Service: 05/06/25 Procedure(s): CA echo doppler color flow Accession Number(s): [id number] cc: Marian Tejada APRN; Marianne Parham APRN~ Patient Info Name: Calin Andino Age: 64 years : 1960 Gender: Male Ht: 65 in Wt: 171 lbs BSA: 1.91 m2 HR: 98 bpm BP: 148 / 56 mmHg Technical Quality: Good Exam Date: 05/06/2025 3:53 PM Patient Status: O Admit Date: 05/06/2025 Exam Type: CA echo doppler color flow Complete two-dimensional, color flow and Doppler transthoracic echocardiogram is performed. Staff Referring Physician: Catina Christine Sock Drier: Hosea Tolentino III Attending Provider: Tammie Roth Summary 1. Complete two-dimensional, color flow and Doppler transthoracic echocardiogram is performed. 2. Left ventricular chamber dimension is normal. 3. Left ventricular systolic function is normal, estimated at 60-65. 4. There is mild concentric increased left ventricular wall thickness. 5. The left ventricular diastolic function is grade I diastolic dysfunction. 6. E/e' 9 is minimally elevated. 7. Left atrial chamber dimension is mildly enlarged. 8. There is trace aortic valve regurgitation. 9. There is mild mitral valve regurgitation. 10. There is mild tricuspid valve regurgitation. 11. No pulmonary hypertension, estimated pulmonary arterial systolic pressure is 20 mmHg. Left Ventricle E/e' 9 is minimally elevated. Left ventricular chamber dimension is normal. Left ventricular systolic function is normal, estimated at 60-65. There is mild concentric increased left ventricular wall thickness. The left ventricular diastolic function is grade I diastolic dysfunction. Right Ventricle Right ventricular chamber dimension is normal. Right ventricular systolic function is normal and with normal TAPSE 2.0 cm. Left Atria Left atrial chamber dimension is mildly enlarged. Right Atria Right atrial chamber dimension is normal. Aortic Valve The aortic valve is trileaflet. There is no aortic valve stenosis. There is trace aortic valve regurgitation. Pulmonic Valve There is no pulmonic regurgitation. Mitral Valve There is no mitral valve stenosis. There is mild mitral valve regurgitation. Tricuspid Valve There is mild tricuspid valve regurgitation. No pulmonary hypertension, estimated pulmonary arterial systolic pressure is 20 mmHg. Pericardium/Pleural There is no pericardial effusion. Inferior Vena Cava Normal inferior vena cava with >50% collapse upon inspiration consistent with normal right atrial pressure, 5 mmHg. Aorta The aortic root size at the sinus of Valsalva is normal. Left Ventricular Outflow Tract Name Value Normal LVOT 2D LVOT Diameter 2.2 cm LVOT Doppler LVOT Peak Velocity 127 cm/s LVOT Peak Gradient 6 mmHg LVOT Mean Gradient 3 mmHg LVOT VTI 26 cm LVOT VTI/AV VTI Ratio 0.9 LVOT Stroke Volume 101 ml LVOT CO 8.4 l/min LVOT CI 4.4 l/min/m2 Pulmonic Valve Name Value Normal PV Doppler PV Peak Velocity 95 cm/s PV Peak Gradient 4 mmHg PV Mean Gradient 2 mmHg Mitral Valve Name Value Normal MV Doppler MV Peak Gradient 4 mmHg MV Mean Gradient 2 mmHg MV Area (Cont Eq VTI) 6.2 cm2 MV Regurgitation Doppler MR Peak Gradient 125 mmHg MV Diastolic Function MV E Peak Velocity 65 cm/s MV A Peak Velocity 86 cm/s MV E/A 0.7 MV Decel Time (PW) 180 ms MV Annular TDI MV E/e' (Septal) 15.9 MV E/e' (Lateral) 7.2 MV E/e' (Average) 11.6 Tricuspid Valve Name Value Normal TV Regurgitation Doppler TR Peak Velocity 195 cm/s TR Peak Gradient 15 mmHg Estimated PAP/RSVP RA Pressure 5 mmHg <=5 PA Systolic Pressure 20 mmHg <36 RV Systolic Pressure 20 mmHg <36 TV Annular TDI TV Lateral Kena s' Velocity 12.2 cm/s >=9.5 Aortic Valve Name Value Normal AV Doppler AV Peak Velocity 143 cm/s AV Peak Gradient 8 mmHg AV Mean Gradient 4 mmHg AV VTI 28 cm AV Area (Cont Eq VTI) 3.7 cm2 >=3.0 AV Area (Cont Eq Navdeep) 3.4 cm2 AV DI (Navdeep) 0.88 AV Regurgitation 2D LVOT Area 3.9 cm2 Ventricles Name Value Normal LV Dimensions 2D/MM IVS Diastolic Thickness (2D) 1.2 cm 0.6-1.0 LVID Diastole (2D) 4.4 cm 4.2-5.8 LVIW Diastolic Thickness (2D) 1.1 cm 0.6-1.0 LVID Systole (2D) 3.0 cm 2.5-4.0 LVOT Diameter 2.2 cm LV Mass (2D Cubed) 180.38 g 88.00-224.00 LV Mass Index (2D Cubed) 95 g/m2 49-115 Relative Wall Thickness (2D) 0.51 <=0.42 LV Fractional Shortening/Ejection Fraction 2D/MM LV Fractional Shortening (2D) 31 % 25-43 LV EF (2D Teichholz) 59 % LV Diastolic Volume (4C MOD) 61 ml LV EF (4C MOD) 57 % LV Diastolic Volume (2C MOD) 77 ml LV EF (2C MOD) 47 % LV Diastolic Volume (BP MOD) 74 ml 62-150 LV Diastolic Volume Index (BP MOD) 39 ml/m2 34-74 LV Systolic Volume (BP MOD) 35 ml 21-61 LV Systolic Volume Index (BP MOD) 18 ml/m2 11-31 LV EF (BP MOD) 53 % 52-72 LV Diastolic Length (4C) 7.0 cm LV Systolic Length (4C) 6.1 cm LV Stroke Volume (4C MOD) 34 ml Atria Name Value Normal LA Dimensions LA Volume (4C A-L) 58 ml LA Volume (BP A-L) 58 ml RA Dimensions RA Systolic Major [place] Length (4C) 5.5 cm 2.1-2.7 RA Area (4C) 15.4 cm2 <=18.0 Report Signatures Labs on day of discharge: Labs from last 24 hours 05/08/25 04:26 WBC 5.8 RBC 2.99 L Hgb 8.9 L Hct 28.5 L MCV 95.3 MCH 29.8 MCHC 31.2 L RDW 15.8 H Plt Count 366 MPV 10.6 H Immature Gran % (Auto) 0.2 Neut % (Auto) 54.6 Lymph % (Auto) 35.5 Love % (Auto) 7.1 Eos % (Auto) 1.9 Baso % (Auto) 0.7 Lymph # (Auto) 2.06 Love # (Auto) 0.4 Eos # (Auto) 0.1 Baso # (Auto) 0.0 Abs Immat Gran (auto) 0.01 Absolute Neuts (auto) 3.2 Absolute Nucleated RBC 0.000 Nucleated RBC % 0.0 Sodium 136 L Potassium 3.5 Chloride 110 H Carbon Dioxide 23 Anion Gap 3 L BUN 6 L Creatinine 0.66 L Estim Creat Clear Calc 82 Estimated GFR > 60 Glucose 82 Calcium 7.6 L Total Bilirubin 0.6 AST 31 ALT 13 Alkaline Phosphatase 100 NT-Pro-B Natriuret Pep 3860 H Total Protein 6.1 L Albumin 2.6 L Imaging Radiologist's impression: Ordering Physician: Catina Christine MD Date of Service: 05/06/25 Procedure(s): CTA chest PE protocol Accession Number(s): [id number] cc: Marian Tejada APRN; Tammie Roth MD; Catina Christine MD~ CTA CHEST CLINICAL HISTORY: SOB, recent PNA; dimer >1 . COMPARISON: X-rays one day prior CT chest 04/26/2025 TECHNIQUE: Helical CTA performed from thoracic inlet to upper abdomen 100 mL Omnipaque 350 Coronal, sagittal reformats. Multiplanar MIPS CT images acquired with automatic exposure control for dose reduction DLP: 395 mGy-cm FINDINGS: Severe respiratory motion artifact. Pulmonary arteries: No PE. Thoracic Aorta: No dissection or aneurysm. Heart/pericardium: Unremarkable. RV/LV ratio: Normal. Lungs/Pleura: Emphysema. Moderate right and small left pleural effusions. Improving but persistent airspace disease left lower lobe small focus right middle lobe. Tracheobronchial tree: Patent. Nodes: No enlarged nodes. Bones: No acute bony abnormality. Soft tissues: Unremarkable. Visualized upper abdomen: Unremarkable. IMPRESSION: 1. No PE. 2. Moderate right and small left pleural effusions. 3. Improving but persistent bilateral foci of pneumonia. Reviewed, dictated and finalized at location R. YTICAL LAB ANALYST Chest x-ray: Radiologist's impression: Ordering Physician: Catina Christine MD Date of Service: 05/06/25 Procedure(s): XR chest 2V Accession Number(s): [id number] cc: Marian Tejada APRN; Tammie Roth MD; Catina Christine MD~ Examination: XR chest 2V Clinical History: sepsis SOB Comparison: Chest x-ray one day prior CT chest 04/26/2025 Technique: PA and Lateral Findings: Cardiomediastinal silhouette normal size and configuration. Emphysema. Left lower lobe airspace disease as before. No acute bony abnormality. IMPRESSION: 1. Persistent left lower lobe airspace disease. Reviewed, dictated and finalized at location R. YTICAL LAB ANALYST Discharge Plan Discharge Attending physician on discharge: Eric Grossman Discharging Clinician: Marianne Parham Patient Disposition: Home Activity: as tolerated Diet: heart healthy and low sodium Discharge Instructions: Please complete the amoxicillin potassium clavulanate that you were discharged with on 05/05/2025, Please complete all antibiotics even if you are feeling better. Please limit your fluid intake to 1500 mL every 24 hours. Patient Instructions: Antibiotic Form, Clopidogrel (By mouth), Heart Failure (GEN) Patient Language: Yakut Stand Alone Forms: General Discharge Information Follow-up/Referrals: Marian Tejada APRN [Primary Care Provider, Internal Medicine] Referral Note: Please keep your previously scheduled follow up visit for 05/08/2025 Discharge Medications: New furosemide [Lasix] 20 mg tablet 20 mg PO DAILY Qty: 30 0RF potassium chloride [Klor-Con M10] 10 mEq tablet,ER particles/crystals 10 meq PO DAILY Qty: 30 0RF Continued aspirin 81 mg tablet,delayed release (DR/EC) 81 mg PO DAILY clopidogrel 75 mg tablet 75 mg PO DAILY atorvastatin 80 mg tablet 80 mg PO QHS fluticasone fur. 100 mcg-umeclid 62.5 mcg-vilant 25 mcg inhalat.powder 100-62.5-25 mcg blister with device 0RF albuterol sulfate 90 mcg/actuation HFA aerosol inhaler See Rx Instructions .ROUTE .COMPLEX Qty: 8.5 2RF Dose Instruction: INHALE 1 PUFF BY MOUTH EVERY 4 HOURS NEEDED FOR SHORTNESS OF BREATH OR WHEEZING Rx Instructions: INHALE 1 PUFF BY MOUTH EVERY 4 HOURS NEEDED FOR SHORTNESS OF BREATH OR WHEEZING sacubitril-valsartan [Entresto] 24-26 mg Tablet 1 tablet PO Q12HR Qty: 60 0RF polyethylene glycol 3350 [Miralax] 17 gram Powder In Packet 17 g PO QAM Qty: 30 0RF sennosides-docusate sodium [Senokot-S] 8.6-50 mg Tablet 1 tab PO HS Qty: 30 0RF amoxicillin-pot clavulanate 875-125 mg tablet 1 tablet PO Q12H Rx Instructions: Stop date of 05/09 ferrous sulfate [FeroSul] 325 mg (65 mg iron) tablet See Rx Instructions .ROUTE .COMPLEX Qty: 90 1RF Dose Instruction: TAKE 1 TABLET BY MOUTH EVERY DAY Rx Instructions: TAKE 1 TABLET BY MOUTH EVERY DAY cetirizine 10 mg tablet See Rx Instructions .ROUTE .COMPLEX Qty: 90 1RF Dose Instruction: TAKE 1 TABLET BY MOUTH DAILY Rx Instructions: TAKE 1 TABLET BY MOUTH DAILY tramadol 50 mg tablet 100 mg PO DAILY PRN (Reason: pain) Qty: 60 0RF isopropyl alcohol in glycerin 95-5 % drops 5 drp LEFT EAR DAILY Qty: 30 0RF Trelegy Ellipta 100-62.5-25 mcg blister with device 1 inh inhalation DAILY Qty: 60 2RF pantoprazole 40 mg tablet,delayed release (DR/EC) See Rx Instructions .ROUTE .COMPLEX Qty: 90 0RF Dose Instruction: TAKE 1 TABLET BY MOUTH EVERY MORNING Rx Instructions: TAKE 1 TABLET BY MOUTH EVERY MORNING tamsulosin 0.4 mg capsule See Rx Instructions .ROUTE .COMPLEX Qty: 90 0RF Dose Instruction: TAKE 1 CAPSULE BY MOUTH DAILY Rx Instructions: TAKE 1 CAPSULE BY MOUTH DAILY Date of admission: 05/07/25 09:11 Primary Care Provider: Marian Tejada Admitting Provider: Tammie Roth Attending physician on admission: Tammie Roth Condition: Stable Quality VTE Prophylaxis VTE prophylaxis: pharmacologic ordered
== END 2025-05-08 14:15 | disposition home or self-care (01) | DRG 291 ==
LOC: ANHED 02:04 → ANH2MED 06:30
PROVIDERS: Admitting Provider General Practice; Emergency Provider Student in an Organized Health Care Education/Training Program; PCP Nurse Practitioner Family; Visit Provider Nurse Practitioner Adult Health
DX: I13.0 Hypertensive heart and chronic kidney disease with heart failure and stage 1 through stage 4 chronic kidney disease, or unspecified chronic kidney disease (principal); I50.33 Acute on chronic diastolic (congestive) heart failure; J18.9 Pneumonia, unspecified organism; J44.0 Chronic obstructive pulmonary disease with (acute) lower respiratory infection; I25.10 Atherosclerotic heart disease of native coronary artery without angina pectoris; N18.9 Chronic kidney disease, unspecified; D64.9 Anemia, unspecified; E78.5 Hyperlipidemia, unspecified; K31.84 Gastroparesis; N40.0 Benign prostatic hyperplasia without lower urinary tract symptoms; M06.9 Rheumatoid arthritis, unspecified; Z79.01 Long term (current) use of anticoagulants; Z79.82 Long term (current) use of aspirin; Z87.891 Personal history of nicotine dependence; Z95.1 Presence of aortocoronary bypass graft; Z86.0101 Personal history of adenomatous and serrated colon polyps
CPT/HCPCS: 36415; 71046; 71275; 80053; 81001; 83605; 83880; 84145; 84484; 85025; 85380; 85610; 85730; 86140; 87040; 87637; 87641; 93005; 93306; 94640; 96365; 96366; 96367; 96372; 96375; 96376; 97161; 97165; 99285; A9270; G0378; J0692; J1650; J1938; J3373; Q9967